=== PATIENT | female | born 1960 | race Caucasian/White ===

== ENCOUNTER 2019-12-10 | Outpatient (REF) | payer OTHER, SELFPAY ==
[2019-12-10 15:40] LABS: MANUAL DIFF FLAG NO
[2019-12-10 15:49] LABS: Basophils Percent Auto 0.4 % (0-2); Eosinophils Absolute Auto 0.2 X10*3/uL (0.0-0.4); Eosinophils Percent Auto 2.5 % (0-4); Hematocrit 33.6 % (37-47); Hemoglobin 10.3 g/dl (12.0-16.0); Imm Gran Abs Auto 0.03 X10*3/uL (0.00-0.03); Imm Gran Pct Auto 0.3 % (0.0-0.4); Lymphocytes Absolute Auto 3.3 X10*3/uL (1.2-4.9); Lymphocytes Percent Auto 35.8 % (20-40); Mean Corpuscular HGB Conc 30.7 g/dl (31.0-35.0); Mean Corpuscular Volume 71.8 fL (80-98); Mean Platelet Volume 10.8 fL (9.4-12.3); Monocytes Absolute Auto 0.6 X10*3/uL (0.1-1.2); Neutrophils Absolute Auto 5.1 X10*3/uL (2.0-8.3); Platelet Count 262 X10*3/uL (160-400); Red Blood Count 4.68 X10*6/uL (4.20-5.50); Red Cell Distribution Width 16.9 % (11.0-16.0); White Blood Count 9.3 X10*3/uL (4.8-10.8)
[2019-12-10 17:38] LABS: Ferritin 1652 ng/mL (10-250)
== END 2019-12-10 00:01 | disposition home or self-care (01) ==
LOC: HO.MDS
PROVIDERS: PCP Internal Medicine; Visit Provider Internal Medicine Medical Oncology
DX: D50.9 Iron deficiency anemia, unspecified (principal)
CPT/HCPCS: 36415; 82728; 85025; J2916

== ENCOUNTER 2019-12-18 13:58 | Outpatient (REF) | payer OTHER, SELFPAY | END 2019-12-18 13:59 | disposition home or self-care (01) | LOC: HO.MDS 13:58 | PROVIDERS: PCP Internal Medicine; Visit Provider Internal Medicine Medical Oncology | DX: D64.9 Anemia, unspecified (principal) ==

== ENCOUNTER 2019-12-24 | Outpatient (REF) | payer OTHER, SELFPAY | END 2019-12-24 00:01 | disposition home or self-care (01) | LOC: HO.MDS | PROVIDERS: PCP Internal Medicine; Visit Provider Internal Medicine Medical Oncology | DX: D50.9 Iron deficiency anemia, unspecified (principal) | CPT/HCPCS: 99213 ==

== ENCOUNTER 2020-01-28 15:44 | Emergency (ER) | payer OTHER, SELFPAY ==
[2020-01-28 16:15] VITALS: BP 151/81; PULSE 83; RESP 18; TEMP 36.4; O2SAT 99; BMI 36907.5
--- NOTE | 2020-01-28 17:04 | PC.NURSE ---
ORTHO BOOT APPLIED TO L FOOT.
--- NOTE | 2020-01-28 17:06 | ED_ITS ---
HPI - Extremity Injury (Lower) General Chief Complaint: Extremity Injury, Lower Stated Complaint: Leg injury Time Seen by Provider: 01/28/20 17:05 Source: patient Mode of arrival: ambulatory Limitations: no limitations History of Present Illness HPI Narrative: Presenting ambulatory with complaint of posterior foot pain after going upstairs and felt like playing sensation in her posterior foot/calf area. Denies fall or any other injury. Place: home Severity: mild Other symptoms: none Treatments prior to arrival: cold therapy Related Data Home Medications Medication Instructions Recorded Confirmed atorvastatin 80 mg tablet 80 mg PO DAILY 12/24/19 12/31/19 blood sugar diagnostic #10 ea 12/24/19 cyclobenzaprine 10 mg tablet 10 mg PO BEDTIME 12/24/19 12/31/19 diclofenac sodium 75 mg 75 mg PO BID 12/24/19 12/31/19 tablet,delayed release empagliflozin 25 mg tablet 25 mg PO DAILY 12/24/19 12/31/19 glimepiride 4 mg tablet 4 mg PO DAILY 12/24/19 12/31/19 insulin glargine 100 unit/mL (3 20 unit SUBCUT BEDTIME 12/24/19 12/31/19 mL) subcutaneous pen levalbuterol HCl 0.63 mg/3 mL 0.63 mg INHALATION Q OTHER DAY 12/24/19 12/31/19 solution for nebulization levalbuterol tartrate 45 45 mcg INHALATION Q4-6H PRN 12/24/19 12/31/19 mcg/actuation aerosol inhaler lisinopril 20 1 tab PO DAILY 12/24/19 12/31/19 mg-hydrochlorothiazide 12.5 mg tablet exenatide microspheres [Bydureon] 2 mg SUBCUT QWEEK 12/31/19 12/31/19 Previous Rx's Medication Instructions Recorded sodium,potassium,mag sulfates 17.5 See Rx Instructions PO .COMPLEX 12/24/19 gram-3.13 gram-1.6 gram oral soln #354 ml naproxen 500 mg PO BID PRN #14 tab 01/28/20 Allergies Allergy/AdvReac Type Severity Reaction Status Date / Time iodine [IODINE] Allergy Severe ANAPHYLAXIS Verified 01/28/20 16:15 Penicillins [PENICILLINS] Allergy Severe BREATHING Verified 01/28/20 16:15 PROBLEM shellfish derived Allergy Severe ANAPHYLAXIS Verified 01/28/20 16:15 clindamycin [CLINDAMYCIN] Allergy Intermediate HIVES Verified 01/28/20 16:15 milnacipran [From SAVELLA] Allergy Intermediate BRUISE Verified 01/28/20 16:15 vancomycin [VANCOMYCIN] Allergy Intermediate HIVES; Verified 01/28/20 16:15 ITCHING metformin Allergy Unknown diarrhea Verified 01/28/20 16:15 albuterol [ALBUTEROL] AdvReac Intermediate HEART RACES Verified 01/28/20 16:15 metformin AdvReac Stomach Uncoded 01/28/20 16:15 Upset Review of Systems Review of Systems: Constitutional: No Weight loss, No Fever, No Chills, No Night Sweats, No Fatigue, No Malaise ENT/Mouth: No Hearing loss, No Ear Pain, No Nasal Congestion, No Sinus Pain, No Hoarseness, No sore throat, No Rhinorrhea, No Swallowing Difficulty Eyes: No Eye Pain, No Swelling, No Redness, No Foreign Body, No Discharge, No Vision Changes Cardiovascular: No Chest Pain, No SOB, No Dyspnea on Exertion, No Orthopnea, No Edema, No Palpitations Respiratory: No Cough, No Sputum, No Wheezing, No Smoke Exposure, No Dyspnea Musculoskeletal: No joint pain, No Myalgias, No Joint Swelling Skin: No Skin Lesions, No rash Neuro: No Weakness, No Numbness, No Paresthesias, No Loss of Consciousness Psych: No Anxiety/Panic, No Depression Heme/Lymph: No Bruising, No Bleeding,No Lymphadenopathy Endocrine: No Polyuria, No Polydipsia, No Temperature Intolerance Yes all other systems are reviewed and are negative [facility] Past Medical History Medical History (Updated 01/28/20 @ 17:16 by Simon Vasques NP) Anemia Asthma Beta thalassemia trait Chronic fatigue syndrome Diabetes Diabetes mellitus Diverticular disease Fibromyalgia H/O deep vein thrombosis during 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 Hx of ectopic Iron deficiency Lipoma Microadenoma Mild hypercholesterolemia Obesity Sleep apnea Thalassemia Surgical History H/O sinus surgery H/O: hysterectomy Hx of laparoscopic gastric banding Family History Family History (Updated 12/31/19 @ 08:17 by Massiel Wang) Mother Thalassemia trait Maternal Aunt Thalassemia trait Maternal Uncle Thalassemia trait Social History Social History Smoking Status: Never smoker Use of substances other than those prescribed or required for medical reasons: No Advance Directives: No Advance Directives Information Provided: No Physical Exam Vital Signs: Vital Signs: Last Vital Signs Temp 97.6 F 01/28/20 16:15 Pulse 83 01/28/20 16:15 Resp 18 01/28/20 16:15 BP 151/81 H 01/28/20 16:15 Pulse Ox 99 01/28/20 16:15 Body Mass Index 69994.5 Reviewed Const: General: cooperative and healthy appearing; No acute distress or intoxicated appearing Nutritional Appearance: average body habitus Orientation/consciousness: patient oriented x3 HENMT: Head: Yes normal to inspection Ears: hearing grossly normal bilaterally Chest: Chest palpation & inspection: normal inspection of the chest Resp: Effort & Inspection: normal respiratory effort Cardio: Jugular venous distension: no JVD Neuro: General: patient oriented x3 Extrem: General: Yes normal to inspection Ankle/foot/toe images: 1. Squeeze test within normal limits Negative Homans No tender palpation over the ankle or bony landmarks. Course Course Course Narrative: AP consistent with strain type injury to the left lower calf though she does have history of partial Achilles tear I do not suspect this to be the case at this time consistent with more of a strain. Overall exam unremarkable. Placed in ortho boot will follow-up with orthopedics here at [facility]. Discharge Plan Discharge Clinical Impression: Strain of left calf muscle Patient Disposition: Home, Self-Care Instructions: Muscle Strain (ED) Additional Instructions: Ice, elevate Wear your orthopedic boot for comfort No strenuous activity Naproxen as needed for pain discomfort Prescription sent over to her pharmacy Follow-up with Orthopedics as discussed Return if any concerns or worsening symptoms Thank you Prescriptions: New naproxen 500 mg tablet 500 mg PO BID PRN (Reason: pain) Qty: 14 RF: 0 No Action Bydureon 2 mg/0.65 mL Pen Injector 2 mg SUBCUT QWEEK RF: 0 diclofenac sodium 75 mg tablet,delayed release (DR/EC) 75 mg PO BID RF: 0 cyclobenzaprine 10 mg tablet 10 mg PO BEDTIME RF: 0 Lantus Solostar U-100 Insulin 100 unit/mL (3 mL) insulin pen 20 unit subcut BEDTIME RF: 0 Jardiance 25 mg tablet 25 mg PO DAILY RF: 0 (DME) FreeStyle Lite Strips Strip See Rx Instructions strip .ROUTE .MEDSUPPLY Qty: 10 RF: 0 glimepiride 4 mg tablet 4 mg PO DAILY RF: 0 lisinopril-hydrochlorothiazide 20-12.5 mg tablet 1 tab PO DAILY RF: 0 atorvastatin 80 mg tablet 80 mg PO DAILY RF: 0 levalbuterol tartrate 45 mcg/actuation HFA aerosol inhaler 45 mcg inhalation Q4-6H PRN (Reason: Wheezing) RF: 0 levalbuterol HCl 0.63 mg/3 mL solution for nebulization 0.63 mg inhalation Q OTHER DAY RF: 0 Suprep Bowel Prep Kit 17.5-3.13-1.6 gram recon soln See Rx Instructions PO .COMPLEX Qty: 354 RF: 0 Referrals: Ana Whaley MD [Physician] - 1 week
== END 2020-01-28 17:22 | disposition home or self-care (01) ==
PROVIDERS: Emergency Provider Internal Medicine; PCP Internal Medicine
DX: M79.606 Pain in leg, unspecified (principal)
CPT/HCPCS: 99283

== ENCOUNTER 2020-10-20 16:12 | Outpatient (REF) | payer MEDICARE, SELFPAY ==
--- NOTE | ~2020-10-20 | MM_ITS ---
EXAMINATION: MM SCREENING DIGITAL BREAST TOMOSYNTHESIS, BILATERAL CLINICAL INFORMATION: Screening. Asymptomatic. The lifetime risk of breast cancer based on the Tyrer-Cuzick Model is 10%. COMPARISON: Mammography: 04/14/2018, 01/24/2016 TECHNIQUE: Digital breast tomosynthesis is performed in both the craniocaudal and mediolateral oblique views along with computer-aided detection (CAD). Synthesized 2D images are generated from the tomosynthesis. Additional right MLO and exaggerated right CC views are provided. FINDINGS: There are scattered areas of fibroglandular density (ACR BI-RADS breast composition Category b). There are no significant masses, abnormal calcifications, or other abnormalities. The axilla and skin contours are unremarkable. No significant changes. MM/MM tomosynthesis screening BI IMPRESSION: No mammographic evidence of malignancy. ASSESSMENT: BI-RADS 1: Negative RECOMMENDATION: Routine annual mammography screening. This patient's information was entered into a reminder system with a target due date for their next mammogram.
== END 2020-10-20 16:13 | disposition home or self-care (01) ==
LOC: HO.MAMMO 16:12
PROVIDERS: Visit Provider Internal Medicine
DX: Z12.31 Encounter for screening mammogram for malignant neoplasm of breast (principal)
CPT/HCPCS: 77063; 77067

== ENCOUNTER 2020-11-11 07:11 | Emergency (ER) | payer MEDICARE, OTHER, SELFPAY ==
--- NOTE | ~2020-11-11 | XR_ITS ---
EXAMINATION: XR KNEE, LEFT CLINICAL INFORMATION: Fell onto the knee. Pain. COMPARISON: None TECHNIQUE: Two views of the left knee. FINDINGS: There is mild loss of medial and patellofemoral compartment joint space with periarticular spurring. The large superior and inferior antecubital enthesophytes. Minimal free fluid is noted in the suprapatellar bursa. No visible acute fracture, dislocation or lytic process seen. XR/XR knee LT 2V IMPRESSION: Mild degenerative changes left knee joint with periarticular spurring. There are large enthesophytes along the anterior-inferior and superior patella. No acute fracture or dislocation seen.
[2020-11-11 07:30] VITALS: BP 135/77; PULSE 78; RESP 17; TEMP 37; O2SAT 99; BMI 37.5
--- NOTE | 2020-11-11 08:56 | ED_ITS ---
HPI - Extremity Injury (Lower) General Chief Complaint: Extremity Injury, Lower Stated Complaint: lt knee pain Time Seen by Provider: 11/11/20 08:28 Source: patient Mode of arrival: ambulatory Limitations: no limitations History of Present Illness HPI Narrative: Patient presents to ED for left knee pain. Patient states yesterday while cleaning the dog litter she slipped on some poop and fell onto her left knee. Patient denies body/head falling to the ground. Patient states only her knee hit the floor. Patient denies any dizziness before falling, loss of consciousness, chest pain, shortness of breath, or abdominal pain. Patient denies any history of any knee fracture or knee surgery. patient Did not hear any popping sound in knee. Related Data Home Medications Medication Instructions Recorded Confirmed atorvastatin 80 mg tablet 80 mg PO DAILY 12/24/19 12/31/19 blood sugar diagnostic #10 ea 12/24/19 cyclobenzaprine 10 mg tablet 10 mg PO BEDTIME 12/24/19 12/31/19 diclofenac sodium 75 mg 75 mg PO BID 12/24/19 12/31/19 tablet,delayed release empagliflozin 25 mg tablet 25 mg PO DAILY 12/24/19 12/31/19 glimepiride 4 mg tablet 4 mg PO DAILY 12/24/19 12/31/19 insulin glargine 100 unit/mL (3 20 unit SUBCUT BEDTIME 12/24/19 12/31/19 mL) subcutaneous pen levalbuterol HCl 0.63 mg/3 mL 0.63 mg INHALATION Q OTHER DAY 12/24/19 12/31/19 solution for nebulization levalbuterol tartrate 45 45 mcg INHALATION Q4-6H PRN 12/24/19 12/31/19 mcg/actuation aerosol inhaler lisinopril 20 1 tab PO DAILY 12/24/19 12/31/19 mg-hydrochlorothiazide 12.5 mg tablet exenatide microspheres 2 mg/0.65 2 mg SUBCUT QWEEK 12/31/19 12/31/19 mL subcutaneous pen injector ([employer]) Previous Rx's Medication Instructions Recorded sodium,potassium,mag sulfates 17.5 See Rx Instructions PO .COMPLEX 12/24/19 gram-3.13 gram-1.6 gram oral soln #354 ml (Suprep Bowel Prep Kit) naproxen 500 mg tablet 500 mg PO BID PRN #14 tab 01/28/20 cyclobenzaprine 10 mg tablet 10 mg PO TID PRN #15 tab 11/11/20 naproxen 500 mg tablet 500 mg PO BID PRN #20 tab 11/11/20 Allergies Allergy/AdvReac Type Severity Reaction Status Date / Time iodine [IODINE] Allergy Severe ANAPHYLAXIS Verified 01/28/20 16:15 Penicillins [PENICILLINS] Allergy Severe BREATHING Verified 01/28/20 16:15 PROBLEM shellfish derived Allergy Severe ANAPHYLAXIS Verified 01/28/20 16:15 clindamycin [CLINDAMYCIN] Allergy Intermediate HIVES Verified 01/28/20 16:15 milnacipran [From SAVELLA] Allergy Intermediate BRUISE Verified 01/28/20 16:15 vancomycin [VANCOMYCIN] Allergy Intermediate HIVES; Verified 01/28/20 16:15 ITCHING metformin Allergy Unknown diarrhea Verified 01/28/20 16:15 albuterol [ALBUTEROL] AdvReac Intermediate HEART RACES Verified 01/28/20 16:15 metformin AdvReac Stomach Uncoded 01/28/20 16:15 Upset Review of Systems Review of Systems: Yes all other systems are reviewed and are negative Constitutional: Constitutional: Reports as per HPI and Reports no additional constitutional complaints Eyes: Eyes: Reports as per HPI and Reports no additional eye complaints ENT: Reports system reviewed and no additional complaints, except as documented and Reports as per HPI Cardiovascular: Cardiovascular: Reports as per HPI and Reports no additional cardiovascular complaints Respiratory: Respiratory: Reports as per HPI and Reports no additional respiratory complaints Gastrointestinal: Gastrointestinal: Reports as per HPI and Reports no additional gastrointestinal complaints Genitourinary: Genitourinary: Reports no additional female genitourinary complaints and Reports as per HPI Musculoskeletal: Musculoskeletal: Reports no additional musculoskeletal complaints, Reports as per HPI and Reports arthralgias (left knee) Neurologic: Reports system reviewed and no additional complaints, except as documented and Reports as per HPI Psychiatric: Psychiatric: Reports no additional psychiatric complaints and Reports as per HPI [facility] Past Medical History Medical History (Updated 11/11/20 @ 09:09 by KYUNG Cary) Anemia Asthma Beta thalassemia trait Chronic fatigue syndrome Diabetes Diabetes mellitus Diverticular disease Fibromyalgia H/O deep vein thrombosis during 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 Hx of ectopic Iron deficiency Lipoma Microadenoma Mild hypercholesterolemia Obesity Sleep apnea Thalassemia Surgical History H/O sinus surgery H/O: hysterectomy Hx of laparoscopic gastric banding Family History Family History (Updated 12/31/19 @ 08:17 by Massiel Wang) Mother Thalassemia trait Maternal Aunt Thalassemia trait Maternal Uncle Thalassemia trait Social History Social History Advance Directives: No Advance Directives Information Provided: No Physical Exam Vital Signs: Vital Signs: Last Vital Signs Temp 98.6 F 11/11/20 07:30 Pulse 78 11/11/20 07:30 Resp 17 11/11/20 07:30 BP 135/77 11/11/20 07:30 Pulse Ox 99 11/11/20 07:30 Body Mass Index 37.5 Const: General: cooperative, healthy appearing, comfortable, no acute distress, well developed, alert, awake and Physically active Orientation/consciousness: patient oriented x3 HENMT: Head: Yes normal to inspection, Yes No palpable skull fracture present, Yes normocephalic, Yes atraumatic, No abrasion, No Acrocyanosis present, No Hurt's sign, No contusion, No cranial bruits, No hematoma, No laceration, No occipital foramen tenderness, No palpable skull fracture, No raccoon eyes, No scalp lesion, No scalp tenderness, No Temporal artery tenderness present and No periorbital ecchymosis Eyes: General: appearance normal, both eyes and all related structures Neck: Neck: Yes normal visual inspection, Yes full ROM, Yes no lymphadenopathy, Yes no meningeal signs, Yes trachea midline, Yes supple and No tender Chest: Chest palpation & inspection: normal inspection of the chest and normal palpation of entire chest wall Resp: Effort & Inspection: normal respiratory effort and able to speak in complete sentences Auscultation: clear to auscultation bilaterally Cardio: Jugular venous distension: no JVD Heart sounds: S1 normal heart sound present and S2 normal heart sound present GI: Inspection: Yes normal to inspection and No abdominal wall ecchymosis Palpation (GI): Soft to palpation, not firm, nontender, no guarding and not rigid : General: No CVA tenderness and Yes no CVA tenderness Back/Spine/Pelvis: Back: no CVA tenderness, No CVA tenderness and No back tenderness Skin: General skin exam: no rashes or lesions noted and elasticity normal Neuro: General: patient oriented x3, gait normal, no meningeal signs and CN's II-XI intact bilaterally Cranial nerves: Yes CN's II-XII intact bilaterally Extrem: General: Yes normal to inspection and Yes full ROM Knee images: 1. Tenderness on palpation. Negative for any erythema, ecchymosis, deformity, or elasticity. Lower extremity pulses intact. Vascular/motor/neuro exam intact 2. Tenderness on palpation. Negative for any erythema, ecchymosis, deformity, or elasticity. Lower extremity pulses intact. Vascular/motor/neuro exam intact Course Course Course Narrative: Patient sent for imaging of nv. Reevaluation(s) Reevaluation #1: Patient given Toradol knee x-ray negative for any fracture. Patient placed in knee Clint wrap. Patient will be discharged with naproxen and cyclobenzaprine. Patient discharged with muscle relaxer. Patient states she no longer take diclofenac.. MDM - Extremity Injury (Lower) MDM Narrative Medical decision making narrative: left knee sprain. contusino Discharge Plan Discharge Clinical Impression: Knee sprain, Contusion Patient Disposition: Home, Self-Care Instructions: Knee Sprain (ED), Contusion in Adults (ED) Additional Instructions: Your x-rays came back negative for any fracture injure shows arthritis. His pain is due to a possible strain in knee versus contusion. If pain continued to worsen recommend MRI by PCP to make sure there is no tear or meninscus/ ligament injury. Return to the ED immediately for any chest pain, shortness of breath, headache, dizziness, abdominal pain, nausea, vomiting, rectal bleeding, vomiting blood, neck pain, swelling of lower extremity, redness, calf pain, black bluish discoloration of stools, or any other concerning symptoms Prescriptions: New naproxen 500 mg tablet 500 mg PO BID PRN (Reason: pain) Qty: 20 RF: 0 cyclobenzaprine 10 mg tablet 10 mg PO TID PRN (Reason: pain) Qty: 15 RF: 0 No Action naproxen 500 mg tablet 500 mg PO BID PRN (Reason: pain) Qty: 14 RF: 0 Bydureon 2 mg/0.65 mL Pen Injector 2 mg SUBCUT QWEEK RF: 0 diclofenac sodium 75 mg tablet,delayed release (DR/EC) 75 mg PO BID RF: 0 cyclobenzaprine 10 mg tablet 10 mg PO BEDTIME RF: 0 Lantus Solostar U-100 Insulin 100 unit/mL (3 mL) insulin pen 20 unit subcut BEDTIME RF: 0 Jardiance 25 mg tablet 25 mg PO DAILY RF: 0 (DME) FreeStyle Lite Strips Strip See Rx Instructions strip .ROUTE .MEDSUPPLY Qty: 10 RF: 0 glimepiride 4 mg tablet 4 mg PO DAILY RF: 0 lisinopril-hydrochlorothiazide 20-12.5 mg tablet 1 tab PO DAILY RF: 0 atorvastatin 80 mg tablet 80 mg PO DAILY RF: 0 levalbuterol tartrate 45 mcg/actuation HFA aerosol inhaler 45 mcg inhalation Q4-6H PRN (Reason: Wheezing) RF: 0 levalbuterol HCl 0.63 mg/3 mL solution for nebulization 0.63 mg inhalation Q OTHER DAY RF: 0 Suprep Bowel Prep Kit 17.5-3.13-1.6 gram recon soln See Rx Instructions PO .COMPLEX Qty: 354 RF: 0 Referrals: Frances Cutler MD [Primary Care Provider] - 2 days (Left knee sprain/contusion. Recommend MRI if pain worsens. ) Stand Alone Forms: Work/School Release Interventions: ED Discharge Assessment Last Done: 11/11/20 09:30 Discharge Date/Time: 11/11/20 09:31 Print Language: Frisian
[2020-11-11] MEDS: Ketorolac Tromethamine 15 MG/ML VIAL 30 MG IM (09:01)
== END 2020-11-11 09:31 | disposition home or self-care (01) ==
PROVIDERS: Emergency Provider Emergency Medicine; PCP Internal Medicine
DX: S83.92XA Sprain of unspecified site of left knee, initial encounter (principal); S80.02XA Contusion of left knee, initial encounter; W01.0XXA Fall on same level from slipping, tripping and stumbling without subsequent striking against object, initial encounter; Y93.89 Activity, other specified; Y92.017 Garden or yard in single-family (private) house as the place of occurrence of the external cause; Y99.9 Unspecified external cause status
CPT/HCPCS: 73560; 96372; 99283; 99284; J1885

== ENCOUNTER 2020-12-26 07:27 | Outpatient (REF) | payer MEDICARE, OTHER, SELFPAY ==
[2020-12-26 07:50] LABS: MANUAL DIFF FLAG NO
[2020-12-26 08:06] LABS: Basophils Percent Auto 0.5 % (0-2); Eosinophils Absolute Auto 0.3 X10*3/uL (0.0-0.4); Hematocrit 37.4 % (37-47); Hemoglobin 11.6 g/dl (12.0-16.0); Imm Gran Abs Auto 0.03 X10*3/uL (0.00-0.03); Imm Gran Pct Auto 0.3 % (0.0-0.4); Lymphocytes Absolute Auto 3.4 X10*3/uL (1.2-4.9); Mean Corpuscular Hemoglobin 21.6 pg (27.0-33.0); Mean Corpuscular Volume 69.8 fL (80-98); Mean Platelet Volume 11.4 fL (9.4-12.3); Monocytes Absolute Auto 0.5 X10*3/uL (0.1-1.2); Monocytes Percent Auto 5.9 % (2-11); Neutrophils Absolute Auto 4.3 X10*3/uL (2.0-8.3); Neutrophils Percent Auto 50.3 % (45-73); Platelet Count 235 X10*3/uL (160-400); Red Blood Count 5.36 X10*6/uL (4.20-5.50); Red Cell Distribution Width 14.6 % (11.0-16.0); White Blood Count 8.6 X10*3/uL (4.8-10.8)
[2020-12-26 08:34] LABS: Alanine Aminotransferase 41 U/L (0-31); Anion Gap 12 (12-20); Aspartate Amino Transferase 31 U/L (5-31); Bilirubin Total 0.5 mg/dL (0.0-1.0); Blood Urea Nitrogen 11 mg/dL (9-16); Calcium 8.9 mg/dL (8.4-10.2); Carbon Dioxide 26 mmol/L (22-29); Chloride 104 mmol/L (96-108); Estimated Glomerular Filt Rate > 60; Glucose Random 331 mg/dL (60-115); Sodium 138 mmol/L (135-145); Total Protein 6.7 g/dL (6.5-8.0)
[2020-12-26 08:35] LABS: Alkaline Phosphatase 92 U/L (39-117); Cholesterol 233 mg/dL; HDL Cholesterol 38 mg/dL; LDL Cholesterol Calculated 139 mg/dl; Triglycerides 284 mg/dL
[2020-12-26 08:43] LABS: Creatinine Urine 219.76 mg/dL; Microalbum/Creatinine Ratio Ur 6.8 ug/mg cr
[2020-12-26 09:03] LABS: Hemoglobin A1c % > 14.0 %
== END 2020-12-26 07:28 | disposition home or self-care (01) ==
LOC: HO.LAB 07:27
PROVIDERS: PCP Internal Medicine; Visit Provider Internal Medicine
DX: E11.65 Type 2 diabetes mellitus with hyperglycemia (principal); E78.00 Pure hypercholesterolemia, unspecified; I10 Essential (primary) hypertension; L82.0 Inflamed seborrheic keratosis
CPT/HCPCS: 36415; 80053; 80061; 82043; 83036; 85025

== ENCOUNTER 2021-01-03 13:10 | Emergency (ER) | payer MEDICARE, OTHER, SELFPAY ==
[2021-01-03 13:18] VITALS: BP 115/76; PULSE 101; RESP 18; TEMP 37.1; O2SAT 96; BMI 36.6
[2021-01-03] MEDS: Lidocaine HCl 2 % MPF 5 ML VIAL SUBCUT (15:55)
--- NOTE | 2021-01-03 16:22 | ED_ITS ---
HPI - Skin/Abscess/Foreign Bdy General Chief complaint: Skin/Abscess/Foreign Body Stated complaint: Cysts Time Seen by Provider: 01/03/21 15:33 Source: patient Mode of arrival: ambulatory Limitations: no limitations History of Present Illness HPI narrative: 60-year-old female here with complaints of abscess to the left axilla, right buttocks and right vulva for several days. No fevers or chills. Started doxycycline on but having continued pain. Related Data Home Medications Medication Instructions Recorded Confirmed atorvastatin 80 mg tablet 80 mg PO DAILY 12/24/19 12/31/19 blood sugar diagnostic #10 ea 12/24/19 cyclobenzaprine 10 mg tablet 10 mg PO BEDTIME 12/24/19 12/31/19 diclofenac sodium 75 mg 75 mg PO BID 12/24/19 12/31/19 tablet,delayed release empagliflozin 25 mg tablet 25 mg PO DAILY 12/24/19 12/31/19 glimepiride 4 mg tablet 4 mg PO DAILY 12/24/19 12/31/19 insulin glargine 100 unit/mL (3 20 unit SUBCUT BEDTIME 12/24/19 12/31/19 mL) subcutaneous pen levalbuterol HCl 0.63 mg/3 mL 0.63 mg INHALATION Q OTHER DAY 12/24/19 12/31/19 solution for nebulization levalbuterol tartrate 45 45 mcg INHALATION Q4-6H PRN 12/24/19 12/31/19 mcg/actuation aerosol inhaler lisinopril 20 1 tab PO DAILY 12/24/19 12/31/19 mg-hydrochlorothiazide 12.5 mg tablet exenatide microspheres 2 mg/0.65 2 mg SUBCUT QWEEK 12/31/19 12/31/19 mL subcutaneous pen injector ([employer]) Previous Rx's Medication Instructions Recorded sodium,potassium,mag sulfates 17.5 See Rx Instructions PO .COMPLEX 12/24/19 gram-3.13 gram-1.6 gram oral soln #354 ml (Suprep Bowel Prep Kit) naproxen 500 mg tablet 500 mg PO BID PRN #14 tab 01/28/20 cyclobenzaprine 10 mg tablet 10 mg PO TID PRN #15 tab 11/11/20 naproxen 500 mg tablet 500 mg PO BID PRN #20 tab 11/11/20 hydrocodone 5 mg-acetaminophen 300 1 tab PO Q6H PRN #8 tab 01/03/21 mg tablet Allergies Allergy/AdvReac Type Severity Reaction Status Date / Time iodine [IODINE] Allergy Severe ANAPHYLAXIS Verified 01/28/20 16:15 Penicillins [PENICILLINS] Allergy Severe BREATHING Verified 01/28/20 16:15 PROBLEM shellfish derived Allergy Severe ANAPHYLAXIS Verified 01/28/20 16:15 clindamycin [CLINDAMYCIN] Allergy Intermediate HIVES Verified 01/28/20 16:15 milnacipran [From SAVELLA] Allergy Intermediate BRUISE Verified 01/28/20 16:15 vancomycin [VANCOMYCIN] Allergy Intermediate HIVES; Verified 01/28/20 16:15 ITCHING metformin Allergy Unknown diarrhea Verified 01/28/20 16:15 albuterol [ALBUTEROL] AdvReac Intermediate HEART RACES Verified 01/28/20 16:15 metformin AdvReac Stomach Uncoded 01/28/20 16:15 Upset Review of Systems Review of Systems: Yes all other systems are reviewed and are negative Constitutional: Constitutional: Reports no additional constitutional complaints, Denies body ache(s), Denies chills, Denies fever(s), Denies headache(s) and Denies weakness Eyes: Eyes: Reports no additional eye complaints and Denies change in vision ENT: Reports system reviewed and no additional complaints, except as docum ented, Denies dizziness, Denies headache(s), Denies nasal congestion, Denies nasal discharge and Denies neck pain Cardiovascular: Cardiovascular: Reports no additional cardiovascular complaints, Denies chest pain, Denies leg edema and Denies dyspnea Respiratory: Respiratory: Reports no additional respiratory complaints, Denies cough and Denies dyspnea Gastrointestinal: Gastrointestinal: Reports no additional gastrointestinal complaints, Denies abdominal pain, Denies diarrhea, Denies nausea and Denies vomiting Genitourinary: Genitourinary: Reports no additional female genitourinary complaints and Denies urinary incontinence Musculoskeletal: Musculoskeletal: Reports no additional musculoskeletal complaints, Denies back pain, Denies arthralgias, Denies joint swelling, Denies neck pain, Denies numbness and Denies tingling Integumentary/Breasts: Skin/Breast: Reports system reviewed and no additional complaints, except as docu, Reports furuncle, Reports swelling, Reports erythema and Denies rash Neurologic: Reports system reviewed and no additional complaints, except as documented, Denies Abnormal speech present, Denies dizziness, Denies headache(s), Denies numbness, Denies tingling and Denies weakness PMFSH Past Medical History Attestation statement: The following information was validated with the patient. 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 Hx of ectopic Iron deficiency Lipoma Microadenoma Mild hypercholesterolemia Obesity Sleep apnea Thalassemia Surgical History H/O sinus surgery H/O: hysterectomy Hx of laparoscopic gastric banding Family History Family History Mother Thalassemia trait Maternal Aunt Thalassemia trait Maternal Uncle Thalassemia trait Social History Social History Advance Directives: No Advance Directives Information Provided: No Patient : No Physical Exam Vital Signs: Vital Signs: Last Vital Signs Temp 98.8 F 01/03/21 13:18 Pulse 101 H 01/03/21 13:18 Resp 18 01/03/21 13:18 BP 115/76 01/03/21 13:18 Pulse Ox 96 01/03/21 13:18 Body Mass Index 36.6 Const: General: cooperative, healthy appearing, comfortable and no acute distress Orientation/consciousness: patient oriented x3 Limitations: no limitations HENMT: Head: Yes normal to inspection Ears: hearing grossly normal bilaterally General nose exam: Normal external nose present Face and sinus: Yes normal facial exam Mouth: Normal oral and palatal mucosa present Throat: Yes posterior oropharynx normal Eyes: General: appearance normal, both eyes and all related structures Pupils: Equal, round and reactive pupils present Neck: Neck: Yes normal visual inspection Chest: Chest palpation & inspection: normal inspection of the chest Chest/axillae images: 1. medium size abscess with firmness. No fluctuance or pointing. There is tenderness. No lymphadenopathy Resp: Effort & Inspection: normal respiratory effort Auscultation: clear to auscultation bilaterally Cardio: Rate: regular rate Rhythm: regular rhythm Peripheral pulses: Peripheral pulses 2+ throughout GI: Inspection: Yes normal to inspection Palpation (GI): Soft to palpation and nontender Auscultation: normal bowel sounds : Female genitals images: 1. Medium abscess with fluctuance, tenderness and swelling Back/Spine/Pelvis: Other: To the right buttocks there is a medium-sized abscess with induration. No fluctuance or pointing. There is tenderness Thoracic/Lumbar Spine: thoracic and lumbar spine normal to inspection Skin: General skin exam: no rashes or lesions noted Neuro: General: patient oriented x3, no focal motor deficits and normal sensation to monofilament Cranial nerves: Yes Equal, round and reactive pupils present Cognition (Neuro): normal cognition Speech: No Abnormal speech present Gait exam (Neuro): Normal gait present Motor exam (neuro): 5/5 motor strength present throughout Extrem: General: Yes normal to inspection Course Course Course Narrative: 60-year-old female here with 3 abscesses 1 that needs incision and drainage. She is on doxycycline already no fevers or chills well appearing.. See procedure note for right vulvar abscess I and D. Patient to return in 48 hours for wound check and packing removal. Recommend she continue doxycycline. Will prescribe analgesia for home. Reviewed worrisome signs and symptoms return to the emergency department. Comfortable discharge home. MDM - Skin/Abscess/Foreign Bdy Medical Records Attestation: I reviewed the patient's medical records. Lab Data Attestation: I reviewed the patient's lab results. Procedures Abscess I/D Site: other (Right vulva) Side (if applicable): right Local Anesthetic: lidocaine 2% Technique: incised with blade Amount of fluid expressed (mL): 8 Sent for culture/gram staining?: No Irrigation: No Packing used?: iodoform Discharge Plan Discharge Clinical Impression: Abscess of skin or subcutaneous tissue Patient Disposition: Home, Self-Care Instructions: Abscess (ED), Abscess Incision and Drainage (DC) Additional Instructions: Packing removal in 48 hrs Seek care for increasing redness, swelling, fevers Continue antibiotics Prescriptions: New hydrocodone-acetaminophen 5-300 mg tablet 1 tab PO Q6H PRN (Reason: pain) Qty: 8 RF: 0 No Action naproxen 500 mg tablet 500 mg PO BID PRN (Reason: pain) Qty: 14 RF: 0 naproxen 500 mg tablet 500 mg PO BID PRN (Reason: pain) Qty: 20 RF: 0 cyclobenzaprine 10 mg tablet 10 mg PO TID PRN (Reason: pain) Qty: 15 RF: 0 Bydureon 2 mg/0.65 mL Pen Injector 2 mg SUBCUT QWEEK RF: 0 diclofenac sodium 75 mg tablet,delayed release (DR/EC) 75 mg PO BID RF: 0 cyclobenzaprine 10 mg tablet 10 mg PO BEDTIME RF: 0 Lantus Solostar U-100 Insulin 100 unit/mL (3 mL) insulin pen 20 unit subcut BEDTIME RF: 0 Jardiance 25 mg tablet 25 mg PO DAILY RF: 0 (DME) FreeStyle Lite Strips Strip See Rx Instructions strip .ROUTE .MEDSUPPLY Qty: 10 RF: 0 glimepiride 4 mg tablet 4 mg PO DAILY RF: 0 lisinopril-hydrochlorothiazide 20-12.5 mg tablet 1 tab PO DAILY RF: 0 atorvastatin 80 mg tablet 80 mg PO DAILY RF: 0 levalbuterol tartrate 45 mcg/actuation HFA aerosol inhaler 45 mcg inhalation Q4-6H PRN (Reason: Wheezing) RF: 0 levalbuterol HCl 0.63 mg/3 mL solution for nebulization 0.63 mg inhalation Q OTHER DAY RF: 0 Suprep Bowel Prep Kit 17.5-3.13-1.6 gram recon soln See Rx Instructions PO .COMPLEX Qty: 354 RF: 0 Referrals: Frances Cutler MD [Primary Care Provider] - 2 days
[2021-01-03] MEDS: oxyCODONE HCl Immed Release 5 MG TABLET PO (17:20)
== END 2021-01-03 17:23 | disposition home or self-care (01) ==
PROVIDERS: Emergency Provider Emergency Medicine; PCP Internal Medicine
DX: N76.4 Abscess of vulva (principal); Z79.899 Other long term (current) drug therapy
CPT/HCPCS: 56405; 99284

== ENCOUNTER 2021-01-10 09:32 | Emergency (ER) | payer MEDICARE, OTHER, SELFPAY ==
--- NOTE | ~2021-01-10 | US_ITS ---
EXAMINATION: TARGETED ULTRASOUND EXAMINATION RIGHT BUTTOCK REGION CLINICAL INFORMATION: Question abscess COMPARISON: None TECHNIQUE: Targeted ultrasound evaluation of the right buttocks FINDINGS: In the region that the patient indicates about the right buttocks there is a hypoechoic region which is irregularly shaped measuring approximately 6 mm in size. This lies approximately 7 mm from the skin surface. There is noted to be large amount of adjacent edema within the subcutaneous tissues. No internal vascularity is appreciated. There is some peripheral vascularity. US/US extremity nonvascular IMPRESSION: Subcutaneous edema with small 6 mm hypoechoic region about the right buttocks which could be related to small abscess or fluid collection.
[2021-01-10 09:34] VITALS: BP 136/83; PULSE 86; RESP 18; TEMP 35.9; O2SAT 99; BMI 35.8
--- NOTE | 2021-01-10 10:09 | ED_ITS ---
HPI - Recheck/Abnormal Lab/Rx General Chief Complaint: Wound/Laceration Stated Complaint: cyst Time Seen by Provider: 01/10/21 09:47 Source: patient Mode of arrival: ambulatory Limitations: no limitations History of Present Illness HPI narrative: 60-year-old female presenting to the ED with request for recheck of her cellulitis/abscesses that were I&D on 01/03/2021. She reports that she was seen at a different location and was placed on doxycycline/Bactrim the before she was seen here along with pain meds and she is taking the doxycycline and Bactrim as prescribed and she believes that the left axillary and the right labia abscess is better and completely here old although she is concerned about the right buttocks abscess that it is now more red than it was before. She denies a history of MRSA. She denies any fevers, chills, streaking, body aches come recent travel or sick contacts or any other symptoms complaints or concerns at this time. MD complaint: wound re-check Initial visit (ago): week(s) (One week ago on 01/03/2021) Initial visit for: cellulitis and abscess Returns today for: wound recheck and cellulitis follow-up Symptoms since prior visit: worsening redness (To the right buttocks) Associated symptoms: none Treatments prior to arrival: other (She was prescribed doxycycline and Bactrim and pain meds on at a different location and is taking as prescribed as not had to take the pain meds) Related Data Home Medications Medication Instructions Recorded Confirmed atorvastatin 80 mg tablet 80 mg PO DAILY 12/24/19 12/31/19 blood sugar diagnostic #10 ea 12/24/19 cyclobenzaprine 10 mg tablet 10 mg PO BEDTIME 12/24/19 12/31/19 diclofenac sodium 75 mg 75 mg PO BID 12/24/19 12/31/19 tablet,delayed release empagliflozin 25 mg tablet 25 mg PO DAILY 12/24/19 12/31/19 glimepiride 4 mg tablet 4 mg PO DAILY 12/24/19 12/31/19 insulin glargine 100 unit/mL (3 20 unit SUBCUT BEDTIME 12/24/19 12/31/19 mL) subcutaneous pen levalbuterol HCl 0.63 mg/3 mL 0.63 mg INHALATION Q OTHER DAY 12/24/19 12/31/19 solution for nebulization levalbuterol tartrate 45 45 mcg INHALATION Q4-6H PRN 12/24/19 12/31/19 mcg/actuation aerosol inhaler lisinopril 20 1 tab PO DAILY 12/24/19 12/31/19 mg-hydrochlorothiazide 12.5 mg tablet exenatide microspheres 2 mg/0.65 2 mg SUBCUT QWEEK 12/31/19 12/31/19 mL subcutaneous pen injector (Wipster) Previous Rx's Medication Instructions Recorded sodium,potassium,mag sulfates 17.5 See Rx Instructions PO .COMPLEX 12/24/19 gram-3.13 gram-1.6 gram oral soln #354 ml (Suprep Bowel Prep Kit) naproxen 500 mg tablet 500 mg PO BID PRN #14 tab 01/28/20 cyclobenzaprine 10 mg tablet 10 mg PO TID PRN #15 tab 11/11/20 naproxen 500 mg tablet 500 mg PO BID PRN #20 tab 11/11/20 hydrocodone 5 mg-acetaminophen 300 1 tab PO Q6H PRN #8 tab 01/03/21 mg tablet Allergies Allergy/AdvReac Type Severity Reaction Status Date / Time iodine [IODINE] Allergy Severe ANAPHYLAXIS Verified 01/28/20 16:15 Penicillins [PENICILLINS] Allergy Severe BREATHING Verified 01/28/20 16:15 PROBLEM shellfish derived Allergy Severe ANAPHYLAXIS Verified 01/28/20 16:15 clindamycin [CLINDAMYCIN] Allergy Intermediate HIVES Verified 01/28/20 16:15 milnacipran [From SAVELLA] Allergy Intermediate BRUISE Verified 01/28/20 16:15 vancomycin [VANCOMYCIN] Allergy Intermediate HIVES; Verified 01/28/20 16:15 ITCHING metformin Allergy Unknown diarrhea Verified 01/28/20 16:15 albuterol [ALBUTEROL] AdvReac Intermediate HEART RACES Verified 01/28/20 16:15 metformin AdvReac Stomach Uncoded 01/28/20 16:15 Upset Review of Systems Review of Systems: Constitutional : No Fever, No Chills, Cardiovascular : No Chest Pain, No SOB Respiratory : No Dyspnea Gastrointestinal : No abdominal pain Musculoskeletal : No Joint Swelling Skin : positive skin erythema, no skin laceration, No Foreign bodies, No rash Neuro : No Weakness, No Numbness/tingling Psych : No SI/HI/thoughts of self injury Yes all other systems are reviewed and are negative [facility] Past Medical History Attestation statement: The following information was validated with the patient. 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 Hx of ectopic Iron deficiency Lipoma Microadenoma Mild hypercholesterolemia Obesity Sleep apnea Thalassemia Surgical History H/O sinus surgery H/O: hysterectomy Hx of laparoscopic gastric banding Family History Family History Mother Thalassemia trait Maternal Aunt Thalassemia trait Maternal Uncle Thalassemia trait Social History Social History Advance Directives: No Patient : No Physical Exam Vital Signs: Vital Signs: Last Vital Signs Temp 96.6 F L 01/10/21 09:34 Pulse 86 01/10/21 09:34 Resp 18 01/10/21 09:34 BP 136/83 01/10/21 09:34 Pulse Ox 99 01/10/21 09:34 Body Mass Index 35.8 vital signs have been reviewed as normal and appeared to be correct. Blood pressure normal Heart rate normal. Respiration rate normal. Temperature normal. Oxygen saturation normal. Appearance: Alert. Oriented X3. No acute distress. Head: Normal external exam. Normocephalic. Atraumatic. Eyes: PERRLA. EOMI. Conjunctiva and sclera normal. Eyelids normal. ENT: Pharynx normal. Uvula midline. Moist mucous membranes. Neck: Normal inspection. Neck supple. FROM. CVS: Normal heart rate and rhythm. Respiratory: No respiratory distress. Painless inspiration. Skin: Skin warm and dry. Normal skin color. Normal skin turgor. No rashes/lesions/lacerations noted. /Buttocks area: To the right labia patient has a well-healing wound no surrounding erythema tenderness to palpation or drainage noted. To the right buttocks patient has mild induration with tenderness palpation and erythema no streaking/fluctuance or purulent drainage noted. Extremities: No lower extremity edema. Extremities exhibit normal range of motion. Extremities nontender. Neuro: Oriented X 3. No motor deficit. No sensory deficit. Reflexes normal. Normal steady gait. No focal neuro deficits noted. Course Course Course Narrative: 9:55am - 60-year-old female presenting to the ED with request for recheck of her cellulitis/abscesses that were I&D on 01/03/2021. She reports that she was seen at a different location and was placed on doxycycline/Bactrim the before she was seen here along with pain meds and she is taking the doxycycline and Bactrim as prescribed and she believes that the left axillary and the right labia abscess is better and completely here old although she is concerned about the right buttocks abscess that it is now more red than it was before. She denies a history of MRSA. She denies any fevers, chills, streaking, body aches come recent travel or sick contacts or any other symptoms complaints or concerns at this time. Will obtain a soft tissue ultrasound of right buttocks if negative will instruct to continue taking her previously prescribed antibiotics as previously prescribed and to return if any new or worsening symptoms. Patient understands agrees with this plan. Reevaluation(s) Reevaluation #1: - ultrasound obtained reveals subcutaneous edema with a small 6 mm hypoechoic region about the right buttocks which could be related to small abscess or fluid collection.? - therefore I explained this to the patient and recommended an I and D for a pos sible abscess although patient is declining she does not really want to have a repeat I&D and she wants to continue taking her antibiotics reports she has approximately 1 week left and she has an appointment with her PCP on Tuesday and she would rather just do warm compresses and follow up with her PCP to see if he gets better at that time. Therefore I explained to her if it gets worse she needs to return although to follow-up with her PCP on Tuesday and to keep taking her antibiotics as previously prescribed. Patient understands agrees with this plan. Time: 11:24 [facility] - Recheck/Abnormal Lab/Rx Medical Records Attestation: I reviewed the patient's medical records. Imaging Data Soft tissue ultrasound of right buttock: Attestation: I personally reviewed and interpreted this imaging study as follows: Radiologist's impression: FINDINGS: In the region that the patient indicates about the right buttocks there is a hypoechoic region which is irregularly shaped measuring approximately 6 mm in size. This lies approximately 7 mm from the skin surface. There is noted to be large amount of adjacent edema within the subcutaneous tissues. No internal vascularity is appreciated. There is some peripheral vascularity.? US/US extremity nonvascular IMPRESSION: Subcutaneous edema with small 6 mm hypoechoic region about the right buttocks which could be related to small abscess or fluid collection.? Discharge Plan Discharge Clinical Impression: Abscess, Cellulitis Patient Disposition: Home, Self-Care Instructions: Cellulitis (ED), Warm Compress or Soak (ED) Additional Instructions: Continue taking your previously prescribed antibiotics as previously prescribed. Please follow-up with her primary care provider on Tuesday as scheduled. Return if any new or worsening symptoms. Prescriptions: No Action naproxen 500 mg tablet 500 mg PO BID PRN (Reason: pain) Qty: 14 RF: 0 naproxen 500 mg tablet 500 mg PO BID PRN (Reason: pain) Qty: 20 RF: 0 cyclobenzaprine 10 mg tablet 10 mg PO TID PRN (Reason: pain) Qty: 15 RF: 0 Bydureon 2 mg/0.65 mL Pen Injector 2 mg SUBCUT QWEEK RF: 0 hydrocodone-acetaminophen 5-300 mg tablet 1 tab PO Q6H PRN (Reason: pain) Qty: 8 RF: 0 diclofenac sodium 75 mg tablet,delayed release (DR/EC) 75 mg PO BID RF: 0 cyclobenzaprine 10 mg tablet 10 mg PO BEDTIME RF: 0 Lantus Solostar U-100 Insulin 100 unit/mL (3 mL) insulin pen 20 unit subcut BEDTIME RF: 0 Jardiance 25 mg tablet 25 mg PO DAILY RF: 0 (DME) FreeStyle Lite Strips Strip See Rx Instructions strip .ROUTE .MEDSUPPLY Qty: 10 RF: 0 glimepiride 4 mg tablet 4 mg PO DAILY RF: 0 lisinopril-hydrochlorothiazide 20-12.5 mg tablet 1 tab PO DAILY RF: 0 atorvastatin 80 mg tablet 80 mg PO DAILY RF: 0 levalbuterol tartrate 45 mcg/actuation HFA aerosol inhaler 45 mcg inhalation Q4-6H PRN (Reason: Wheezing) RF: 0 levalbuterol HCl 0.63 mg/3 mL solution for nebulization 0.63 mg inhalation Q OTHER DAY RF: 0 Suprep Bowel Prep Kit 17.5-3.13-1.6 gram recon soln See Rx Instructions PO .COMPLEX Qty: 354 RF: 0 Referrals: Frances Cutler MD [Primary Care Provider] - 2 days Print Language: Belizean
== END 2021-01-10 11:40 | disposition home or self-care (01) ==
PROVIDERS: Emergency Provider Emergency Medicine Emergency Medical Services; PCP Internal Medicine
DX: L03.317 Cellulitis of buttock (principal); Z79.899 Other long term (current) drug therapy
CPT/HCPCS: 76882; 99283; 99284

== ENCOUNTER 2021-02-12 09:33 | Emergency (ER) | payer MEDICARE, OTHER, SELFPAY ==
--- NOTE | ~2021-02-12 | CT_ITS ---
EXAMINATION: CT ABDOMEN AND PELVIS WITHOUT CONTRAST CLINICAL INFORMATION: Tenderness to palpation of the abdomen. Black stool. Abdominal pain. COMPARISON: 03/29/2019 TECHNIQUE: Multidetector volumetric imaging was performed from the superior aspect of the liver through the pubic symphysis. Sagittal and coronal reformatted images were obtained on the technologist's workstation. This CT examination was performed using dose optimization techniques as appropriate, variously including the following: *Automated exposure control *Adjustment of mA and/or kV according to patient size (this includes techniques or standardized protocols for targeted exams where dose is matched to indication/reason for exam; i.e. extremities or head) *Use of iterative reconstruction technique DLP: 646 mGy-cm FINDINGS: LUNG BASES: The visualized lung bases are unremarkable. LIVER, GALLBLADDER, AND BILIARY TREE: The liver is normal in size, shape, and attenuation. No focal hepatic lesion or biliary ductal dilatation is present. The gallbladder is unremarkable with no evidence of radiopaque gallstones, gallbladder wall thickening, or obvious pericholecystic inflammatory changes. PANCREAS: Unremarkable. SPLEEN: Unremarkable. ADRENAL GLANDS: Unremarkable. KIDNEYS AND URETERS: The kidneys are normal in size, shape, and attenuation. No hydronephrosis, hydroureter, or calculi seen. No perinephric stranding. BLADDER: Unremarkable. GASTROINTESTINAL TRACT: The stomach is unremarkable. Normal caliber small bowel. No obstruction. Normal appendix. No colonic wall thickening or acute inflammatory change. There is prominent diverticulosis at the sigmoid colon. No evidence of diverticulitis. No free air or free fluid. ABDOMINAL WALL: Small fat-containing ventral abdominal wall hernias noted. LYMPH NODES: Normal. VASCULAR: Unremarkable. PELVIC VISCERA: Uterus is not seen. No adnexal mass. OSSEOUS STRUCTURES: No acute or suspicious osseous abnormality. Mild degenerative changes of the spine and hips. CT/CT abdomen pelvis wo con IMPRESSION: No acute findings of the abdomen or pelvis. Colonic diverticulosis without diverticulitis. No inflammatory changes. Fleischner guidelines were followed.
[2021-02-12 09:55] VITALS: BP 139/82; PULSE 88; RESP 18; TEMP 36.6; O2SAT 99; BMI 37.1
[2021-02-12] MEDS: 0.9 % Sodium Chloride 1,000 ML 999 ML IVCONT (10:23)
[2021-02-12 10:28] LABS: MANUAL DIFF FLAG NO
[2021-02-12 10:29] LABS: Basophils Percent Auto 0.3 % (0-2); Eosinophils Absolute Auto 0.2 X10*3/uL (0.0-0.4); Eosinophils Percent Auto 2.7 % (0-4); Hematocrit 34.1 % (37.0-47.0); Hemoglobin 10.6 g/dl (12.0-16.0); Imm Gran Abs Auto 0.03 X10*3/uL (0.00-0.03); Imm Gran Pct Auto 0.3 % (0.0-0.4); Lymphocytes Absolute Auto 2.5 X10*3/uL (1.2-4.9); Lymphocytes Percent Auto 28.7 % (20-40); Mean Corpuscular HGB Conc 31.1 g/dl (31.0-35.0); Mean Corpuscular Volume 70.7 fL (80.0-98.0); Mean Platelet Volume 11.1 fL (9.4-12.3); Monocytes Absolute Auto 0.5 X10*3/uL (0.1-1.2); Monocytes Percent Auto 5.4 % (2-11); Neutrophils Absolute Auto 5.4 x10*3/uL (2.0-8.3); Neutrophils Percent Auto 62.6 % (45-73); Platelet Count 267 X10*3/uL (160-400); Red Blood Count 4.82 X10*6/uL (4.20-5.50); Red Cell Distribution Width 15.8 % (11.0-16.0); White Blood Count 8.7 X10*3/uL (4.8-10.8)
[2021-02-12 10:33] LABS: OBS Int Ctl Valid YES; OBS1 NEGATIVE (NEGATIVE)
--- NOTE | 2021-02-12 10:33 | ED_ITS ---
HPI - Abdominal Pain General Chief Complaint: Abdominal Pain Stated Complaint: abd pain Time Seen by Provider: 02/12/21 10:04 Source: patient Mode of arrival: ambulatory History of Present Illness HPI narrative: 60-year-old female with a past medical history of anemia, asthma, diabetes, fibromyalgia, HSV, hyperlipidemia, sleep apnea, thalassemia, diverticulitis, presenting to the emergency department complaining of left lower quadrant abdominal pain, nausea, diarrhea, and black stools since yesterday. Admits symptoms were on and off x1 week however worsening. Admits to taking Pepto-Bismol for diarrhea. Reports symptoms feel similar to prior diverticulitis. Denies fever, chills, vomiting, constipation, dysuria/hematuria, flank pain MD elicited complaint: abdominal pain Onset (ago): day(s) Related Data Home Medications Medication Instructions Recorded Confirmed atorvastatin 80 mg tablet 80 mg PO DAILY 12/24/19 12/31/19 blood sugar diagnostic #10 ea 12/24/19 cyclobenzaprine 10 mg tablet 10 mg PO BEDTIME 12/24/19 12/31/19 diclofenac sodium 75 mg 75 mg PO BID 12/24/19 12/31/19 tablet,delayed release empagliflozin 25 mg tablet 25 mg PO DAILY 12/24/19 12/31/19 glimepiride 4 mg tablet 4 mg PO DAILY 12/24/19 12/31/19 insulin glargine 100 unit/mL (3 20 unit SUBCUT BEDTIME 12/24/19 12/31/19 mL) subcutaneous pen levalbuterol HCl 0.63 mg/3 mL 0.63 mg INHALATION Q OTHER DAY 12/24/19 12/31/19 solution for nebulization levalbuterol tartrate 45 45 mcg INHALATION Q4-6H PRN 12/24/19 12/31/19 mcg/actuation aerosol inhaler lisinopril 20 1 tab PO DAILY 12/24/19 12/31/19 mg-hydrochlorothiazide 12.5 mg tablet exenatide microspheres 2 mg/0.65 2 mg SUBCUT QWEEK 12/31/19 12/31/19 mL subcutaneous pen injector (Bydureon) Previous Rx's Medication Instructions Recorded sodium,potassium,mag sulfates 17.5 See Rx Instructions PO .COMPLEX 12/24/19 gram-3.13 gram-1.6 gram oral soln #354 ml (Suprep Bowel Prep Kit) naproxen 500 mg tablet 500 mg PO BID PRN #14 tab 01/28/20 cyclobenzaprine 10 mg tablet 10 mg PO TID PRN #15 tab 11/11/20 naproxen 500 mg tablet 500 mg PO BID PRN #20 tab 11/11/20 hydrocodone 5 mg-acetaminophen 300 1 tab PO Q6H PRN #8 tab 01/03/21 mg tablet Allergies Allergy/AdvReac Type Severity Reaction Status Date / Time iodine [IODINE] Allergy Severe ANAPHYLAXIS Verified 01/28/20 16:15 Penicillins [PENICILLINS] Allergy Severe BREATHING Verified 01/28/20 16:15 PROBLEM shellfish derived Allergy Severe ANAPHYLAXIS Verified 01/28/20 16:15 clindamycin [CLINDAMYCIN] Allergy Intermediate HIVES Verified 01/28/20 16:15 milnacipran [From SAVELLA] Allergy Intermediate BRUISE Verified 01/28/20 16:15 vancomycin [VANCOMYCIN] Allergy Intermediate HIVES; Verified 01/28/20 16:15 ITCHING metformin Allergy Unknown diarrhea Verified 01/28/20 16:15 albuterol [ALBUTEROL] AdvReac Intermediate HEART RACES Verified 01/28/20 16:15 metformin AdvReac Stomach Uncoded 01/28/20 16:15 Upset Review of Systems Review of Systems Constitutional: No Fever, No Chills, No Fatigue, No Malaise ENT/Mouth:No Ear Pain, No Nasal Congestion, No sore throat, No Rhinorrhea Eyes: No Eye Pain, No Swelling, No Redness, No Discharge, No Vision Changes Cardiovascular: No Chest Pain, No SOB, No Dyspnea on Exertion, No Orthopnea, No Edema, No Palpitations Respiratory: No Cough, No Dyspnea Gastrointestinal: + Nausea, No Vomiting, + Diarrhea, No Constipation, + Abdominal pain, +black stool Genitourinary: No Dysuria, No Urinary Frequency, No Hematuria, No Flank Pain, No Urinary Flow Changes Musculoskeletal: No joint pain, No Myalgias, No Joint Swelling Skin: No Skin Lesions, No rash Neuro: No Weakness, No Dizziness, No Headache Yes all other systems are reviewed and are negative Physical Exam Vital Signs: Vital Signs: Last Vital Signs Temp 97.8 F 02/12/21 09:55 Pulse 88 02/12/21 09:55 Resp 18 02/12/21 09:55 BP 139/82 12/09/21 09:55 Pulse Ox 99 02/12/21 09:55 BMI result Body Mass Index 37.1 Const: General: cooperative, healthy appearing and no acute distress Orientation/consciousness: patient oriented x3 Limitations: no limitations HENMT: Head: Yes normal to inspection Ears: hearing grossly normal bilaterally General nose exam: Normal external nose present Face and sinus: Yes normal facial exam Eyes: General: appearance normal, both eyes and all related structures EOM: EOMs intact bilaterally Neck: Neck: Yes normal visual inspection Resp: Effort & Inspection: normal respiratory effort and no respiratory distress Auscultation: clear to auscultation bilaterally Cardio: Rate: regular rate Heart sounds: S1 normal heart sound present and S2 normal heart sound present GI: Inspection: Yes normal to inspection Palpation (GI): Soft to palpation, Tenderness to palpation present (GI) (diffuse), no guarding and not rigid : Other: + black stool noted on rectal General: Yes no CVA tenderness Back/Spine/Pelvis: Back: no CVA tenderness Skin: Rashes: no rashes Wounds: no wounds Neuro: General: patient oriented x3 Gait exam (Neuro): Normal gait present Extrem: General: Yes normal to inspection Course Course Course Narrative: -1143--no leukocytosis. H&H at patient's baseline. Labs otherwise unremarkable. Occult stool negative CT abdomen pelvis wo con IMPRESSION: No acute findings of the abdomen or pelvis. Colonic diverticulosis without diverticulitis. No inflammatory changes.? ? Fleischner guidelines were followed. >> results discussed with patient including recent signs and symptoms and strict return precautions. Patient reports she has follow-up with Dr. Regan [facility] - Abdominal Pain [facility] Narrative Medical decision making narrative: 60-year-old female with a past medical history of anemia, asthma, diabetes, fibromyalgia, HSV, hyperlipidemia, sleep apnea, thalassemia, diverticulitis, presenting to the emergency department complaining of left lower quadrant abdominal pain, nausea, diarrhea, and black stools since yesterday. On exam vitals signs stable, NAD/nontoxic, abdomen soft diffusely tender to palpation, no rebound or guarding. Black stool noted on rectal. Concern for diverticulitis vs appendicitis vs occult GI bleed vs Pepto- Bismol black stools. Lower concern for cholecystitis/cholelithiasis, pancreatitis, pyelo or UTI Plan: Labs, UA, CT abdomen/pelvis, IVF, occult stool, re-evaluate Differential Diagnosis Differential diagnosis: Likely abdominal pain, acute appendicitis, constipation, diverticulitis, gastroenteritis, pancreatitis and small bowel obstruction Medical Records Attestation: I reviewed the patient's medical records. Lab Data Attestation: I reviewed the patient's lab results. Result diagrams: 02/12/21 10:21 02/12/21 10:21 Labs: Lab Results 02/12/21 02/12/21 02/12/21 Range/Units 10:21 10:21 10:21 WBC 8.7 (4.8-10.8) X10*3/uL RBC 4.82 (4.20-5.50) X10*6/uL Hgb 10.6 L (12.0-16.0) g/dl Hct 34.1 L (37.0-47.0) % MCV 70.7 L (80.0-98.0) fL MCH 22.0 L (27.0-33.0) pg MCHC 31.1 (31.0-35.0) g/dl RDW 15.8 (11.0-16.0) % Plt Count 267 (160-400) X10*3/uL MPV 11.1 (9.4-12.3) fL Immature Gran % (Auto) 0.3 (0.0-0.4) % Neut % (Auto) 62.6 (45-73) % Lymph % (Auto) 28.7 (20-40) % Throckmorton % (Auto) 5.4 (2-11) % Eos % (Auto) 2.7 (0-4) % Baso % (Auto) 0.3 (0-2) % Lymph # (Auto) 2.5 (1.2-4.9) X10*3/uL Throckmorton # (Auto) 0.5 (0.1-1.2) X10*3/uL Eos # (Auto) 0.2 (0.0-0.4) X10*3/uL Baso # (Auto) 0.0 (0.0-0.2) X10*3/uL Abs Immat Gran (auto) 0.03 (0.00-0.03) X10*3/uL Absolute Neuts (auto) 5.4 (2.0-8.3) x10*3/uL Absolute Nucleated RBC 0.000 (0.0-0.012) X10*3/uL Nucleated RBC % (auto) 0.0 (0.0-0.2) /100WBC Sodium 140 (135-145) mmol/L Potassium 4.1 (3.3-5.1) mmol/L Chloride 107 (96-108) mmol/L Carbon Dioxide 27 (22-29) mmol/L Anion Gap 10 L (12-20) BUN 17 H (9-16) mg/dL Creatinine 0.82 (0.5-1.4) mg/dL Estim Creat Clear Calc 79.0 Estimated GFR > 60 Random Glucose 137 H (60-115) mg/dL Calcium 9.0 (8.4-10.2) mg/dL Magnesium 2.0 (1.6-2.6) mg/dL Total Bilirubin 0.4 (0.0-1.0) mg/dL Direct Bilirubin 0.2 (0.0-0.5) mg/dL AST 16 D (5-31) U/L ALT 21 (0-31) U/L Alkaline Phosphatase 70 D (39-117) U/L Total Protein 6.7 (6.5-8.0) g/dL Albumin 4.0 (3.5-5.0) g/dL Lipase 16 (8-78) U/L Stool Occult Blood NEGATIVE (NEGATIVE) Discharge Plan Discharge Clinical Impression: Abdominal pain Qualifiers: Abdominal location: generalized Qualified Code(s): R10.84 - Generalized abdominal pain Patient Disposition: Home, Self-Care Instructions: Abdominal Pain (ED) Additional Instructions: Your blood work was reassuring today in the emergency department Your CT scan was unremarkable If her symptoms persist or worsen, pain becomes unbearable, you are unable to eat or drink or developed fever please return to the emergency department Please follow-up with your doctor as scheduled Prescriptions: No Action naproxen 500 mg tablet 500 mg PO BID PRN (Reason: pain) Qty: 14 RF: 0 naproxen 500 mg tablet 500 mg PO BID PRN (Reason: pain) Qty: 20 RF: 0 cyclobenzaprine 10 mg tablet 10 mg PO TID PRN (Reason: pain) Qty: 15 RF: 0 Bydureon 2 mg/0.65 mL Pen Injector 2 mg SUBCUT QWEEK RF: 0 hydrocodone-acetaminophen 5-300 mg tablet 1 tab PO Q6H PRN (Reason: pain) Qty: 8 RF: 0 diclofenac sodium 75 mg tablet,delayed release (DR/EC) 75 mg PO BID RF: 0 cyclobenzaprine 10 mg tablet 10 mg PO BEDTIME RF: 0 Lantus Solostar U-100 Insulin 100 unit/mL (3 mL) insulin pen 20 unit subcut BEDTIME RF: 0 Jardiance 25 mg tablet 25 mg PO DAILY RF: 0 (DME) FreeStyle Lite Strips Strip See Rx Instructions strip .ROUTE .MEDSUPPLY Qty: 10 RF: 0 glimepiride 4 mg tablet 4 mg PO DAILY RF: 0 lisinopril-hydrochlorothiazide 20-12.5 mg tablet 1 tab PO DAILY RF: 0 atorvastatin 80 mg tablet 80 mg PO DAILY RF: 0 levalbuterol tartrate 45 mcg/actuation HFA aerosol inhaler 45 mcg inhalation Q4-6H PRN (Reason: Wheezing) RF: 0 levalbuterol HCl 0.63 mg/3 mL solution for nebulization 0.63 mg inhalation Q OTHER DAY RF: 0 Suprep Bowel Prep Kit 17.5-3.13-1.6 gram recon soln See Rx Instructions PO .COMPLEX Qty: 354 RF: 0 Referrals: Jonathan Regan MD [Physician] - 3 days PMF Past Medical History Attestation statement: The following information was validated with the patient. 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
[2021-02-12 10:52] LABS: Alanine Aminotransferase 21 U/L (0-31); Alkaline Phosphatase 70 U/L (39-117); Anion Gap 10 (12-20); Aspartate Amino Transferase 16 U/L (5-31); Bilirubin Direct 0.2 mg/dL (0.0-0.5); Bilirubin Total 0.4 mg/dL (0.0-1.0); Blood Urea Nitrogen 17 mg/dL (9-16); Carbon Dioxide 27 mmol/L (22-29); Chloride 107 mmol/L (96-108); Estimated Glomerular Filt Rate > 60; Glucose Random 137 mg/dL (60-115); Lipase 16 U/L (8-78); Potassium 4.1 mmol/L (3.3-5.1); Sodium 140 mmol/L (135-145); Total Protein 6.7 g/dL (6.5-8.0)
== END 2021-02-12 12:06 | disposition home or self-care (01) ==
PROVIDERS: Physician Assistant; Emergency Provider Emergency Medicine; PCP Internal Medicine
DX: R10.84 Generalized abdominal pain (principal); R11.0 Nausea; E11.9 Type 2 diabetes mellitus without complications; E78.5 Hyperlipidemia, unspecified; Z79.02 Long term (current) use of antithrombotics/antiplatelets; Z79.4 Long term (current) use of insulin
CPT/HCPCS: 36415; 74176; 80048; 80076; 82272; 83690; 83735; 85025; 96360; 99283; 99284

== ENCOUNTER → 2021-02-23 14:25 | Outpatient (BNVA) | payer MEDICARE, OTHER, SELFPAY | PROVIDERS: PCP Internal Medicine; Visit Provider Surgery | DX: K57.90 Diverticulosis of intestine, part unspecified, without perforation or abscess without bleeding (principal) | CPT/HCPCS: 99212 ==

== ENCOUNTER 2021-04-07 07:47 | Outpatient (REF) | payer MEDICARE, OTHER, SELFPAY ==
[2021-04-07 09:14] LABS: Estimated Average Glucose 174 mg/dL; Hemoglobin A1c % 7.7 %
[2021-04-07 09:23] LABS: Alanine Aminotransferase 13 U/L (0-31); Albumin Level 4.2 g/dL (3.5-5.0); Alkaline Phosphatase 73 U/L (39-117); Anion Gap 12 (12-20); Aspartate Amino Transferase 12 U/L (5-31); Bilirubin Total 0.6 mg/dL (0.0-1.0); Blood Urea Nitrogen 10 mg/dL (9-16); Calcium 9.4 mg/dL (8.4-10.2); Carbon Dioxide 29 mmol/L (22-29); Chloride 104 mmol/L (96-108); Cholesterol 134 mg/dL; Estimated Glomerular Filt Rate > 60; Glucose Random 148 mg/dL (60-115); HDL Cholesterol 40 mg/dL; LDL Cholesterol Calculated 67 mg/dl; Potassium 4.1 mmol/L (3.3-5.1); Sodium 141 mmol/L (135-145); Total Protein 7.1 g/dL (6.5-8.0); Triglycerides 136 mg/dL
== END 2021-04-07 07:48 | disposition home or self-care (01) ==
LOC: HO.LAB 07:47
PROVIDERS: PCP Internal Medicine; Visit Provider Internal Medicine
DX: E11.9 Type 2 diabetes mellitus without complications (principal); E78.00 Pure hypercholesterolemia, unspecified; L02.33 Carbuncle of buttock
CPT/HCPCS: 36415; 80053; 80061; 83036

== ENCOUNTER 2021-05-08 13:33 | Outpatient (REF) | payer MEDICARE, OTHER, SELFPAY ==
--- NOTE | ~2021-05-08 | XR_ITS ---
EXAMINATION: XR SHOULDER, LEFT CLINICAL INFORMATION: Pain COMPARISON: Previous right shoulder x-ray November 2019 TECHNIQUE: AP external rotation, Grashey, scapular Y, and axillary views of the left shoulder. FINDINGS: The bones and soft tissues are normal. No fracture. Glenohumeral and acromioclavicular alignment is anatomic with normal joint space. There is inferior extension of the acromion similar to the right shoulder. No abnormal soft tissue calcifications. XR/XR shoulder LT min 2V IMPRESSION: No fracture or dislocation. Inferior extension of the left acromion which may put the shoulder at risk for rotator cuff degeneration similar to the right.
== END 2021-05-08 13:34 | disposition home or self-care (01) ==
LOC: HO.HOSX 13:33
PROVIDERS: Visit Provider Physician Assistant
DX: M25.512 Pain in left shoulder (principal); M75.42 Impingement syndrome of left shoulder; Z98.84 Bariatric surgery status; Z88.8 Allergy status to other drugs, medicaments and biological substances; Z88.9 Allergy status to unspecified drugs, medicaments and biological substances; Z88.0 Allergy status to penicillin; Z91.013 Allergy to seafood
CPT/HCPCS: 73030; 99212

== ENCOUNTER → 2021-05-13 16:11 | Outpatient (BNVA) | payer MEDICARE, OTHER, SELFPAY | PROVIDERS: PCP Internal Medicine; Referring Provider Internal Medicine; Visit Provider Surgery | DX: K57.90 Diverticulosis of intestine, part unspecified, without perforation or abscess without bleeding (principal) | CPT/HCPCS: 99212 ==

== ENCOUNTER → 2021-05-29 13:48 | Outpatient (BNVA) | payer MEDICARE, OTHER, SELFPAY | PROVIDERS: PCP Internal Medicine; Referring Provider Internal Medicine; Visit Provider Physician Assistant Surgical | DX: E66.9 Obesity, unspecified (principal); Z68.37 Body mass index [BMI] 37.0-37.9, adult | CPT/HCPCS: 99202 ==

== ENCOUNTER → 2021-06-19 08:23 | Outpatient (BNVA) | payer MEDICARE, OTHER, SELFPAY | PROVIDERS: PCP Internal Medicine; Referring Provider Physician Assistant Surgical; Visit Provider Dietitian, Registered | DX: Z13.89 Encounter for screening for other disorder (principal) ==

== ENCOUNTER → 2021-06-25 08:41 | Outpatient (BNVA) | payer MEDICARE, OTHER, SELFPAY | PROVIDERS: PCP Internal Medicine; Referring Provider Physician Assistant Surgical; Visit Provider Counselor Mental Health | DX: Z13.89 Encounter for screening for other disorder (principal) ==

== ENCOUNTER → 2021-07-07 08:15 | Outpatient (BNVA) | payer MEDICARE, OTHER, SELFPAY | PROVIDERS: PCP Internal Medicine; Referring Provider Physician Assistant Surgical; Visit Provider Dietitian, Registered | DX: Z13.89 Encounter for screening for other disorder (principal) ==

== ENCOUNTER → 2021-07-28 08:14 | Outpatient (BNVA) | payer MEDICARE, OTHER, SELFPAY | PROVIDERS: PCP Internal Medicine; Visit Provider Physician Assistant Surgical | DX: Z13.89 Encounter for screening for other disorder (principal) ==

== ENCOUNTER 2021-08-19 10:58 | Outpatient (REF) | payer MEDICARE, OTHER, SELFPAY ==
--- NOTE | ~2021-08-19 | US_ITS ---
EXAMINATION: US COMPLETE ABDOMEN WITH LIVER ELASTOGRAPHY CLINICAL INFORMATION: Obesity. COMPARISON: None. TECHNIQUE: Real-time imaging of the abdominal viscera. Noninvasive ultrasound liver fibrosis assessment is performed using Errol ElastPQ point quantification shear wave elastography (2D-SWE) with a C5-2 MHz transducer. Multiple elastography samples are obtained. FINDINGS: PANCREAS: The visualized pancreatic head and body are normal in appearance. The tail of the pancreas is obscured from visualization by the overlying bowel gas. ABDOMINAL AORTA: The proximal, middle, and distal aortic segments are normal in caliber. INFERIOR VENA CAVA: Visualized portions are normal. LIVER: The liver demonstrates normal size, contour and increased echogenicity. No focal lesion or intrahepatic biliary duct dilatation. The right lobe measures 14.9 cm in length. The left lobe measures 11.5 cm in length. Portal flow is hepatopedal Shear wave liver elastography median stiffness is 1.48 m/s (reference: normal median stiffness is 1.3 m/s or less). IQR/median stiffness to assess sampling precision is 0.06 (reference: good quality data set is IQR/median stiffness of 0.15 or less). GALLBLADDER: Normal. The gallbladder is physiologically distended without evidence of stones, sludge, polyps, wall thickening or pericholecystic fluid. COMMON BILE DUCT: Normal in caliber measuring 0.4 cm in diameter. RIGHT KIDNEY: Normal. No hydronephrosis. No renal calculi or focal parenchymal lesions. The kidney measures 10.8 cm in maximum dimension. LEFT KIDNEY: Normal. No hydronephrosis. No renal calculi or focal parenchymal lesions. The kidney measures 10.9 cm in maximum dimension. SPLEEN: Normal. The spleen measures 10.4 cm in maximum dimension. FREE FLUID: None. US/US abdomen comp w elastography IMPRESSION: 1. Hepatic steatosis without focal lesion. The rest of the abdominal ultrasound is unremarkable. 2. Liver elastography: Median liver stiffness 1.48 m/s corresponds to cACLD (ruled out). REFERENCE: Society of Radiologists in Ultrasound Liver Stiffness Thresholds (2019): LIVER STIFFNESS THRESHOLDS: *Liver Stiffness equal or less than 1.3 m/s: High probability of being normal. *Liver Stiffness less than 1.7 m/s: In the absence of other known clinical signs, rules out compensated advanced chronic liver disease. *Liver Stiffness 1.7-2.1 m/s: Suggestive of compensated advanced chronic liver disease but need further test for confirmation. *Liver Stiffness over 2.1 m/s: Rules in compensated advanced chronic liver disease. *Liver Stiffness over 2.4 m/s: Suggestive of clinically significant portal hypertension. QUALITY OF DATA SET: *IQR/Median value equal or less than 0.15 implies a quality data set. *IQR/Median value over 0.15 implies a poor quality data set. SIGNIFICANT CHANGE FROM PRIOR EXAM: Significant change if liver stiffness measurement is 10% or greater from prior exam. OTHER CONSIDERATIONS: The stage of liver fibrosis may be overestimated in the setting of acute hepatitis, liver inflammation, elevated liver function tests, hepatic vascular congestion, obstructive cholestasis, non-fasting state, and infiltrative diseases such as amyloidosis and lymphoma. In some patients with NAFLD, the liver stiffness thresholds for compensated advanced chronic liver disease may be lower. In causes other than viral hepatitis and NAFLD, liver stiffness thresholds are not well established.
== END 2021-08-19 10:59 | disposition home or self-care (01) ==
LOC: HO.US 10:58
PROVIDERS: Visit Provider Physician Assistant
DX: E66.9 Obesity, unspecified (principal)
CPT/HCPCS: 76705; 76981

== ENCOUNTER 2021-08-25 10:21 | Outpatient (REF) | payer MEDICARE, OTHER, SELFPAY ==
--- NOTE | ~2021-08-25 | FL_ITS ---
EXAMINATION: XR FLUOROSCOPY UPPER GI WITH AIR CLINICAL INFORMATION: Obesity COMPARISON: None TECHNIQUE: Routine upper GI air-contrast study was performed in upright and lying position. FINDINGS: Following oral administration of thick barium and effervescent granules in upright standing view there is normal propagation bolus from the oral cavity through the pharynx, esophagus into stomach without any evidence of obstruction, narrowing or stricture. The course, caliber and peristalsis of the stomach is normal. On placing patient supine lying there is mild gastroesophageal reflux with a small sliding hiatal hernia. The mucosal pattern of the stomach, duodenal bulb and the sweep is normal. No gastric erosions or ulcerations seen. The duodenal bulb and the sweep is widely patent. FLUOROSCOPY TIME: 1.8 minutes Dose area product:: 26.578 uGy-m2 (microgray-meter squared) FL/FL upper GI w air IMPRESSION: Small sliding hiatal hernia with mild gastroesophageal reflux..
--- NOTE | ~2021-08-25 | XR_ITS ---
EXAMINATION: XR CHEST CLINICAL INFORMATION: Bariatric service evaluation. E66.9. COMPARISON: Chest radiographs 03/09/2018, 08/22/2015 TECHNIQUE: 2 views of the chest were obtained. FINDINGS: Lungs clear. No infiltrate or effusion. The heart is normal in size. The vascularity is normal. The hilar and mediastinal contours are similar to prior studies. There are degenerative changes again seen thoracic spine. No significant changes. XR/XR chest 2V IMPRESSION: Unremarkable examination.
== END 2021-08-25 10:22 | disposition home or self-care (01) ==
LOC: HO.XRAY 10:21
PROVIDERS: Visit Provider Physician Assistant
DX: Z01.818 Encounter for other preprocedural examination (principal); E66.9 Obesity, unspecified; K44.9 Diaphragmatic hernia without obstruction or gangrene; K21.9 Gastro-esophageal reflux disease without esophagitis
CPT/HCPCS: 71046; 74246

== ENCOUNTER 2021-09-23 20:02 | Emergency (ER) | payer MEDICARE, OTHER, SELFPAY ==
--- NOTE | ~2021-09-23 | XR_ITS ---
EXAMINATION: XR KNEE, LEFT CLINICAL INFORMATION: Knee pain COMPARISON: Left knee 11/11/2020 TECHNIQUE: Four views of the left knee. FINDINGS: Again seen are degenerative changes in the left knee, slightly progressed when compared to the prior exam with some mild increase in joint space narrowing. There is narrowing of the medial and lateral compartment with associated marginal osteophytes. Posterior patellar osteophytes are seen as well with a tiny knee joint effusion. At the head of the proximal fibula there is a small bone fragment seen with sclerotic edges on each side, unchanged from prior, not indicative of an acute injury. XR/XR knee LT 4V IMPRESSION: Redemonstration of tricompartmental degenerative changes in the knee without evidence of an acute injury
[2021-09-23 20:49] VITALS: BP 147/83; PULSE 94; RESP 18; TEMP 37.2; O2SAT 97; BMI 36.2
--- NOTE | 2021-09-24 00:30 | ED_ITS ---
HPI - Extremity Injury (Lower) General Chief Complaint: Extremity Injury, Lower Stated Complaint: knee pain Time Seen by Provider: 09/24/21 00:30 Source: patient Mode of arrival: ambulatory Limitations: no limitations History of Present Illness HPI Narrative: Patient has chronic arthritis of the knee today while going upstairs notice increased pain and swelling of the left knee as in the past no direct trauma pat ient ambulatory assist Related Data Home Medications Medication Instructions Recorded Confirmed atorvastatin 80 mg tablet 80 mg PO DAILY 12/24/19 05/14/21 blood sugar diagnostic #10 ea 12/24/19 05/14/21 empagliflozin 25 mg tablet 25 mg PO DAILY 12/24/19 05/14/21 glimepiride 4 mg tablet 4 mg PO DAILY 12/24/19 05/14/21 levalbuterol HCl 0.63 mg/3 mL 0.63 mg inhalation Q OTHER DAY 12/24/19 05/14/21 solution for nebulization wheezing levalbuterol tartrate 45 45 mcg inhalation Q4-6H PRN 12/24/19 05/14/21 mcg/actuation aerosol inhaler Wheezing exenatide microspheres 2 mg/0.65 2 mg subcut QWEEK 12/31/19 05/14/21 mL subcutaneous pen injector ([employer]) empagliflozin 10 mg tablet 10 mg PO DAILY 05/29/21 (Jardiance) loratadine 10 mg tablet 10 mg PO DAILY 05/29/21 montelukast 10 mg tablet 10 mg PO DAILY 05/29/21 pen needle, diabetic 32 gauge x #50 ea 05/29/21 (BD Ana 2nd Gen Pen Needle) prednisone 20 mg tablet 0 mg PO 05/29/21 Previous Rx's Medication Instructions Recorded naproxen 500 mg tablet 500 mg PO BID PRN pain #20 tabs 11/11/20 diclofenac sodium 50 mg 50 mg PO BID PRN pain #40 tabs 09/24/21 tablet,delayed release tramadol 50 mg tablet 50 mg PO Q8H PRN pain #20 tabs 09/24/21 Allergies Allergy/AdvReac Type Severity Reaction Status Date / Time iodine [IODINE] Allergy Severe ANAPHYLAXIS Verified 05/29/21 13:54 Penicillins [PENICILLINS] Allergy Severe BREATHING Verified 05/29/21 13:54 PROBLEM shellfish derived Allergy Severe ANAPHYLAXIS Verified 05/29/21 13:54 clindamycin [CLINDAMYCIN] Allergy Intermediate HIVES Verified 05/29/21 13:54 milnacipran [From SAVELLA] Allergy Intermediate BRUISE Verified 05/29/21 13:54 vancomycin [VANCOMYCIN] Allergy Intermediate HIVES; Verified 05/29/21 13:54 ITCHING metformin Allergy Unknown diarrhea Verified 05/29/21 13:54 albuterol [ALBUTEROL] AdvReac Intermediate HEART RACES Verified 05/29/21 13:54 metformin AdvReac Stomach Uncoded 05/08/21 14:32 Upset Review of Systems Review of Systems: Yes all other systems are reviewed and are negative [facility] Past Medical History Medical History Anemia Asthma Beta thalassemia trait Chronic fatigue syndrome Diabetes Diabetes mellitus Diverticular disease Diverticular disease Fibromyalgia H/O deep vein thrombosis during 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 Brother Heart problem Brother No problems noted. Brother No problems noted. 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 Diffuse tenderness with effusion good range of movement anterior drawer sign negative Elvin sign negative MDM - Extremity Injury (Lower) MDM Narrative Medical decision making narrative: Patient was chronic arthritis of the knee came with flare-up of the arthritis already seen orthopedics in the past will apply Clint wrap advised to follow with Orthopedics give pain medicine Discharge Plan Discharge Clinical Impression: Knee derangement syndrome Patient Disposition: Home, Self-Care Instructions: Knee Sprain (ED) Additional Instructions: Rest your left knee Wear Clint wrap/knee brace for support Pain medicine as prescribed Follow with Orthopedics Prescriptions: New diclofenac sodium 50 mg tablet,delayed release (DR/EC) 50 mg PO BID PRN (Reason: pain) Qty: 40 0RF tramadol 50 mg tablet 50 mg PO Q8H PRN (Reason: pain) Qty: 20 0RF No Action naproxen 500 mg tablet 500 mg PO BID PRN (Reason: pain) Qty: 20 0RF Bydureon 2 mg/0.65 mL Pen Injector 2 mg SUBCUT QWEEK Jardiance 25 mg tablet 25 mg PO DAILY (DME) FreeStyle Lite Strips Strip See Rx Instructions .ROUTE .MEDSUPPLY Qty: 10 Rx Instructions: As directed glimepiride 4 mg tablet 4 mg PO DAILY atorvastatin 80 mg tablet 80 mg PO DAILY levalbuterol tartrate 45 mcg/actuation HFA aerosol inhaler 45 mcg inhalation Q4-6H PRN (Reason: Wheezing) levalbuterol HCl 0.63 mg/3 mL solution for nebulization 0.63 mg inhalation Q OTHER DAY prednisone 20 mg tablet 0 mg PO montelukast 10 mg tablet 10 mg PO DAILY loratadine 10 mg tablet 10 mg PO DAILY (DME) pen needle, diabetic [BD Ana 2nd Gen Pen Needle] 32 gauge x 5/32 needle See Rx Instructions .ROUTE .MEDSUPPLY Qty: 50 Rx Instructions: As directed Jardiance 10 mg tablet 10 mg PO DAILY Interventions: ED Discharge Assessment Last Done: 09/24/21 00:58 Discharge Date/Time: 09/24/21 00:59
[2021-09-24] MEDS: traMADoL HCL 50 MG TABLET PO (00:53)
[2021-09-24] MEDS: Ibuprofen 600 MG TABLET PO (00:54)
--- NOTE | 2021-09-24 00:57 | PC.NURSE ---
pt transferred self to [facility] via W/c, no c/o dizziness. c/o moderate pain, medicated with ibuprofen and tramadol. dc per wc to [facility]
== END 2021-09-24 00:59 | disposition home or self-care (01) ==
PROVIDERS: Emergency Provider Internal Medicine
DX: M23.8X2 Other internal derangements of left knee (principal); M25.562 Pain in left knee; E11.9 Type 2 diabetes mellitus without complications; I10 Essential (primary) hypertension; E66.9 Obesity, unspecified; Z68.36 Body mass index [BMI] 36.0-36.9, adult; Z79.02 Long term (current) use of antithrombotics/antiplatelets; Z79.899 Other long term (current) drug therapy
CPT/HCPCS: 73564; 99283

== ENCOUNTER 2021-12-05 07:48 | Outpatient (REF) | payer MEDICARE, OTHER, SELFPAY ==
--- NOTE | ~2021-12-05 | MM_ITS ---
EXAMINATION: MM SCREENING DIGITAL BREAST TOMOSYNTHESIS, BILATERAL CLINICAL INFORMATION: Screening. Asymptomatic. The lifetime risk of breast cancer based on the Tyrer-Cuzick Model is 12%. COMPARISON: Mammography: 10/20/2020, 04/14/2018, 01/24/2016 TECHNIQUE: Digital breast tomosynthesis is performed in both the craniocaudal and mediolateral oblique views along with computer-aided detection (CAD). Synthesized 2D images are generated from the tomosynthesis. FINDINGS: There are scattered areas of fibroglandular density (ACR BI-RADS breast composition Category b). Parenchymal pattern is similar to prior studies. There is small intramammary node central lower right breast similar to prior exams. Low right axillary tail nodes are stable. There is no significant mass or architectural abnormality or abnormal calcifications. No significant changes. MM/MM tomosynthesis screening BI IMPRESSION: No mammographic evidence of malignancy. ASSESSMENT: BI-RADS 1: Negative RECOMMENDATION: Routine annual mammography screening. This patient's information was entered into a reminder system with a target due date for their next mammogram.
== END 2021-12-05 07:49 | disposition home or self-care (01) ==
LOC: HO.MAMMO 07:48
PROVIDERS: PCP Internal Medicine; Visit Provider Internal Medicine
DX: Z12.31 Encounter for screening mammogram for malignant neoplasm of breast (principal)
CPT/HCPCS: 77063; 77067

== ENCOUNTER 2021-12-31 08:07 | Outpatient (REF) | payer MEDICARE, OTHER, SELFPAY ==
[2021-12-31 09:28] LABS: Estimated Average Glucose 292 mg/dL; Hemoglobin A1c % 11.8 %
[2021-12-31 09:56] LABS: Alanine Aminotransferase 26 U/L (0-31); Alkaline Phosphatase 69 U/L (39-117); Anion Gap 14 (12-20); Aspartate Amino Transferase 19 U/L (5-31); Bilirubin Total 0.5 mg/dL (0.0-1.0); Blood Urea Nitrogen 16 mg/dL (9-16); Carbon Dioxide 25 mmol/L (22-29); Chloride 104 mmol/L (96-108); Cholesterol 164 mg/dL; Estimated Glomerular Filt Rate > 60; Glucose Random 238 mg/dL (60-115); HDL Cholesterol 49 mg/dL; LDL Cholesterol Calculated 86 mg/dl; Potassium 4.2 mmol/L (3.3-5.1); Sodium 139 mmol/L (135-145); Total Protein 6.5 g/dL (6.5-8.0); Triglycerides 145 mg/dL
[2021-12-31 10:06] LABS: Thyroid Stimulating Hormone 1.36 uIU/mL (0.32-4.0)
[2021-12-31 10:16] LABS: Vitamin B12 291 pg/mL (200-900)
[2021-12-31 10:38] LABS: Creatinine Urine 232.57 mg/dL; Microalbum/Creatinine Ratio Ur 3.8 ug/mg cr
== END 2021-12-31 08:08 | disposition home or self-care (01) ==
LOC: HO.LAB 08:07
PROVIDERS: PCP Internal Medicine; Visit Provider Internal Medicine
DX: G47.33 Obstructive sleep apnea (adult) (pediatric) (principal); E11.65 Type 2 diabetes mellitus with hyperglycemia; E78.00 Pure hypercholesterolemia, unspecified; I10 Essential (primary) hypertension
CPT/HCPCS: 36415; 80053; 80061; 82043; 82607; 83036; 84443

== ENCOUNTER 2022-01-17 14:30 | Emergency (ER) | payer MEDICARE, OTHER, SELFPAY ==
--- NOTE | ~2022-01-17 | XR_ITS ---
EXAMINATION: XR CHEST CLINICAL INFORMATION: Dyspnea COMPARISON: August 25, 2021 TECHNIQUE: PA view of the chest was obtained. FINDINGS: No significant abnormality is noted involving the heart, lungs, mediastinum, bony thorax or soft tissues. XR/XR chest 1V IMPRESSION: No acute disease.
[2022-01-17 14:51] VITALS: BP 145/71; PULSE 80; RESP 20; TEMP 36.7; O2SAT 98; BMI 36.2
--- NOTE | 2022-01-17 14:53 | ECG_ITS ---
Test Reason : Dyspnea Blood Pressure : / mmHG Vent. Rate : 072 BPM Atrial Rate : 072 BPM P-R Int : 192 ms QRS Dur : 086 ms QT Int : 386 ms P-R-T Axes : 036 046 047 degrees QTc Int : 422 ms Normal sinus rhythm Normal ECG When compared with ECG of 07-JUL-2016 14:59, No significant change was found Referred By: Generic ED Physician Electronically Signed By:JOSE HENLEY MD
[2022-01-17 15:10] LABS: Hematocrit 34.3 % (37.0-47.0); Hemoglobin 10.5 g/dl (12.0-16.0); Mean Corpuscular HGB Conc 30.6 g/dl (31.0-35.0); Mean Corpuscular Hemoglobin 21.4 pg (27.0-33.0); Mean Corpuscular Volume 69.9 fL (80.0-98.0); Mean Platelet Volume 10.6 fL (9.4-12.3); Platelet Count 239 X10*3/uL (160-400); Red Blood Count 4.91 X10*6/uL (4.20-5.50); Red Cell Distribution Width 15.9 % (11.0-16.0); White Blood Count 8.4 X10*3/uL (4.8-10.8)
[2022-01-17 15:33] LABS: Anion Gap 15 (12-20); Blood Urea Nitrogen 13 mg/dL (9-16); Calcium 8.9 mg/dL (8.4-10.2); Carbon Dioxide 25 mmol/L (22-29); Chloride 104 mmol/L (96-108); Creatinine Clr Calc Pharmacy 85.3; Estimated Glomerular Filt Rate > 60; Glucose Random 139 mg/dL (60-115); Potassium 3.9 mmol/L (3.3-5.1); Sodium 140 mmol/L (135-145)
[2022-01-17 15:41] LABS: Troponin-I High Sensitivity < 3.5 ng/L (<3.5-17.0)
[2022-01-17 18:38] LABS: Influenza A PCR NEGATIVE (Negative); Influenza B PCR NEGATIVE (Negative); Resp Syncy Virus RNA Qual PCR NEGATIVE (Negative); SARS COV2 PCR INHOUSE NEGATIVE (Negative)
[2022-01-17 19:26] VITALS: BP 134/70; PULSE 75; RESP 18; TEMP 36.2; O2SAT 99
[2022-01-17 20:00] VITALS: BP 114/72; PULSE 71; RESP 14; TEMP 36.8; O2SAT 99
--- NOTE | 2022-01-17 21:32 | ED.SOB ---
HPI - SOB/Dyspnea General Chief Complaint: Dyspnea Stated Complaint: possible pneumonia or bronchitis Time Seen by Provider: 01/17/22 19:59 Source: patient Mode of arrival: ambulatory History of Present Illness HPI Narrative: 61-year-old female with past medical history of diabetes and asthma presents to emergency department today with a cough. Patient states that she has been sick for approximately 2-3 weeks and is not improving. She has been on prednisone taper in the past, without improvement. Had not had a chest x-ray until coming to the emergency department today. Denies any fevers, chills. Recent COVID test negative. MD elicited complaint: cough Pertinent past history: asthma Timing: constant and progressively worsening Severity: moderate Exacerbating factors: nothing Associated symptoms: denies other symptoms Related Data Home oxygen amount: none Home Medications Medication Instructions Recorded Confirmed atorvastatin 80 mg tablet 80 mg PO DAILY 12/24/19 05/14/21 blood sugar diagnostic #10 ea 12/24/19 05/14/21 empagliflozin 25 mg tablet 25 mg PO DAILY 12/24/19 05/14/21 glimepiride 4 mg tablet 4 mg PO DAILY 12/24/19 05/14/21 levalbuterol HCl 0.63 mg/3 mL 0.63 mg inhalation Q OTHER DAY 12/24/19 05/14/21 solution for nebulization wheezing levalbuterol tartrate 45 45 mcg inhalation Q4-6H PRN 12/24/19 05/14/21 mcg/actuation aerosol inhaler Wheezing exenatide microspheres 2 mg/0.65 2 mg subcut QWEEK 12/31/19 05/14/21 mL subcutaneous pen injector (Bynava) empagliflozin 10 mg tablet 10 mg PO DAILY 05/29/21 (Jardiance) loratadine 10 mg tablet 10 mg PO DAILY 05/29/21 montelukast 10 mg tablet 10 mg PO DAILY 05/29/21 pen needle, diabetic 32 gauge x #50 ea 05/29/21 (BD Ana 2nd Gen Pen Needle) prednisone 20 mg tablet 0 mg PO 05/29/21 Previous Rx's Medication Instructions Recorded naproxen 500 mg tablet 500 mg PO BID PRN pain #20 tabs 11/11/20 diclofenac sodium 50 mg 50 mg PO BID PRN pain #40 tabs 09/24/21 tablet,delayed release tramadol 50 mg tablet 50 mg PO Q8H PRN pain #20 tabs 09/24/21 inhalational spacing device #1 ea 01/17/22 (Aerochamber Plus Z Stat spacer) prednisone 20 mg tablet 40 mg PO DAILY #10 tabs 01/17/22 Allergies Allergy/AdvReac Type Severity Reaction Status Date / Time iodine [IODINE] Allergy Severe ANAPHYLAXIS Verified 05/29/21 13:54 Penicillins [PENICILLINS] Allergy Severe BREATHING Verified 05/29/21 13:54 PROBLEM shellfish derived Allergy Severe ANAPHYLAXIS Verified 05/29/21 13:54 clindamycin [CLINDAMYCIN] Allergy Intermediate HIVES Verified 05/29/21 13:54 milnacipran [From SAVELLA] Allergy Intermediate BRUISE Verified 05/29/21 13:54 vancomycin [VANCOMYCIN] Allergy Intermediate HIVES; Verified 05/29/21 13:54 ITCHING metformin Allergy Unknown diarrhea Verified 05/29/21 13:54 albuterol [ALBUTEROL] AdvReac Intermediate HEART RACES Verified 05/29/21 13:54 metformin AdvReac Stomach Uncoded 05/08/21 14:32 Upset Review of Systems Review of Systems: Yes all other systems are reviewed and are negative Constitutional: Constitutional: Denies chills, Denies fever(s) and Denies weakness Eyes: Eyes: Denies blurry vision, Denies change in vision and Denies eye pain ENT: Reports system reviewed and no additional complaints, except as documented Cardiovascular: Cardiovascular: Denies chest pain, Denies lightheadedness and Denies Loss of Consciousness Respiratory: Respiratory: Denies chest congestion, Reports cough and Reports wheezing Gastrointestinal: Gastrointestinal: Denies diarrhea, Denies nausea and Denies vomiting Musculoskeletal: Musculoskeletal: Reports no additional musculoskeletal complaints and Denies numbness Neurologic: Denies Abnormal speech present, Denies numbness, Denies paresthesias and Denies weakness Allergic/Immunologic: Allergic/Immunologic: Reports wheezing [facility] Past Medical History Attestation statement: The following information was validated with the patient. 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 Brother Heart problem Brother No problems noted. Brother No problems noted. 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 Exam Vital Signs: Vital Signs: Last Vital Signs Temp 98.3 F 01/17/22 20:00 Pulse 80 01/17/22 22:01 Resp 18 01/17/22 22:01 BP 114/72 01/17/22 20:00 Pulse Ox 99 01/17/22 20:00 O2 Del Method 01/17/22 20:00 BMI result Body Mass Index 36.2 Vital signs normal Const: General: cooperative, healthy appearing and comfortable Orientation/consciousness: patient oriented x3 HEENT: Head: Yes normal to inspection, Yes normocephalic and Yes atraumatic General nose exam: Normal external nose present Face and sinus: Yes normal facial exam Mouth: Normal oral and palatal mucosa present Eyes: Conjunctivae: conjunctivae normal Sclerae: sclerae normal Neck: Neck: Yes normal visual inspection and Yes full ROM Resp: Effort & Inspection: able to speak in complete sentences, audible wheezes and Actively coughing Cardio: Rate: regular rate Rhythm: regular rhythm GI: Inspection: Yes normal to inspection Palpation (GI): nontender Skin: General skin exam: no rashes or lesions noted, no ecchymosis and no pallor Neuro: General: patient oriented x3 Cranial nerves: Yes CN's II-XII intact bilaterally Cognition (Neuro): normal cognition Speech: No Abnormal speech present Medications Administered Discontinued Medications Generic Name Dose Route Start Last Admin Trade Name Freq PRN Reason Stop Dose Admin Levalbuterol HCl 1.25 mg 01/17/22 21:21 01/17/22 21:58 Levalbuterol Hcl 1.25 Mg/0.5 Ml Vial.Neb INHALE 01/17/22 21:22 1.25 mg ONCE ONE Administration Prednisone 40 mg 01/17/22 21:21 01/17/22 21:48 Prednisone 20 Mg Tablet PO 01/17/22 21:22 40 mg ONCE ONE Administration MDM - SOB/Dyspnea MDM Narrative Medical decision making narrative: 61-year-old female with past medical history of asthma who presents to the emergency department tonight with increased wheezing and slight difficulty breathing. The patient received a Xopenex treatment, and prednisone. After several hours of observation, the patient was noted to be much more comfortable and breathing is easily. The patient requested to be discharged, and at this point I think that is totally safe. The patient will be discharged home with a prescription for prednisone and a spacer which she is instructed to use with her inhaler at home. She will call her primary care doctor tomorrow for follow-up. Differential Diagnosis Differential diagnosis: Likely asthma with exacerbation Medical Records Attestation: I reviewed the patient's medical records. Lab Data Attestation: I reviewed the patient's lab results. Result diagrams: 01/17/22 15:04 01/17/22 15:04 Labs: Lab Results 01/17/22 01/17/22 01/17/22 Range/Units 15:03 15:04 15:04 WBC 8.4 (4.8-10.8) X10*3/uL RBC 4.91 (4.20-5.50) X10*6/uL Hgb 10.5 L (12.0-16.0) g/dl Hct 34.3 L (37.0-47.0) % MCV 69.9 L (80.0-98.0) fL MCH 21.4 L (27.0-33.0) pg MCHC 30.6 L (31.0-35.0) g/dl RDW 15.9 (11.0-16.0) % Plt Count 239 (160-400) X10*3/uL MPV 10.6 (9.4-12.3) fL Absolute Nucleated RBC 0.000 (0.0-0.012) X10*3/uL Nucleated RBC % (auto) 0.0 (0.0-0.2) /100WBC Sodium 140 (135-145) mmol/L Potassium 3.9 (3.3-5.1) mmol/L Chloride 104 (96-108) mmol/L Carbon Dioxide 25 (22-29) mmol/L Anion Gap 15 (12-20) BUN 13 (9-16) mg/dL Creatinine 0.74 (0.5-1.4) mg/dL Estim Creat Clear Calc 85.3 Estimated GFR > 60 Random Glucose 139 H (60-115) mg/dL Calcium 8.9 (8.4-10.2) mg/dL Troponin I High Sens (<3.5-17.0) ng/L Influenza Type A (PCR) NEGATIVE (Negative) Influenza Type B (PCR) NEGATIVE (Negative) RSV RNA Qual (PCR) NEGATIVE (Negative) SARS-CoV-2 RNA (RT-PCR) NEGATIVE (Negative) 01/17/22 Range/Units 15:04 WBC (4.8-10.8) X10*3/uL RBC (4.20-5.50) X10*6/uL Hgb (12.0-16.0) g/dl Hct (37.0-47.0) % MCV (80.0-98.0) fL MCH (27.0-33.0) pg MCHC (31.0-35.0) g/dl RDW (11.0-16.0) % Plt Count (160-400) X10*3/uL MPV (9.4-12.3) fL Absolute Nucleated RBC (0.0-0.012) X10*3/uL Nucleated RBC % (auto) (0.0-0.2) /100WBC Sodium (135-145) mmol/L Potassium (3.3-5.1) mmol/L Chloride (96-108) mmol/L Carbon Dioxide (22-29) mmol/L Anion Gap (12-20) BUN (9-16) mg/dL Creatinine (0.5-1.4) mg/dL Estim Creat Clear Calc Estimated GFR Random Glucose (60-115) mg/dL Calcium (8.4-10.2) mg/dL Troponin I High Sens < 3.5 (<3.5-17.0) ng/L Influenza Type A (PCR) (Negative) Influenza Type B (PCR) (Negative) RSV RNA Qual (PCR) (Negative) SARS-CoV-2 RNA (RT-PCR) (Negative) Imaging Data Chest x-ray: Attestation: I personally reviewed and interpreted this imaging study as follows: My impression: No acute pulmonary disease Radiologist's impression: Same Discharge Plan Discharge Clinical Impression: Asthma with exacerbation Patient Disposition: Home, Self-Care Instructions: Asthma (ED), How to Use a Metered-Dose Inhaler and a Spacer (ED) Prescriptions: New (DME) Aerochamber Plus Z Stat Spacer See Rx Instructions .Route Qty: 1 0RF Rx Instructions: As directed prednisone 20 mg tablet 40 mg PO DAILY Qty: 10 0RF No Action naproxen 500 mg tablet 500 mg PO BID PRN (Reason: pain) Qty: 20 0RF Bydureon 2 mg/0.65 mL Pen Injector 2 mg SUBCUT QWEEK diclofenac sodium 50 mg tablet,delayed release (DR/EC) 50 mg PO BID PRN (Reason: pain) Qty: 40 0RF tramadol 50 mg tablet 50 mg PO Q8H PRN (Reason: pain) Qty: 20 0RF Jardiance 25 mg tablet 25 mg PO DAILY (DME) FreeStyle Lite Strips Strip See Rx Instructions .ROUTE .MEDSUPPLY Qty: 10 Rx Instructions: As directed glimepiride 4 mg tablet 4 mg PO DAILY atorvastatin 80 mg tablet 80 mg PO DAILY levalbuterol tartrate 45 mcg/actuation HFA aerosol inhaler 45 mcg inhalation Q4-6H PRN (Reason: Wheezing) levalbuterol HCl 0.63 mg/3 mL solution for nebulization 0.63 mg inhalation Q OTHER DAY prednisone 20 mg tablet 0 mg PO montelukast 10 mg tablet 10 mg PO DAILY loratadine 10 mg tablet 10 mg PO DAILY (DME) pen needle, diabetic [BD Ana 2nd Gen Pen Needle] 32 gauge x 5/32 needle See Rx Instructions .ROUTE .MEDSUPPLY Qty: 50 Rx Instructions: As directed Jardiance 10 mg tablet 10 mg PO DAILY Referrals: Frances Cutler MD [Primary Care Provider] - 01/18/22 Interventions: ED Discharge Assessment Last Done: 01/17/22 23:41 Discharge Date/Time: 01/17/22 23:41
[2022-01-17] MEDS: predniSONE 20 MG TABLET 40 MG PO (21:48)
[2022-01-17 22:01] VITALS: PULSE 80; RESP 18; O2SAT 98
== END 2022-01-17 23:41 | disposition home or self-care (01) ==
PROVIDERS: Emergency Provider Emergency Medicine; PCP Internal Medicine
DX: J45.901 Unspecified asthma with (acute) exacerbation (principal); R06.02 Shortness of breath; Z20.822 Contact with and (suspected) exposure to COVID-19; Z79.899 Other long term (current) drug therapy
CPT/HCPCS: 0241U; 71045; 80048; 84484; 85027; 93005; 94640; 99284

== ENCOUNTER → 2022-01-25 15:58 | Outpatient (BNVA) | payer MEDICARE, OTHER, SELFPAY | PROVIDERS: PCP Internal Medicine; Visit Provider Surgery | DX: Z12.11 Encounter for screening for malignant neoplasm of colon (principal); E66.9 Obesity, unspecified; Z80.41 Family history of malignant neoplasm of ovary; Z68.37 Body mass index [BMI] 37.0-37.9, adult | CPT/HCPCS: 99212 ==

== ENCOUNTER 2022-02-21 09:45 | Emergency (ER) | payer MEDICARE, OTHER, SELFPAY ==
[2022-02-21 09:56] VITALS: BP 111/81; PULSE 88; RESP 20; TEMP 37.2; O2SAT 99; BMI 36.6
--- NOTE | 2022-02-21 10:30 | PC.NURSE ---
pt. complains of body ache, headache and cough since yesterday.
[2022-02-21 10:47] LABS: Influenza A PCR NEGATIVE (Negative); Influenza B PCR NEGATIVE (Negative); Resp Syncy Virus RNA Qual PCR NEGATIVE (Negative); SARS COV2 PCR INHOUSE NEGATIVE (Negative)
--- NOTE | 2022-02-21 11:17 | ED.GENADULT ---
HPI - General Adult General Chief complaint: Upper Respiratory Symptoms Stated complaint: Flu symptoms Time Seen by Provider: 02/21/22 10:41 History of Present Illness HPI narrative: patient complains of 1 day of fever, body aches, mild cough mild runny nose mild sore throat, she is able to the eat and drink easily Related Data Home Medications Medication Instructions Recorded Confirmed atorvastatin 80 mg tablet 80 mg PO DAILY 12/24/19 01/25/22 blood sugar diagnostic #10 ea 12/24/19 01/25/22 empagliflozin 25 mg tablet 25 mg PO DAILY 12/24/19 01/25/22 glimepiride 4 mg tablet 4 mg PO DAILY 12/24/19 01/25/22 levalbuterol HCl 0.63 mg/3 mL 0.63 mg inhalation Q OTHER DAY 12/24/19 01/25/22 solution for nebulization wheezing levalbuterol tartrate 45 45 mcg inhalation Q4-6H PRN 12/24/19 01/25/22 mcg/actuation aerosol inhaler Wheezing exenatide microspheres 2 mg/0.65 2 mg subcut QWEEK 12/31/19 01/25/22 mL subcutaneous pen injector ([employer]) montelukast 10 mg tablet 10 mg PO DAILY 05/29/21 01/25/22 pen needle, diabetic 32 gauge x #50 ea 05/29/21 01/25/22 (BD Ana 2nd Gen Pen Needle) prednisone 20 mg tablet 0 mg PO 05/29/21 01/25/22 Previous Rx's Medication Instructions Recorded naproxen 500 mg tablet 500 mg PO BID PRN pain #20 tabs 11/11/20 diclofenac sodium 50 mg 50 mg PO BID PRN pain #40 tabs 09/24/21 tablet,delayed release tramadol 50 mg tablet 50 mg PO Q8H PRN pain #20 tabs 09/24/21 inhalational spacing device #1 ea 01/17/22 (Aerochamber Plus Z Stat spacer) prednisone 20 mg tablet 40 mg PO DAILY #10 tabs 01/17/22 Allergies Allergy/AdvReac Type Severity Reaction Status Date / Time iodine [IODINE] Allergy Severe ANAPHYLAXIS Verified 01/25/22 16:05 Penicillins [PENICILLINS] Allergy Severe BREATHING Verified 01/25/22 16:05 PROBLEM shellfish derived Allergy Severe ANAPHYLAXIS Verified 01/25/22 16:05 clindamycin [CLINDAMYCIN] Allergy Intermediate HIVES Verified 01/25/22 16:05 milnacipran [From SAVELLA] Allergy Intermediate BRUISE Verified 01/25/22 16:05 vancomycin [VANCOMYCIN] Allergy Intermediate HIVES; Verified 01/25/22 16:05 ITCHING metformin Allergy Unknown diarrhea Verified 01/25/22 16:05 albuterol [ALBUTEROL] AdvReac Intermediate HEART RACES Verified 01/25/22 16:05 metformin AdvReac Stomach Uncoded 01/25/22 16:05 Upset Review of Systems Review of Systems: positive for fever cough body aches and sore throat Negatives are no chills no dizziness no weakness no headache no confusion no stiff neck no difficulty breathing or swallowing no chest pain no shortness of breath no sputum no abdominal pain no nausea vomiting or diarrhea no joint swelling no skin rash Yes all other systems are reviewed and are negative PMFSH Past Medical History Source: nursing notes reviewed Medical History (Updated 02/21/22 @ 11:18 by KYUNG Cardenas) Anemia Asthma Beta thalassemia trait Chronic fatigue syndrome Colon cancer screening Diabetes Diabetes mellitus Diverticular disease Diverticular disease Family history of ovarian cancer Fibromyalgia H/O deep vein thrombosis during 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 Brother Heart problem Brother No problems noted. Brother No problems noted. 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 ED Vital Signs: Vital Signs - 24 hr 02/21/22 09:56 Temperature 99 F Pulse Rate 88 Respiratory Rate 20 Blood Pressure 111/81 Pulse Oximetry 99 Oxygen Delivery Method Room Air BMI result Body Mass Index 36.6 general appearance no distress comfortable relax cooperative The eyes no redness or discharge The pharynx is clear no redness swelling or exudate, membranes are moist The nose no sinus tenderness Chest clear to auscultation bilateral Heart no murmur Extremities full range of motion x4 Skin no rash Course Course Course Narrative: well-appearing comfortable patient was negative for flu COVID and RSV, exam was normal, tolerating p.o. and patient was discharged Medical Decision Making Lab Data [facility] Lab Attestation statement: I reviewed the patient's lab results. Labs: Lab Results 02/21/22 Range/Units 10:01 Influenza Type A (PCR) NEGATIVE (Negative) Influenza Type B (PCR) NEGATIVE (Negative) RSV RNA Qual (PCR) NEGATIVE (Negative) SARS-CoV-2 RNA (RT-PCR) NEGATIVE (Negative) Discharge Plan Discharge Clinical Impression: Acute viral syndrome Patient Disposition: Home, Self-Care Additional Instructions: testing for COVID flu and RSV were negative There are many viruses usually self-limited Today your very well-appearing, drink plenty of fluids, Tylenol or Motrin if needed Okay to return to work 1 day after fever is gone Prescriptions: No Action naproxen 500 mg tablet 500 mg PO BID PRN (Reason: pain) Qty: 20 0RF Bydureon 2 mg/0.65 mL Pen Injector 2 mg SUBCUT QWEEK diclofenac sodium 50 mg tablet,delayed release (DR/EC) 50 mg PO BID PRN (Reason: pain) Qty: 40 0RF tramadol 50 mg tablet 50 mg PO Q8H PRN (Reason: pain) Qty: 20 0RF (DME) Aerochamber Plus Z Stat Spacer See Rx Instructions .Route Qty: 1 0RF Rx Instructions: As directed prednisone 20 mg tablet 40 mg PO DAILY Qty: 10 0RF Jardiance 25 mg tablet 25 mg PO DAILY (DME) FreeStyle Lite Strips Strip See Rx Instructions .ROUTE .MEDSUPPLY Qty: 10 Rx Instructions: As directed glimepiride 4 mg tablet 4 mg PO DAILY atorvastatin 80 mg tablet 80 mg PO DAILY levalbuterol tartrate 45 mcg/actuation HFA aerosol inhaler 45 mcg inhalation Q4-6H PRN (Reason: Wheezing) levalbuterol HCl 0.63 mg/3 mL solution for nebulization 0.63 mg inhalation Q OTHER DAY prednisone 20 mg tablet 0 mg PO montelukast 10 mg tablet 10 mg PO DAILY (DME) pen needle, diabetic [BD Ana 2nd Gen Pen Needle] 32 gauge x 5/32 needle See Rx Instructions .ROUTE .MEDSUPPLY Qty: 50 Rx Instructions: As directed Stand Alone Forms: Work/School Release Interventions: ED Discharge Assessment Last Done: 02/21/22 11:30
== END 2022-02-21 11:31 | disposition home or self-care (01) ==
PROVIDERS: Emergency Provider Emergency Medicine; PCP Internal Medicine
DX: B34.9 Viral infection, unspecified (principal); R05.9 Cough, unspecified; M79.10 Myalgia, unspecified site; R50.9 Fever, unspecified; Z20.822 Contact with and (suspected) exposure to COVID-19; Z79.899 Other long term (current) drug therapy
CPT/HCPCS: 0241U; 99282; 99283

== ENCOUNTER 2022-03-12 08:23 | Outpatient (REF) | payer MEDICARE, OTHER, SELFPAY ==
[2022-03-12 09:49] LABS: Estimated Average Glucose 177 mg/dL; Hemoglobin A1c % 7.8 %
[2022-03-12 10:01] LABS: Alanine Aminotransferase 16 U/L (0-31); Albumin Level 4.3 g/dL (3.5-5.0); Alkaline Phosphatase 63 U/L (39-117); Anion Gap 14 (12-20); Aspartate Amino Transferase 15 U/L (5-31); Bilirubin Total 0.6 mg/dL (0.0-1.0); Blood Urea Nitrogen 11 mg/dL (9-16); Calcium 9.2 mg/dL (8.4-10.2); Carbon Dioxide 23 mmol/L (22-29); Chloride 108 mmol/L (96-108); Estimated Glomerular Filt Rate > 60; Glucose Random 159 mg/dL (60-115); Potassium 4.1 mmol/L (3.3-5.1); Sodium 141 mmol/L (135-145); Total Protein 7.1 g/dL (6.5-8.0)
[2022-03-12 10:09] LABS: Erythrocyte Sedimentation Rate 20 MM/HR (0-20)
[2022-03-12 10:11] LABS: Thyroid Stimulating Hormone 2.16 uIU/mL (0.32-4.0)
== END 2022-03-12 08:24 | disposition home or self-care (01) ==
LOC: HO.LAB 08:23
PROVIDERS: PCP Internal Medicine; Visit Provider Internal Medicine
DX: E11.65 Type 2 diabetes mellitus with hyperglycemia (principal); E78.00 Pure hypercholesterolemia, unspecified; I10 Essential (primary) hypertension
CPT/HCPCS: 36415; 80053; 83036; 84146; 84443; 85652

== ENCOUNTER → 2022-04-29 12:28 | Outpatient (BNVA) | payer MEDICARE, OTHER, SELFPAY | PROVIDERS: PCP Internal Medicine; Visit Provider Internal Medicine Endocrinology, Diabetes & Metabolism | DX: E11.9 Type 2 diabetes mellitus without complications (principal); E78.5 Hyperlipidemia, unspecified; Z98.84 Bariatric surgery status; Z79.4 Long term (current) use of insulin; Z79.84 Long term (current) use of oral hypoglycemic drugs; Z79.52 Long term (current) use of systemic steroids; Z79.899 Other long term (current) drug therapy | CPT/HCPCS: 82947; 99202 ==

== ENCOUNTER → 2022-06-02 10:57 | Outpatient (BNVA) | payer MEDICARE, OTHER, SELFPAY | PROVIDERS: PCP Internal Medicine; Visit Provider Dietitian, Registered | DX: E11.9 Type 2 diabetes mellitus without complications (principal) | CPT/HCPCS: 97802 ==

== ENCOUNTER → 2022-06-30 09:34 | Outpatient (BNVA) | payer MEDICARE, OTHER, SELFPAY | PROVIDERS: PCP Internal Medicine; Visit Provider Dietitian, Registered | DX: E11.9 Type 2 diabetes mellitus without complications (principal) | CPT/HCPCS: 97803 ==

== ENCOUNTER → 2022-07-20 10:57 | Outpatient (BNVA) | payer MEDICARE, OTHER, SELFPAY | PROVIDERS: PCP Internal Medicine; Visit Provider Registered Nurse Diabetes Educator | DX: E11.9 Type 2 diabetes mellitus without complications (principal) | CPT/HCPCS: 99211 ==

== ENCOUNTER 2022-07-21 08:35 | Outpatient (REF) | payer MEDICARE, OTHER, SELFPAY ==
[2022-07-21 09:30] LABS: Estimated Average Glucose 148 mg/dL; Hemoglobin A1c % 6.8 %
[2022-07-21 10:05] LABS: Erythrocyte Sedimentation Rate 23 MM/HR (0-20)
[2022-07-21 10:09] LABS: Alanine Aminotransferase 13 U/L (0-31); Albumin Level 4.1 g/dL (3.5-5.0); Alkaline Phosphatase 79 U/L (39-117); Anion Gap 11 (12-20); Aspartate Amino Transferase 12 U/L (5-31); Bilirubin Total 0.6 mg/dL (0.0-1.0); Blood Urea Nitrogen 14 mg/dL (9-16); Calcium 9.2 mg/dL (8.4-10.2); Carbon Dioxide 28 mmol/L (22-29); Chloride 107 mmol/L (96-108); Estimated Glomerular Filt Rate > 60; Glucose Random 154 mg/dL (60-115); Potassium 3.9 mmol/L (3.3-5.1); Sodium 142 mmol/L (135-145); Total Protein 6.7 g/dL (6.5-8.0)
== END 2022-07-21 08:36 | disposition home or self-care (01) ==
LOC: HO.LAB 08:35
PROVIDERS: PCP Internal Medicine; Visit Provider Internal Medicine
DX: E11.65 Type 2 diabetes mellitus with hyperglycemia (principal); E78.00 Pure hypercholesterolemia, unspecified; I10 Essential (primary) hypertension
CPT/HCPCS: 36415; 80053; 83036; 85652

== ENCOUNTER → 2022-08-26 08:30 | Outpatient (BNVA) | payer MEDICARE, OTHER, SELFPAY | PROVIDERS: PCP Internal Medicine; Visit Provider Dietitian, Registered | DX: E11.9 Type 2 diabetes mellitus without complications (principal); G93.32 Myalgic encephalomyelitis/chronic fatigue syndrome; M79.7 Fibromyalgia; D56.3 Thalassemia minor; Z98.84 Bariatric surgery status; Z71.3 Dietary counseling and surveillance | CPT/HCPCS: 97803 ==

== ENCOUNTER → 2022-08-31 15:05 | Outpatient (BNVA) | payer MEDICARE, OTHER, SELFPAY | PROVIDERS: PCP Internal Medicine; Visit Provider Internal Medicine Endocrinology, Diabetes & Metabolism | DX: E11.9 Type 2 diabetes mellitus without complications (principal) | CPT/HCPCS: 82947; 99212 ==

== ENCOUNTER 2022-09-13 08:27 | Emergency (ER) | payer MEDICARE, OTHER, SELFPAY ==
--- NOTE | 2022-09-13 08:31 | ED_ITS ---
HPI - General Adult General Chief complaint: Abdominal Pain Stated complaint: Diarrhea/Abd pain Time Seen by Provider: 09/13/22 08:30 Source: patient and RN notes reviewed Mode of arrival: ambulatory Limitations: no limitations History of Present Illness HPI narrative: This is a 61-year-old female, with a past medical history diabetes, diverticulosis, and asthma, presenting to the emergency department with compla ints of abdominal pain, diarrhea, and nausea x3 days. Patient states that 4 days ago she had a burger Jason burger, and states several hours later she developed abdominal pain, diarrhea, and nausea. She states that over the last 2 days she has been only eating white rice as that she has had a decreased appetite and nausea. She states that she has had many episodes of green color diarrhea, denies any bloody or black stool. She states that her sugars have been mildly elevated states that ranging in the 170s. Patient denies any fevers, endorsing chills, no nasal congestion, sore throat, ear pain, chest pain, shortness of breath. Patient has tried taking Imodium for her symptoms which has provided her without any relief. No other complaints or concerns at this time. MD complaint: Abdominal pain, diarrhea Radiation: non-radiation Severity: moderate Quality: aching Pain Consistency: intermittent Relieving factors: none Exacerbating factors: none Associated symptoms: nausea/vomiting Treatments prior to arrival: none Related Data Home Medications Medication Instructions Recorded Confirmed blood sugar diagnostic #10 ea 12/24/19 08/31/22 levalbuterol HCl 0.63 mg/3 mL 0.63 mg inhalation Q OTHER DAY 12/24/19 08/31/22 solution for nebulization wheezing levalbuterol tartrate 45 45 mcg inhalation Q4-6H PRN 12/24/19 08/31/22 mcg/actuation aerosol inhaler Wheezing blood-glucose sensor (FreeStyle #1 ea 04/29/22 08/31/22 Horacio 3 Sensor device) insulin glargine 100 unit/mL (3 See Rx Instructions subcut .COMPLEX 04/29/22 08/31/22 mL) subcutaneous pen (Lantus Solostar U-100 Insulin) insulin lispro 100 unit/mL 15 unit subcut TID 04/29/22 08/31/22 subcutaneous pen (Humalog KwikPen (U-100) Insulin) pen needle, diabetic 32 gauge x #50 ea 04/29/22 08/31/22 5/32 (BD Ana 2nd Gen Pen Needle) Previous Rx's Medication Instructions Recorded diclofenac sodium 50 mg 50 mg PO BID PRN pain #40 tabs 09/24/21 tablet,delayed release inhalational spacing device #1 ea 01/17/22 (Aerochamber Plus Z Stat spacer) blood-glucose sensor (FreeStyle #2 ea 05/19/22 Horacio 3 Sensor device) tirzepatide 7.5 mg/0.5 mL 7.5 mg (0.5 mL) subcut QWEEK #2 mL 07/20/22 subcutaneous pen injector (Michaelunjaro) ondansetron 4 mg disintegrating 4 mg PO Q8H PRN nausea and 09/13/22 tablet vomiting #15 tabs Allergies Allergy/AdvReac Type Severity Reaction Status Date / Time iodine [IODINE] Allergy Severe ANAPHYLAXIS Verified 08/31/22 15:14 Penicillins [PENICILLINS] Allergy Severe BREATHING Verified 08/31/22 15:14 PROBLEM shellfish derived Allergy Severe ANAPHYLAXIS Verified 08/31/22 15:14 clindamycin [CLINDAMYCIN] Allergy Intermediate HIVES Verified 08/31/22 15:14 milnacipran [From SAVELLA] Allergy Intermediate BRUISE Verified 08/31/22 15:14 vancomycin [VANCOMYCIN] Allergy Intermediate HIVES; Verified 08/31/22 15:14 ITCHING metformin Allergy Unknown diarrhea Verified 08/31/22 15:14 albuterol [ALBUTEROL] AdvReac Intermediate HEART RACES Verified 08/31/22 15:14 metformin AdvReac Stomach Uncoded 08/31/22 15:14 Upset Review of Systems Review of Systems: Yes all other systems are reviewed and are negative Constitutional: Constitutional: Reports as per [facility] Past Medical History Medical History (Updated 09/13/22 @ 15:04 by KYUNG Christine) Anemia Asthma Beta thalassemia trait Chronic fatigue syndrome Colon cancer screening Diabetes Diabetes mellitus Diverticular disease Diverticular disease Family history of ovarian cancer Fibromyalgia H/O deep vein thrombosis during 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 Brother Heart problem Brother No problems noted. Brother No problems noted. 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 Physical Exam ED Vital Signs: Vital Signs - 24 hr 09/13/22 08:40 09/13/22 08:49 09/13/22 12:31 Temperature 98.7 F 98.1 F Pulse Rate 90 70 Respiratory Rate 18 18 14 Blood Pressure 118/70 118/70 105/57 L Pulse Oximetry 97 98 98 Oxygen Delivery Method Room Air Room Air Room Air 09/13/22 14:55 Temperature Pulse Rate 76 Respiratory Rate 18 Blood Pressure 111/68 Pulse Oximetry Oxygen Delivery Method BMI result Body Mass Index 36.9 Const General: cooperative, comfortable and no acute distress Orientation/consciousness: patient oriented x3 Limitations: no limitations HENMT Head: Yes normal to inspection, Yes normocephalic and Yes atraumatic Ears: hearing grossly normal bilaterally General nose exam: Normal external nose present Face and sinus: Yes normal facial exam Mouth: Normal oral and palatal mucosa present, oropharynx normal and moist mucous membranes Throat: Yes posterior oropharynx normal Eyes General: appearance normal, both eyes and all related structures Eyelids: Yes eyelids normal Conjunctivae: conjunctivae normal Sclerae: sclerae normal Pupils: Equal, round and reactive pupils present EOM: EOMs intact bilaterally Neck Neck: Yes normal visual inspection, Yes full ROM and Yes no lymphadenopathy Lymphatic: no lymphadenopathy noted Chest Chest palpation & inspection: normal inspection of the chest Resp Effort & Inspection: normal respiratory effort and able to speak in complete sentences Auscultation: clear to auscultation bilaterally, no crackles, no rales, no rhonchi and no wheezes Cardio Rate: regular rate Rhythm: regular rhythm Heart sounds: S1 normal heart sound present and S2 normal heart sound present GI Other: Abdomen is soft, with tenderness to palpation in the epigastrium, right upper quadrant and periumbilical, no rebound, positive guarding. Hyperactive bowel sounds present in all 4 quadrants. Inspection: Yes normal to inspection Skin General skin exam: no rashes or lesions noted Trauma: no lacerations or abrasions Wounds: no wounds Neuro General: patient oriented x3 and moves all extremities Cranial nerves: Yes Equal, round and reactive pupils present Extrem General: Yes normal to inspection Right upper extremity: normal to inspection Left upper extremity: normal to inspection Right lower extremity: normal to inspection Left lower extremity: normal to inspection Course Reevaluation(s) Reevaluation #1: CT abdomen and pelvis reviewed as diverticulosis without any new evidence of diverticulitis. Patient still having significant pain, patient medicated with Reglan and Toradol. Will re-evaluate Time: 13:03 Reevaluation #2: Patient re-evaluated, pain has improved now to a 4/10. 1 L of IV fluids added, patient without leukocytosis, H&H stable, normal liver enzymes, urine is not infected. Time: 13:48 Reevaluation #3: Patient's vital signs remained stable, p.o. trial and patient is feeling well, patient stable for discharge. Will discharge with antiemetics, advised follow- up with GI specialist if symptoms persist. Given return precautions if any new or worsening symptoms occur. Patient understands and agrees plan. Patient stable for discharge. Time: 15:02 Medications Administered Discontinued Medications Generic Name Dose Route Start Last Admin Trade Name Freq PRN Reason Stop Dose Admin Sodium Chloride 1,000 mls @ 999 mls/hr 09/13/22 08:58 09/13/22 10:56 Ns IV 09/13/22 09:58 Infused .Q1H1M ONE Infusion Sodium Chloride 1,000 mls @ 999 mls/hr 09/13/22 13:46 09/13/22 14:03 Ns IV 09/13/22 14:46 999 mls/hr .Q1H1M ONE Administration Ketorolac Tromethamine 30 mg 09/13/22 13:03 09/13/22 13:15 Ketorolac Tromethamine 30 Mg/Ml Vial IM 09/13/22 13:04 30 mg ONCE ONE Administration Metoclopramide HCl 10 mg 09/13/22 13:03 09/13/22 13:17 Metoclopramide Hcl 10 Mg/2 Ml Vial IVPUSH 09/13/22 13:04 10 mg ONCE ONE Administration Morphine Sulfate 4 mg 09/13/22 08:58 09/13/22 09:00 Morphine Sulfate 4 Mg/Ml Cartridge IVPUSH 09/13/22 08:59 4 mg ONCE ONE Administration Protocol Ondansetron HCl 4 mg 09/13/22 08:58 09/13/22 09:00 Ondansetron Hcl 4 Mg/2 Ml Vial IV 09/13/22 08:59 4 mg ONCE ONE Administration Medical Decision Making Medical Decision Making [facility] Narrative: 61-year-old female presenting to the emergency department for evaluation of abdominal pain, diarrhea, and nausea x3 days. Patient ate a burger Jason burger and states several hours later she developed nausea, diarrhea, abdominal pain. She has been taking Imodium for her symptoms without and with the. On arrival, patient nontoxic appearing, vital signs within normal limits, patient is afebrile. Abdomen is soft, with tenderness, concerning for diverticulitis verses gastritis. Plan: Labs, UA, CT scan. Would prefer to have CT scan with IV contrast, however given patient's anaphylaxis reaction, will obtain CT scan without contrast Differential Diagnosis Differential Diagnoses: The differential diagnosis associated with the presentation includes Diverticulitis, toxic megacolon, diverticulosis, gastritis, gastroenteritis, C diff-unlikely Admission/Observation Consideration of admission/observation: Escalation of care including admission/observation considered Patient would have been admitted to the hospital had her work up had any findings where hospital admission was appropriate and her clinical presentation warranted hospital admission. 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 Castillo. Lab Data [facility] Lab Attestation statement: I reviewed the patient's lab results. Normal leukocytosis, stable H&H, electrolytes within normal limits, UA does not appear to be infected 09/13/22 09:14 09/13/22 09:14 Labs: Lab Results 09/13/22 09/13/22 09/13/22 Range/Units 09:14 09:14 13:24 WBC 9.7 (4.8-10.8) X10*3/uL RBC 5.77 H (4.20-5.50) X10*6/uL Hgb 12.4 (12.0-16.0) g/dl Hct 40.9 (37.0-47.0) % MCV 70.9 L (80.0-98.0) fL MCH 21.5 L (27.0-33.0) pg MCHC 30.3 L (31.0-35.0) g/dl RDW 15.1 (11.0-16.0) % Plt Count 279 (160-400) X10*3/uL MPV 10.5 (9.4-12.3) fL Immature Gran % (Auto) 0.2 (0.0-0.4) % Neut % (Auto) 78.1 H (45-73) % Lymph % (Auto) 14.4 L (20-40) % Ness % (Auto) 5.2 (2-11) % Eos % (Auto) 1.9 (0-4) % Baso % (Auto) 0.2 (0-2) % Lymph # (Auto) 1.4 (1.2-4.9) X10*3/uL Ness # (Auto) 0.5 (0.1-1.2) X10*3/uL Eos # (Auto) 0.2 (0.0-0.4) X10*3/uL Baso # (Auto) 0.0 (0.0-0.2) X10*3/uL Abs Immat Gran (auto) 0.02 (0.00-0.03) X10*3/uL Absolute Neuts (auto) 7.5 (2.0-8.3) x10*3/uL Absolute Nucleated RBC 0.000 (0.0-0.012) X10*3/uL Nucleated RBC % (auto) 0.0 (0.0-0.2) /100WBC Sodium 140 (135-145) mmol/L Potassium 3.7 (3.3-5.1) mmol/L Chloride 107 (96-108) mmol/L Carbon Dioxide 23 (22-29) mmol/L Anion Gap 14 (12-20) BUN 16 (9-16) mg/dL Creatinine 1.15 (0.5-1.4) mg/dL Estim Creat Clear Calc 55.4 Estimated GFR 48 Random Glucose 200 H (60-115) mg/dL Calcium 9.6 (8.4-10.2) mg/dL Magnesium 1.7 (1.6-2.6) mg/dL Total Bilirubin 1.0 (0.0-1.0) mg/dL Direct Bilirubin 0.2 (0.0-0.5) mg/dL AST 12 (5-31) U/L ALT 14 (0-31) U/L Alkaline Phosphatase 76 (39-117) U/L Total Protein 7.5 (6.5-8.0) g/dL Albumin 4.1 (3.5-5.0) g/dL Lipase 8 (8-78) U/L Urine Color Yellow Urine Appearance Clear Urine pH 5.0 (5.0-9.0) Ur Specific [place] 1.025 (1.005-1.025) Urine Protein Negative (Neg-Trace) mg/dL Urine Glucose (UA) Negative (Negative) mg/dL Urine Ketones Trace (Negative) mg/dL Urine Blood Negative (Negative) Urine Nitrite Negative (Negative) Ur Leukocyte Esterase Negative (Negative) Independent Interpretation I performed an independent interpretation of an: CT Scan Interpretation: EXAMINATION: CT ABDOMEN AND PELVIS WITHOUT CONTRAST? CLINICAL INFORMATION: Abdominal pain? COMPARISON: CT abdomen pelvis 02/12/2021 TECHNIQUE: Multidetector volumetric imaging was performed from the superior aspect of the liver through the pubic symphysis. Sagittal and coronal reformatted images were obtained on the technologist's workstation.? This CT examination was performed using dose optimization techniques as appropriate, variously including the following: *Automated exposure control *Adjustment of mA and/or kV according to patient size (this includes techniques or standardized protocols for targeted exams where dose is matched to indication/reason for exam; i.e. extremities or head) *Use of iterative reconstruction technique DLP: 632 mGy-cm FINDINGS: LUNG BASES: The visualized lung bases are unremarkable.? LIVER, GALLBLADDER, AND BILIARY TREE: The liver is normal in size, shape, and attenuation. No focal hepatic lesion or biliary ductal dilatation is present. The gallbladder is unremarkable with no evidence of radiopaque gallstones, gallbladder wall thickening, or obvious pericholecystic inflammatory changes.? PANCREAS: Unremarkable.? SPLEEN: Unremarkable.? ADRENAL GLANDS: Adrenal glands are mildly thickened and unchanged from prior. No significant abnormality.? KIDNEYS AND URETERS: The kidneys are normal in size, shape, and attenuation. No hydronephrosis, hydroureter, or calculi seen. No perinephric stranding. ? BLADDER: Unremarkable.? GASTROINTESTINAL TRACT: Colonic diverticular change is present most prominent in the sigmoid. There is a small area of perisigmoid inflammatory change seen which can also be seen at the time of the 02/12/2021 CT scan which is probably of no significance. No convincing evidence of diverticulitis is seen. The small and large bowel are otherwise unremarkable. The appendix is unremarkable.? ABDOMINAL WALL: There is mild diastases of the rectus muscles above the umbilicus. No significant hernia is seen.? LYMPH NODES: No mediastinal or hilar lymphadenopathy present. VASCULAR: Unremarkable. PELVIC VISCERA: The uterus is not seen. What appears to be the left ovary appears unremarkable (3:65). No free intraperitoneal fluid is seen? OSSEOUS STRUCTURES: Degenerative changes are present in the lower thoracic spine. No bony destructive lesions. CT/CT abdomen pelvis wo IV con IMPRESSION: 1.? A definitive etiology for the patient's abdominal pain has not been found. 2.? Incidental note made of mild stable adrenal thickening, colonic diverticulosis without any new convincing evidence of diverticulitis and degenerative changes in the spine. ? Fleischner guidelines were followed. Dictated By: Adriano Armstrong MD Signed By: <Electronically signed by Adriano Armstrong MD in OV> 09/13/22 1212 DD/ 1000 Radiology Impression Discussion of test interpretation with radiology: I have reviewed the radiologist's reading. External Record Review External record reviewed: Inpatient record, Office record, Outpatient record, Prior outpatient labs, Prior outpatient radiology, Primary care record and Outside ED record Critical Care Time Critical Care Time Critical Care Time: Yes Total Critical Care Time: 35 Attestation: I have personally provided critical care time exclusive of time spent on separately billable procedures. Time includes review of lab data, radiology results, discussion with consultants, and monitoring for potential decompensation. Intervention performed as documented. Discharge Plan Discharge Clinical Impression: Abdominal pain, Diarrhea, Diverticulosis Patient Disposition: Home, Self-Care Instructions: Acute Diarrhea (ED), Abdominal Pain (ED) Additional Instructions: Your workup today was reassuring, your abdominal CT scan revealed diverticulosis without any evidence of diverticulitis. Please drink plenty of fluids and get plenty of rest. Stick to a bland diet. Avoid spicy or acidic foods. If your symptoms persist, please follow-up with your pipe stem aligner. Take prescribed medication as directed. If any new or worsening symptoms occur including but not limited to fevers, vomiting, unable to eat or drink, bloody or black stool, chest pain or shortness for breath, or worsening symptoms, please return evaluation. Prescriptions: New ondansetron 4 mg tablet,disintegrating 4 mg PO Q8H PRN (Reason: nausea and vomiting) Qty: 15 0RF No Action (DME) FreeStyle Horacio 3 Sensor Device See Rx Instructions .Route Qty: 2 4RF Rx Instructions: As directed Mounjaro 7.5 mg/0.5 mL pen injector 7.5 mg subcut QWEEK Qty: 2 5RF diclofenac sodium 50 mg tablet,delayed release (DR/EC) 50 mg PO BID PRN (Reason: pain) Qty: 40 0RF (DME) Aerochamber Plus Z Stat Spacer See Rx Instructions .Route Qty: 1 0RF Rx Instructions: As directed (DME) FreeStyle Lite Strips Strip See Rx Instructions .ROUTE .MEDSUPPLY Qty: 10 Rx Instructions: As directed levalbuterol tartrate 45 mcg/actuation HFA aerosol inhaler 45 mcg inhalation Q4-6H PRN (Reason: Wheezing) levalbuterol HCl 0.63 mg/3 mL solution for nebulization 0.63 mg inhalation Q OTHER DAY insulin glargine [Lantus Solostar U-100 Insulin] 100 unit/mL (3 mL) insulin pen See Rx Instructions subcut .COMPLEX Rx Instructions: 25-28 units subcutaneously; insulin lispro [Humalog KwikPen Insulin] 100 unit/mL insulin pen 15 unit subcut TID (DME) FreeStyle Horacio 3 Sensor Device See Rx Instructions .ROUTE QID Qty: 1 Rx Instructions: As directed every 14 days (DME) pen needle, diabetic [BD Ana 2nd Gen Pen Needle] 32 gauge x 5/32 needle See Rx Instructions .ROUTE .MEDSUPPLY Qty: 50 Rx Instructions: As directed 4 times a day
[2022-09-13 08:40] VITALS: BP 118/70; RESP 18; TEMP 37.1; O2SAT 97; BMI 36.9
--- NOTE | 2022-09-13 08:45 | PC.NURSE ---
Alert and oriented. Arrived from home reporting x 3 days diarrhea and abdominal pain. rates the pain at 8/10 and states it comes and goes. Patient reports feeling tired and weak and has not been able to eat much for the last few days. Dnies sob or chest pain.BS at the time 196.
[2022-09-13 08:49] VITALS: BP 118/70; PULSE 90; RESP 18; TEMP 36.7; O2SAT 98
[2022-09-13] MEDS: Morphine Sulfate 4 MG/ML CARTRIDGE IVPUSH (09:00)
[2022-09-13] MEDS: ondansetron HCL 4 MG/2 ML VIAL IV (09:00)
[2022-09-13] MEDS: 0.9 % Sodium Chloride 1,000 ML 999 ML IV (09:17)
[2022-09-13 09:39] LABS: Alanine Aminotransferase 14 U/L (0-31); Albumin Level 4.1 g/dL (3.5-5.0); Alkaline Phosphatase 76 U/L (39-117); Anion Gap 14 (12-20); Aspartate Amino Transferase 12 U/L (5-31); Bilirubin Direct 0.2 mg/dL (0.0-0.5); Blood Urea Nitrogen 16 mg/dL (9-16); Calcium 9.6 mg/dL (8.4-10.2); Carbon Dioxide 23 mmol/L (22-29); Chloride 107 mmol/L (96-108); Creatinine Clr Calc Pharmacy 55.4; Estimated Glomerular Filt Rate 48; Glucose Random 200 mg/dL (60-115); Lipase 8 U/L (8-78); Magnesium 1.7 mg/dL (1.6-2.6); Potassium 3.7 mmol/L (3.3-5.1); Sodium 140 mmol/L (135-145); Total Protein 7.5 g/dL (6.5-8.0)
--- NOTE | 2022-09-13 10:39 | PC.NURSE ---
Patient reports feeling better after iv fluids, pain meds, and zofran. Resting comfortably in bed at this time.
[2022-09-13 12:31] VITALS: BP 105/57; PULSE 70; RESP 14; O2SAT 98
[2022-09-13 14:55] VITALS: BP 111/68; PULSE 76; RESP 18
--- NOTE | 2022-09-13 14:55 | PC.NURSE ---
Reports pain is much improved after IM pain medication. IV fluids running as ordered.
== END 2022-09-13 15:51 | disposition home or self-care (01) ==
PROVIDERS: Physician Assistant Medical; Emergency Provider Emergency Medicine; PCP Internal Medicine
DX: K57.30 Diverticulosis of large intestine without perforation or abscess without bleeding (principal); R19.7 Diarrhea, unspecified; Z79.899 Other long term (current) drug therapy
CPT/HCPCS: 36415; 74176; 80048; 80076; 81003; 83690; 83735; 85025; 96361; 96372; 96374; 96375; 99284; J1885; J2270; J2405; J2765

== ENCOUNTER 2022-09-15 08:04 | Emergency (ER) | payer MEDICARE, OTHER, SELFPAY ==
[2022-09-15 08:17] VITALS: BP 130/69; PULSE 89; RESP 14; TEMP 36.8; O2SAT 98; BMI 35.5
[2022-09-15 09:58] VITALS: BP 139/80; PULSE 79; TEMP 36.8; O2SAT 98
[2022-09-15 10:00] VITALS: BP 150/78; PULSE 81; RESP 18; TEMP 36.6; O2SAT 98
--- NOTE | 2022-09-15 10:08 | PC.NURSE ---
a&ox3, vss aside from hypertension (150/78), pt comes in because states that she thinks that the jaspreet whopper that she consumed on tuesday is what triggered the pain in her stomach. the pt came in on tuesday to be seen and has been eating all of the recommended foods d/t her diagnosis of diverticulitis but feels that her pain is getting worse rating the pain an 8/10, pt verbalizing nausea, headache and diarrhea over the past few days, hyperactive bs noted upon auscultation, pain verbalized upon palpation, call jones placed within reach.
--- NOTE | 2022-09-15 10:09 | ED_ITS ---
HPI - Abdominal Pain General Chief Complaint: Abdominal Pain Stated Complaint: abd pain/ was just here Time Seen by Provider: 09/15/22 10:08 Source: patient Mode of arrival: ambulatory Limitations: no limitations History of Present Illness HPI narrative: 61-year-old female with history of diverticulosis, diabetes, hypertension, obesity status post lap band procedure, asthma, thalassemia who presents to the ER for evaluation of upper abdominal pain for the last 5 days. She states she was seen here 2 days ago, had a CT scan done showing diverticulosis. She states the pain started 5 days ago after eating a wall per from [employer]. It has been a smoker he has been burning and squeezing sensation that comes and goes. She has intermittent diarrhea, it was present Jayme and over the weekend, went away yesterday and came back today. She denies any bloody stools, urinary symptoms, fever or chills. MD elicited complaint: abdominal pain Pertinent past history: other (diverticulosis) Onset (ago): day(s) Pain Consistency: intermittent Location: epigastric and periumbilical Severity: moderate Quality: stabbing and aching Radiation: none Migration to: no migration Exacerbating factors: nothing Relieving factors: nothing Context: history of similar episodes Associated symptoms: nausea and diarrhea Related Data Home Medications Medication Instructions Recorded Confirmed blood sugar diagnostic #10 ea 12/24/19 08/31/22 levalbuterol HCl 0.63 mg/3 mL 0.63 mg inhalation Q OTHER DAY 12/24/19 08/31/22 solution for nebulization wheezing levalbuterol tartrate 45 45 mcg inhalation Q4-6H PRN 12/24/19 08/31/22 mcg/actuation aerosol inhaler Wheezing blood-glucose sensor (FreeStyle #1 ea 04/29/22 08/31/22 Horacio 3 Sensor device) insulin glargine 100 unit/mL (3 See Rx Instructions subcut .COMPLEX 04/29/22 mL) subcutaneous pen (Lantus Solostar U-100 Insulin) insulin lispro 100 unit/mL 15 unit subcut TID 04/29/22 08/31/22 subcutaneous pen (Humalog KwikPen (U-100) Insulin) pen needle, diabetic 32 gauge x #50 ea 04/29/22 08/31/22 (BD Ana 2nd Gen Pen Needle) Previous Rx's Medication Instructions Recorded diclofenac sodium 50 mg 50 mg PO BID PRN pain #40 tabs 09/24/21 tablet,delayed release inhalational spacing device #1 ea 01/17/22 (Aerochamber Plus Z Stat spacer) blood-glucose sensor (FreeStyle #2 ea 05/19/22 Horacio 3 Sensor device) tirzepatide 7.5 mg/0.5 mL 7.5 mg (0.5 mL) subcut QWEEK #2 mL 07/20/22 subcutaneous pen injector (Baltazar) ondansetron 4 mg disintegrating 4 mg PO Q8H PRN nausea and 09/13/22 tablet vomiting #15 tabs dicyclomine 10 mg capsule 10 mg PO TID PRN abdominal pain 09/15/22 #30 caps pantoprazole 40 mg tablet,delayed 40 mg PO DAILY #30 tabs 09/15/22 release (Protonix) Allergies Allergy/AdvReac Type Severity Reaction Status Date / Time iodine [IODINE] Allergy Severe ANAPHYLAXIS Verified 08/31/22 15:14 Penicillins [PENICILLINS] Allergy Severe BREATHING Verified 08/31/22 15:14 PROBLEM shellfish derived Allergy Severe ANAPHYLAXIS Verified 08/31/22 15:14 clindamycin [CLINDAMYCIN] Allergy Intermediate HIVES Verified 08/31/22 15:14 milnacipran [From SAVELLA] Allergy Intermediate BRUISE Verified 08/31/22 15:14 vancomycin [VANCOMYCIN] Allergy Intermediate HIVES; Verified 08/31/22 15:14 ITCHING metformin Allergy Unknown diarrhea Verified 08/31/22 15:14 albuterol [ALBUTEROL] AdvReac Intermediate HEART RACES Verified 08/31/22 15:14 metformin AdvReac Stomach Uncoded 08/31/22 15:14 Upset Review of Systems Review of Systems Yes all other systems are reviewed and are negative [facility] Past Medical History Medical History (Updated 09/15/22 @ 13:41 by KYUNG Gold) Anemia Asthma Beta thalassemia trait Chronic fatigue syndrome Colon cancer screening Diabetes Diabetes mellitus Diverticular disease Diverticular disease Family history of ovarian cancer Fibromyalgia H/O deep vein thrombosis during 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 Brother Heart problem Brother No problems noted. Brother No problems noted. 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 Oriented X3. No acute distress. Head: normocephalic, atraumatic. Eyes: Pupils equal, round and reactive to light. ENT: Pharynx normal. No tonsillar swelling or exudate. Neck: Normal inspection. Neck supple. CVS: Normal heart rate and rhythm. Pulses normal. Respiratory: No respiratory distress. Breath sounds normal. Abdomen: Well healed surgical scars c/w prior lab band. obese, Soft with epigastric tenderness, no rebounr or guarding. +BS x4 Skin: Skin warm and dry. Normal skin color. Normal skin turgor. No rashes. Extremities: No lower extremity edema. No joint swelling. Neuro/psych: Oriented X 3. No motor deficit. No sensory deficit. CN II-XII intact. Normal speech and cognition. Medical Decision Making Medical Decision Making MDM Narrative: 61-year-old female with history of diabetes, obesity, anemia, diverticulosis who presents to the ER for evaluation of ongoing abdominal pain. Pain is mostly in the epigastric area and periumbilical area. She is having diarrhea on and off. Stool studies were sent. She is hemodynamically stable and afebrile. Her lab work is unremarkable. She had a CT scan 2 days ago which showed diverticulosis without any evidence of diverticulitis. Her abdomen is soft with mild epigastric tenderness. She has no rebound or guarding. She was given a GI cocktail. She reports improvement in her epigastric pain. She is tolerating PO. She states she recently went up on her DM medication Mounjaro of which the adverse effect profile includes, nausea, diarrhea and abdominal pain. She will f/u with her PCP. Return precautions discussed. Differential Diagnosis Differential Diagnoses: The differential diagnosis associated with the presentation includes gastritis, GERD, gastroenteritis, Cdiff colitis, pancreatitis, dehydration, metabolic derangement from GI losses, adverse side effects of Mounjaro Admission/Observation Consideration of admission/observation: Escalation of care including admission/observation considered 2nd visit for abdominal pain, considered admission/obs Lab Data [facility] Lab Attestation statement: I reviewed the patient's lab results. No leukocytosis, stable anemia, no significant metabolic derangement 09/15/22 10:47 09/15/22 10:47 Labs: Lab Results 09/15/22 09/15/22 09/15/22 Range/Units 10:39 10:47 10:47 WBC 5.7 (4.8-10.8) X10*3/uL RBC 5.09 (4.20-5.50) X10*6/uL Hgb 10.9 L (12.0-16.0) g/dl Hct 35.5 L (37.0-47.0) % MCV 69.7 L (80.0-98.0) fL MCH 21.4 L (27.0-33.0) pg MCHC 30.7 L (31.0-35.0) g/dl RDW 14.8 (11.0-16.0) % Plt Count 243 (160-400) X10*3/uL MPV 10.6 (9.4-12.3) fL Immature Gran % (Auto) 0.3 (0.0-0.4) % Neut % (Auto) 53.6 (45-73) % Lymph % (Auto) 32.9 (20-40) % Cascade % (Auto) 9.8 (2-11) % Eos % (Auto) 3.1 (0-4) % Baso % (Auto) 0.3 (0-2) % Lymph # (Auto) 1.9 (1.2-4.9) X10*3/uL Cascade # (Auto) 0.6 (0.1-1.2) X10*3/uL Eos # (Auto) 0.2 (0.0-0.4) X10*3/uL Baso # (Auto) 0.0 (0.0-0.2) X10*3/uL Abs Immat Gran (auto) 0.02 (0.00-0.03) X10*3/uL Absolute Neuts (auto) 3.1 (2.0-8.3) x10*3/uL Absolute Nucleated RBC 0.000 (0.0-0.012) X10*3/uL Nucleated RBC % (auto) 0.0 (0.0-0.2) /100WBC Sodium 141 (135-145) mmol/L Potassium 3.8 (3.3-5.1) mmol/L Chloride 109 H (96-108) mmol/L Carbon Dioxide 22 (22-29) mmol/L Anion Gap 14 (12-20) BUN 11 (9-16) mg/dL Creatinine 0.93 (0.5-1.4) mg/dL Estim Creat Clear Calc 67.1 Estimated GFR > 60 Random Glucose 119 H (60-115) mg/dL Calcium 9.7 (8.4-10.2) mg/dL Magnesium 1.6 (1.6-2.6) mg/dL Total Bilirubin 0.9 (0.0-1.0) mg/dL Direct Bilirubin 0.2 (0.0-0.5) mg/dL AST 11 (5-31) U/L ALT 11 (0-31) U/L Alkaline Phosphatase 67 (39-117) U/L Total Protein 7.0 (6.5-8.0) g/dL Albumin 4.0 (3.5-5.0) g/dL Urine Color Yellow Urine Appearance Clear Urine pH 5.5 (5.0-9.0) Ur Specific [place] 1.015 (1.005-1.025) Urine Protein Negative (Neg-Trace) mg/dL Urine Glucose (UA) Negative (Negative) mg/dL Urine Ketones Negative (Negative) mg/dL Urine Blood Negative (Negative) Urine Nitrite Negative (Negative) Ur Leukocyte Esterase Negative (Negative) Radiology Impression Discussion of test interpretation with radiology: I have reviewed the rad iologist's reading. Radiologist Impression: 09/13/22 CT/CT abdomen pelvis wo IV con IMPRESSION: 1.? A definitive etiology for the patient's abdominal pain has not been found. 2.? Incidental note made of mild stable adrenal thickening, colonic diverticulosis without any new convincing evidence of diverticulitis and degenerative changes in the spine. External Record Review External record reviewed: Office record, Outpatient record, Prior outpatient labs and Prior outpatient radiology Prescription Management I considered prescription management with: Pain Medication and Antibiotic Chronic Conditions Patient?s care impacted by: Diabetes Medications Administered Discontinued Medications Generic Name Dose Route Start Last Admin Trade Name Freq PRN Reason Stop Dose Admin Al Hydroxide/Mg Hydroxide 30 ml 09/15/22 10:23 09/15/22 10:43 Magnesium Hydrox/Alum Hydrox 30 Ml Oral.Susp PO 09/15/22 10:24 30 ml ONCE ONE Administration Belladonna Alkaloids/Phenobarbital 10 ml 09/15/22 10:23 09/15/22 10:43 Phenobarb/Hyoscy/Atropine/Scop 10 Ml Elixir PO 09/15/22 10:24 10 ml ONCE ONE Administration Lidocaine HCl 15 ml 09/15/22 10:09/15/22 10:44 Lidocaine Hcl Viscous 2 % 15 Ml Solution MUCOUS MEM 09/15/22 10:24 Not Given ONCE ONE Ondansetron HCl 4 mg 09/15/22 10:23 09/15/22 10:44 Ondansetron Odt 4 Mg Tab.Rapdis TRANSLINGU 09/15/22 10:24 4 mg ONCE ONE Administration Critical Care Time Critical Care Time Critical Care Time: No Discharge Plan Discharge Clinical Impression: Gastroenteritis Patient Disposition: Home, Self-Care Instructions: Gastroenteritis (DC) Additional Instructions: You lab workup today was unremarkable. Your symptoms may be due to a side effect of your diabetes medication. Stool studies were sent to the lab, we will call you if they are positive. Recommend rest and plenty of oral hydration. Stick to a bland diet like soup and toast while you are not feeling well. Take the prescribed medications as directed Recommend over the counter Pepto Bismol or Imodium for upset stomach and diarrhea. Follow up with your doctor If you develop new or worsening symptoms call 911 or come back to the ER for further evaluation. Prescriptions: New dicyclomine 10 mg capsule 10 mg PO TID PRN (Reason: abdominal pain) Qty: 30 0RF pantoprazole [Protonix] 40 mg tablet,delayed release (DR/EC) 40 mg PO DAILY Qty: 30 0RF No Action (DME) FreeStyle Horacio 3 Sensor Device See Rx Instructions .Route Qty: 2 4RF Rx Instructions: As directed Mounjaro 7.5 mg/0.5 mL pen injector 7.5 mg subcut QWEEK Qty: 2 5RF diclofenac sodium 50 mg tablet,delayed release (DR/EC) 50 mg PO BID PRN (Reason: pain) Qty: 40 0RF (DME) Aerochamber Plus Z Stat Spacer See Rx Instructions .Route Qty: 1 0RF Rx Instructions: As directed ondansetron 4 mg tablet,disintegrating 4 mg PO Q8H PRN (Reason: nausea and vomiting) Qty: 15 0RF (DME) FreeStyle Lite Strips Strip See Rx Instructions .ROUTE .MEDSUPPLY Qty: 10 Rx Instructions: As directed levalbuterol tartrate 45 mcg/actuation HFA aerosol inhaler 45 mcg inhalation Q4-6H PRN (Reason: Wheezing) levalbuterol HCl 0.63 mg/3 mL solution for nebulization 0.63 mg inhalation Q OTHER DAY insulin glargine [Lantus Solostar U-100 Insulin] 100 unit/mL (3 mL) insulin pen See Rx Instructions subcut .COMPLEX Rx Instructions: 25-28 units subcutaneously; insulin lispro [Humalog KwikPen Insulin] 100 unit/mL insulin pen 15 unit subcut TID (DME) FreeStyle Horacio 3 Sensor Device See Rx Instructions .ROUTE QID Qty: 1 Rx Instructions: As directed every 14 days (DME) pen needle, diabetic [BD Ana 2nd Gen Pen Needle] 32 gauge x 5/32 needle See Rx Instructions .ROUTE .MEDSUPPLY Qty: 50 Rx Instructions: As directed 4 times a day Referrals: Frances Cutler MD [Primary Care Provider] -
--- NOTE | 2022-09-15 10:15 | PC.NURSE ---
pt complaining of diarrhea, currently in bathroom trying to get urine and stool sample.
--- NOTE | 2022-09-15 10:39 | PC.NURSE ---
urine and stool sample sent.
[2022-09-15] MEDS: Magnesium Hydrox/Alum Hydrox 30 ML ORAL.SUSP PO (10:43)
[2022-09-15] MEDS: PHENobarb/Hyoscy/Atropine/Scop 10 ML ELIXIR PO (10:43)
[2022-09-15] MEDS: Ondansetron ODT 4 MG TAB.RAPDIS TRANSLINGU (10:44)
--- NOTE | 2022-09-15 10:48 | PC.NURSE ---
medication administered per provider order, tech bedside drawing labs and being sent.
[2022-09-15 10:51] LABS: MANUAL DIFF FLAG NO
[2022-09-15 10:53] LABS: Appearance Urine Clear; Color Urine Yellow; Glucose Urine UA Negative (Negative); Leukocyte Esterase Urine Negative (Negative); Nitrite Urine Negative (Negative); PH 5.5 (5.0-9.0); Specific Gravity - Urine 1.015 (1.005-1.025); Urine Blood Negative (Negative); Urine Ketones Negative (Negative); Urine Protein Negative (Neg-Trace)
[2022-09-15 10:54] LABS: Basophils Percent Auto 0.3 % (0-2); Eosinophils Absolute Auto 0.2 X10*3/uL (0.0-0.4); Eosinophils Percent Auto 3.1 % (0-4); Hematocrit 35.5 % (37.0-47.0); Hemoglobin 10.9 g/dl (12.0-16.0); Imm Gran Abs Auto 0.02 X10*3/uL (0.00-0.03); Imm Gran Pct Auto 0.3 % (0.0-0.4); Lymphocytes Absolute Auto 1.9 X10*3/uL (1.2-4.9); Lymphocytes Percent Auto 32.9 % (20-40); Mean Corpuscular HGB Conc 30.7 g/dl (31.0-35.0); Mean Corpuscular Hemoglobin 21.4 pg (27.0-33.0); Mean Corpuscular Volume 69.7 fL (80.0-98.0); Mean Platelet Volume 10.6 fL (9.4-12.3); Monocytes Absolute Auto 0.6 X10*3/uL (0.1-1.2); Monocytes Percent Auto 9.8 % (2-11); Neutrophils Absolute Auto 3.1 x10*3/uL (2.0-8.3); Neutrophils Percent Auto 53.6 % (45-73); Platelet Count 243 X10*3/uL (160-400); Red Blood Count 5.09 X10*6/uL (4.20-5.50); Red Cell Distribution Width 14.8 % (11.0-16.0); White Blood Count 5.7 X10*3/uL (4.8-10.8)
[2022-09-15 11:08] LABS: Alanine Aminotransferase 11 U/L (0-31); Alkaline Phosphatase 67 U/L (39-117); Anion Gap 14 (12-20); Aspartate Amino Transferase 11 U/L (5-31); Bilirubin Direct 0.2 mg/dL (0.0-0.5); Bilirubin Total 0.9 mg/dL (0.0-1.0); Blood Urea Nitrogen 11 mg/dL (9-16); Calcium 9.7 mg/dL (8.4-10.2); Carbon Dioxide 22 mmol/L (22-29); Chloride 109 mmol/L (96-108); Creatinine Clr Calc Pharmacy 67.1; Estimated Glomerular Filt Rate > 60; Glucose Random 119 mg/dL (60-115); Magnesium 1.6 mg/dL (1.6-2.6); Potassium 3.8 mmol/L (3.3-5.1); Sodium 141 mmol/L (135-145)
[2022-09-15 12:37] VITALS: BP 136/79; PULSE 81; RESP 18; TEMP 36.7; O2SAT 98
[2022-09-15 15:29] LABS: CDiff Gene PCR INVALID (Negative)
[2022-09-15 16:04] LABS: Campylobacter Not Detected (Not Detect.); E. coli EAEC Not Detected (Not Detect.); Plesiomonas shigelloides Not Detected (Not Detect.); Salmonella Not Detected (Not Detect.); Vibrio Not Detected (Not Detect.); Vibrio Cholerae Not Detected (Not Detect.); Yersinia enterocolitica Not Detected (Not Detect.)
[2022-09-15 16:07] LABS: Adenovirus F 40/41 Not Detected (Not Detect.); Astrovirus Not Detected (Not Detect.); Cryptosporidium Not Detected (Not Detect.); Cyclospora cayetanensis Not Detected (Not Detect.); E. coli EPEC Detected (Not Detect.); E. coli ETEC Not Detected (Not Detect.); E. coli STEC Not Detected (Not Detect.); Entamoeba histolytica Not Detected (Not Detect.); Giardia lamblia Not Detected (Not Detect.); Norovirus GI/GII Not Detected (Not Detect.); Rotavirus A Not Detected (Not Detect.); Sapovirus Not Detected (Not Detect.); Shigella sp./EIEC Not Detected (Not Detect.)
== END 2022-09-15 13:56 | disposition home or self-care (01) ==
PROVIDERS: Physician Assistant; Emergency Provider Emergency Medicine; PCP Internal Medicine
DX: K52.9 Noninfective gastroenteritis and colitis, unspecified (principal); R10.13 Epigastric pain; K57.30 Diverticulosis of large intestine without perforation or abscess without bleeding; E11.9 Type 2 diabetes mellitus without complications; I10 Essential (primary) hypertension; E78.00 Pure hypercholesterolemia, unspecified; D50.9 Iron deficiency anemia, unspecified; E66.9 Obesity, unspecified; Z68.35 Body mass index [BMI] 35.0-35.9, adult; Z79.4 Long term (current) use of insulin; Z79.899 Other long term (current) drug therapy; Z98.84 Bariatric surgery status
CPT/HCPCS: 36415; 80048; 80076; 81003; 83735; 85025; 87493; 87507; 99283; 99284

== ENCOUNTER 2022-10-27 07:58 | Outpatient (AMB) | payer MEDICARE, OTHER, SELFPAY ==
[2022-10-27 08:03] VITALS: BP 108/76; PULSE 92; O2SAT 97; BMI 35.9
--- NOTE | 2022-10-27 08:03 | MHC.OFFVIS ---
Intake Vital Signs 10/27/22 08:03 Height 5 ft 2 in Weight 196 lb 6.91 oz BMI 35.9 BP 108/76 Blood Pressure Location Rt brachial Position Sitting Pulse 92 Pulse Source Pulse Oximeter Pulse Oximetry (%) 97 Intake Visit Reasons: Joint Pain Intake Note: New pt presents today for joint pain consult. Stream Control Officer Required: No Accompanied by: Self / Same As Patient Allergies iodine [IODINE] Allergy (Severe, Verified 10/27/22 08:05) ANAPHYLAXIS Penicillins [PENICILLINS] Allergy (Severe, Verified 10/27/22 08:05) BREATHING PROBLEM shellfish derived Allergy (Severe, Verified 10/27/22 08:05) ANAPHYLAXIS clindamycin [CLINDAMYCIN] Allergy (Intermediate, Verified 10/27/22 08:05) HIVES milnacipran [From SAVELLA] Allergy (Intermediate, Verified 10/27/22 08:05) BRUISE vancomycin [VANCOMYCIN] Allergy (Intermediate, Verified 10/27/22 08:05) HIVES; ITCHING metformin Allergy (Unknown, Verified 10/27/22 08:05) diarrhea albuterol [ALBUTEROL] Adverse Reaction (Intermediate, Verified 10/27/22 08:05) HEART RACES metformin Adverse Reaction (Uncoded 10/27/22 08:05) Stomach Upset Medication List - Last Reconciled 10/27/22 by Lolly Martini MD blood sugar diagnostic As directed blood-glucose sensor (FreeStyle Horacio 3 Sensor device) As directed every 14 days blood-glucose sensor (FreeStyle Horacio 3 Sensor device) As directed inhalational spacing device (Aerochamber Plus Z Stat spacer) As directed levalbuterol HCl 0.63 mg inhalation Q OTHER DAY levalbuterol tartrate 45 mcg/actuation 45 mcg inhalation Q4-6H PRN pantoprazole (Protonix) 40 mg PO DAILY tirzepatide (Mounjaro) 7.5 mg (0.5 mL) subcut QWEEK HPI HPI Comments History of Present Illness Details This is a 61-year-old female who presents for evaluation of diffuse pain. The condition started about 10 years ago. Patient stated that she was evaluated in in [place] by population geneticist (Dr. 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 Stated that she was on colchicine for some time and it was not helpful. She states that she gets episodes of diffuse pain, numbness, fevers up to 102, abdominal pain, chest pain, rashes. Most recently she was in the emergency room at [facility] with abdominal pain. No cause of her abdominal pain was found. She stated that she had a DVT in her 1st and required Lovenox in her subsequent pregnancies. She never required blood thinners otherwise. 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 Reproductive History Menstrual Total pregnancies: 8 Number of Living Children: 4 Ab spontaneous: 3 Ectopics: 1 Review of Systems Const Reports fatigue, Reports headache(s) and Reports weakness ENT Reports headache(s) and Reports sore throat Card Reports dyspnea Resp Reports dyspnea and Reports wheezing GI Reports nausea Musc Reports arthralgias, Reports joint swelling and Reports stiffness Neuro Reports headache(s) and Reports weakness Endo Reports fatigue Aller/Immun Reports wheezing Physical Exam Vital Signs: Last Vital Signs Pulse 92 10/27/22 08:03 BP 108/76 10/27/22 08:03 Pulse Ox 97 10/27/22 08:03 BMI result Body Mass Index 35.9 Const General: cooperative, healthy appearing and comfortable Nutritional Appearance: obese Orientation/consciousness: patient oriented x3 Limitations: no limitations HEENT Head: Yes normocephalic and Yes atraumatic Mouth: moist mucous membranes Resp Effort & Inspection: normal respiratory effort and able to speak in complete sentences Auscultation: clear to auscultation bilaterally GI Inspection: No distended Palpation (GI): Soft to palpation and nontender Skin General skin exam: no rashes or lesions noted Neuro General: patient oriented x3 Extrem Other: No active synovitis Numerous fibromyalgia tender points Results Reviewed Results Reviewed: Labs 2019 SPEP normal RF/DIAMOND/dsDNA/SSA/SSB/Montanez//MPO/PR3/cardiolipin/beta 2 glycoprotein IgG, IgA, IgM/LA all negative/normal? CPK/CRP/ESR all normal Assessment & Plan Assessment & Plan (1) Polyarthralgia: Code(s): M25.50 - Pain in unspecified joint Plan: This is a 61-year-old female who presents for evaluation of diffuse pain.? The condition started about 10 years ago.? Patient stated that she was evaluated in in [place] by population geneticist (Dr. 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 Stated that she was on colchicine for some time and it was not helpful.? She states that she gets episodes of diffuse pain, numbness, fevers up to 102, abdominal pain, chest pain, rashes. Will request records from patient's evaluation in [place] including genetic test, patient mentions that she has an appointment soon with her PCP and she will ask them to send all records. check her inflammatory markers. Previously comprehensive screening serology was negative. Advised patient to keep a log of her fevers, take any pictures of rashes or swollen joints. Follow-up in 1 month Plan I spent 62 minutes reviewing patient's chart, evaluating patient, ordering diagnostic workup, counseling patient and documenting in the chart Orders: Orders Comprehensive Met. 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
== END 2022-10-27 08:40 | disposition home or self-care (01) ==
PROVIDERS: PCP Internal Medicine; Visit Provider Student in an Organized Health Care Education/Training Program
DX: M25.50 Pain in unspecified joint (principal)
CPT/HCPCS: 99204

== ENCOUNTER 2022-10-27 07:58 | Outpatient (REF) | payer MEDICARE, OTHER, SELFPAY ==
[2022-10-27 09:26] LABS: MANUAL DIFF FLAG NO
[2022-10-27 10:00] LABS: Basophils Absolute Auto 0.1 X10*3/uL (0.0-0.2); Basophils Percent Auto 0.7 % (0-2); Eosinophils Absolute Auto 0.3 X10*3/uL (0.0-0.4); Hematocrit 38.6 % (37.0-47.0); Hemoglobin 11.7 g/dl (12.0-16.0); Imm Gran Abs Auto 0.03 X10*3/uL (0.00-0.03); Imm Gran Pct Auto 0.3 % (0.0-0.4); Lymphocytes Absolute Auto 2.4 X10*3/uL (1.2-4.9); Mean Corpuscular HGB Conc 30.3 g/dl (31.0-35.0); Mean Corpuscular Hemoglobin 21.4 pg (27.0-33.0); Mean Corpuscular Volume 70.4 fL (80.0-98.0); Mean Platelet Volume 11.2 fL (9.4-12.3); Monocytes Absolute Auto 0.5 X10*3/uL (0.1-1.2); Monocytes Percent Auto 5.6 % (2-11); Neutrophils Absolute Auto 6.3 x10*3/uL (2.0-8.3); Neutrophils Percent Auto 65.4 % (45-73); Platelet Count 274 X10*3/uL (160-400); Red Blood Count 5.48 X10*6/uL (4.20-5.50); Red Cell Distribution Width 15.2 % (11.0-16.0); White Blood Count 9.7 X10*3/uL (4.8-10.8)
[2022-10-27 10:23] LABS: Estimated Average Glucose 137 mg/dL; Hemoglobin A1c % 6.4 % (<6.0)
[2022-10-27 10:27] LABS: Alanine Aminotransferase 16 U/L (0-31); Albumin Level 4.3 g/dL (3.5-5.0); Alkaline Phosphatase 80 U/L (39-117); Anion Gap 12 (12-20); Aspartate Amino Transferase 15 U/L (5-31); Bilirubin Total 0.6 mg/dL (0.0-1.0); Blood Urea Nitrogen 13 mg/dL (9-16); Calcium 9.9 mg/dL (8.4-10.2); Carbon Dioxide 27 mmol/L (22-29); Chloride 106 mmol/L (96-108); Estimated Glomerular Filt Rate > 60; Glucose Random 130 mg/dL (60-115); Potassium 3.8 mmol/L (3.3-5.1); Sodium 141 mmol/L (135-145); Total Protein 7.7 g/dL (6.5-8.0)
[2022-10-27 10:38] LABS: Alanine Aminotransferase 18 U/L (0-31); Albumin Level 4.3 g/dL (3.5-5.0); Alkaline Phosphatase 80 U/L (39-117); Anion Gap 12 (12-20); Aspartate Amino Transferase 15 U/L (5-31); Bilirubin Total 0.6 mg/dL (0.0-1.0); Blood Urea Nitrogen 13 mg/dL (9-16); C Reactive Protein 0.84 mg/dL (< or = 0.50); Calcium 9.8 mg/dL (8.4-10.2); Carbon Dioxide 27 mmol/L (22-29); Chloride 105 mmol/L (96-108); Cholesterol 227 mg/dL (<200); Estimated Glomerular Filt Rate > 60; Glucose Random 131 mg/dL (60-115); HDL Cholesterol 44 mg/dL (>40); LDL Cholesterol Calculated 142 mg/dL (<100); Potassium 3.8 mmol/L (3.3-5.1); Sodium 140 mmol/L (135-145); Total Protein 7.7 g/dL (6.5-8.0); Triglycerides 207 mg/dL (<150)
[2022-10-27 10:48] LABS: HBS Num1 2.84 mIU/mL (0-7.99); HBc Num1 0.09 S/CO (0.00-0.79); HBsAGNum1 0.37 S/CO (0.00-0.99); Hepatitis B Core Antibody Nonreactive (Nonreactive); Hepatitis B Surface Antigen Negative (Negative); ~HepC Num1 0.07 S/CO (0.00-0.79); ~Hepatitis A Antibody IgM Nonreactive (Nonreactive); ~Hepatitis B Surface Antibody NONREACTIVE (Nonreactive); ~Hepatitis C Antibody Nonreactive (Nonreactive)
[2022-10-27 10:58] LABS: Erythrocyte Sedimentation Rate 21 MM/HR (0-20)
[2022-10-29 13:47] LABS: Cyclic Citrullinated Peptide <16 UNITS
[2022-10-29 14:33] LABS: IgA 241 mg/dL (47-310); IgG 1239 mg/dL (600-1640); IgM 82 mg/dL (50-300)
[2022-10-30 00:13] LABS: TS Negative Control Passed; TS Panel A 0; TS Panel B 0; TS Positive Control Passed; TSpotTB Negative (Negative)
[2022-11-02 09:09] LABS: Prot Elec - Albumin 4.2 g/dL (3.8-4.8); Prot Elec - Alpha1 0.3 g/dL (0.2-0.3); Prot Elec - Beta 1 0.5 g/dL (0.4-0.6); Prot Elec - Beta 2 0.4 g/dL (0.2-0.5); Prot Elec - Total Protein 7.4 g/dL (6.1-8.1)
== END 2022-10-27 07:59 | disposition home or self-care (01) ==
LOC: HO.LAB 07:58
PROVIDERS: Absent Provider Internal Medicine; PCP Internal Medicine; Visit Provider Student in an Organized Health Care Education/Training Program
DX: M04.1 Periodic fever syndromes (principal); M25.50 Pain in unspecified joint; E11.9 Type 2 diabetes mellitus without complications; M13.0 Polyarthritis, unspecified; M79.7 Fibromyalgia; Z11.7 Encounter for testing for latent tuberculosis infection; Z11.59 Encounter for screening for other viral diseases; Z79.899 Other long term (current) drug therapy; Z72.89 Other problems related to lifestyle
CPT/HCPCS: 36415; 80053; 80061; 82784; 83036; 84165; 85025; 85652; 86140; 86200; 86334; 86481; 86704; 86706; 86709; 86803; 87340; 99202

== ENCOUNTER 2022-12-08 07:46 | Outpatient (AMB) | payer MEDICARE, OTHER, SELFPAY ==
--- NOTE | 2022-12-08 07:47 | MHC.OFFVIS ---
Intake Vital Signs 12/08/22 07:49 Height 5 ft 2 in Weight 197 lb 12.074 oz BMI 36.2 BP 118/76 Blood Pressure Location Rt brachial Position Sitting Pulse 85 Pulse Source Pulse Oximeter Temp 97.7 F Temp Source Skin Pulse Oximetry (%) 98 Oxygen Delivery Method Room Air Intake Visit Reasons: FMF Intake Note: Pt seen today for FM follow up and test results. 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 Required: No Accompanied by: Self / Same As Patient Allergies iodine [IODINE] Allergy (Severe, Verified 12/08/22 07:48) ANAPHYLAXIS Penicillins [PENICILLINS] Allergy (Severe, Verified 12/08/22 07:48) BREATHING PROBLEM shellfish derived Allergy (Severe, Verified 12/08/22 07:48) ANAPHYLAXIS clindamycin [CLINDAMYCIN] Allergy (Intermediate, Verified 12/08/22 07:48) HIVES milnacipran [From SAVELLA] Allergy (Intermediate, Verified 12/08/22 07:48) BRUISE vancomycin [VANCOMYCIN] Allergy (Intermediate, Verified 12/08/22 07:48) HIVES; ITCHING metformin Allergy (Unknown, Verified 12/08/22 07:48) diarrhea albuterol [ALBUTEROL] Adverse Reaction (Intermediate, Verified 12/08/22 07:48) HEART RACES metformin Adverse Reaction (Uncoded 12/08/22 07:48) Stomach Upset Medication List - Last Reconciled 12/08/22 by Lolly Martini MD blood sugar diagnostic As directed blood-glucose sensor (FreeStyle Horacio 3 Sensor device) As directed every 14 days blood-glucose sensor (FreeStyle Horacio 3 Sensor device) As directed inhalational spacing device (Aerochamber Plus Z Stat spacer) As directed levalbuterol HCl 0.63 mg inhalation Q OTHER DAY levalbuterol tartrate 45 mcg/actuation 45 mcg inhalation Q4-6H PRN pantoprazole (Protonix) 40 mg PO DAILY tirzepatide (Mounjaro) 7.5 mg (0.5 mL) subcut QWEEK HPI HPI Comments History of Present Illness Details Patient presents for follow-up after completion of her diagnostic workup. Continues to have diffuse pain everywhere. Initial history: This is a 61-year-old female who presents for evaluation of diffuse pain. The condition started about 10 years ago. Patient stated that she was evaluated in in [place] by rolling down machine operator (Dr. 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 Stated that she was on colchicine for some time and it was not helpful. She states that she gets episodes of diffuse pain, numbness, fevers up to 102, abdominal pain, chest pain, rashes. Most recently she was in the emergency room at [place] with abdominal pain. No cause of her abdominal pain was found. She stated that she had a DVT in her 1st and required Lovenox in her subsequent pregnancies. She never required blood thinners otherwise. [facility] Medical History Family history of ovarian cancer Colon cancer screening Diverticular disease Diabetes Lipoma Sleep apnea Herpes simplex virus (HSV) infection of vagina Chronic fatigue syndrome History of Vivek-Arellano virus infection Hx of ectopic Obesity Fibromyalgia Beta thalassemia trait H/O deep vein thrombosis during Mild hypercholesterolemia Microadenoma Iron deficiency Diverticular disease Asthma Diabetes mellitus Thalassemia Anemia Surgical History H/O sinus surgery Hx of laparoscopic gastric banding H/O: hysterectomy Family History Mother Thalassemia trait Stroke Maternal Aunt Thalassemia trait Maternal Uncle Thalassemia trait Father Heart problem Brother Heart problem Brother No problems noted. 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 Review of Systems Musc Reports arthralgias, Reports joint swelling and Reports stiffness Physical Exam Vital Signs: Last Vital Signs Temp 97.7 F 12/08/22 07:49 Pulse 85 12/08/22 07:49 BP 118/76 12/08/22 07:49 Pulse Ox 98 12/08/22 07:49 Oxygen Delivery Method Room Air 12/08/22 07:49 BMI result Body Mass Index 36.2 Const General: cooperative, healthy appearing and comfortable Nutritional Appearance: obese Orientation/consciousness: patient oriented x3 Limitations: no limitations HEENT Head: Yes normocephalic and Yes atraumatic Mouth: moist mucous membranes Resp Effort & Inspection: normal respiratory effort and able to speak in complete sentences Skin General skin exam: no rashes or lesions noted Neuro General: patient oriented x3 Extrem Other: Numerous tender joints without swelling Numerous fibromyalgia tender points Results Reviewed Results Reviewed: Labs 2019 SPEP normal RF/DIAMOND/dsDNA/SSA/SSB/Montanez//MPO/PR3/cardiolipin/beta 2 glycoprotein IgG, IgA, IgM/LA all negative/normal? CPK/CRP/ESR all normal Assessment & Plan Assessment & Plan (1) Polyarthralgia: Code(s): M25.50 - Pain in unspecified joint Plan: This is a 62-year-old female who presents for evaluation of diffuse pain.? The condition started about 10 years ago.? Patient stated that she was evaluated in in [place] by rolling down machine operator (Dr. Gino Horton), she had genetic testing for FMF, per notes she was heterozygous for a gene causing FMF (records not available for me)? Stated that she was on colchicine for some time and it was not helpful.? She was also labeled as seronegative RA and was briefly on methotrexate and it was not helpful. Therapy was discontinued by Dr. Horton as he could not find evidence of an autoimmune rheumatic disease. Upon evaluation today I do not see any evidence of an autoimmune rheumatic disease. Comprehensive serology is unremarkable. She has mildly elevated inflammatory markers which are nonspecific. In addition patient has numerous fibromyalgia tender points consistent with fibromyalgia I discussed fibromyalgia with patient and suggested evaluation by a psychiatric colleges/psychiatrist, consider using different CPAP mask. Incorporate light exercises Follow-up as needed. Plan I spent 26 minutes reviewing patient's chart, evaluating patient counseling patient and documenting in the chart Coding Level of Care Code Est Pt Level 4 (82506) Diagnoses Polyarthralgia M25.50
[2022-12-08 07:49] VITALS: BP 118/76; PULSE 85; TEMP 36.5; O2SAT 98; BMI 36.2
== END 2022-12-08 08:07 | disposition home or self-care (01) ==
PROVIDERS: PCP Internal Medicine; Visit Provider Student in an Organized Health Care Education/Training Program
DX: M25.50 Pain in unspecified joint (principal)
CPT/HCPCS: 99214

== ENCOUNTER → 2022-12-08 07:46 | Outpatient (BNVA) | payer MEDICARE, OTHER, SELFPAY | PROVIDERS: PCP Internal Medicine; Visit Provider Student in an Organized Health Care Education/Training Program | DX: M79.7 Fibromyalgia (principal); M25.50 Pain in unspecified joint; E66.9 Obesity, unspecified; Z68.36 Body mass index [BMI] 36.0-36.9, adult | CPT/HCPCS: 99212 ==

== ENCOUNTER 2023-01-01 07:45 | Outpatient (REF) | payer MEDICARE, OTHER, SELFPAY ==
--- NOTE | ~2023-01-01 | MM_ITS ---
EXAMINATION: MM SCREENING DIGITAL BREAST TOMOSYNTHESIS, BILATERAL CLINICAL INFORMATION: Screening. Asymptomatic. COMPARISON: Mammography: This study is compared with multiple prior exams dating back to 2008. TECHNIQUE: Digital breast tomosynthesis is performed in both the craniocaudal and mediolateral oblique views along with computer-aided detection (CAD). Synthesized 2D images are generated from the tomosynthesis. FINDINGS: There are scattered areas of fibroglandular density (ACR BI-RADS breast composition Category b). In the posterior nipple line of the right breast, at its middle to deep third, there is a lobulated, well-circumscribed focal asymmetry for which additional mammographic and targeted sonographic imaging is advised. An incidental, unchanged, benign, single coarse calcification is present at the anterior aspect of this finding. In the left breast, there no are no significant masses, abnormal calcifications, or other abnormalities. MM/MM tomosynthesis screening BI IMPRESSION: Focal asymmetry of the right breast warrants additional mammographic and targeted sonographic evaluation. No mammographic signs of malignancy left breast. ASSESSMENT: BI-RADS BI-RADS 0 - Incomplete: Needs additional Imaging. RECOMMENDATION: 1. Additional views of the right breast 2. Targeted ultrasound if warranted after review of the additional views. 3. Radiology department staff will contact the patient for additional imaging. Additional Imaging required This examination should not preclude the clinical evaluation of a suspicious palpable abnormality. This patient's information was entered into a reminder system with a target due date for their next mammogram.
== END 2023-01-01 07:46 | disposition home or self-care (01) ==
LOC: HO.MAMMO 07:45
PROVIDERS: PCP Internal Medicine; Visit Provider Internal Medicine
DX: Z12.31 Encounter for screening mammogram for malignant neoplasm of breast (principal)
CPT/HCPCS: 77063; 77067

== ENCOUNTER → 2023-01-01 08:00 | Outpatient (BNV) | payer MEDICARE, OTHER, SELFPAY | PROVIDERS: PCP Internal Medicine; Visit Provider Radiology Diagnostic Radiology | DX: Z12.31 Encounter for screening mammogram for malignant neoplasm of breast (principal) | CPT/HCPCS: 77063; 77067 ==

== ENCOUNTER 2023-01-20 09:53 | Outpatient (REF) | payer MEDICARE, OTHER, SELFPAY ==
--- NOTE | ~2023-01-20 | MM_ITS ---
EXAMINATION: MM DIAGNOSTIC DIGITAL BREAST TOMOSYNTHESIS, RIGHT US BREAST LIMITED, RIGHT MAMMOGRAPHY: CLINICAL INFORMATION: Evaluate focal asymmetry posterior one third right breast, just lateral to the nipple line at the approximate 6:30 to 7:00 o'clock axis. COMPARISON: Mammography: 01/01/2023, CT abdomen and pelvis 09/13/2022, mammography 10/20/2020, mammography TECHNIQUE: Digital breast tomosynthesis is performed in both the craniocaudal and mediolateral oblique views along with computer-aided detection (CAD). Synthesized 2D images are generated from the tomosynthesis. FINDINGS: There are scattered areas of fibroglandular density (ACR BI-RADS breast composition Category b). In the 6-6:30 location of the right breast, mid to posterior one third, there is an oval slightly lobulated mass with a punctate calcification anteriorly. This lies essentially directly along the nipple line, and has 2 punctate calcifications anteriorly. No additional masses, suspicious calcifications, or developing regions of architectural distortion within the right breast. This mass will be evaluated by ultrasound. ULTRASOUND: CLINICAL INFORMATION: As above. COMPARISON: None TECHNIQUE: Targeted sonographic evaluation was performed using a high frequency linear transducer. Attention was paid to the slightly lobular mass in the posterior 7:00 Selected archived documentation. FINDINGS: RIGHT BREAST: There is a mixture of fatty and fibroglandular tissue. There is no pathologic acoustic shadowing. There is either a complicated cyst or solid mass in the right breast at the 7:00 axis, 2 cm from the nipple, with internal color Doppler signal, good through transmission, well-circumscribed, and overall grossly benign. There is a second oval mildly hypoechoic mass at the 8:00 axis, 8 cm from the nipple, which could also represent the abnormality seen on mammography, demonstrates posterior acoustic shadowing with no internal color Doppler flow. This is also a probably benign abnormality. MM/MM tomosynthesis added views R IMPRESSION: There is a mass or complicated cyst at the 7:00 axis of the right breast 2 cm from the nipple, in the 8:00 axis, 8 cm from the right nipple is also present, and may correspond with the abnormality seen on mammography. This has overall benign appearing features are felt to represent benign abnormalities. Six-month interval follow-up recommended to ensure stability. Discussion was held with the patient, who prefers a six-month follow-up over biopsy. I felt this was a reasonable request. OVERALL ASSESSMENT: Mammography: BI-RADS 3 - Probably benign finding(s) - 6 month follow-up suggested Ultrasound: BI-RADS 3 - Probably benign finding(s) - 6 month follow-up suggested RECOMMENDATION: 6 Month F/U Results were discussed with the patient at time of visit by myself. This patient's information was entered into a reminder system with a target due date for their next mammogram.
== END 2023-01-20 09:54 | disposition home or self-care (01) ==
LOC: HO.MAMMO 09:53
PROVIDERS: PCP Internal Medicine; Visit Provider Internal Medicine
DX: N64.89 Other specified disorders of breast (principal)
CPT/HCPCS: 76642; 77061; 77065

== ENCOUNTER 2023-03-23 09:35 | Outpatient (REF) | payer MEDICARE, OTHER, SELFPAY ==
[2023-03-23 10:15] LABS: MANUAL DIFF FLAG NO
[2023-03-23 10:51] LABS: Basophils Absolute Auto 0.1 X10*3/uL (0.0-0.2); Basophils Percent Auto 0.5 % (0-2); Eosinophils Absolute Auto 0.3 X10*3/uL (0.0-0.4); Eosinophils Percent Auto 3.7 % (0-4); Hematocrit 37.8 % (37.0-47.0); Hemoglobin 11.7 g/dl (12.0-16.0); Imm Gran Abs Auto 0.04 X10*3/uL (0.00-0.03); Imm Gran Pct Auto 0.4 % (0.0-0.4); Lymphocytes Absolute Auto 2.8 X10*3/uL (1.2-4.9); Lymphocytes Percent Auto 31.1 % (20-40); Mean Corpuscular Hemoglobin 21.5 pg (27.0-33.0); Mean Corpuscular Volume 69.6 fL (80.0-98.0); Mean Platelet Volume 10.7 fL (9.4-12.3); Monocytes Absolute Auto 0.5 X10*3/uL (0.1-1.2); Monocytes Percent Auto 4.9 % (2-11); Neutrophils Absolute Auto 5.4 x10*3/uL (2.0-8.3); Neutrophils Percent Auto 59.4 % (45-73); Platelet Count 266 X10*3/uL (160-400); Red Blood Count 5.43 X10*6/uL (4.20-5.50); Red Cell Distribution Width 15.8 % (11.0-16.0); White Blood Count 9.1 X10*3/uL (4.8-10.8)
[2023-03-23 11:02] LABS: Estimated Average Glucose 146 mg/dL; Hemoglobin A1C 150.0364 umol/L; Hemoglobin A1c % 6.7 % (<6.0)
[2023-03-23 11:16] LABS: Creatinine Urine 276.12 mg/dL; Microalbum/Creatinine Ratio Ur 4.3 ug/mg cr (<30)
[2023-03-23 11:25] LABS: Alanine Aminotransferase 20 U/L (0-31); Albumin Level 4.4 g/dL (3.5-5.0); Alkaline Phosphatase 75 U/L (39-117); Anion Gap 11 (12-20); Aspartate Amino Transferase 15 U/L (5-31); Bilirubin Total 0.5 mg/dL (0.0-1.0); Blood Urea Nitrogen 14 mg/dL (9-16); Calcium 9.7 mg/dL (8.4-10.2); Carbon Dioxide 26 mmol/L (22-29); Chloride 105 mmol/L (96-108); Cholesterol 253 mg/dL (<200); Estimated Glomerular Filt Rate > 60; Glucose Random 213 mg/dL (60-115); HDL Cholesterol 49 mg/dL (>40); LDL Cholesterol Calculated 169 mg/dL (<100); Potassium 3.9 mmol/L (3.3-5.1); Sodium 138 mmol/L (135-145); Total Protein 7.8 g/dL (6.5-8.0); Triglycerides 177 mg/dL (<150)
[2023-03-24 06:54] LABS: Prolactin 8.2 ng/mL
== END 2023-03-23 09:36 | disposition home or self-care (01) ==
LOC: HO.LAB 09:35
PROVIDERS: PCP Internal Medicine; Visit Provider Internal Medicine
DX: E11.9 Type 2 diabetes mellitus without complications (principal); E78.00 Pure hypercholesterolemia, unspecified; I10 Essential (primary) hypertension; Z68.36 Body mass index [BMI] 36.0-36.9, adult
CPT/HCPCS: 36415; 80053; 80061; 82043; 82570; 83036; 84146; 85025

== ENCOUNTER 2023-04-07 14:27 | Outpatient (AMB) | payer MEDICARE, OTHER, SELFPAY ==
--- NOTE | 2023-04-07 14:32 | MHC.OFFVIS ---
Intake Vital Signs 04/07/23 14:40 Height 5 ft 2 in Weight 199 lb BMI 36.4 BP 140/61 H Blood Pressure Location Rt brachial Position Sitting Pulse 81 Intake Visit Reasons: ? diverticulitis flare-up Intake Note: This patient presents for an assessment for diverticulitis flare-up. Patient c/o; reports left lower back pain with bowel movements, reports abdominal pain. 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: No Accompanied by: Self / Same As Patient Allergies iodine [IODINE] Allergy (Severe, Verified 04/07/23 14:42) ANAPHYLAXIS Penicillins [PENICILLINS] Allergy (Severe, Verified 04/07/23 14:42) BREATHING PROBLEM shellfish derived Allergy (Severe, Verified 04/07/23 14:42) ANAPHYLAXIS clindamycin [CLINDAMYCIN] Allergy (Intermediate, Verified 04/07/23 14:42) HIVES milnacipran [From SAVELLA] Allergy (Intermediate, Verified 04/07/23 14:42) BRUISE vancomycin [VANCOMYCIN] Allergy (Intermediate, Verified 04/07/23 14:42) HIVES; ITCHING metformin Allergy (Unknown, Verified 04/07/23 14:42) diarrhea albuterol [ALBUTEROL] Adverse Reaction (Intermediate, Verified 04/07/23 14:42) HEART RACES metformin Adverse Reaction (Uncoded 04/07/23 14:42) Stomach Upset Medication List - Last Reconciled 04/07/23 by Jonathan Regan MD blood sugar diagnostic As directed blood-glucose sensor (FreeStyle Horacio 3 Sensor device) As directed every 14 days blood-glucose sensor (FreeStyle Horacio 3 Sensor device) As directed dicyclomine 10 mg PO TID duloxetine 30 mg PO DAILY inhalational spacing device (Aerochamber Plus Z Stat spacer) As directed levalbuterol HCl 0.63 mg inhalation Q OTHER DAY levalbuterol tartrate 45 mcg/actuation 45 mcg inhalation Q4-6H PRN lisinopril-hydrochlorothiazide 20-25 mg 1 tab PO DAILY pantoprazole (Protonix) 40 mg PO DAILY rosuvastatin 20 mg PO BEDTIME tirzepatide (Mounjaro) 7.5 mg (0.5 mL) subcut QWEEK HPI ? diverticulitis flare-up HPI Details She is well known to me for history of diverticulitis. She was referred to me by her primary care physician as she had mentioned she was having occasional back pain which she described as happening whenever she is in the toilet for a bowel movement She denies any abdominal pain. She actually says that she does not feel that she has any episode of her diverticulitis flare up. She says she has been steadily losing some weight. She has good oral intake. [facility] Medical History (Updated 04/07/23 @ 14:49 by Jonathan Regan MD) History of diverticulitis Family history of ovarian cancer Colon cancer screening Diverticular disease Diabetes Lipoma Sleep apnea Herpes simplex virus (HSV) infection of vagina Chronic fatigue syndrome History of Vivek-Arellano virus infection Hx of ectopic Obesity Fibromyalgia Beta thalassemia trait H/O deep vein thrombosis during Mild hypercholesterolemia Microadenoma Iron deficiency Diverticular disease Asthma Diabetes mellitus Thalassemia Anemia Surgical History H/O sinus surgery Hx of laparoscopic gastric banding H/O: hysterectomy Family History Mother Thalassemia trait Stroke Maternal Aunt Thalassemia trait Maternal Uncle Thalassemia trait Father Heart problem Brother Heart problem Brother No problems noted. 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 Review of Systems Const Denies chills and Denies fever(s) Card Denies chest pain, Denies dyspnea and Denies dyspnea on exertion Resp Denies cough, Denies dyspnea and Denies dyspnea on exertion GI Denies hematochezia, Denies change in bowel habits, Reports constipation and Reports diarrhea Denies hematuria Musc Denies back pain and Denies limited range of motion Neuro Denies focal weakness and Denies convulsions Psych Denies depression and Denies mood swings Physical Exam Vital Signs: Last Vital Signs Pulse 81 04/07/23 14:40 BP 140/61 H 04/07/23 14:40 BMI result Body Mass Index 36.4 Const General: comfortable and no acute distress Orientation/consciousness: patient oriented x3 Neck Neck: Yes no lymphadenopathy Resp Auscultation: clear to auscultation bilaterally Cardio Rhythm: regular rhythm GI Palpation (GI): Soft to palpation, nontender and no guarding Neuro General: patient oriented x3 Assessment & Plan Assessment & Plan (1) History of diverticulitis: Code(s): Z87.19 - Personal history of other diseases of the digestive system Plan: She describes having occasional back pain but denies abdominal pain. Her abdominal exam is very benign. She does have a long history of muscle aches, joint pains and back pain as well. I do not feel that this complaint of back pain is related to her diverticular disease . She mentions having alternating diarrhea and constipation that is suggestive of IBS. I have advised her on trying Metamucil supplementation for regularity her bowel movements She can follow up with me on a p.r.n. basis. Coding Level of Care Code Est Pt Level 3 (18099) Diagnoses History of diverticulitis Z87.19
[2023-04-07 14:40] VITALS: BP 140/61; PULSE 81; BMI 36.4
== END 2023-04-07 14:51 | disposition home or self-care (01) ==
PROVIDERS: PCP Internal Medicine; Visit Provider Surgery
DX: Z87.19 Personal history of other diseases of the digestive system (principal)
CPT/HCPCS: 99213

== ENCOUNTER → 2023-04-07 14:27 | Outpatient (BNVA) | payer MEDICARE, OTHER, SELFPAY | PROVIDERS: PCP Internal Medicine; Visit Provider Surgery | DX: Z87.19 Personal history of other diseases of the digestive system (principal) | CPT/HCPCS: 99212 ==

== ENCOUNTER 2023-05-12 09:37 | Outpatient (REF) | payer MEDICARE, OTHER, SELFPAY ==
--- NOTE | ~2023-05-12 | XR_ITS ---
EXAMINATION: XR CHEST CLINICAL INFORMATION: Cough COMPARISON: Chest 01/17/2022 TECHNIQUE: 2 views of the chest were obtained. FINDINGS: No significant abnormality is noted involving the heart, lungs, mediastinum, bony thorax or soft tissues. XR/XR chest 2V IMPRESSION: No acute cardiopulmonary disease.
== END 2023-05-12 09:38 | disposition home or self-care (01) ==
LOC: HO.XRAY 09:37
PROVIDERS: PCP Internal Medicine; Visit Provider Internal Medicine
DX: R05.9 Cough, unspecified (principal)
CPT/HCPCS: 71046

== ENCOUNTER 2023-05-30 18:29 | Emergency (ER) | payer MEDICARE, OTHER, SELFPAY ==
--- NOTE | ~2023-05-30 | XR_ITS ---
EXAMINATION: XR KNEE, LEFT CLINICAL INFORMATION: Left knee pain and injury. COMPARISON: None available. TECHNIQUE: Four views of the left knee. FINDINGS: There is mild reduction the tricompartment joint space with periarticular spurring in the medial and patellofemoral compartments. No loose bodies, joint effusion seen. There is no visible acute fracture or dislocation. The soft tissues are normal. XR/XR knee LT 4V IMPRESSION: Mild degenerative changes left knee. No visible acute fracture or dislocation seen.
[2023-05-30 19:18] VITALS: BP 138/78; PULSE 77; RESP 16; TEMP 36.6; O2SAT 99; BMI 37.1
--- NOTE | 2023-05-30 19:19 | ED.GENADULT ---
HPI - General Adult General Chief complaint: Extremity Injury, Lower Stated complaint: left knee pain Time Seen by Provider: 05/30/23 19:48 Source: patient Mode of arrival: ambulatory Limitations: no limitations History of Present Illness HPI narrative: Patient is a 62-year-old female who presents emergency department for evaluation of left knee pain. She has trialed icy hot patches and Tylenol without much improvement. Reports a history of partial meniscus tear a few years ago. Over the past 4 days has been experiencing increasing pain to the left medial knee/infrapatellar region of her knee. She states that a few days ago she had a constitution party at her home and she was doing ?a lot of running around?. She does not recall any obvious precipitating injury but thinks that she may have tweaked it in some way during this time. When walking she feels as though her knee is unstable like it is going to give out. Denies any numbness, tingling, redness, swelling, warmth, calf pain, cold sensation to the foot. Related Data Home Medications Medication Instructions Recorded Confirmed blood sugar diagnostic #10 ea 12/24/19 12/08/22 levalbuterol HCl 0.63 mg/3 mL 0.63 mg inhalation Q OTHER DAY 12/24/19 04/07/23 solution for nebulization wheezing levalbuterol tartrate 45 45 mcg inhalation Q4-6H PRN 12/24/19 04/07/23 mcg/actuation aerosol inhaler Wheezing blood-glucose sensor (FreeStyle #1 ea 04/29/22 12/08/22 Horacio 3 Sensor device) dicyclomine 10 mg capsule 10 mg PO TID 04/07/23 04/07/23 duloxetine 30 mg capsule,delayed 30 mg PO DAILY 04/07/23 04/07/23 release lisinopril 20 1 tab PO DAILY 04/07/23 04/07/23 mg-hydrochlorothiazide 25 mg tablet rosuvastatin 20 mg tablet 20 mg PO BEDTIME 04/07/23 04/07/23 Previous Rx's Medication Instructions Recorded inhalational spacing device #1 ea 01/17/22 (Aerochamber Plus Z Stat spacer) blood-glucose sensor (FreeStyle #2 ea 05/19/22 Horacio 3 Sensor device) tirzepatide 7.5 mg/0.5 mL 7.5 mg (0.5 mL) subcut QWEEK #2 mL 07/20/22 subcutaneous pen injector (Baltazar) pantoprazole 40 mg tablet,delayed 40 mg PO DAILY #30 tabs 09/15/22 release (Protonix) Allergies Allergy/AdvReac Type Severity Reaction Status Date / Time iodine [IODINE] Allergy Severe ANAPHYLAXIS Verified 05/30/23 19:18 Penicillins [PENICILLINS] Allergy Severe BREATHING Verified 05/30/23 19:18 PROBLEM shellfish derived Allergy Severe ANAPHYLAXIS Verified 05/30/23 19:18 clindamycin [CLINDAMYCIN] Allergy Intermediate HIVES Verified 05/30/23 19:18 milnacipran [From SAVELLA] Allergy Intermediate BRUISE Verified 05/30/23 19:18 vancomycin [VANCOMYCIN] Allergy Intermediate HIVES; Verified 05/30/23 19:18 ITCHING metformin Allergy Unknown diarrhea Verified 05/30/23 19:18 albuterol [ALBUTEROL] AdvReac Intermediate HEART RACES Verified 05/30/23 19:18 metformin AdvReac Stomach Uncoded 05/30/23 19:18 Upset Review of Systems Review of Systems: Yes all other systems are reviewed and are negative [facility] Past Medical History Attestation statement: The following information was validated with the patient. Source: old records reviewed Medical History History of diverticulitis Family history of ovarian cancer Colon cancer screening Diverticular disease Diabetes Lipoma Sleep apnea Herpes simplex virus (HSV) infection of vagina Chronic fatigue syndrome History of Vivek-Arellano virus infection Hx of ectopic Obesity Fibromyalgia Beta thalassemia trait H/O deep vein thrombosis during Mild hypercholesterolemia Microadenoma Iron deficiency Diverticular disease Asthma Diabetes mellitus Thalassemia Anemia Surgical History H/O sinus surgery Hx of laparoscopic gastric banding H/O: hysterectomy Family History Family History Mother Thalassemia trait Stroke Maternal Aunt Thalassemia trait Maternal Uncle Thalassemia trait Father Heart problem Brother Heart problem Brother No problems noted. 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 No acute distress.?Normal affect. Neck: Normal inspection.? Neck supple.?? CVS: Heart sounds normal. Normal heart rate and rhythm.? Pulses normal.?? Respiratory: No respiratory distress.? Lung sounds clear to auscultation bilaterally?? Abdomen: Soft and non-tender. Normoactive bowel sounds. Skin: Skin warm and dry.? Normal skin color.? ?? Extremities: No lower extremity edema.? No calf ttp?.anterior and posterior drawer test negative. Valgus stress test positive. Varus stress test negative. Elvin test positive. 2+ DP/PT pulse bilaterally Neuro: Moves all extremities spontaneously. Sensation intact bilaterally. Ambulates with antalgic unsteady gait, minimally weight-bearing on the left Course Course Course Narrative: RME performed by Vianca Roca PA-C. Patient is a 62 year old assigned female at presenting to the emergency department with left knee pain. Patient has a history of partial meniscus tear and believes it is completely torn now. Patient is an established patient at [facility]. Detailed physical exam and review of systems are deferred to the orthotic/prosthetic clinician. Imaging ordered. Patient placed back in the waiting room pending room availability and results. Medical Decision Making Medical Decision Making MDM Narrative: Patient is a 62-year-old female who presents emergency department for evaluation of left knee pain as per HPI. Overall is well-appearing, nontoxic, afebrile without tachycardia. No erythema warmth rashes or lesions to the joint. Not consistent with septic arthritis. No laxity upon examination, valgus stress testing Elvin test are positive concerning for possible meniscus injury. XR was obtained which reveals no acute fracture/dislocation, degenerative changes present. Given instability when walking, was placed in a knee immobilizer provided with crutches and recommended outpatient follow-up with primary care provider. Pain management with acetaminophen/ibuprofen. Discussed worrisome signs and symptoms that would warrant re-evaluation in the emergency department. No indication for emergent MRI. No risk factors for DVT, Wells negative. All questions answered. Differential Diagnosis Differential Diagnoses: The differential diagnosis associated with the presentation includes (See narrative above) Independent Interpretation I performed an independent interpretation of an: Plain X-Ray (No fracture dislocation) Radiology Impression Discussion of test interpretation with radiology: I have reviewed the radiologist's reading. Radiologist Impression: XR/XR knee LT 4V IMPRESSION: Mild degenerative changes left knee. No visible acute fracture or dislocation seen. External Record Review External record reviewed: Outpatient record Tests considered The following testing was considered but not selected: See narrative above Prescription Management I considered prescription management with: Pain Medication (Acetaminophen/ibuprofen) Discharge Plan Discharge Clinical Impression: Acute knee pain Patient Disposition: Home, Self-Care Instructions: Crutch Instructions (ED), Knee Pain (ED) Additional Instructions: Leave immobilizer in place until follow-up with orthopedics. Use the crutches as instructed. You can take ibuprofen 200 mg, 3 tablets (600mg) every 6-8 hours as needed for pain, in addition to Tylenol 500 mg, 2 tablets (1,000mg) every 4-6 hours as needed for pain, but not to exceed 3 doses daily (3,000mg).? Return back to emergency department any new or worsening symptoms or concerns. Prescriptions: No Action (DME) FreeStyle Horacio 3 Sensor Device See Rx Instructions .Route Qty: 2 4RF Rx Instructions: As directed Mounjaro 7.5 mg/0.5 mL pen injector 7.5 mg subcut QWEEK Qty: 2 5RF (DME) Aerochamber Plus Z Stat Spacer See Rx Instructions .Route Qty: 1 0RF Rx Instructions: As directed pantoprazole [Protonix] 40 mg tablet,delayed release (DR/EC) 40 mg PO DAILY Qty: 30 0RF (DME) FreeStyle Lite Strips Strip See Rx Instructions .ROUTE .MEDSUPPLY Qty: 10 Rx Instructions: As directed levalbuterol tartrate 45 mcg/actuation HFA aerosol inhaler 45 mcg inhalation Q4-6H PRN (Reason: Wheezing) levalbuterol HCl 0.63 mg/3 mL solution for nebulization 0.63 mg inhalation Q OTHER DAY (DME) FreeStLexplique Horacio 3 Sensor Device See Rx Instructions .ROUTE QID Qty: 1 Rx Instructions: As directed every 14 days rosuvastatin 20 mg tablet 20 mg PO BEDTIME dicyclomine 10 mg capsule 10 mg PO TID duloxetine 30 mg capsule,delayed release(DR/EC) 30 mg PO DAILY lisinopril-hydrochlorothiazide 20-25 mg tablet 1 tab PO DAILY Referrals: Oskar Feliz PA-C [Physician Supervisor [employer]] -
[2023-05-30 22:05] VITALS: BP 165/89; PULSE 72; RESP 16; TEMP 36.3; O2SAT 100
== END 2023-05-30 22:06 | disposition home or self-care (01) ==
PROVIDERS: Emergency Provider Emergency Medicine Emergency Medical Services; PCP Internal Medicine
DX: M25.562 Pain in left knee (principal); E11.9 Type 2 diabetes mellitus without complications
CPT/HCPCS: 73564; 99282; 99283

== ENCOUNTER 2023-06-10 08:39 | Outpatient (REF) | payer MEDICARE, OTHER, SELFPAY ==
--- NOTE | ~2023-06-10 | XR_ITS ---
EXAMINATION: XR KNEE, RIGHT XR KNEE, LEFT CLINICAL INFORMATION: Bilateral knee pain. COMPARISON: Left knee 05/30/2023. TECHNIQUE: AP standing view of both knees. Polo view of the left knee. FINDINGS: Medial compartment narrowing of both knees with marginal osteophytes. No obvious fracture. Mild osteoarthritis is noted of the left patellofemoral compartment. Prominent patellar enthesopathy. XR/XR knee RT 2V IMPRESSION: Moderate medial compartment osteoarthritis of both knees. Mild left knee patellofemoral compartment osteoarthritis. Enthesopathy.
--- NOTE | ~2023-06-10 | XR_ITS ---
EXAMINATION: XR KNEE, RIGHT XR KNEE, LEFT CLINICAL INFORMATION: Bilateral knee pain. COMPARISON: Left knee 05/30/2023. TECHNIQUE: AP standing view of both knees. [place] view of the left knee. FINDINGS: Medial compartment narrowing of both knees with marginal osteophytes. No obvious fracture. Mild osteoarthritis is noted of the left patellofemoral compartment. Prominent patellar enthesopathy. XR/XR knee LT 1V IMPRESSION: Moderate medial compartment osteoarthritis of both knees. Mild left knee patellofemoral compartment osteoarthritis. Enthesopathy.
== END 2023-06-10 08:40 | disposition home or self-care (01) ==
LOC: HO.HOSX 08:39
PROVIDERS: Visit Provider Physician Assistant
DX: M17.12 Unilateral primary osteoarthritis, left knee (principal); M25.561 Pain in right knee
CPT/HCPCS: 73560; 99212

== ENCOUNTER 2023-06-10 08:45 | Outpatient (AMB) | payer MEDICARE, OTHER, SELFPAY ==
[2023-06-10 09:03] VITALS: BMI 37.1
--- NOTE | 2023-06-10 09:03 | A.OFFVIS_ITS ---
Intake Vital Signs 06/10/23 09:03 Height 5 ft 2 in Weight 203 lb BMI 37.1 Intake Visit Reasons: Newprob-Left knee pain-ER follow up Intake Note: Maryjo a 62 year old female presents today for an ER follow up of left knee, DOI --. Patient reports that she was hosting a alliance party doing a lot of running around. She does not recall any injury however she does have a history of partial meniscus tear a few years ago. She presented to [facility] ED a few days later where xrays were taken and referred to orthopedics. Finds no relief with Tylenol or icy hot, Maryjo states is swollen and stiff and painful. Campaign Consultant Required: No Information Interpreted: non-clinical & clinical Accompanied by: Self / Same As Patient Allergies iodine [IODINE] Allergy (Severe, Verified 06/10/23 09:08) ANAPHYLAXIS Penicillins [PENICILLINS] Allergy (Severe, Verified 06/10/23 09:08) BREATHING PROBLEM shellfish derived Allergy (Severe, Verified 06/10/23 09:08) ANAPHYLAXIS clindamycin [CLINDAMYCIN] Allergy (Intermediate, Verified 06/10/23 09:08) HIVES milnacipran [From SAVELLA] Allergy (Intermediate, Verified 06/10/23 09:08) BRUISE vancomycin [VANCOMYCIN] Allergy (Intermediate, Verified 06/10/23 09:08) HIVES; ITCHING metformin Allergy (Unknown, Verified 06/10/23 09:08) diarrhea albuterol [ALBUTEROL] Adverse Reaction (Intermediate, Verified 06/10/23 09:08) HEART RACES metformin Adverse Reaction (Uncoded 06/10/23 09:08) Stomach Upset HPI Newprob-Left knee pain-ER follow up HPI Details 62-year-old female who presents to the [facility] today for an ER follow-up of left knee pain after hosting a alliance party where she was doing a lot of running around. She was seen at ED a few days later where x-rays were performed and she was referred to our office. She currently states she has dull pain, swelling and stiffness in her knee. She finds no relief with Tylenol or icy hot. She does not recall any injury on her knee. She has a history of partial meniscus tear a few years ago. [facility] Medical History History of diverticulitis Family history of ovarian cancer Colon cancer screening Diverticular disease Diabetes Lipoma Sleep apnea Herpes simplex virus (HSV) infection of vagina Chronic fatigue syndrome History of Vivek-Arellano virus infection Hx of ectopic Obesity Fibromyalgia Beta thalassemia trait H/O deep vein thrombosis during Mild hypercholesterolemia Microadenoma Iron deficiency Diverticular disease Asthma Diabetes mellitus Thalassemia Anemia Surgical History H/O sinus surgery Hx of laparoscopic gastric banding H/O: hysterectomy Family History Mother Thalassemia trait Stroke Maternal Aunt Thalassemia trait Maternal Uncle Thalassemia trait Father Heart problem Brother Heart problem Brother No problems noted. 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 Tenderness along the medial joint line. Full ROM with crepitus. Negative Wilman?s. No ligamentous laxity. NVI. Results Reviewed Results Reviewed: Xrays were obtained in the office today and personally reviewed by me of the left knee show medial and PF compartment oa Assessment & Plan Assessment & Plan (1) Osteoarthritis of left knee: Code(s): M17.12 - Unilateral primary osteoarthritis, left knee Qualifiers: Osteoarthritis type: primary Qualified Code(s): M17.12 - Unilateral primary osteoarthritis, left knee Plan We discussed options which include PT, NSAIDs and injections. The patient will defer on the injection today and proceed with PT and NSAIDs. I did give her a prescription of Celebrex in the office today. If symptoms persist, the patient will contact me for an injection, otherwise, PRN. Orders: Orders PT Evaluation and Treatment Today M17.12 - Unilateral primary osteoarthritis, left knee XR knee RT 2V Today M25.569 - Pain in unspecified knee XR knee LT 1V Today M25.562 - Pain in left knee Medications: New celecoxib (Celebrex) 200 mg PO BID 60 caps 3RF 30 days Patient Instructions: Scribed for Oskar Feliz PA-C, by Tomas Jurado medical associate, on 06/10/2023 at 8:45 AM EST. IOskar PA-C, have personally reviewed and agree with the information entered by the scribe. Coding Level of Care Code Est Pt Level 3 (39931) Diagnoses Primary osteoarthritis of left knee M17.12 Osteoarthritis type: primary
== END 2023-06-10 09:23 | disposition home or self-care (01) ==
LOC: HO.HOS 08:45
PROVIDERS: PCP Internal Medicine; Visit Provider Physician Assistant
DX: M17.12 Unilateral primary osteoarthritis, left knee (principal)
CPT/HCPCS: 99214

== ENCOUNTER 2023-07-22 15:22 | Outpatient (REF) | payer MEDICARE, OTHER, SELFPAY ==
[2023-07-22 17:23] LABS: Alanine Aminotransferase 34 U/L (0-31); Albumin Level 4.2 g/dL (3.5-5.0); Alkaline Phosphatase 92 U/L (39-117); Anion Gap 17 (12-20); Aspartate Amino Transferase 28 U/L (5-31); Bilirubin Total 0.5 mg/dL (0.0-1.0); Blood Urea Nitrogen 14 mg/dL (9-16); Carbon Dioxide 24 mmol/L (22-29); Chloride 103 mmol/L (96-108); Estimated Glomerular Filt Rate > 60; Glucose Random 190 mg/dL (60-115); Potassium 3.8 mmol/L (3.3-5.1); Sodium 140 mmol/L (135-145); Total Protein 7.4 g/dL (6.5-8.0)
[2023-07-23 07:07] LABS: Estimated Average Glucose 278 mg/dL; Hemoglobin A1c % 11.3 % (<6.0)
== END 2023-07-22 15:23 | disposition home or self-care (01) ==
LOC: HO.LAB 15:22
PROVIDERS: PCP Internal Medicine; Visit Provider Internal Medicine
DX: E11.9 Type 2 diabetes mellitus without complications (principal); M79.7 Fibromyalgia; E78.00 Pure hypercholesterolemia, unspecified; I10 Essential (primary) hypertension
CPT/HCPCS: 36415; 80053; 83036

== ENCOUNTER 2023-07-26 14:48 | Outpatient (REF) | payer MEDICARE, OTHER, SELFPAY ==
--- NOTE | ~2023-07-26 | MM_ITS ---
EXAMINATION: MM DIAGNOSTIC DIGITAL BREAST TOMOSYNTHESIS, RIGHT US BREAST LIMITED, RIGHT MAMMOGRAPHY: CLINICAL INFORMATION: Right breast 6 month follow-up for complex cyst at 7:00 axis, and slightly lobulated mass probably benign likely fibroadenoma, at the 8:00 axis. COMPARISON: Mammography: 01/20/2023 mammography and ultrasound right breast, 01/01/2023 mammography, CT abdomen and pelvis 09/13/2022, mammography 10/20/2020, mammography TECHNIQUE: Digital right breast tomosynthesis is performed in the following views: Full-field right 3-D cc, MLO, and mediolateral views. Computer-aided diagnosis was used for this study. This was followed by targeted right breast ultrasound. FINDINGS: There are scattered areas of fibroglandular density (ACR BI-RADS breast composition Category b). In the 6:00 (8:00 on sonography when the patient lies flat) location of the right breast, mid to posterior one third, there is an oval slightly lobulated mass with a punctate calcification anteriorly. This lies essentially directly along the nipple line, and has 2 punctate calcifications anteriorly. It currently measures 10 x 6 x 6 mm, previously measuring 8 x 5 x 6 mm, and is slightly larger on today's examination. The previously mentioned abnormality at 7:00, which had the appearance of a bilobed complicated cyst on ultrasound is not definitively seen on mammography with certainty. No additional masses, suspicious calcifications, or developing regions of architectural distortion within the right breast on today's exam. Both abnormalities will again be evaluated by ultrasound. ULTRASOUND: CLINICAL INFORMATION: Evaluate 7:00 and 8:00 complicated cyst and mass. COMPARISON: Mammography and targeted right ultrasound 01/20/2023 TECHNIQUE: Targeted sonographic evaluation was performed using a high frequency linear transducer. Attention was again paid to the slightly lobular mass in the posterior 8:00 region, as well as the bilobed complex cyst at the 7:00 axis. Selected archived documentation. FINDINGS: Both myself and the technologist scanned. RIGHT BREAST: There is a mixture of fatty and fibroglandular tissue. There is no pathologic acoustic shadowing. There is redemonstration of a complex cyst, appearing bilobed with a solitary thin septation, in the right breast at the 7:00 axis, 2 cm from the nipple, with good through transmission. Today, no definite color flow could be identified within the septation. It is unchanged in size measuring 4 x 2 x 5 mm. It remains probably benign. The second oval slightly lobulated mass at the 8:00 axis, 8 cm from the nipple from the nipple, has slightly enlarged as detailed by approximately 2 mm in length and 1 mm in width (currently measuring 10 x 6 x 6 mm), but demonstrates good posterior acoustic through transmission and no internal color Doppler flow. This is most likely a benign fibroadenoma. Should this continue to enlarge, we will pursue ultrasound-guided biopsy. MM/MM tomosynthesis diagnostic RT IMPRESSION: -Slight increase in the size of the oval mass at 8:00 as detailed, currently measuring 10 x 6 x 6 mm, previously 8 x 6 x 5 mm. This remains most likely a fibroadenoma, and remains probably benign, suitable for six-month follow-up targeted right ultrasound when the patient is due for bilateral screening. -No significant change in the bilobed complex cyst at 7:00, 2 cm from the nipple, also probably benign and suitable for six-month follow-up. -No definite suspicious findings in the right breast. OVERALL ASSESSMENT: Mammography: BI-RADS 3 - Probably benign finding(s) - 6 month follow-up suggested Ultrasound: BI-RADS 3 - Probably benign finding(s) - 6 month follow-up suggested RECOMMENDATION: 6 Month F/U Results were discussed with the patient at time of visit by myself. This patient's information was entered into a reminder system with a target due date for their next mammogram. .
== END 2023-07-26 14:49 | disposition home or self-care (01) ==
LOC: HO.MAMMO 14:48
PROVIDERS: PCP Internal Medicine; Visit Provider Internal Medicine
DX: R92.2 Inconclusive mammogram (principal)
CPT/HCPCS: 76642; 77061; 77065

== ENCOUNTER → 2023-07-26 15:00 | Outpatient (BNV) | payer MEDICARE, OTHER, SELFPAY | PROVIDERS: PCP Internal Medicine; Visit Provider Radiology Diagnostic Radiology | DX: N63.13 Unspecified lump in the right breast, lower outer quadrant (principal) | CPT/HCPCS: 76642; 77065; G0279 ==

== ENCOUNTER 2023-08-16 07:00 | Outpatient (RCR) | payer MEDICARE, OTHER, SELFPAY ==
--- NOTE | 2023-07-27 07:55 | MHC.PT.EP ---
[facility] [place] Office [place] Office [place] Office [address] Cheryl Gross [address] [phone] F: [phone] F: [phone] F: [phone] F: [phone] Physical Therapy Plan of Care Date of Evaluation: 07/27/23 Date of Surgery: Diagnosis: OA of L knee. Assessment: Patient is a 62 year old R handed female who presents with s/s consistent with L knee pain, L knee OA. 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 Patient past medical history includes R knee surgery, DM, and fibromyalgia. Current impairments include pain, balance, ROM, strength, activity tolerance and functional mobility. Functional limitations include decreased ability to walk, stand, transfer, sleep, negotiate stairs, kneel, squat and be on feet during the day. Patient is motivated with good rehab potential. Skilled PT will address impairments and functional limitations in order to achieve goals. Frequency and Duration: The patient will be seen 2x/week for 5 weeks Short Term Goals: I with HEP -2 weeks AROM 0-110 - 3 weeks Able to negotiate stairs step through with 1 HH assist - 3 weeks Care Home Goals: LEFS 52/80 - 5 weeks Strength 4/5 grossly - 5 weeks AROM 0-120 - 5 weeks Max pain with ADLs - 5 weeks trace swelling at end of day - 5 weeks Treatment Plan: Modalities to reduce pain, spasms and effusion. Manual therapy to restore motion and function. Therapeutic exercise to improve strength and flexibility. Neuromuscular re-education for posture and balance. Therapeutic activities to return to functional activities of daily living. Electronically signed by: Bharath Schaeffer, PT Please sign and return to therapist. Thank you for your referral.
--- NOTE | 2023-11-10 14:51 | MHC.PT.DC ---
[facility] [place] Office [place] Office [place] Office [address] Cheryl Gross [address] [phone] F: [phone] F: [phone] F: [phone] F: [phone] Physical Therapy Discharge Report Diagnosis: OA of L knee. Date of Surgery: Date of Evaluation: 07/27/23 Date of Discharge: 08/22/23 Treatments to Date: 4 Cancellations to Date: No Shows to Date: Discharge Status: Recommend MD Follow-up Discharge Summary: 08/16/23: pt not responding well to gentle/intro ex to manage OA and degen changes. We will refer back to MD at this time for further discernment of optimal next steps. 08/11/23: pt progressing slowly. still limited by pain but we were able to add shuttle today without adverse reactions. progress as tolerated. 08/09/23: pt very limited by shapr pain with full ext. we discussed at length possible avenues if she does not improve tolerance in PT. Patient is a 62 year old R handed female who presents with s/s consistent with L knee pain, L knee OA. 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 Patient past medical history includes R knee surgery, DM, and fibromyalgia. Current impairments include pain, balance, ROM, strength, activity tolerance and functional mobility. Functional limitations include decreased ability to walk, stand, transfer, sleep, negotiate stairs, kneel, squat and be on feet during the day. Patient is motivated with good rehab potential. Skilled PT will address impairments and functional limitations in order to achieve goals. Electronically signed by: Bharath Schaeffer, PT Please sign and return to therapist. Thank you for your referral.
== END 2023-11-10 14:51 | disposition home or self-care (01) ==
LOC: HO.PTCHIC 07:00
PROVIDERS: PCP Internal Medicine; Visit Provider Physician Assistant
DX: M17.12 Unilateral primary osteoarthritis, left knee (principal)
CPT/HCPCS: 97110; 97162

== ENCOUNTER 2023-08-18 09:42 | Outpatient (AMB) | payer MEDICARE, OTHER, SELFPAY ==
--- NOTE | 2023-08-18 09:46 | MHC.OFFVIS ---
Vital Signs 08/18/23 09:47 Height 5 ft 2 in Weight 203 lb BMI 37.1 Intake Visit Reasons: OV left knee pain, discuss sx Intake Note: Maryjo is a 62 year old female who presents today for a follow up of her left knee to discuss surgery. Patient reports that she is having continued worsening pain of the left knee, she has tried and failed PT and has not found any relief. Allergies iodine [IODINE] Allergy (Severe, Verified 06/10/23 09:08) ANAPHYLAXIS Penicillins [PENICILLINS] Allergy (Severe, Verified 06/10/23 09:08) BREATHING PROBLEM shellfish derived Allergy (Severe, Verified 06/10/23 09:08) ANAPHYLAXIS clindamycin [CLINDAMYCIN] Allergy (Intermediate, Verified 06/10/23 09:08) HIVES milnacipran [From SAVELLA] Allergy (Intermediate, Verified 06/10/23 09:08) BRUISE vancomycin [VANCOMYCIN] Allergy (Intermediate, Verified 06/10/23 09:08) HIVES; ITCHING metformin Allergy (Unknown, Verified 06/10/23 09:08) diarrhea albuterol [ALBUTEROL] Adverse Reaction (Intermediate, Verified 06/10/23 09:08) HEART RACES metformin Adverse Reaction (Uncoded 06/10/23 09:08) Stomach Upset HPI HPI OV left knee pain, discuss sx: Details: Maryjo is a 62 year old female who presents today for a follow up of her left knee to discuss surgery. Patient reports that she is having continued worsening pain of the left knee, she has tried and failed PT and has not found any relief. She has pain in the medial aspect of bilateral knees but the left is worse than the right. She has pain with going up and down stairs with extended ambulation. She is tried physical therapy and injections but feels the quality of her life is diminished. She takes NSAIDs without significant benefit. [facility] Medical History History of diverticulitis Family history of ovarian cancer Colon cancer screening Diverticular disease Diabetes Lipoma Sleep apnea Herpes simplex virus (HSV) infection of vagina Chronic fatigue syndrome History of Vivek-Arellano virus infection Hx of ectopic Obesity Fibromyalgia Beta thalassemia trait H/O deep vein thrombosis during Mild hypercholesterolemia Microadenoma Iron deficiency Diverticular disease Asthma Diabetes mellitus Thalassemia Anemia Surgical History H/O sinus surgery Hx of laparoscopic gastric banding H/O: hysterectomy Family History Mother Thalassemia trait Stroke Maternal Aunt Thalassemia trait Maternal Uncle Thalassemia trait Father Heart problem Brother Heart problem Brother No problems noted. 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 5-130deg motion with crepitus. Results Reviewed Results Reviewed: I personally reviewed relevant radiographs. Moderate to severe medial compartment osteoarthritis bilateral knees Assessment & Plan Assessment & Plan (1) Osteoarthritis of left knee: Code(s): M17.12 - Unilateral primary osteoarthritis, left knee Category: Medical Qualifiers: Osteoarthritis type: primary Qualified Code(s): M17.12 - Unilateral primary osteoarthritis, left knee Plan: This is a 62-year-old woman with severe osteoarthritis medial compartment bilateral knees. Her left knee is more painful than her right and has not improved with physical therapy, injections and activity modification. She feels unable to be active and that quality of her life is diminished and I recommend left knee replacement. I discussed the risks benefits and alternatives including but not limited to the risk of pain, infection, stiffness, need for further surgery as well as potential medical complications such as blood clots, pulmonary embolism and cardiac complications. The patient had a normal hemoglobin A1c 6 months ago and essentially doubled over the past 6 months and so I suspect that this is related to either steroid injections or medication change. We will need to resolve this prior to surgery but I think it should come down quickly given that it was under 7 in March. Coding Level of Care Code Est Pt Level 4 (14472) Diagnoses Primary osteoarthritis of left knee M17.12 Osteoarthritis type: primary
[2023-08-18 09:47] VITALS: BMI 37.1
== END 2023-08-18 10:24 | disposition home or self-care (01) ==
PROVIDERS: PCP Internal Medicine; Visit Provider Orthopaedic Surgery
DX: M17.12 Unilateral primary osteoarthritis, left knee (principal)
CPT/HCPCS: 99214

== ENCOUNTER → 2023-08-18 09:42 | Outpatient (BNVA) | payer MEDICARE, OTHER, SELFPAY | PROVIDERS: PCP Internal Medicine; Visit Provider Orthopaedic Surgery | DX: M17.12 Unilateral primary osteoarthritis, left knee (principal) | CPT/HCPCS: 99212 ==

== ENCOUNTER 2023-10-03 14:33 | Outpatient (AMB) | payer MEDICARE, OTHER, SELFPAY ==
--- NOTE | 2023-10-03 14:35 | MHC.OFFVIS ---
Intake Visit Reasons: ov- LT knee Durolane injection Intake Note: Maryjo is a 62 year old female who presents today for her left knee Durolane injection Allergies iodine [IODINE] Allergy (Severe, Verified 10/03/23 14:36) ANAPHYLAXIS Penicillins [PENICILLINS] Allergy (Severe, Verified 10/03/23 14:36) BREATHING PROBLEM shellfish derived Allergy (Severe, Verified 10/03/23 14:36) ANAPHYLAXIS clindamycin [CLINDAMYCIN] Allergy (Intermediate, Verified 10/03/23 14:36) HIVES milnacipran [From SAVELLA] Allergy (Intermediate, Verified 10/03/23 14:36) BRUISE vancomycin [VANCOMYCIN] Allergy (Intermediate, Verified 10/03/23 14:36) HIVES; ITCHING metformin Allergy (Unknown, Verified 10/03/23 14:36) diarrhea albuterol [ALBUTEROL] Adverse Reaction (Intermediate, Verified 10/03/23 14:36) HEART RACES metformin Adverse Reaction (Uncoded 10/03/23 14:36) Stomach Upset HPI HPI ov- LT knee Durolane injection: Details: Maryjo is a 62 year old female who presents today for her left knee Durolane injection PFSH Medical History History of diverticulitis Family history of ovarian cancer Colon cancer screening Diverticular disease Diabetes Lipoma Sleep apnea Herpes simplex virus (HSV) infection of vagina Chronic fatigue syndrome History of Vivek-Arellano virus infection Hx of ectopic Obesity Fibromyalgia Beta thalassemia trait H/O deep vein thrombosis during Mild hypercholesterolemia Microadenoma Iron deficiency Diverticular disease Asthma Diabetes mellitus Thalassemia Anemia Surgical History H/O sinus surgery Hx of laparoscopic gastric banding H/O: hysterectomy Family History Mother Thalassemia trait Stroke Maternal Aunt Thalassemia trait Maternal Uncle Thalassemia trait Father Heart problem Brother Heart problem Brother No problems noted. 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 Site was prepped using aseptic technique. Patient tolerated the procedure well. Primary Site: left knee Approach Used: anterolateral Coding - Large joint Procedure code (CPT) selection complete Assessment & Plan Assessment & Plan (1) Osteoarthritis of left knee: Code(s): M17.12 - Unilateral primary osteoarthritis, left knee Category: Medical Qualifiers: Osteoarthritis type: primary Qualified Code(s): M17.12 - Unilateral primary osteoarthritis, left knee Plan: Injected Durolane left knee. No complications Coding Level of Care Code Est Pt Level 2 (77429) Diagnoses Primary osteoarthritis of left knee M17.12 Osteoarthritis type: primary CPT Codes Coding - Large joint: 28777 - Large joint ([id number])
== END 2023-10-03 15:02 | disposition home or self-care (01) ==
PROVIDERS: PCP Internal Medicine; Visit Provider Orthopaedic Surgery
DX: M17.12 Unilateral primary osteoarthritis, left knee (principal)
CPT/HCPCS: 20610

== ENCOUNTER → 2023-10-03 14:33 | Outpatient (BNVA) | payer MEDICARE, OTHER, SELFPAY | PROVIDERS: PCP Internal Medicine; Visit Provider Orthopaedic Surgery | DX: M17.12 Unilateral primary osteoarthritis, left knee (principal) | CPT/HCPCS: 20610; J7318 ==

== ENCOUNTER 2023-10-12 07:23 | Outpatient (REF) | payer MEDICARE, OTHER, SELFPAY ==
[2023-10-12 08:05] LABS: Estimated Average Glucose 200 mg/dL; Hemoglobin A1c % 8.6 % (<6.0)
[2023-10-12 08:17] LABS: Alanine Aminotransferase 20 U/L (0-31); Albumin Level 4.1 g/dL (3.5-5.0); Alkaline Phosphatase 71 U/L (39-117); Anion Gap 11 (12-20); Aspartate Amino Transferase 17 U/L (5-31); Bilirubin Total 0.5 mg/dL (0.0-1.0); Blood Urea Nitrogen 12 mg/dL (9-16); Calcium 9.7 mg/dL (8.4-10.2); Carbon Dioxide 27 mmol/L (22-29); Chloride 105 mmol/L (96-108); Estimated Glomerular Filt Rate > 60; Glucose Random 171 mg/dL (60-115); Magnesium 1.9 mg/dL (1.6-2.6); Sodium 139 mmol/L (135-145); Total Protein 7.2 g/dL (6.5-8.0)
== END 2023-10-12 07:24 | disposition home or self-care (01) ==
LOC: HO.LAB 07:23
PROVIDERS: PCP Internal Medicine; Visit Provider Internal Medicine
DX: E11.65 Type 2 diabetes mellitus with hyperglycemia (principal); I10 Essential (primary) hypertension
CPT/HCPCS: 36415; 80053; 83036; 83735

== ENCOUNTER → 2023-11-01 14:06 | Outpatient (RCR) | payer OTHER, SELFPAY ==
--- NOTE | 2019-12-21 11:13 | MHC.HEMONC ---
RN spoke with patient today. Pt stated she has appt with Dr. Regan this Saturday 12/23 and requested RN to cancel 02/12/[address] Romeo' office. RN did cancel the appt for patient and patient has follow up with Dr. Bernard 12/30.
[2019-12-31 09:06] VITALS: BP 138/73; PULSE 90; RESP 18; TEMP 36.3; O2SAT 98
[2019-12-31 09:07] VITALS: BMI 39.1
--- NOTE | 2019-12-31 09:34 | PM.HEMONCPN ---
Medical Summary - Medical Summary Chief complaint: F/U for Anemia. Iron deficiency. Thalasemia. Medical Summary: DIAGNOSIS: History of Anemia. CURRENT THERAPY: Ferrlecit IV, 05/17 till 06/09/17, received 8 doses. Interval History Interval history: 59 year-old lady, she is here for a followup visit. She has not been feeling too well, lately. She tells me that she has felt rather fatigued. she gets really tired. She feels weak and dizzy. She has body aches. Sometimes she gets headaches. She gets palpitations. Sometimes she has chest pain. She has diabetes. She has been getting insulin coverage. Her blood sugars have been running well. So for the past couple days she has not taken her medications, thinking that they may be dropping. No abdominal pain nausea vomiting heartburn indigestion. Her bowels are moving without any gross blood in it. Enjoys a good appetite. She was in the process of losing weight. She is in the weight loss program and had actually lost 20+ pounds. She had reached her target of 10% weight loss. She has now gained weight. She is in good spirits. Rest of the review of systems is unremarkable. She does have a history of fibromyalgia. She has history of sleep apnea syndrome and asthma. For a couple of years, she used to have to wear oxygen at night. She is no longer doing that. Review of Systems - Constitutional Reports body ache(s), Reports fatigue, Reports lack of energy, Reports malaise, Reports weakness, Denies fever(s), Denies weight loss - Eyes Denies bulging eyes - ENT Reports system reviewed and no additional complaints, except as documented - Cardiovascular Reports chest pain - Respiratory Denies cough, Denies hemoptysis - Gastrointestinal Reports nausea, Denies abdominal pain - Genitourinary Denies abnormal periods - Musculoskeletal Reports joint pain - Integumentary/Breasts Skin/Breast: Denies bleeding lesions - Neurologic Reports system reviewed and no additional complaints, except as documented - Psychiatric Reports anxiety - Endocrine Denies cold intolerance - Hematologic/Lymphatic Denies easy bleeding - Allergic/Immunologic Denies GI upset with certain foods PMFSH Medical History: Medical History (Last Updated 12/31/19 @ 08:15 by Massiel Wang) Anemia Asthma Beta thalassemia trait Chronic fatigue syndrome Diabetes mellitus Diverticular disease Fibromyalgia H/O deep vein thrombosis during 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 Hx of ectopic Iron deficiency Lipoma Microadenoma Mild hypercholesterolemia Obesity Sleep apnea Thalassemia Family History: Family History (Last Updated 12/31/19 @ 08:17 by Massiel Wang) Mother Thalassemia trait Maternal Aunt Thalassemia trait Maternal Uncle Thalassemia trait Surgical History: Surgical History (Last Updated 12/31/19 @ 08:15 by Massiel Wang) H/O sinus surgery H/O: hysterectomy Hx of laparoscopic gastric banding Home Medications and Allergies Home Medications Medication Instructions Recorded Confirmed Type atorvastatin 80 mg tablet 80 mg PO DAILY 12/24/19 12/31/19 History blood sugar diagnostic #10 ea 12/24/19 History cyclobenzaprine 10 mg tablet 10 mg PO BEDTIME 12/24/19 12/31/19 History diclofenac sodium 75 mg 75 mg PO BID 12/24/19 12/31/19 History tablet,delayed release empagliflozin 25 mg tablet 25 mg PO DAILY 12/24/19 12/31/19 History glimepiride 4 mg tablet 4 mg PO DAILY 12/24/19 12/31/19 History insulin glargine 100 unit/mL (3 20 unit SUBCUT BEDTIME 12/24/19 12/31/19 History mL) subcutaneous pen levalbuterol HCl 0.63 mg/3 mL 0.63 mg INHALATION Q OTHER DAY 12/24/19 12/31/19 History solution for nebulization levalbuterol tartrate 45 45 mcg INHALATION Q4-6H PRN 12/24/19 12/31/19 History mcg/actuation aerosol inhaler lisinopril 20 1 tab PO DAILY 12/24/19 12/31/19 History mg-hydrochlorothiazide 12.5 mg tablet exenatide microspheres [Bydureon] 2 mg SUBCUT QWEEK 12/31/19 12/31/19 History Allergies Allergy/AdvReac Type Severity Reaction Status Date / Time iodine [IODINE] Allergy Severe ANAPHYLAXIS Verified 12/31/19 09:18 Penicillins [PENICILLINS] Allergy Severe BREATHING Verified 12/31/19 09:18 PROBLEM shellfish derived Allergy Severe ANAPHYLAXIS Verified 12/31/19 09:18 clindamycin [CLINDAMYCIN] Allergy Intermediate HIVES Verified 12/31/19 09:18 milnacipran [From SAVELLA] Allergy Intermediate BRUISE Verified 12/31/19 09:18 vancomycin [VANCOMYCIN] Allergy Intermediate HIVES; Verified 12/31/19 09:18 ITCHING metformin Allergy Unknown diarrhea Verified 11/05/19 00:00 albuterol [ALBUTEROL] AdvReac Intermediate HEART RACES Verified 12/31/19 09:18 Exam Vital signs: Vital Signs Temp 97.3 F 12/31/19 09:06 Pulse 90 12/31/19 09:06 Resp 18 12/31/19 09:06 BP 138/73 12/31/19 09:06 Pulse Ox 98 12/31/19 09:06 Intake & Output 12/30/19 12/31/19 12/31/19 18:59 06:59 18:59 Other: Weight 97.1 kg Weight 97.1 kg Body Mass Index 39.1 - Constitutional Present: no acute distress, mild distress - Routine HEENT Exam Head: Present: normal inspection ENT: Present: mucous membranes moist - Routine Neck Exam Present: full ROM - Routine Respiratory Exam Present: CTAB - Routine Cardiovascular Exam Cardiovascular: Present: RRR, S1, S2 - Routine Abdominal Exam Present: soft, nontender - Routine Rectal Exam Patient deferred: digital exam - Routine Extremities Exam Present: nontender - Routine Back/Spine/Pelvis Exam Back/Spine: Absent: CVA tenderness - Routine Skin Exam Present: intact - Routine Neurological Exam Present: alert, oriented X3 - Routine Psychiatric Exam Present: normal affect Data - Labs CBC & Chem 7: 12/31/19 09:30 12/31/19 09:30 Progress Note: A/P (1) Anemia Status: Acute Assessment and plan: This is a pleasant 59 year-old lady with a history of Chronic Anemia. Most likely has a combination of Thalassemia trait, with iron deficiency anemia related to intermittent G.I. Bleeding. Her hemoglobin had gone down to 11.2. In the past she has received IV iron and that has helped. She tried it again, back in May. She completed 8 doses of Ferrlecit, on June 09. Her hemoglobin improved. It is stable at around 11.4 g. Ferritin went up. She is not feeling much better. She is currently in the Bariatric program, she has lost significant amount of weight. Bariatric surgery is being contemplated. However she is reluctant to go through with it. If she just had thalassemia minor, that in of itself, I would not consider a contraindication However, she has several comorbidities. These include: Sleep apnea syndrome, bronchial asthma & reactive airway disease, borderline diabetes, hypertension, Previous history of DVT. EBV infection, Mediterranean fever, history of rheumatoid arthritis and raynaud's syndrome. As such she would be high risk for surgery. She is quite motivated to continue losing weight with the diet and supplements. She completed forms for genetic risk assessment. She had a maternal aunt with breast cancer less than the age of 50 and a paternal aunt with ovarian cancer. Uncle with pancreatic cancer. She was offered genetic counseling. She was given an appointment to return for counseling and testing. Her hemoglobin had dropped. She was given IV Ferrlecit X 4. However her energy level or hemoglobin has not come up significantly. Hemoglobin level off at 10.8. She likely has baseline anemia related to her thalassemia. PLAN: I referred her for a colonoscopy in view of her low hemoglobin and strong family history of malignancy. She will followup with her primary, regarding her recent symptoms. She will return in 3 months for a followup visit. She is under the care of a program manager transportation, Dr. Diaz. Thank you, CC: Dr. Regan. Dr. Frances Cutler. Dr. Amada Woods. - Time Spent With Patient Total time spent is greater than 50% in coordination of care (as documented) at patient's floor/unit and/or counseling patient: 25 - 35 minutes
[2019-12-31 09:44] LABS: MANUAL DIFF FLAG NO
[2019-12-31 10:01] LABS: Basophils Percent Auto 0.4 % (0-2); Eosinophils Absolute Auto 0.3 X10*3/uL (0.0-0.4); Eosinophils Percent Auto 3.2 % (0-4); Hematocrit 34.8 % (37-47); Hemoglobin 10.8 g/dl (12.0-16.0); Imm Gran Abs Auto 0.04 X10*3/uL (0.00-0.03); Imm Gran Pct Auto 0.4 % (0.0-0.4); Lymphocytes Absolute Auto 3.1 X10*3/uL (1.2-4.9); Lymphocytes Percent Auto 33.9 % (20-40); Mean Corpuscular Hemoglobin 22.7 pg (27.0-33.0); Mean Corpuscular Volume 73.1 fL (80-98); Mean Platelet Volume 10.8 fL (9.4-12.3); Monocytes Absolute Auto 0.5 X10*3/uL (0.1-1.2); Monocytes Percent Auto 5.7 % (2-11); Neutrophils Absolute Auto 5.1 X10*3/uL (2.0-8.3); Neutrophils Percent Auto 56.4 % (45-73); Platelet Count 293 X10*3/uL (160-400); Red Blood Count 4.76 X10*6/uL (4.20-5.50); Red Cell Distribution Width 16.9 % (11.0-16.0); White Blood Count 9.1 X10*3/uL (4.8-10.8)
[2019-12-31 10:43] LABS: Alanine Aminotransferase 27 U/L (0-31); Albumin Level 4.3 g/dL (3.5-5.0); Alkaline Phosphatase 66 U/L (39-117); Anion Gap 13 (12-20); Aspartate Amino Transferase 16 U/L (5-31); Bilirubin Total 0.5 mg/dL (0.0-1.0); Blood Urea Nitrogen 11 mg/dL (9-16); Calcium 8.8 mg/dL (8.4-10.2); Carbon Dioxide 25 mmol/L (22-29); Chloride 105 mmol/L (96-108); Creatinine Clr Calc Pharmacy 91.2; Estimated Glomerular Filt Rate > 60; Glucose Random 171 mg/dL (60-115); Iron 75 mcg/dL (30-160); Percent Iron Saturation 23 % (15-50); Sodium 139 mmol/L (135-145); Total Iron Binding Capacity 325 mcg/dL (228-428); Total Protein 7.2 g/dL (6.5-8.0); Unsaturated Iron Binding 250 ug/dL
[2019-12-31 10:51] LABS: Ferritin 1168 ng/mL (10-250)
--- NOTE | 2019-12-31 15:47 | PC.NURSE ---
Printed labs for Dr Bernard to review, she states that they are stable and for patient to go ahead and have colonoscopy. Called and spoke with patient and advised her of what Dr Bernard stated and that she wants her to have colonoscopy- I also let her know of her next appt for 3 months.
== END | disposition home or self-care (01) ==
LOC: HO.ONC 12-18 16:28
PROVIDERS: Visit Provider Internal Medicine Medical Oncology
DX: D64.9 Anemia, unspecified (principal); Z80.3 Family history of malignant neoplasm of breast; Z80.41 Family history of malignant neoplasm of ovary; Z80.0 Family history of malignant neoplasm of digestive organs
CPT/HCPCS: 36415; 80053; 82728; 83540; 85025

== ENCOUNTER 2023-11-14 14:57 | Outpatient (AMB) | payer MEDICARE, OTHER, SELFPAY ==
--- NOTE | 2023-11-14 14:58 | A.OFFVIS_ITS ---
Intake Visit Reasons: OV- Left Knee, discuss surgery Intake Note: Maryjo is a 62 year old female who presents today for a follow up appointment of her Left Knee OA. At her last visit on 10/03/23 she received a Durolane injection which was not helpful. Today she would like to discuss surgical interventions. Allergies iodine [IODINE] Allergy (Severe, Verified 10/03/23 14:36) ANAPHYLAXIS Penicillins [PENICILLINS] Allergy (Severe, Verified 10/03/23 14:36) BREATHING PROBLEM shellfish derived Allergy (Severe, Verified 10/03/23 14:36) ANAPHYLAXIS clindamycin [CLINDAMYCIN] Allergy (Intermediate, Verified 10/03/23 14:36) HIVES milnacipran [From SAVELLA] Allergy (Intermediate, Verified 10/03/23 14:36) BRUISE vancomycin [VANCOMYCIN] Allergy (Intermediate, Verified 10/03/23 14:36) HIVES; ITCHING metformin Allergy (Unknown, Verified 10/03/23 14:36) diarrhea albuterol [ALBUTEROL] Adverse Reaction (Intermediate, Verified 10/03/23 14:36) HEART RACES metformin Adverse Reaction (Uncoded 10/03/23 14:36) Stomach Upset HPI HPI OV- Left Knee, discuss surgery: Details: Analilia Bass is a very pleasant 63-year-old woman that I have been seeing for years with an approximately 1 year history of left knee pain. She describes difficulty ambulating. She can walk for 5-10 minutes without having to stop and rest. She would like to be more active. She feels that her knee is preventing her from engaging in recreational activities as well as activities of daily living. She feels that injections have been unhelpful and she does not want more of them given her diabetes. She has tried physical therapy and he is at her wits end. She last tried Durolane which was also unhelpful. Over the past several months her hemoglobin A1c became very elevated and she is working hard to get it back down. It is coming back down and is currently 8.7. She has restarted Januvia and this is helping. [facility] Medical History History of diverticulitis Family history of ovarian cancer Colon cancer screening Diverticular disease Diabetes Lipoma Sleep apnea Herpes simplex virus (HSV) infection of vagina Chronic fatigue syndrome History of Vivek-Arellano virus infection Hx of ectopic Obesity Fibromyalgia Beta thalassemia trait H/O deep vein thrombosis during Mild hypercholesterolemia Microadenoma Iron deficiency Diverticular disease Asthma Diabetes mellitus Thalassemia Anemia Surgical History (Reviewed 11/14/23 @ 15:04 by Jade Gregory [facility]) H/O sinus surgery Hx of laparoscopic gastric banding H/O: hysterectomy Family History (Reviewed 11/14/23 @ 15:04 by Jade Gregory [facility]) Mother Thalassemia trait Stroke Maternal Aunt Thalassemia trait Maternal Uncle Thalassemia trait Father Heart problem Brother Heart problem Brother No problems noted. 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 5-130deg motion with crepitus. Results Reviewed Results Reviewed: Tricompartmental osteoarthritis moderate to severe left knee Assessment & Plan Assessment & Plan (1) Osteoarthritis of left knee: Code(s): M17.12 - Unilateral primary osteoarthritis, left knee Category: Medical Qualifiers: Osteoarthritis type: primary Qualified Code(s): M17.12 - Unilateral primary osteoarthritis, left knee Plan: This is a 63-year-old woman with severe osteoarthritis of the left knee. She has failed conservative management and I recommend left knee arthroplasty. We have discussed this in the past and her diabetes is under control and she is compliant with her medication. We reviewed the risks, benefits and alternatives including, but not limited to the risk of infection, stiffness, need for further surgery as well as medical complications such as blood clots and pneumonia. She expressed understanding and we will proceed forward accordingly. Coding Level of Care Code Est Pt Level 4 (49824) Diagnoses Primary osteoarthritis of left knee M17.12 Osteoarthritis type: primary
== END 2023-11-14 16:01 | disposition home or self-care (01) ==
PROVIDERS: PCP Internal Medicine; Visit Provider Orthopaedic Surgery
DX: M17.12 Unilateral primary osteoarthritis, left knee (principal)
CPT/HCPCS: 99214

== ENCOUNTER → 2023-11-14 14:57 | Outpatient (BNVA) | payer MEDICARE, OTHER, SELFPAY | PROVIDERS: PCP Internal Medicine; Visit Provider Orthopaedic Surgery | DX: M17.12 Unilateral primary osteoarthritis, left knee (principal) | CPT/HCPCS: 99212 ==

== ENCOUNTER 2024-01-02 07:52 | Outpatient (REF) | payer MEDICARE, OTHER, SELFPAY ==
[2024-01-02 08:32] LABS: Estimated Average Glucose 174 mg/dL; Hemoglobin A1C 178.8809 umol/L; Hemoglobin A1c % 7.7 % (<6.0); Total Hemoglobin (HGBA1C) 2925.6997 umol/L
[2024-01-02 08:39] LABS: Alanine Aminotransferase 24 U/L (0-31); Alkaline Phosphatase 66 U/L (39-117); Anion Gap 9 (12-20); Aspartate Amino Transferase 16 U/L (5-31); Bilirubin Total 0.4 mg/dL (0.0-1.0); Blood Urea Nitrogen 11 mg/dL (9-16); Calcium 8.7 mg/dL (8.4-10.2); Carbon Dioxide 28 mmol/L (22-29); Chloride 107 mmol/L (96-108); Estimated Glomerular Filt Rate > 60; Glucose Random 183 mg/dL (60-115); Sodium 140 mmol/L (135-145); Total Protein 6.8 g/dL (6.5-8.0)
== END 2024-01-02 07:53 | disposition home or self-care (01) ==
LOC: HO.LAB 07:52
PROVIDERS: PCP Internal Medicine; Visit Provider Internal Medicine
DX: E11.65 Type 2 diabetes mellitus with hyperglycemia (principal); I10 Essential (primary) hypertension; J45.998 Other asthma; M79.7 Fibromyalgia
CPT/HCPCS: 36415; 80053; 83036

== ENCOUNTER 2024-01-06 16:46 | Emergency (ER) | payer MEDICARE, OTHER, SELFPAY ==
--- NOTE | ~2024-01-06 | US_ITS ---
EXAMINATION: US TRIPLEX UPPER EXTREMITY, LEFT CLINICAL INFORMATION: Upper extremity swelling COMPARISON: None available. TECHNIQUE: Color-flow triplex imaging with spectral analysis and compression Doppler was performed on the left upper extremity. FINDINGS: The left internal jugular, subclavian, and axillary veins are patent and free of thrombus. The imaged segment of the left brachiocephalic vein is patent. Spectral doppler waveforms are normal. The brachial, basilic, cephalic, radial, and ulnar veins are patent and compressible. US/US venous duplex UE LT IMPRESSION: No evidence of deep venous thrombosis involving the left upper extremity. Electronically signed by: Kisha Guallpa MD 01/06/2024 06:45 PM EDT
[2024-01-06 17:08] VITALS: BP 141/74; PULSE 85; RESP 16; TEMP 37; O2SAT 98; BMI 36.3
--- NOTE | 2024-01-06 17:12 | ED.UPPEXIN ---
HPI - Extremity Injury (Upper) General Chief Complaint: Extremity Injury, Upper Stated Complaint: left arm pain and swelling Time Seen by Provider: 01/06/24 20:36 Source: patient Mode of arrival: ambulatory Limitations: no limitations History of Present Illness ED Provider: ANAHI CHUA narrative: 63 yo female with PMH of DM, HTN, asthma, anemia, remote DVT related to surgery > 10 years ago not on thinners anymore here with 1 day of L hand/arm swelling without rash, fevers, no known trauma. She denies hx of gout. No recent procedure or intervention on that arm. Worried about DVT MD complaint: injury to: left and arm Onset (ago): day(s) (1) Other Extremity Injury: left: hand and arm Other injuries: none Handedness: right Place: home Severity: moderate Relieving factors: rest Exacerbating factors: movement of extremity Context: other Associated symptoms: denies other symptoms Related Data Home Medications ?Medication ?Instructions ?Recorded ?Confirmed blood sugar diagnostic #10 ea 12/24/19 12/08/22 levalbuterol HCl 0.63 mg/3 mL 0.63 mg inhalation Q OTHER DAY 12/24/19 04/07/23 solution for nebulization wheezing levalbuterol tartrate 45 45 mcg inhalation Q4-6H PRN 12/24/19 04/07/23 mcg/actuation aerosol inhaler Wheezing blood-glucose sensor (FreeStyle #1 ea 04/29/22 12/08/22 Horacio 3 Sensor device) lisinopril 20 1 tab PO DAILY 04/07/23 04/07/23 mg-hydrochlorothiazide 25 mg tablet rosuvastatin 20 mg tablet 20 mg PO BEDTIME 04/07/23 04/07/23 insulin glargine 100 unit/mL 10 unit subcut QPM 11/14/23 subcutaneous solution (Lantus U-100 Insulin) insulin lispro 100 unit/mL 1 sliding scale dose subcut 11/14/23 subcutaneous pen (Humalog KwikPen USEASDIRECTD (U-100) Insulin) sitagliptin phosphate 100 mg 100 mg PO DAILY 11/14/23 tablet (Januvia) Previous Rx's ?Medication ?Instructions ?Recorded inhalational spacing device #1 ea 01/17/22 (Aerochamber Plus Z Stat spacer) blood-glucose sensor (FreeStyle #2 ea 05/19/22 Horacio 3 Sensor device) hydrocodone 5 mg-acetaminophen 325 1 tab PO Q6H PRN pain #10 tabs 01/06/24 mg tablet prednisone 10 mg tablet 20 mg (2 x 10 mg) PO DAILY 3 days 01/06/24 #6 tabs Allergies Allergy/AdvReac Type Severity Reaction Status Date / Time iodine [IODINE] Allergy Severe ANAPHYLAXIS Verified 01/06/24 17:11 Penicillins [PENICILLINS] Allergy Severe BREATHING Verified 01/06/24 17:11 PROBLEM shellfish derived Allergy Severe ANAPHYLAXIS Verified 01/06/24 17:11 clindamycin [CLINDAMYCIN] Allergy Intermediate HIVES Verified 01/06/24 17:11 milnacipran [From SAVELLA] Allergy Intermediate BRUISE Verified 01/06/24 17:11 vancomycin [VANCOMYCIN] Allergy Intermediate HIVES; Verified 01/06/24 17:11 ITCHING metformin Allergy Unknown diarrhea Verified 01/06/24 17:11 albuterol [ALBUTEROL] AdvReac Intermediate HEART RACES Verified 01/06/24 17:11 metformin AdvReac Stomach Uncoded 01/06/24 17:11 Upset Review of Systems Review of Systems: Constitutional : No Fever, No Chills ENT/Mouth : No Ear Pain, No Hoarseness, No sore throat Eyes: No Eye Pain, No Swelling, No Redness, No Foreign Body Cardiovascular : No Chest Pain, No SOB Respiratory : No Cough, No Dyspnea Gastrointestinal : No Nausea, No Vomiting, No Diarrhea, No abdominal Pain Genitourinary : No Dysuria, No Hematuria Musculoskeletal : positive joint pain, No Myalgias, pos Joint Swelling Skin : No Skin lacerations, No rash Neuro : No Weakness, No Numbness, No Loss of Consciousness, No Dizziness, No Headache All other systems reviewed and are negative [facility] Past Medical History Attestation statement: The following information was validated with the patient. Source: old records reviewed Medical History History of diverticulitis Family history of ovarian cancer Colon cancer screening Diverticular disease Diabetes Lipoma Sleep apnea Herpes simplex virus (HSV) infection of vagina Chronic fatigue syndrome History of Vivek-Arellano virus infection Hx of ectopic Obesity Fibromyalgia Beta thalassemia trait H/O deep vein thrombosis during Mild hypercholesterolemia Microadenoma Iron deficiency Diverticular disease Asthma Diabetes mellitus Thalassemia Anemia Surgical History H/O sinus surgery Hx of laparoscopic gastric banding H/O: hysterectomy Family History Family History Mother Thalassemia trait Stroke Maternal Aunt Thalassemia trait Maternal Uncle Thalassemia trait Father Heart problem Brother Heart problem Brother No problems noted. 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 Oriented X3. No acute distress. Eyes: Pupils equal, round and reactive to light. ENT: Pharynx normal. Neck: Normal inspection. Neck supple. CVS: Normal heart rate and rhythm. Pulses normal. Respiratory: No respiratory distress. Breath sounds normal. Abdomen: Soft and non-tender. Skin: Skin warm and dry. Normal skin color. Normal skin turgor. Extremities: No lower extremity edema. L arm swelling from dorsum of hand into forearm 2+ radial pulse SILT intact can make fist but notes it hurts no rash warmth erythema Neuro: Oriented X 3. No motor deficit. No sensory deficit. Course Course Course Narrative: This is a Rapid Medical Examination (RME) performed by Carolina Herrera PA-C in triage. Full HPI, ROS, assessment and treatment plan per primary provider in the Main ED. 63 yo female hx of DVT to LLE (no longer on thinners) here for eval of LUE swelling/ pain from shoulder to fingers. no injury/ trauma/ fall. denies recent travel/ long car rides. denies sob, cp. Plan: labs, venous duplex Medications Administered Discontinued Medications Generic Name Dose Route Start Last Admin Trade Name Mahad PRN Reason Stop Dose Admin Hydrocodone Bitart/Acetaminophen 1 tab 01/06/24 21:11 01/06/24 21:29 Hydrocodone Bit/Acetam 5/325 Tablet PO 01/06/24 21:12 1 tab ONCE ONE Administration Prednisone 20 mg 01/06/24 21:11 01/06/24 21:29 Prednisone 20 Mg Tablet PO 01/06/24 21:12 20 mg ONCE ONE Administration Medical Decision Making Medical Decision Making [facility] Narrative: 63 yo female with PMH of DM, HTN, asthma, anemia, remote DVT here with c/o L arm swelling and pain without trauma or recent procedure at this time will obtain DVT study and labs. She is NV intact We did discuss that the patient should get CT scan of the chest to rule out obstruction/lesion but she declines due to the wait and will follow up with her PCP will start on low dose steroids and sling her Differential Diagnosis Differential Diagnoses: The differential diagnosis associated with the presentation includes strain, swelling, DVT, obstruction, gout Admission/Observation Consideration of admission/observation: Escalation of care including admission/observation considered declines further work up including CT scan of chest for other obstructive pathology Lab Data [facility] Lab Attestation statement: I reviewed the patient's lab results. 01/06/24 17:55 01/06/24 17:55 Labs: Lab Results 01/06/24 Range/Units 17:55 WBC 9.9 (4.8-10.8) X10*3/uL RBC 5.01 (4.20-5.50) X10*6/uL Hgb 11.0 L (12.0-16.0) g/dl Hct 35.1 L (37.0-47.0) % MCV 70.1 L (80.0-98.0) fL MCH 22.0 L (27.0-33.0) pg MCHC 31.3 (31.0-35.0) g/dl RDW 15.4 (11.0-16.0) % Plt Count 221 (160-400) X10*3/uL MPV 10.6 (9.4-12.3) fL Immature Gran % (Auto) 0.3 (0.0-0.4) % Neut % (Auto) 54.6 (45-73) % Lymph % (Auto) 34.3 (20-40) % [place] % (Auto) 6.7 (2-11) % Eos % (Auto) 3.4 (0-4) % Baso % (Auto) 0.7 (0-2) % Lymph # (Auto) 3.4 (1.2-4.9) X10*3/uL [place] # (Auto) 0.7 (0.1-1.2) X10*3/uL Eos # (Auto) 0.3 (0.0-0.4) X10*3/uL Baso # (Auto) 0.1 (0.0-0.2) X10*3/uL Abs Immat Gran (auto) 0.03 (0.00-0.03) X10*3/uL Absolute Neuts (auto) 5.4 (2.0-8.3) x10*3/uL Absolute Nucleated RBC 0.000 (0.0-0.012) X10*3/uL Nucleated RBC % (auto) 0.0 (0.0-0.2) /100WBC Sodium 142 (135-145) mmol/L Potassium 4.1 (3.3-5.1) mmol/L Chloride 106 (96-108) mmol/L Carbon Dioxide 24 (22-29) mmol/L Anion Gap 16 (12-20) BUN 16 (9-16) mg/dL Creatinine 0.88 (0.5-1.4) mg/dL Estim Creat Clear Calc 80.9 Estimated GFR > 60 Random Glucose 124 H (60-115) mg/dL Calcium 9.2 (8.4-10.2) mg/dL Total Bilirubin 0.5 (0.0-1.0) mg/dL AST 27 (5-31) U/L ALT 35 H (0-31) U/L Alkaline Phosphatase 72 (39-117) U/L Total Protein 7.5 (6.5-8.0) g/dL Albumin 4.2 (3.5-5.0) g/dL Independent Interpretation I performed an independent interpretation of an: Ultrasound (no DVT) Radiology Impression Discussion of test interpretation with radiology: I have reviewed the radiologist's reading. External Record Review External record reviewed: Office record Prescription Management I considered prescription management with: Pain Medication and Other Procedures Orthopedic Splinting/Casting Injury #1: Side: left Upper Extremity Injury Location: upper arm, forearm, wrist and hand Upper Extremity Immobilizer: sling/shoulder immobilizer Discharge Plan Discharge Clinical Impression: Arm swelling Patient Disposition: Home, Self-Care Instructions: Arthralgia (ED) Additional Instructions: at this time no acute DVT on US labs reassuring you were offered CT scan of chest but declined as discussed follow up with your doctor - repeat ultrasound or get CT scan of chest do not wear sling more than 3 days Prescriptions: New hydrocodone-acetaminophen 5-325 mg tablet 1 tab PO Q6H PRN (Reason: pain) Qty: 10 0RF Rx Instructions: partial fill okay; Partial Fill upon patient request. prednisone 10 mg tablet 20 mg PO DAILY 3 Days Qty: 6 0RF No Action (DME) FreeStyle Horacio 3 Sensor Device See Rx Instructions .Route Qty: 2 4RF Rx Instructions: As directed (DME) Aerochamber Plus Z Stat Spacer See Rx Instructions .Route Qty: 1 0RF Rx Instructions: As directed (DME) FreeStyle Lite Strips Strip See Rx Instructions .ROUTE .MEDSUPPLY Qty: 10 Rx Instructions: As directed levalbuterol tartrate 45 mcg/actuation HFA aerosol inhaler 45 mcg inhalation Q4-6H PRN (Reason: Wheezing) levalbuterol HCl 0.63 mg/3 mL solution for nebulization 0.63 mg inhalation Q OTHER DAY (DME) FreeStyle Horacio 3 Sensor Device See Rx Instructions .ROUTE QID Qty: 1 Rx Instructions: As directed every 14 days rosuvastatin 20 mg tablet 20 mg PO BEDTIME lisinopril-hydrochlorothiazide 20-25 mg tablet 1 tab PO DAILY insulin lispro [Humalog KwikPen Insulin] 100 unit/mL insulin pen 1 sliding scale dose subcut USEASDIRECTD insulin glargine [Lantus U-100 Insulin] 100 unit/mL solution 10 unit subcut QPM Januvia 100 mg tablet 100 mg PO DAILY Print Language: Chinese
[2024-01-06 17:58] LABS: MANUAL DIFF FLAG NO
[2024-01-06 18:01] LABS: Basophils Absolute Auto 0.1 X10*3/uL (0.0-0.2); Basophils Percent Auto 0.7 % (0-2); Eosinophils Absolute Auto 0.3 X10*3/uL (0.0-0.4); Eosinophils Percent Auto 3.4 % (0-4); Hematocrit 35.1 % (37.0-47.0); Imm Gran Abs Auto 0.03 X10*3/uL (0.00-0.03); Imm Gran Pct Auto 0.3 % (0.0-0.4); Lymphocytes Absolute Auto 3.4 X10*3/uL (1.2-4.9); Lymphocytes Percent Auto 34.3 % (20-40); Mean Corpuscular HGB Conc 31.3 g/dl (31.0-35.0); Mean Corpuscular Volume 70.1 fL (80.0-98.0); Mean Platelet Volume 10.6 fL (9.4-12.3); Monocytes Absolute Auto 0.7 X10*3/uL (0.1-1.2); Monocytes Percent Auto 6.7 % (2-11); Neutrophils Absolute Auto 5.4 x10*3/uL (2.0-8.3); Neutrophils Percent Auto 54.6 % (45-73); Platelet Count 221 X10*3/uL (160-400); Red Blood Count 5.01 X10*6/uL (4.20-5.50); Red Cell Distribution Width 15.4 % (11.0-16.0); White Blood Count 9.9 X10*3/uL (4.8-10.8)
[2024-01-06 18:19] LABS: Alanine Aminotransferase 35 U/L (0-31); Albumin Level 4.2 g/dL (3.5-5.0); Alkaline Phosphatase 72 U/L (39-117); Anion Gap 16 (12-20); Aspartate Amino Transferase 27 U/L (5-31); Bilirubin Total 0.5 mg/dL (0.0-1.0); Blood Urea Nitrogen 16 mg/dL (9-16); Calcium 9.2 mg/dL (8.4-10.2); Carbon Dioxide 24 mmol/L (22-29); Chloride 106 mmol/L (96-108); Creatinine Clr Calc Pharmacy 80.9; Estimated Glomerular Filt Rate > 60; Glucose Random 124 mg/dL (60-115); Potassium 4.1 mmol/L (3.3-5.1); Sodium 142 mmol/L (135-145); Total Protein 7.5 g/dL (6.5-8.0)
[2024-01-06 21:18] VITALS: BP 169/88; PULSE 75; RESP 20; TEMP 36.8; O2SAT 99
[2024-01-06] MEDS: HYDROcodone Bit/Acetam 5/325 TABLET 1 TAB PO (21:29)
[2024-01-06] MEDS: predniSONE 20 MG TABLET PO (21:29)
[2024-01-06 21:55] VITALS: BP 169/88; PULSE 75; RESP 20; TEMP 36.8; O2SAT 99
== END 2024-01-06 21:55 | disposition home or self-care (01) ==
PROVIDERS: Physician Assistant Medical; Emergency Provider Emergency Medicine; PCP Internal Medicine
DX: M79.602 Pain in left arm (principal); R60.0 Localized edema; I10 Essential (primary) hypertension; E11.9 Type 2 diabetes mellitus without complications; Z79.899 Other long term (current) drug therapy; Z79.4 Long term (current) use of insulin
CPT/HCPCS: 29105; 36415; 80053; 85025; 93971; 99283; 99284

== ENCOUNTER 2024-01-12 11:25 | Outpatient (REF) | payer MEDICARE, OTHER, SELFPAY ==
--- NOTE | ~2024-01-12 | US_ITS ---
EXAMINATION: MM DIAGNOSTIC DIGITAL BREAST TOMOSYNTHESIS, BILATERAL CLINICAL INFORMATION: 1 year follow-up for focal asymmetry in the lower central right breast posterior depth and solid masses versus complicated cyst on ultrasound. COMPARISON: Mammography: Comparison is made with relevant prior exams. TECHNIQUE: Digital breast mammography with tomosynthesis is performed in both the craniocaudal and mediolateral oblique views along with computer-aided detection (CAD). Limited right breast ultrasound FINDINGS: There are scattered areas of fibroglandular density (ACR BI-RADS breast composition Category b). Left: There are no significant masses, abnormal calcifications, or other abnormalities. Right: Focal asymmetry lower central breast posterior depth has increased in size from priors. No suspicious calcifications or other abnormal findings. Targeted right breast ultrasound from 4-8 o'clock demonstrates normal fibronodular breast tissue. The previously seen areas at 7 and 8:00 are no longer seen, only normal fibroglandular breast tissue is demonstrated. Results are discussed with the patient at time of visit. US/US breast RT limited mamm only IMPRESSION: Right 1. Focal asymmetry lower central breast posterior depth route sonographic correlate which is increased in size from prior mammograms. Recommend stereotactic core needle biopsy at this time for confirmation. The findings and recommendations were discussed with the patient the procedure will be scheduled. ASSESSMENT: BI-RADS BI-RADS 4 - Suspicious finding RECOMMENDATION: 1 year F/U (accession [id number]), Biopsy recommended (accession [id number]) This patient's information was entered into a reminder system with a target due date for their next mammogram. Electronically signed by: Sushma Murillo DO 01/12/2024 01:06 PM [facility]
--- NOTE | ~2024-01-12 | MM_ITS ---
EXAMINATION: MM DIAGNOSTIC DIGITAL BREAST TOMOSYNTHESIS, BILATERAL CLINICAL INFORMATION: 1 year follow-up for focal asymmetry in the lower central right breast posterior depth and solid masses versus complicated cyst on ultrasound. COMPARISON: Mammography: Comparison is made with relevant prior exams. TECHNIQUE: Digital breast mammography with tomosynthesis is performed in both the craniocaudal and mediolateral oblique views along with computer-aided detection (CAD). Limited right breast ultrasound FINDINGS: There are scattered areas of fibroglandular density (ACR BI-RADS breast composition Category b). Left: There are no significant masses, abnormal calcifications, or other abnormalities. Right: Focal asymmetry lower central breast posterior depth has increased in size from priors. No suspicious calcifications or other abnormal findings. Targeted right breast ultrasound from 4-8 o'clock demonstrates normal fibronodular breast tissue. The previously seen areas at 7 and 8:00 are no longer seen, only normal fibroglandular breast tissue is demonstrated. Results are discussed with the patient at time of visit. MM/MM tomosynthesis diagnostic BI IMPRESSION: Right 1. Focal asymmetry lower central breast posterior depth route sonographic correlate which is increased in size from prior mammograms. Recommend stereotactic core needle biopsy at this time for confirmation. The findings and recommendations were discussed with the patient the procedure will be scheduled. ASSESSMENT: BI-RADS BI-RADS 4 - Suspicious finding RECOMMENDATION: 1 year F/U (accession [id number]), Biopsy recommended (accession [id number]) This patient's information was entered into a reminder system with a target due date for their next mammogram. Electronically signed by: Sushma Murillo DO 01/12/2024 01:06 PM [facility]
== END 2024-01-12 11:26 | disposition home or self-care (01) ==
LOC: HO.MAMMO 11:25
PROVIDERS: PCP Internal Medicine; Visit Provider Internal Medicine
DX: R92.2 Inconclusive mammogram (principal)
CPT/HCPCS: 76642; 77062; 77066

== ENCOUNTER → 2024-01-12 11:30 | Outpatient (BNV) | payer MEDICARE, OTHER, SELFPAY | PROVIDERS: PCP Internal Medicine; Visit Provider Internal Medicine | DX: R92.8 Other abnormal and inconclusive findings on diagnostic imaging of breast (principal) | CPT/HCPCS: 76642; 77066; G0279 ==

== ENCOUNTER 2024-01-25 08:27 | Outpatient (AMB) | payer MEDICARE, OTHER, SELFPAY ==
--- NOTE | 2024-01-25 08:31 | MHC.OFFVIS ---
Vital Signs 01/25/24 08:40 Height 5 ft 2 in Weight 211 lb BMI 38.6 BP 148/78 H Blood Pressure Location Rt brachial Position Sitting Pulse 79 Intake Visit Reasons: Rt breast stereotactic biopsy, density Intake Note: This patient presents for stereotactic biopsy consult for density of the right breast. Pt c/o; reports no breast complaints. 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 Accompanied by: Self / Same As Patient Allergies iodine [IODINE] Allergy (Severe, Verified 01/25/24 08:41) ANAPHYLAXIS Penicillins [PENICILLINS] Allergy (Severe, Verified 01/25/24 08:41) BREATHING PROBLEM shellfish derived Allergy (Severe, Verified 01/25/24 08:41) ANAPHYLAXIS clindamycin [CLINDAMYCIN] Allergy (Intermediate, Verified 01/25/24 08:41) HIVES milnacipran [From SAVELLA] Allergy (Intermediate, Verified 01/25/24 08:41) BRUISE vancomycin [VANCOMYCIN] Allergy (Intermediate, Verified 01/25/24 08:41) HIVES; ITCHING metformin Allergy (Unknown, Verified 01/25/24 08:41) diarrhea albuterol [ALBUTEROL] Adverse Reaction (Intermediate, Verified 01/25/24 08:41) HEART RACES metformin Adverse Reaction (Uncoded 01/25/24 08:41) Stomach Upset Medication List - Last Reconciled 01/25/24 by Jonathan Regan MD blood sugar diagnostic As directed blood-glucose sensor (FreeStyle Horacio 3 Sensor device) As directed every 14 days blood-glucose sensor (FreeStyle Horacio 3 Sensor device) As directed hydrocodone-acetaminophen 5-325 mg 1 tab PO Q6H PRN inhalational spacing device (Aerochamber Plus Z Stat spacer) As directed insulin glargine (Lantus U-100 Insulin) 10 units subcut QPM insulin lispro (Humalog KwikPen (U-100) Insulin) 1 sliding scale dose subcut USEASDIRECTD levalbuterol HCl 0.63 mg inhalation Q OTHER DAY levalbuterol tartrate 45 mcg/actuation 45 mcg inhalation Q4-6H PRN lisinopril-hydrochlorothiazide 20-25 mg 1 tab PO DAILY prednisone 20 mg (2 x 10 mg) PO DAILY 3 days rosuvastatin 20 mg PO BEDTIME sitagliptin phosphate (Januvia) 100 mg PO DAILY walker Folding Front wheeled walker HPI HPI Rt breast stereotactic biopsy, density: Details: [age] year female referred for an abnormal mammogram. She has had mammograms. Her last mammogram done 2 weeks ago shows focal asymmetry which has increased in size compared to previous mammograms. This is on the lower central right breast. She was therefore recommended to undergo stereotactic biopsy Her menarche was at age of 13. Her 1st was the age of 20 but this was an ectopic . Her 1st that went to full term was age of 24. . She had 8 pregnancies but only 5 of these went to live . She denies any palpable breast mass or any nipple or skin changes. She denies any family history of breast cancer. [facility] Medical History (Updated 01/25/24 @ 08:38 by Jonathan Regan MD) Abnormal mammogram of right breast Breast mass, right History of diverticulitis Family history of ovarian cancer Colon cancer screening Diverticular disease Diabetes Lipoma Sleep apnea Herpes simplex virus (HSV) infection of vagina Chronic fatigue syndrome History of Vivek-Arellano virus infection Hx of ectopic Obesity Fibromyalgia Beta thalassemia trait H/O deep vein thrombosis during Mild hypercholesterolemia Microadenoma Iron deficiency Diverticular disease Asthma Diabetes mellitus Thalassemia Anemia Surgical History H/O sinus surgery Hx of laparoscopic gastric banding H/O: hysterectomy Family History (Updated 01/25/24 @ 08:43 by Mimi Larose Cherelle) Mother Thalassemia trait Stroke Breast cancer Maternal Aunt Thalassemia trait Maternal Uncle Thalassemia trait Father Heart problem Brother Heart problem Brother No problems noted. 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 Reproductive History Menstrual Age of Menarche: 12 Total pregnancies: 4 Full term: 4 Review of Systems Const Denies chills and Denies fever(s) Card Denies chest pain, Denies dyspnea and Denies dyspnea on exertion Resp Denies cough, Denies dyspnea and Denies dyspnea on exertion GI Denies hematochezia and Denies change in bowel habits Denies hematuria Musc Denies back pain and Denies limited range of motion Neuro Denies focal weakness and Denies convulsions Psych Denies depression and Denies mood swings Physical Exam Const General: comfortable and no acute distress Orientation/consciousness: patient oriented x3 Neck Neck: Yes no lymphadenopathy Chest Other: No palpable breast masses, no axillary Resp Auscultation: clear to auscultation bilaterally Cardio Rhythm: regular rhythm GI Palpation (GI): Soft to palpation, nontender and no guarding Neuro General: patient oriented x3 Assessment & Plan Assessment & Plan (1) Abnormal mammogram of right breast: Code(s): R92.8 - Other abnormal and inconclusive findings on diagnostic imaging of breast Category: Medical Plan: She has increasing focal asymmetry on the right breast as described above. A stereotactic biopsy has been recommended by the radiologist I explained to her the technique of this procedure. I will see her again in the office next week to discuss the path report. Orders: Orders MM stereotactic biopsy RT 01/24/24 N63.10 - Unspecified lump in the right breast, unspecified quadrant, R92.8 - Other abnormal and inconclusive findings on diagnostic imaging of breast Coding Level of Care Code Est Pt Level 3 (74513) Diagnoses Abnormal mammogram of right breast R92.8
[2024-01-25 08:40] VITALS: BP 148/78; PULSE 79; BMI 38.6
== END 2024-01-25 08:51 | disposition home or self-care (01) ==
PROVIDERS: PCP Internal Medicine; Visit Provider Surgery
DX: R92.8 Other abnormal and inconclusive findings on diagnostic imaging of breast (principal)
CPT/HCPCS: 99213

== ENCOUNTER 2024-01-25 09:04 | Outpatient (REF) | payer MEDICARE, OTHER, SELFPAY ==
--- NOTE | ~2024-01-25 | MM_ITS ---
EXAMINATION: STEREOTACTIC TOMOSYNTHESIS-GUIDED VACUUM-ASSISTED BREAST BIOPSY, RIGHT SPECIMEN RADIOGRAPH, RIGHT POST PROCEDURE DIGITAL MAMMOGRAM, RIGHT CLINICAL INFORMATION: Oval mass lower central breast posterior depth, no ultrasound correlate on prior exam, increasing in size. For stereotactic guided biopsy. COMPARISON: 01/12/2024, 07/26/2023, and priors dating back to 2020. TECHNIQUE/PROCEDURE: Informed consent was obtained from the patient after discussion of the benefits, risks, and alternatives to biopsy today. Patient appeared to understand. Gave opportunity for questions. Patient signed consent form. BIOPSY TABLE: [employer] Prone Biopsy System. LESION: Lobular mass right breast 7:00 axis, posterior depth LOCAL ANESTHESIA: 1 mL 1% lidocaine; 7 mL 1% lidocaine with epinephrine. DERMATOTOMY: Single skin cristine dermatotomy performed. NEEDLE: RedVision System Eviva 9-gauge vacuum assisted core biopsy device. APPROACH: caudal cranial. TARGETING: Combination of digital breast tomosynthesis and stereotactic digital mammography used for targeting. CORES: 6. CLIP: Top hat shaped. SPECIMEN RADIOGRAPH: Specimen radiograph is taken in separate room using digital mammography. Several of the index calcifications are in the excised cores. POST PROCEDURE UNILATERAL DIGITAL MAMMOGRAM: The post biopsy mammogram is performed in separate room using separate digital mammography equipment from the biopsy procedure. Right CC, ML, and MLO views are obtained. There are scattered areas of fibroglandular density (breast composition category: b). The clip marker is in position. The calcifications are markedly decreased at the biopsy site. No gross hematoma. The patient tolerated the procedure well. No immediate complications. Home instructions reviewed with the patient. Final pathology results are pending. MM/MM stereotactic biopsy RT IMPRESSION: 1. Digital tomosynthesis-guided core biopsy right breast with clip placement. 2. Specimen radiograph taken and post procedure mammogram. There is satisfactory and accurate positioning of the biopsy clip. 3. Final pathology results pending. An addendum report will be issued. Electronically signed by: Alex Will MD 01/25/2024 12:52 PM [facility]
[2024-01-25] MEDS: Lidocaine HCl 1 % 20 ML VIAL SUBCUT (11:57)
[2024-01-25] MEDS: Lidocaine HCl 1%/Epi 1:100,000 10 ML VIAL 17 ML SUBCUT (11:59)
[2024-01-25] MEDS: Sodium Bicarbonate 8.4% 50 MEQ/50 ML VIAL SUBCUT (12:00)
== END 2024-01-25 09:05 | disposition home or self-care (01) ==
LOC: HO.MAMMO 09:04
PROVIDERS: Pathology Cytopathology; PCP Internal Medicine; Visit Provider Surgery
DX: C50.511 Malignant neoplasm of lower-outer quadrant of right female breast (principal); Z17.0 Estrogen receptor positive status [ER+]; Z17.21 Progesterone receptor positive status; N63.10 Unspecified lump in the right breast, unspecified quadrant; R92.8 Other abnormal and inconclusive findings on diagnostic imaging of breast
CPT/HCPCS: 19081; 36415; 88305; 88360; 88374; 99212; A4648; J2003; J2004

== ENCOUNTER → 2024-01-25 10:00 | Outpatient (BNV) | payer MEDICARE, OTHER, SELFPAY | PROVIDERS: PCP Internal Medicine; Visit Provider Radiology Diagnostic Radiology | DX: C50.911 Malignant neoplasm of unspecified site of right female breast (principal) | CPT/HCPCS: 19081 ==

== ENCOUNTER 2024-01-31 09:44 | Outpatient (AMB) | payer MEDICARE, OTHER, SELFPAY ==
--- NOTE | 2024-01-31 09:45 | A.OFFVIS_ITS ---
Vital Signs 01/31/24 09:49 Height 5 ft 2 in Weight 211 lb BMI 38.6 Intake Visit Reasons: s/p Rt breast stereotactic biopsy, density Intake Note: This patient presents for breast biopsy results. Pt c/o; reports no complaints. 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 Accompanied by: Self / Same As Patient Allergies iodine [IODINE] Allergy (Severe, Verified 01/31/24 09:50) ANAPHYLAXIS Penicillins [PENICILLINS] Allergy (Severe, Verified 01/31/24 09:50) BREATHING PROBLEM shellfish derived Allergy (Severe, Verified 01/31/24 09:50) ANAPHYLAXIS clindamycin [CLINDAMYCIN] Allergy (Intermediate, Verified 01/31/24 09:50) HIVES milnacipran [From SAVELLA] Allergy (Intermediate, Verified 01/31/24 09:50) BRUISE vancomycin [VANCOMYCIN] Allergy (Intermediate, Verified 01/31/24 09:50) HIVES; ITCHING metformin Allergy (Unknown, Verified 01/31/24 09:50) diarrhea albuterol [ALBUTEROL] Adverse Reaction (Intermediate, Verified 01/31/24 09:50) HEART RACES metformin Adverse Reaction (Uncoded 01/31/24 09:50) Stomach Upset HPI HPI s/p Rt breast stereotactic biopsy, density: Details: [age] year female here for a follow-up for an abnormal mammogram. She has had mammograms regularly for many years.. Her last mammogram done 3 weeks ago showed focal asymmetry in the central right breast. She therefore underwent stereotactic biopsy for this area and she is here to discuss the findings. Her menarche was at age of 13. Her 1st was the age of 20 but this was an ectopic . Her 1st that went to full term was age of 24. . She had 8 pregnancies but only 5 of these went to live . She denies any palpable breast mass or any nipple or skin changes. She denies any family history of breast cancer. She had a history of hysterectomy for uterine bleeding at the age of 50. [facility] Medical History Breast cancer, right Abnormal mammogram of right breast Breast mass, right History of diverticulitis Family history of ovarian cancer Colon cancer screening Diverticular disease Diabetes Lipoma Sleep apnea Herpes simplex virus (HSV) infection of vagina Chronic fatigue syndrome History of Vivek-Arellano virus infection Hx of ectopic Obesity Fibromyalgia Beta thalassemia trait H/O deep vein thrombosis during Mild hypercholesterolemia Microadenoma Iron deficiency Diverticular disease Asthma Diabetes mellitus Thalassemia Anemia Surgical History H/O sinus surgery Hx of laparoscopic gastric banding H/O: hysterectomy Family History Mother Thalassemia trait Stroke Breast cancer Maternal Aunt Thalassemia trait Maternal Uncle Thalassemia trait Father Heart problem Brother Heart problem Brother No problems noted. 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 Reproductive History Menstrual Age of Menarche: 12 Review of Systems Const Denies chills and Denies fever(s) Card Denies chest pain, Denies dyspnea and Denies dyspnea on exertion Resp Denies cough, Denies dyspnea and Denies dyspnea on exertion GI Denies hematochezia and Denies change in bowel habits Denies hematuria Musc Denies back pain and Denies limited range of motion Neuro Denies focal weakness and Denies convulsions Psych Denies depression and Denies mood swings Physical Exam Vital Signs: BMI result Body Mass Index 38.6 Const General: comfortable and no acute distress Orientation/consciousness: patient oriented x3 Neck Neck: Yes no lymphadenopathy Chest Other: Small ecchymosis on the biopsy site, no palpable breast mass, no axillary lymphadenopathy Resp Auscultation: clear to auscultation bilaterally Cardio Rhythm: regular rhythm GI Palpation (GI): Soft to palpation, nontender and no guarding Neuro General: patient oriented x3 Assessment & Plan Assessment & Plan (1) Breast cancer, right: Code(s): C50.911 - Malignant neoplasm of unspecified site of right female breast Category: Medical Plan: Unfortunately, 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 The largest linear diameter is 7 mm. I had a long discussion with her about her options. I explained the option of proceeding with mastectomy with sentinel biopsy. I also explained the option of proceeding with lumpectomy with Hologic localizer and sentinel biopsy. She understands that if she chooses this option, she will need to have radiation to the breast to complete treatment. I explained the risks of bleeding, infections, hematoma, nerve injury, the need for additional surgeries if margins are positive for lumpectomy. I explained to her what to expect postoperatively She says that she has decided already that she wants to proceed with lumpectomy with Hologic localizer, and sentinel biopsy. I will also arrange for her to be seen by Dr. Bernard of Oncology he is following her for her thalassemia. Orders: Referrals Hematology & Oncology Referral C50.911 - Malignant neoplasm of unspecified site of right female breast Coding Level of Care Code Est Pt Level 3 (50785) Diagnoses Breast cancer, right C50.911
[2024-01-31 09:49] VITALS: BMI 38.6
== END 2024-01-31 10:18 | disposition home or self-care (01) ==
PROVIDERS: PCP Internal Medicine; Visit Provider Surgery
DX: C50.911 Malignant neoplasm of unspecified site of right female breast (principal)
CPT/HCPCS: 99213

== ENCOUNTER → 2024-01-31 09:44 | Outpatient (BNVA) | payer MEDICARE, OTHER, SELFPAY | PROVIDERS: PCP Internal Medicine; Visit Provider Surgery | DX: C50.911 Malignant neoplasm of unspecified site of right female breast (principal); Z71.2 Person consulting for explanation of examination or test findings | CPT/HCPCS: 99212 ==

== ENCOUNTER 2024-02-07 07:46 | Outpatient (REF) | payer MEDICARE, OTHER, SELFPAY ==
[2024-02-07 08:00] LABS: MANUAL DIFF FLAG NO
[2024-02-07 08:08] LABS: Basophils Percent Auto 0.5 % (0-2); Eosinophils Absolute Auto 0.4 X10*3/uL (0.0-0.4); Eosinophils Percent Auto 4.2 % (0-4); Hematocrit 36.1 % (37.0-47.0); Hemoglobin 11.2 g/dl (12.0-16.0); Imm Gran Abs Auto 0.03 X10*3/uL (0.00-0.03); Imm Gran Pct Auto 0.4 % (0.0-0.4); Lymphocytes Absolute Auto 2.6 X10*3/uL (1.2-4.9); Lymphocytes Percent Auto 31.4 % (20-40); Mean Corpuscular Hemoglobin 21.7 pg (27.0-33.0); Mean Corpuscular Volume 70.1 fL (80.0-98.0); Mean Platelet Volume 11.2 fL (9.4-12.3); Monocytes Absolute Auto 0.5 X10*3/uL (0.1-1.2); Monocytes Percent Auto 6.4 % (2-11); Neutrophils Absolute Auto 4.7 x10*3/uL (2.0-8.3); Neutrophils Percent Auto 57.1 % (45-73); Platelet Count 235 X10*3/uL (160-400); Red Blood Count 5.15 X10*6/uL (4.20-5.50); White Blood Count 8.3 X10*3/uL (4.8-10.8)
[2024-02-07 08:19] LABS: Estimated Average Glucose 186 mg/dL; Hemoglobin A1c % 8.1 % (<6.0); Total Hemoglobin (HGBA1C) 2911.5205 umol/L
[2024-02-07 08:23] LABS: Alanine Aminotransferase 20 U/L (0-31); Albumin Level 4.1 g/dL (3.5-5.0); Alkaline Phosphatase 67 U/L (39-117); Anion Gap 11 (12-20); Aspartate Amino Transferase 16 U/L (5-31); Bilirubin Total 0.5 mg/dL (0.0-1.0); Blood Urea Nitrogen 14 mg/dL (9-16); Calcium 8.9 mg/dL (8.4-10.2); Carbon Dioxide 27 mmol/L (22-29); Chloride 107 mmol/L (96-108); Estimated Glomerular Filt Rate > 60; Glucose Random 204 mg/dL (60-115); Potassium 3.8 mmol/L (3.3-5.1); Sodium 141 mmol/L (135-145)
== END 2024-02-07 07:47 | disposition home or self-care (01) ==
LOC: HO.LAB 07:46
PROVIDERS: PCP Internal Medicine; Visit Provider Internal Medicine
DX: D56.8 Other thalassemias (principal); E11.65 Type 2 diabetes mellitus with hyperglycemia; I10 Essential (primary) hypertension
CPT/HCPCS: 36415; 80053; 83036; 85025

== ENCOUNTER → 2024-02-07 14:25 | Outpatient (BNV) | payer MEDICARE, OTHER, SELFPAY | PROVIDERS: PCP Internal Medicine; Referring Provider Surgery; Visit Provider Internal Medicine Medical Oncology | DX: C50.911 Malignant neoplasm of unspecified site of right female breast (principal) | CPT/HCPCS: 99204 ==

== ENCOUNTER 2024-02-16 08:51 | Outpatient (REF) | payer MEDICARE, OTHER, SELFPAY ==
--- NOTE | ~2024-02-16 | MM_ITS ---
EXAMINATION: MM MAMMOGRAM GUIDED RFID LOCALIZATION BREAST, RIGHT CLINICAL INFORMATION: Right breast carcinoma status post are detected core needle biopsy. COMPARISON: Made with available prior examinations. TECHNIQUE NEEDLE LOC: Proper informed consent is obtained from the patient after discussion of the procedure, potential risks and complications, and alternatives including declining the procedure today. Patient was given an opportunity for questions. The patient appeared to understand. The patient consented to the procedure and signed the consent form. GUIDANCE: Digital mammography. APPROACH: Lateral. TARGET: Top hat clip. ANESTHESIA: carbonated lidocaine 1%: 6 mL. LOCALIZATION SYSTEM: [place] SPARK LOCallizer Wire-Free Guidance System with 12g needle applicator. RADIOFREQUENCY TAG: ID # [id number] RF Tag ID confirmed with LOCalizer Guidance System prior to placement. The skin is prepped and local anesthesia administered. The needle is positioned and RFID tag deployed. Final images demonstrate the LOCalizer RF tag to reside adjacent to the clip within the mass The patient tolerated the procedure well and had no immediate complications. Dressing placed and home instructions reviewed. MM/MM RF Tag device RT IMPRESSION: -Status post right breast RFID localization. Electronically signed by: Sushma Mruillo DO 02/16/2024 11:24 AM GWEN
[2024-02-16] MEDS: Lidocaine HCl 1 % 20 ML VIAL 6 ML SUBCUT (10:19)
[2024-02-16] MEDS: Sodium Bicarbonate 8.4% 50 MEQ/50 ML VIAL SUBCUT (10:20)
== END 2024-02-16 08:52 | disposition home or self-care (01) ==
LOC: HO.MAMMO 08:51
PROVIDERS: PCP Internal Medicine; Visit Provider Surgery
DX: C50.911 Malignant neoplasm of unspecified site of right female breast (principal)
CPT/HCPCS: 19281; C1819; J2003

== ENCOUNTER → 2024-02-16 09:00 | Outpatient (BNV) | payer MEDICARE, OTHER, SELFPAY | PROVIDERS: PCP Internal Medicine; Visit Provider Internal Medicine | DX: D05.91 Unspecified type of carcinoma in situ of right breast (principal) | CPT/HCPCS: 19281 ==

== ENCOUNTER 2024-02-20 06:28 | Day surgery (SDC) | payer MEDICARE, OTHER, SELFPAY ==
--- OUTSIDE RECORDS SUMMARY | 2024-02-15 20:32 | XMS_ITS | Data Portability ---
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 Plan of Treatment Reminders Order Date Submit Date Provider Last Modified By Organization Details Last Modified Time Details Appointments None recorded. Lab None recorded. Referral None recorded. Procedures None recorded. Surgeries None recorded. Imaging None recorded. Medication Orders pred[facility]one 10 mg tablet 2022 023 [id number], [address], [place], [phone], 10:47:16 loratadine 10 mg tablet 2022 023 [facility] [employer] [facility] #[id number], [address], [place], [phone], 10:47:12 Patient TargetsNo targets recorded. Patient Instructions Encounter Date Encounter Id Patient Instructions Last Modified By Organization Details Last Modified Time 05/28/2022 [id number] eustachian tube problems: care instructions [email or web address] Not available 05/28/2022 10:47:01 Based on your physical exam and presentation, you are being diagnosed with Eustachian Tube Dysfunction. This occurs when fluid/mucous or swelling closes off the tubes that help the ears equalize the pressure. The following are my recommendations to help with these symptoms and get this condition to resolve: 1. Saline Nasal [place] 2. Antihistamines like Claritin, Zyrtec, Hillary, or benadryl 3. Tylenol for discomfort and help with the inflammation. 4. Heating pad or warm rice back to help with the discomfort 5. You can try sudafed, but I would not take this more than 5 days. This may overly dry out your throat and chest and cause symptoms. Unfortunately this condition may last 1-2 months, but usually resolve on its own. I am going to prescribe some medications to help resolve this faster. You were prescribed Prednisone - Here is some general Information regarding this medication. 1. Make sure you take with Food 2. Do not take right before bedtime -this should be taken during the day because it may make you a little more wired. May keep you from sleeping. 3. Prednisone will increase glucose -so if you are a diabetic then you will need to monitor your glucose closely. Please d/c if glucose goes above 300. 4. Do not take this medication with Ibuprofen If this does not improve in 2-3 months - an ENT would be the appropriate next step. Sometimes people will require Tubes to be placed temporarily. Thank you for using [facility], if you have any questions or concerns please do not hesitate to call or reach out to us. [email or web address] Not available 05/28/2022 10:46:50 Reason for Referral None Reported. 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 Procedures Surgical History Date Name Laterality Status Provider Name and Address Organization Details Recorded Time accessory sinus excision completed KIM DEPINTO PA - [facility] 05/28/2022 10:10:24 removal of ectopic fetus completed KIM DEPINTO PA - [facility] 05/28/2022 10:10:30 repair of stomach completed KIM DEPINTO PA - [facility] 05/28/2022 10:10:46 total hysterectomy with removal of both tubes and ovaries completed KIM DEPINTO PA - [facility] 05/28/2022 10:11:19 Imaging Results None recorded. Procedure Notes None recorded. Medical Equipment None Reported. Allergies Allergen ID Allergen Name Allergen Category Reaction Reaction Severity Criticality Documentation Date Start Date Code Code System Note Provider Name and Address Organization Details Recorded Time 761226 Medicinal product containin g penicilli n and acting as antibacte rial agent (product) medicatio n anaphylax is Not available Not available 05/28/2022 61304 05 SNOMED KIM DEPINTO null, PA - [facility] 3 10:05:09 567383 iodine medicatio n hives Not available Not available 05/28/2022 5933 RxNorm KIM DEPINTO null, PA - [facility] 3 10:05:44 [id number] albuterol medicatio n palpitati ons Not available Not available 05/28/2022 435 RxNorm KIM DEPINTO null, PA - [facility] 3 10:06:01 [id number] clindamyc in Not available hives Not available Not available 05/28/2022 2582 RxNorm KIM DEPINTO null, PA - [facility] 3 10:06:15 [id number] Savella medicatio n hives Not available Not available 05/28/2022 78991 6 RxNorm KIM DEPINTO null, PA - [facility] 3 10:06:47 [id number] shellfish derived food,medi cation anaphylax is Not available Not available 05/28/2022 KIM DEPINTO null, PA - [facility] 3 10:06:57 Medications Name Sig Start Date Stop Date Status Note LastModified by Organization Details LastModified Time atorvastatin 80 mg tablet TAKE 1 TABLET BY MOUTH AT BEDTIME active Not Available Not Available No t Available prednisone 10 mg tablet 4 pills po qd x 3 days, 3 pills po qd x 3 days, 2 pills po qd x 2 days, 1 pills po qd x 2 days active Not Available Not Available No t Available azithromycin 250 mg tablet TAKE 2 TABLETS BY MOUTH FOR 1 DAY THEN TAKE 1 TABLET BY MOUTH DAILY DIRECTED active Not Available Not Available Not Available levalbuterol 0.63 mg/3 mL solution for nebulization INHALE 1 VIAL VIA NEBULIZER TWICE DAILY NEEDED FOR SHORTNESS OF BREATH active Not Available Not Available No t Available benzonatate 200 mg capsule TAKE 1 CAPSULE BY MOUTH THREE TIMES DAILY FOR 7 DAYS NEEDED FOR COUGH active Not Available Not Available No t Available ketotifen 0.025 % (0.035 %) eye drops active Not Available Not Available No t Available valacyclovir 1 gram tablet TAKE 1 TABLET BY MOUTH THREE TIMES DAILY active Not Available Not Available Not Available prednisone 20 mg tablet TAKE 2 TABLETS BY MOUTH DAILY active Not Available Not Available Not Available tramadol 50 mg tablet TAKE 1 TABLET BY MOUTH EVERY 8 HOURS NEEDED FOR PAIN active Not Available Not Available No t Available glimepiride 4 mg tablet active Not Available Not Available Not Available lisinopril 20 mg-hydrochlo rothiazide 25 mg tablet TAKE 1 TABLET BY MOUTH EVERY DAY active Not Available Not Available No t Available diclofenac sodium 50 mg tablet,delay ed release TAKE 1 TABLET BY MOUTH TWICE DAILY NEEDED FOR PAIN active Not Available Not Available No t Available methylpredni solone 4 mg tablets in a dose pack FOLLOW PACKAGE DIRECTIONS active Not Available Not Available N ot Available fluticasone propionate 50 mcg/actuatio n nasal spray,suspen baldemar SHAKE LIQUID AND USE 1 SPRAY IN EACH NOSTRIL TWICE DAILY FOR ALLERGY SYMPTOMS active Not Available Not Available No t Available loratadine 10 mg tablet TAKE 1 TABLET BY MOUTH EVERY DAY active Not Available Not Available No t Available Afrin (oxymetazoli ne) 0.05 % nasal spray USE ONE SPRAY IN EACH NOSTRIL DAILY active Not Available Not Available No t Available acyclovir 5 % topical cream APPLY 1 APPLICATION TOPICALLY TWICE DAILY TO AFFECTED AREA FOR 30 DAYS active Not Available Not Available No t Available ciprofloxaci n 0.3 %-dexamethas one 0.1 % ear drops,suspen baldemar INSTILL 4 DROPS IN EACH EAR TWICE DAILY active Not Available Not Available Not Available Wal-itin D 10 mg-240 mg tablet,exten ded release TAKE 1 TABLET BY MOUTH ONCE DAILY active Not Available Not Available No t Available levalbuterol HFA 45 mcg/actuatio n aerosol inhaler INHALE 2 PUFFS BY MOUTH FOUR TIMES DAILY NEEDED active Not Available Not Available No t Available atorvastatin active Not Available Not Available Not Available lisinopril active Not Available Not Av ailable Not Available Xopenex active Not Available Not Avail able Not Available Advair HFA 115 mcg-21 mcg/actuatio n aerosol inhaler INHALE 2 PUFFS BY MOUTH INTO THE LUNGS TWICE DAILY active Not Available Not Available Not Available Lantus Solostar U-100 Insulin 100 unit/mL (3 mL) subcutaneous pen INJECT 55 UNITS SUBCUTANEOU S AT BEDTIME active Not Available Not Available No t Available Lantus Solostar U-100 Insulin active Not Available Not Available Not Available Humalog KwikPen (U-100) Insulin 100 unit/mL subcutaneous INJECT 15 UNITS SUBCUTANEOU S THREE TIMES DAILY BEFORE A MEAL active Not Available Not Available No t Available Humalog KwikPen Insulin active Not Available Not Available Not Available ProChamber USE DIRECTED active Not Available Not Available No t Available Jardiance 25 mg tablet TAKE 1 TABLET BY MOUTH EVERY MORNING active Not Available Not Available No t Available Trulicity 1.5 mg/0.5 mL subcutaneous pen injector active Not Available Not Available Not Available Trulicity 0.75 mg/0.5 mL subcutaneous pen injector INJECT ONE PEN SUBCUTANEOU SLY ONCE A WEEK active Not Available Not Available No t Available BD Ana 2nd Gen Pen Needle 32 gauge x /32 USE TO INJECT INSULIN AT BEDTIME WITH LANTUS INSULIN active Not Available Not Available No t Available Mounjaro 5 mg/0.5 mL subcutaneous pen injector active Not Available Not Available Not Available Mounjaro active Not Available Not Avai lable Not Available FreeStyle Horacio 3 Sensor device USE DIRECTED TO CHECK BLOOD GLUCOSE FOUR TIMES DAILY active Not Available Not Available No t Available Vitals Date Recorded Body weight Body mass index (BMI) Body height Respiratory rate Body temperature Oxygen saturation Oxygen saturation in Arterial blood by Pulse oximetry Heart rate Systolic blood pressure Diastolic blood pressure Provider Name and Address Organization Details Last Updated DateTime 3 13564.4 7 g 36.6 kg/m2 157.48 cm 18 /min 97.5 [degF] 97 % 97 % 85 /min 117 mm[Hg] 82 mm[Hg] KIM KAPLANPROSPER PA - [facility] 10:12:58 Social History Question Answer Notes LastModified by Organizat ion Details LastModified Time Tobacco Smoking Status Never Smoker KIM diaz PA - [facility] 05/28/2022 10:10:10 What Is Your Level Of Alcohol Consumption? None Information not available 05/28/2022 Do You Use Any Illicit Or Recreational Drugs? No Information not available 05/28/2022 Have You Recently Traveled Abroad? No Information not available 05/28/2022 Do You Or Have You Ever Used Any Other Forms Of Tobacco Or Nicotine? No Information not available 05/28/2022 Sex: Unknown Functional Status None recorded. Mental Status None recorded. Family History Relationship Description Onset Age of this Age Resolved Age Notes LastModified by Organization Details LastModified Time Father Diabetes mellitus Not available 2022 10:09:34 Father Congestive heart failure Not available 2022 10:09:47 Mother Diabetes mellitus Not available 2022 10:09:37 Mother Aneurysm Not availabl e 05/28/2022 10:09:53 Medical History No medical history recorded. Gynecological HistoryNo gynecological history recorded. Obstetrics History GPAL:G 0 P 0 0 0 0 Immunizations Vaccine Type Date Status Note Provider Nam e and Address Organization Details Recorded Time Influenza, MDCK, quadrivalent, PF 02/06/2021 completed KIM DEPINTO joe PA - [facility] 05/28/2022 10:04:47 COVID-19, mRNA, LNP-S, PF, 30 mcg/0.3 mL dose 01/31/2021 completed KIMCherelle KAPLANINTO joe PA - [facility] 05/28/2022 10:04:47 COVID-19, mRNA, LNP-S, PF, 30 mcg/0.3 mL dose 02/21/2021 completed KIM DEPINTO null, PA - [facility] 05/28/2022 10:04:47 Tdap 11/03/2017 completed KIM DEPINTO null, PA - [facility] 05/28/2022 10:04:47 Influenza, split virus, quadrivalent, PF 12/15/2018 completed KIM DEPINTO null, PA - [facility] 05/28/2022 10:04:47 Past Encounters Encounter ID Performer Location Encounter Start Date Encounter Closed Date Diagnosis/Indication Diagnosis SNOMED-CT Code Diagnosis ICD10 Code [id number] [address] [facility] [place] [address] 08/24/2021 10:52:46 08/24/2021 14:14:12 [id number] [address] [place] [address] 10/07/2019 12:59:32 10/07/2019 13:36:45 [id number] [address] [facility] [place] [address] 10/04/2020 08:12:05 10/04/2020 08:37:59 [id number] [address] [facility] [place] [address] 07/04/2021 18:40:37 07/04/2021 20:20:24 [id number] [address] [facility] [place] [address] 06/13/2020 15:34:37 06/13/2020 16:55:09 [id number] [address] [facility] [place] [address] 12/27/2020 08:24:44 12/27/2020 10:17:27 [id number] [address] [facility] [place] [address] 09/03/2018 13:00:08 09/03/2018 14:35:12 [id number] [address] [place] [address] 05/20/2021 08:29:49 05/20/2021 09:29:51 [id number] [address] [facility] [place] [address] 09/28/2020 08:30:23 09/28/2020 09:37:27 [id number] [facility]ES [address] [place] [address] 05/28/2022 08:25:13 05/28/2022 10:47:43 Dysfunction of left eustachian tube 4342903640 915658 H69.92 Health Concerns Section Related Observation LastModified by Organization Detai ls LastModified Time None Recorded Concern Status LastModified by Organization Details LastModified Time None Recorded Advance Directives Directive None Recorded Payers Encounter Date Sequence Insurance Name Policy Number Policy Mei Covered Member ID Mei Member ID Guarantor Name 12/27/2020 1 MEDICARE B-PA: [employer] Maryjo Jefferson [id number] Maryjo Jefferson 12/27/2020 2 WPS - FOR LIFE (MEDICARE SUPPLEMENT) Tim Jefferson [id number] Maryjo Jefferson 05/20/2021 1 MEDICARE B-PA: [employer] Maryjo Jefferson [id number] Maryjo Jefferson 05/20/2021 2 WPS - FOR LIFE (MEDICARE SUPPLEMENT) Tim Jefferson [id number] Maryjo Jefferson 07/04/2021 1 MEDICARE B-PA: [employer] Maryjo Jefferson [id number] Maryjo Jefferson 07/04/2021 2 WPS - FOR LIFE (MEDICARE SUPPLEMENT) Tim Jefferson [id number] Maryjo Jefferson 08/24/2021 1 MEDICARE B-PA: [employer] Maryjo Jefferson [id number] Maryjo Jefferson 08/24/2021 2 WPS - FOR LIFE (MEDICARE SUPPLEMENT) Tim Jefferson [id number] Maryjo Jefferson 05/28/2022 1 MEDICARE B-PA: [employer] Maryjo Jefferson [id number] Maryjo Jefferson Notes Date Note Type Note Provider Name and Address Organization Details Recorded Time 05/28/2022 text/html Ear Pain Brief HPIReported bypatient.Location :left Onset/Timing:start ed 3weeks ago Quality:no discharge from the ears;sharp pain Severity:no fever; able to perform daily activities; no interference with sleep Context:recent airplane travel Alleviating factors:oral antibiotics (No relief); ototopical antibiotics: (No relief); Afrin - No relief. Associated Symptoms:no cough; no jaw popping or clicking;hearing loss;sense of fullness/pressure; muffled hearingNotes:The patient states that her symptoms started after flying. The patient reports that she saw her PCP who prescribed oral antibiotics, ear drops, and Afrin. She states her PCP said it was angry and infected. She completed that course and is not getting any relief. She states ears are driving her crazy. KYUNG FLORES [address] [place], [address], [place] - [facility] 05/28/2022 10:50:17 OBGyn Episode No OBEpisode recorded.
[2024-02-16 09:17] VITALS: BMI 38.6
--- NOTE | 2024-02-16 13:56 | P.CONAN_ITS ---
HPI - Anesthesia Eval Consult details Narrative: 63yo F for Right Breast Lumpectomy w/LOCalizer, [place] Node Biopsy Anesthesia Pre-Procedure Meds Is the patient on any of the following meds?: GLP1/DPP4 PMFSH Active Problems Active Problems: All Active Problems Microcytic anemia (Acute) Osteoarthritis of left knee (Acute) Polyarthralgia (Acute) HTN (hypertension) (Acute) Impingement syndrome of left shoulder (Acute) Anemia (Acute) Breast cancer, right (Acute) Abnormal mammogram of right breast (Acute) Breast mass, right (Acute) History of diverticulitis (Acute) Family history of ovarian cancer (Acute) Colon cancer screening (Acute) Asthma (Acute) Obesity (Acute) Diabetes mellitus (Acute) Diverticular disease (Acute) Thalassemia (Acute) Anemia (Acute) Past Medical History Medical History Fatty liver Breast cancer, right Abnormal mammogram of right breast Breast mass, right History of diverticulitis Family history of ovarian cancer Colon cancer screening Diabetes Lipoma Sleep apnea Herpes simplex virus (HSV) infection of vagina Chronic fatigue syndrome History of Vivek-Arellano virus infection Hx of ectopic Obesity Fibromyalgia Beta thalassemia trait H/O deep vein thrombosis during Mild hypercholesterolemia Microadenoma Iron deficiency Diverticular disease Asthma Diabetes mellitus Thalassemia Anemia Family History Family History Mother Thalassemia trait Stroke Maternal Aunt Thalassemia trait Maternal Uncle Thalassemia trait Father Heart problem Brother Heart problem Brother No problems noted. Brother Multiple sclerosis Asthma Son Multiple sclerosis Asthma Son Asthma Daughter Asthma Daughter Allergies Asthma Paternal Aunt Breast cancer Other Bladder cancer Lung cancer Surgical History Surgical History History of right knee surgery History of hand surgery History of surgery H/O sinus surgery Hx of laparoscopic gastric banding H/O: hysterectomy Social History Social History Household Members: Spouse, Children and Foster Family Alcohol intake: current Alcohol intake frequency: holidays/special occasions only Patient Tobacco Use Status: Never used Tobacco service: Yes Current occupational status: employed and disabled 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 Allergies Allergy/AdvReac Type Severity Reaction Status Date / Time iodine [IODINE] Allergy Severe ANAPHYLAXIS Verified 02/07/24 14:33 Penicillins [PENICILLINS] Allergy Severe BREATHING Verified 02/07/24 14:33 PROBLEM shellfish derived Allergy Severe ANAPHYLAXIS Verified 02/07/24 14:33 clindamycin [CLINDAMYCIN] Allergy Intermediate HIVES Verified 02/07/24 14:33 milnacipran [From SAVELLA] Allergy Intermediate BRUISE Verified 02/07/24 14:33 vancomycin [VANCOMYCIN] Allergy Intermediate HIVES; Verified 02/07/24 14:33 ITCHING metformin Allergy Unknown diarrhea Verified 02/07/24 14:33 albuterol [ALBUTEROL] AdvReac Intermediate HEART RACES Verified 02/07/24 14:33 metformin AdvReac Stomach Uncoded 02/07/24 14:33 Upset Home Medications ?Medication ?Instructions ?Recorded ?Confirmed ?Last Taken ?Type blood sugar diagnostic #10 ea 12/24/19 02/07/24 Unknown History levalbuterol HCl 0.63 mg/3 mL 0.63 mg inhalation Q OTHER DAY 12/24/19 02/07/24 Unknown History solution for nebulization wheezing levalbuterol tartrate 45 45 mcg inhalation Q4-6H PRN 12/24/19 02/07/24 Unknown History mcg/actuation aerosol inhaler Wheezing blood-glucose sensor (FreeStyle #1 ea 04/29/22 02/07/24 Unknown History Horacio 3 Sensor device) lisinopril 20 1 tab PO DAILY 04/07/23 02/07/24 Unknown History mg-hydrochlorothiazide 25 mg tablet rosuvastatin 20 mg tablet 20 mg PO BEDTIME 04/07/23 02/07/24 Unknown History insulin glargine 100 unit/mL 10 unit subcut QPM 11/14/23 02/07/24 Unknown History subcutaneous solution (Lantus U-100 Insulin) insulin lispro 100 unit/mL 1 sliding scale dose subcut 11/14/23 02/07/24 Unknown History subcutaneous pen (Humalog KwikPen USEASDIRECTD (U-100) Insulin) sitagliptin phosphate 100 mg 100 mg PO DAILY 11/14/23 02/07/24 02/16/24 History tablet (Januvia) Exam Height,Weight and Vital Signs: Height 5 ft 2 in Weight 95.708 kg Pertinent Lab Results Pertinent Lab Results: Laboratory Tests 02/07/24 07:50 WBC 8.3 Hgb 11.2 L Hct 36.1 L Plt Count 235 Sodium 141 Potassium 3.8 Chloride 107 Carbon Dioxide 27 BUN 14 Creatinine 0.84 Narrative Narrative: EKG 2021 Vent. Rate : 072 BPM Atrial Rate : 072 BPM P-R Int : 192 ms QRS Dur : 086 ms QT Int : 386 ms P-R-T Axes : 036 046 047 degrees QTc Int : 422 ms Normal sinus rhythm Normal ECG When compared with ECG of 07-JUL-2016 14:59, No significant change was found Assessment and Plan Assessment Anesthesia Assessment: Chart Reviewed
--- NOTE | ~2024-02-20 | MM_ITS ---
EXAMINATION: SURGICAL SPECIMEN RADIOGRAPH HISTORY: Female, 63 years of age, scheduled for resection of EXAMINATION: MM SPECIMEN X-RAY BREAST, RIGHT BREAST CLINICAL INDICATION: Right breast mucinous carcinoma. COMPARISON: Comparison is made with available prior examinations. TECHNIQUE: Multiple right breast specimen radiographs demonstrate the TAG within the specimen. No top hat clip is seen within the multiple specimen radiographs. FINDINGS: The specimen demonstrates the TAG localizer. No top hat clip is seen. Results were called to Dr. Regan at the time of imaging. Right breast mammogram recommended to confirm excision of top hat clip. Electronically signed by: Sushma Murillo DO 02/20/2024 03:02 PM [facility]
--- NOTE | ~2024-02-20 | NM_ITS ---
EXAMINATION: NM LYMPHOSCINTIGRAPHY CLINICAL INFORMATION: Right breast grade 1 mucinous carcinoma. For seminoma localization and excision. COMPARISON: -RF ID tag right breast 02/16/2024 -Stereotactic right breast biopsy 01/25/2024. TECHNIQUE: Right breast lymphoscintigraphy injection was performed . Approximately 0.5 mCi of technetium 99m lymphoseek and 0.8 mL of saline was divided into 4 aliquots of approximately 0.125 mCi, and injected in 4 quadrants around the right breast areola intradermally at 12:00, 3:00, 6:00, and 9:00. Immediate images and delayed images were obtained in AP, oblique and lateral views 30 minutes later. FINDINGS: There is immediate isotope activity in four-quadrant around right breast areola following injection. At 30 minutes, are at least 4 areas of isotope activity along the right lower and mid axilla suggestive of multiple lymph nodes. Strongest activity is in the most anterior, suggesting sentinel node. NM/NM sentinel node w imaging IMPRESSION: -At least 4 small lymph nodes seen in right mid axilla on right breast lymphoscintigraphy. Thank you for the courtesy of your referral. Electronically signed by: Alex Will MD 02/21/2024 08:41 AM EST
--- OUTSIDE RECORDS SUMMARY | 2024-02-20 06:30 | XMS_ITS | Data Portability ---
Author Organization [facility], [address] Address [address] [place] [address] Care Team Providers Care Biomedical Equipment Specialist Name Role Phone ADA BARRIENTOSNIMA Primary Care Provider Assessment No assessment recorded. Plan of Treatment Reminders Order Date Submit Date Provider Last Modified By Organization Details Last Modified Time Details Appointments None recorded. Lab None recorded. Referral None recorded. Procedures None recorded. Surgeries None recorded. Imaging None recorded. Medication Orders prednisone 10 mg tablet 2022 023 [id number], [address] [place], [place], [phone], 10:47:16 loratadine 10 mg tablet 2022 023 [facility] [employer] [id number], [address] [place], [place], [phone], 10:47:12 Patient TargetsNo targets recorded. Patient Instructions Encounter Date Encounter Id Patient Instructions Last Modified By Organization Details Last Modified Time 05/28/2022 [id number] eustachian tube problems: care instructions [email or web address] Not available 05/28/2022 10:47:01 Based on your physical exam and presentation, you are being diagnosed with Eustachian Tube Dysfunction. This occurs when fluid/mucous or swelling closes off the tubes that help the ears equalize the pressure. The following are my recommendations to help with these symptoms and get this condition to resolve: 1. Saline Nasal [place] 2. Antihistamines like Claritin, Zyrtec, Hillary, or [...] be placed temporarily. Thank you for using [facility], if you have any questions or concerns please do not hesitate to call or reach out to us. [email or web address] Not available 05/28/2022 10:46:50 Reason for Referral None Reported. 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 Procedures Surgical History Date Name Laterality Status Provider Name and Address Organization Details Recorded Time accessory sinus excision completed IKM DEPINTO PA - [facility] 05/28/2022 10:10:24 [...] Name and Address Organization Details Recorded Time 592390 Medicinal product containin g penicilli n and acting as antibacte rial agent (product) medicatio n anaphylax is Not available Not available 05/28/2022 11764 05 SNOMED KIM DEPINTO null, PA - [facility] 3 10:05:09 759642 iodine medicatio n hives Not available Not available 05/28/2022 5933 RxNorm KIM DEPINTO null, PA - [facility] 3 10:05:44 245962 albuterol medicatio n palpitati ons Not available Not available 05/28/2022 435 RxNorm KIM DEPINTO null, [place] - [facility] 3 10:06:01 553133 clindamyc in Not available hives Not available Not available 05/28/2022 2582 RxNorm KIM DEPINTO null, PA - [facility] 3 10:06:15 824128 Savella medicatio n hives Not available Not available 05/28/2022 06645 6 RxNorm KIM DEPINTO null, [place] - [facility] 3 10:06:47 976010 shellfish derived food,medi cation anaphylax is Not [...] Address Organization Details Last Updated DateTime 3 09643.4 7 g 36.6 kg/m2 157.48 cm 18 [...] Diagnosis/Indication Diagnosis SNOMED-CT Code Diagnosis ICD10 Code [id number] [address] [facility] [place] [address] 08/24/2021 10:52:46 08/24/2021 14:14:12 [id number] [address] [place] [address] 10/07/2019 12:59:32 10/07/2019 13:36:45 [id number] [address] [facility] [place] [address] 10/04/2020 08:12:05 10/04/2020 08:37:59 [id number] [address] [facility] [place] [address] 07/04/2021 18:40:37 07/04/2021 20:20:24 [id number] [address] [facility] [place] [address] 06/13/2020 15:34:37 06/13/2020 16:55:09 [id number] [address] [facility] [place] [address] 12/27/2020 08:24:44 12/27/2020 10:17:27 [id number] [address] [facility] [place] [address] 09/03/2018 13:00:08 09/03/2018 14:35:12 [id number] [address] [place] [address] 05/20/2021 08:29:49 05/20/2021 09:29:51 [id number] [address] [facility] [place] [address] 09/28/2020 08:30:23 09/28/2020 09:37:27 [id number] [facility] FLORES [address] [place] [address] 05/28/2022 08:25:13 05/28/2022 10:47:43 Dysfunction of left eustachian tube 6013621507 256961 H69.92 Health Concerns Section Related Observation LastModified by Organization Detai ls LastModified Time None Recorded Concern Status LastModified by Organization Details LastModified Time None Recorded Advance Directives Directive None Recorded Payers Encounter Date Sequence Insurance Name Policy Number Policy Mei Covered Member ID Mei Member ID Guarantor Name 12/27/2020 1 MEDICARE B-DE: [employer] Maryjo Jefferson [id number] Maryjo Jefferson 12/27/2020 2 WPS - FOR LIFE (MEDICARE SUPPLEMENT) Tim Jefferson [id number] Maryjo Jefferson 05/20/2021 1 MEDICARE B-DE: [employer] Maryjo Jefferson [id number] Maryjo Jefferson 05/20/2021 2 WPS - FOR LIFE (MEDICARE SUPPLEMENT) Tim Jefferson [id number] Maryjo Jefferson 07/04/2021 1 MEDICARE B-DE: [employer] Maryjo Jefferson [id number] Maryjo Jefferson 07/04/2021 2 WPS - FOR LIFE (MEDICARE SUPPLEMENT) Tim Jefferson [id number] Maryjo Jefferson 08/24/2021 1 MEDICARE B-DE: [employer] Maryjo Jefferson [id number] Maryjo Jefferson 08/24/2021 2 WPS - FOR LIFE (MEDICARE SUPPLEMENT) Tim Jefferson [id number] Maryjo Jefferson 05/28/2022 1 MEDICARE B-DE: [employer] Maryjo Jefferson [id number] Maryjo Jefferson Notes Date Note Type Note [...] crazy. KYUNG FLORES [address] [place], [address], [place] - [facility] 05/28/2022 10:50:17 OBGyn Episode No OBEpisode recorded.
[2024-02-20 07:24] VITALS: BMI 38.3
[2024-02-20 07:52] VITALS: BP 147/86; PULSE 82; RESP 16; TEMP 36.7; O2SAT 98
[2024-02-20 08:01] LABS: Glucose, Whole Blood 171 mg/dL (60-115)
--- NOTE | 2024-02-20 09:20 | PC.NURSE ---
PATIENT REMAINS OFF UNIT IN NUCLEAR MEDICINE
--- NOTE | 2024-02-20 09:23 | PC.NURSE ---
PATIENT BACK FROM NUCLEAR MEDICINE. SUPINE. NO COMPLAINTS. APPLIED WARM BLANKET
[2024-02-20] MEDS: Lactated Ringers 1,000 ML 100 ML IVCONT (09:43)
--- NOTE | 2024-02-20 11:54 | HO.ANESPROP2 ---
[facility] Active Problems Active Problems: All Active Problems Microcytic anemia (Acute) Osteoarthritis of left knee (Acute) Polyarthralgia (Acute) HTN (hypertension) (Acute) Impingement syndrome of left shoulder (Acute) Diverticular disease (Acute) Anemia (Acute) Breast cancer, right (Acute) Abnormal mammogram of right breast (Acute) Breast mass, right (Acute) History of diverticulitis (Acute) Family history of ovarian cancer (Acute) Colon cancer screening (Acute) Asthma (Acute) Obesity (Acute) Diabetes mellitus (Acute) Thalassemia (Acute) Anemia (Acute) Past Medical History Medical History Fatty liver Breast cancer, right Abnormal mammogram of right breast Breast mass, right History of diverticulitis Family history of ovarian cancer Colon cancer screening Diabetes Lipoma Sleep apnea Herpes simplex virus (HSV) infection of vagina Chronic fatigue syndrome History of Vivek-Arellano virus infection Hx of ectopic Obesity Fibromyalgia Beta thalassemia trait H/O deep vein thrombosis during Mild hypercholesterolemia Microadenoma Iron deficiency Diverticular disease Asthma Diabetes mellitus Thalassemia Anemia Functional capacity: independent ambulation Patient : No Family History Family History Mother Thalassemia trait Stroke Maternal Aunt Thalassemia trait Maternal Uncle Thalassemia trait Father Heart problem Brother Heart problem Brother No problems noted. Brother Multiple sclerosis Asthma Son Multiple sclerosis Asthma Son Asthma Daughter Asthma Daughter Allergies Asthma Paternal Aunt Breast cancer Other Bladder cancer Lung cancer Family history of problems with anesthesia: No Surgical History Surgical History History of right knee surgery History of hand surgery History of surgery H/O sinus surgery Hx of laparoscopic gastric banding H/O: hysterectomy History of Problems with Anesthesia: No Social History Social History Household Members: Spouse, Children and Foster Family Alcohol intake: current Alcohol intake frequency: holidays/special occasions only Patient Tobacco Use Status: Never used Tobacco Use of substances other than those prescribed or required for medical reasons: No Are you DNR?: No Advance Directives: No Advance Directives Information Provided: Yes service: Yes Current occupational status: employed and disabled 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 Allergies Allergy/AdvReac Type Severity Reaction Status Date / Time iodine [IODINE] Allergy Severe ANAPHYLAXIS Verified 02/07/24 14:33 Penicillins [PENICILLINS] Allergy Severe BREATHING Verified 02/07/24 14:33 PROBLEM shellfish derived Allergy Severe ANAPHYLAXIS Verified 02/07/24 14:33 clindamycin [CLINDAMYCIN] Allergy Intermediate HIVES Verified 02/07/24 14:33 milnacipran [From SAVELLA] Allergy Intermediate BRUISE Verified 02/07/24 14:33 vancomycin [VANCOMYCIN] Allergy Intermediate HIVES; Verified 02/07/24 14:33 ITCHING metformin Allergy Unknown diarrhea Verified 02/07/24 14:33 albuterol [ALBUTEROL] AdvReac Intermediate HEART RACES Verified 02/07/24 14:33 metformin AdvReac Stomach Uncoded 02/07/24 14:33 Upset Active Medications: Current Medications Lactated Ringer's (Lr) 1,000 mls @ 100 mls/hr IVCONT .Q10H MELINDA Last Admin: 02/20/24 09:43 Dose: 100 mls/hr Home Medications ?Medication ?Instructions ?Recorded ?Confirmed ?Last Taken ?Type blood sugar diagnostic #10 ea 12/24/19 02/07/24 Unknown History levalbuterol HCl 0.63 mg/3 mL 0.63 mg inhalation Q OTHER DAY 12/24/19 02/07/24 Unknown History solution for nebulization wheezing levalbuterol tartrate 45 45 mcg inhalation Q4-6H PRN 12/24/19 02/07/24 Unknown History mcg/actuation aerosol inhaler Wheezing blood-glucose sensor (FreeStyle #1 ea 04/29/22 02/07/24 Unknown History Horacio 3 Sensor device) lisinopril 20 1 tab PO DAILY 04/07/23 02/07/24 Unknown History mg-hydrochlorothiazide 25 mg tablet rosuvastatin 20 mg tablet 20 mg PO BEDTIME 04/07/23 02/07/24 Unknown History insulin glargine 100 unit/mL 10 unit subcut QPM 11/14/23 02/07/24 Unknown History subcutaneous solution (Lantus U-100 Insulin) insulin lispro 100 unit/mL 1 sliding scale dose subcut 11/14/23 02/07/24 Unknown History subcutaneous pen (Humalog KwikPen USEASDIRECTD (U-100) Insulin) sitagliptin phosphate 100 mg 100 mg PO DAILY 11/14/23 02/07/24 02/16/24 History tablet (Januvia) Exam Height,Weight and Vital Signs: Height 5 ft 2 in Weight 95.028 kg Last Vital Signs Temp 98.1 F 02/20/24 07:52 Pulse 82 02/20/24 07:52 Resp 16 02/20/24 07:52 BP 147/86 H 02/20/24 07:52 Pulse Ox 98 02/20/24 07:52 O2 Del Method Room Air 02/20/24 07:52 Pertinent Lab Results Pertinent Lab Results: Laboratory Tests 02/20/24 07:58 POC Glucose 171 H Airway Mallampati Class: III TM Dist: >3cm Neck ROM: Full Heart: RRR Lungs: CTA Assessment and Plan Assessment Anesthesia Assessment: Anesthesia Plan Discussed and Chart Reviewed Final Anesthetic Review Family History of Problems with Anesthesia: No History of Problems with Anesthesia: No NPO: Yes ASA Class: III Final Preanesthetic Review: Meds/Allgs Chart Reviewed, Consent Obtained/Reviewed and Anes Risks/Benef Reviewed Patient Risk: Intermediate Procedure Risk: Intermediate Anesthetic Plan Anesthetic Plan: GA Disposition: Standard PACU
--- NOTE | 2024-02-20 13:08 | P.OP_ITS ---
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 She wanted to proceed with lumpectomy and sentinel biopsy. She understood the technique of the procedure and was aware of the risks, benefits, and alternatives. She was brought to the operating room. She was placed supine under general anesthesia via the laryngeal mask airway. The right arm had been abducted to expose the right axilla. She had under nuclear scintigraphy earlier. I had reviewed her imaging studies and there seemed to be maybe 2 or 3 sentinel nodes that were showing up on the images The right breast in the axilla were prepped and draped in the usual sterile fashion. A surgical time-out was done. The patient received Levaquin IV prophylaxis in view of her multiple allergies. We used the Hologic probe. I identified the area on the skin inferiorly in the breast where the localizer appeared to be closest. I made a transverse incision the skin with a blade 15. This was carried down with electrocautery through the full-thickness of the skin and subcutaneous fat. I used the curved [place] scissors to gently dissect the breast tissue around the approximate area of the lesion based on periodic evaluation using the Hologic probe we dissected circumferentially . I periodically palpated the surrounding breast tissues to make sure that we were not missing any induration or lesion. We continued to dissect until the entire specimen was delivered. An immediate re-ray was done. This showed the Hologic localizing clip to be in the specimen but the biopsy clip could not be identified I proceeded to palpate the margins around the excision site. I could not feel any area of induration, or obvious mass. We could not identify any clip in the area. I proceeded to remove more of the inferior margins and this was sent as a separate specimen. We did rearrange of this margin and the small biopsy clip was not seen. We had sent the specimen for immediate gross exam. The pathologist stated that the lesion appeared to be palpable within the specimen. She felt that the anterior lateral margins may be closed so I removed more this anterolateral margin and this was sent as a specimen separately We observed for hemostasis. We applied a packing into the cavity We then proceeded to do the sentinel node biopsy. We changed gloves and set up at this point. I used the gamma probe to identify the maximal counts in the right axilla. This was marked and infiltrated lidocaine 1%. I made the incision using blade 15 and this carried down through the full-thickness of the skin and subcutaneous fat. We periodically used the probe to identify the sentinel nodes. We opened the fascia of the axilla. Using the probe, I was able to identify a lymph node which we labeled as sentinel node 1. This is a count of 2700 on the gamma probe. A 2nd sentinel node was identified and this had a count of 950. There were no other elevated counts in the background. There was no other palpable lymph node We therefore observed for hemostasis we irrigated. Once hemostasis was confirmed, we reapposed the deep layers with Polysorb 3-0 simple interrupted sutures We then proceeded to go back to the excision site on the right breast. We confirmed hemostasis. I copiously irrigated. We then proceeded to close the deep breast tissue with Polysorb 3-0 simple interrupted sutures Skin closure was achieved on both incisions with Polysorb 4-0 subcuticular running sutures Both incisions were infiltrated with Marcaine 0.5% for postop analgesia. Dressings were applied. The procedure was completed The patient tolerated procedure well. There were no immediate complications. Initial and final counts of sponges and instruments were correct. Estimated blood loss about 50 cc The patient was extubated without difficulty and transferred to the recovery room with stable vital signs I had gone down to the pathology department and reviewed the specimens with the phytopathology teacher. Breast Sister [place] Node Biopsy Substrate(s) used for sentinel node biopsy in the non-neoadjuvant setting: Radiotracer Substrate(s) used for sentinel node biopsy in the neoadjuvant setting: N/A All significantly radioactive nodes were removed, if radionuclide was used as the substrate for localization: Yes All palpably suspicious nodes were removed, if present: N/A If clips were placed in pathology-involved nodes, those nodes were identified and removed: N/A Procedure performed with curative intent?: Yes General Surg. - Synoptic Notes Breast Sister [place] Node Biopsy Substrate(s) used for sentinel node biopsy in the non-neoadjuvant setting: Radiotracer Substrate(s) used for sentinel node biopsy in the neoadjuvant setting: N/A All significantly radioactive nodes were removed, if radionuclide was used as the substrate for localization: Yes All palpably suspicious nodes were removed, if present: N/A If clips were placed in pathology-involved nodes, those nodes were identified and removed: N/A Procedure performed with curative intent?: Yes
[2024-02-20 13:11] VITALS: BP 144/80; PULSE 68; RESP 16; TEMP 36.1; O2SAT 96
[2024-02-20 13:15] VITALS: BP 146/88; PULSE 66; RESP 16; O2SAT 96
[2024-02-20 13:20] VITALS: BP 141/83; PULSE 61; RESP 16; O2SAT 96
[2024-02-20 13:25] VITALS: BP 141/79; PULSE 59; RESP 16; O2SAT 96
[2024-02-20 13:40] VITALS: BP 134/83; PULSE 64; RESP 16; TEMP 36.1; O2SAT 97
[2024-02-20] MEDS: Ondansetron ODT 4 MG TAB.RAPDIS TRANSLINGU (14:26)
--- NOTE | 2024-02-20 14:34 | PC.NURSE ---
PATIENT GIVEN ZOFRAN 4 MG SL PER ORDER FOR COMPLAINT OF NAUSEA.
--- NOTE | 2024-02-20 14:43 | PC.NURSE ---
PATIENT STATES FEELING LESS NAUSEOUS AFTER ZOFRAN. PT DISCHARGED HOME.
--- NOTE | 2024-02-20 16:55 | HO.POSTANES ---
Post Anesthesia Evaluation Post Anesthesia Evaluation Date of Service: 02/20/24 Vital Signs: Vital Signs Temp Pulse Resp BP Pulse Ox O2 Del Method 02/20/24 13:40 97 F 64 16 134/83 97 Room Air 02/20/24 13:25 59 16 141/79 H 96 Room Air 02/20/24 13:20 61 16 141/83 H 96 Room Air 02/20/24 13:15 66 16 146/88 H 96 Room Air 02/20/24 13:11 97 F 68 16 144/80 H 96 Room Air 02/20/24 07:52 98.1 F 82 16 147/86 H 98 Room Air Anesthesia: General LMA Mental Status: Awake Pain Control: Satisfactory Nausea/Vomiting: None Hydration: Adequate Anesthesia-Related Issues: No Anes. Related Issues
== END 2024-02-20 14:44 | disposition home or self-care (01) ==
PROVIDERS: PCP Internal Medicine; Visit Provider Surgery
PROC: (CPT 19301; principal; 2024-02-20 10:50)
PROC: (CPT 19301; 2024-02-20 10:50)
DX: C50.911 Malignant neoplasm of unspecified site of right female breast (principal); Z17.0 Estrogen receptor positive status [ER+]; Z17.21 Progesterone receptor positive status; Z17.32 Human epidermal growth factor receptor 2 negative status; Z80.41 Family history of malignant neoplasm of ovary; E11.9 Type 2 diabetes mellitus without complications; D64.9 Anemia, unspecified; D56.3 Thalassemia minor; E78.00 Pure hypercholesterolemia, unspecified; J45.909 Unspecified asthma, uncomplicated; M79.7 Fibromyalgia; Z87.19 Personal history of other diseases of the digestive system; E66.9 Obesity, unspecified; Z68.38 Body mass index [BMI] 38.0-38.9, adult; Z79.4 Long term (current) use of insulin; Z79.84 Long term (current) use of oral hypoglycemic drugs; Z79.899 Other long term (current) drug therapy; Z88.0 Allergy status to penicillin; Z88.1 Allergy status to other antibiotic agents; Z88.8 Allergy status to other drugs, medicaments and biological substances; Z91.041 Radiographic dye allergy status; Z98.84 Bariatric surgery status; Z98.890 Other specified postprocedural states
CPT/HCPCS: 19301; 38525; 38900; 78195; 82947; 88307; 88329; 88342; A9520; J0131; J1100; J1956; J2003; J2250; J2405; J2704; J3010

== ENCOUNTER → 2024-02-20 06:28 | Outpatient (BNV) | payer MEDICARE, OTHER, SELFPAY | PROVIDERS: PCP Internal Medicine; Visit Provider Surgery | DX: C50.911 Malignant neoplasm of unspecified site of right female breast (principal) | CPT/HCPCS: 19301; 38525; 38900 ==

== ENCOUNTER → 2024-02-20 08:30 | Outpatient (BNV) | payer MEDICARE, OTHER, SELFPAY | PROVIDERS: PCP Internal Medicine; Visit Provider Radiology Diagnostic Radiology | DX: C50.911 Malignant neoplasm of unspecified site of right female breast (principal) | CPT/HCPCS: 78195 ==

== ENCOUNTER 2024-03-05 10:08 | Outpatient (AMB) | payer MEDICARE, OTHER, SELFPAY ==
--- OUTSIDE RECORDS SUMMARY | 2024-03-05 10:12 | XMS_ITS | Data Portability ---
Author Organization [facility], [address] Address [address] [place] [address] Care Team Providers Care Rehabilitation Therapy Technician Name Role Phone ADA BARRIENTOSNIMA Primary Care Provider [phone] Assessment No assessment recorded. Plan of Treatment Reminders Order Date Submit Date Provider Last Modified By Organization Details Last Modified Time Details Appointments None recorded. Lab None recorded. Referral None recorded. Procedures None recorded. Surgeries None recorded. Imaging None recorded. Medication Orders pred[facility]one 10 mg tablet 2022 023 [id number] [address], [place], [phone], 10:47:16 loratadine 10 mg tablet 2022 023 [id number], [address], [place], [phone], 10:47:12 Patient TargetsNo targets recorded. Patient Instructions Encounter Date Encounter Id Patient Instructions Last Modified By Organization Details Last Modified Time 05/28/2022 [id number] eustachian tube problems: care instructions Not available 05/28/2022 10:47:01 Based on your physical exam and presentation, you are being diagnosed with Eustachian Tube Dysfunction. This occurs when fluid/mucous or swelling closes off the tubes that help the ears equalize the pressure. The following are my recommendations to help with these symptoms and get this condition to resolve: 1. Saline Nasal [place] 2. Antihistamines like Claritin, Zyrtec, Hillary, or [...] be placed temporarily. Thank you for using [facility], if you have any questions or concerns please do not hesitate to call or reach out to us. Not available 05/28/2022 10:46:50 Reason for Referral None Reported. 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 KIM DEPINTO null, [place] - [facility] 3 10:08:55 Asthma 502359750 Active 2022 KIM DEPINTO null, [place] - [facility] 3 10:09:04 Beta thalassemia 47015628 Active 2022 KIM DEPINTO null, [place] - [facility] 3 10:09:17 Hypercholester olemia 16415688 Active 2022 KIM DEPINTO null, PA - [...] Name and Address Organization Details Recorded Time 650120 Medicinal product containin g penicilli n and acting as antibacte rial agent (product) medicatio n anaphylax is Not available Not available 05/28/2022 45902 05 SNOMED KIM DEPINTO null, [place] - [facility] 3 10:05:09 802552 iodine medicatio n hives Not available Not available 05/28/2022 5933 RxNorm KIM DEPINTO null, [place] - [facility] 3 10:05:44 596386 albuterol medicatio n palpitati ons Not available Not available 05/28/2022 435 RxNorm KIM DEPINTO null, [place] - [facility] 3 10:06:01 181349 clindamyc in Not available hives Not available Not available 05/28/2022 2582 RxNorm KIM DEPINTO null, [place] - [facility] 3 10:06:15 160908 Savella medicatio n hives Not available Not available 05/28/2022 55668 6 RxNorm KIM DEPINTO null, [place] - [facility] 3 10:06:47 269326 shellfish derived food,medi cation anaphylax is Not [...] Address Organization Details Last Updated DateTime 3 66308.4 7 g 36.6 kg/m2 157.48 cm 18 [...] Diagnosis/Indication Diagnosis SNOMED-CT Code Diagnosis ICD10 Code 97501481 [address] [facility] [place] [address] 08/24/2021 10:52:46 08/24/2021 14:14:12 [id number] [address] [place] [address] 10/07/2019 12:59:32 10/07/2019 13:36:45 [id number] [address] [facility] [place] [address] 10/04/2020 08:12:05 10/04/2020 08:37:59 [id number] [address] [facility] [place] [address] 07/04/2021 18:40:37 07/04/2021 20:20:24 [id number] [address] [facility] [place] [address] 06/13/2020 15:34:37 06/13/2020 16:55:09 [id number] [address] [facility] [place] [address] 12/27/2020 08:24:44 12/27/2020 10:17:27 [id number] [address] [facility] [place] [address] 09/03/2018 13:00:08 09/03/2018 14:35:12 [id number] [address] [place] [address] 05/20/2021 08:29:49 05/20/2021 09:29:51 [id number] [address] [facility] [place] [address] 09/28/2020 08:30:23 09/28/2020 09:37:27 [id number] [facility] [address] [place] [address] 05/28/2022 08:25:13 05/28/2022 10:47:43 Dysfunction of left eustachian tube 4993683510 081746 H69.92 Health Concerns Section Related Observation LastModified by Organization Detai ls LastModified Time None Recorded Concern Status LastModified by Organization Details LastModified Time None Recorded Advance Directives Directive None Recorded Payers Encounter Date Sequence Insurance Name Policy Number Policy Mei Covered Member ID Mei Member ID Guarantor Name 12/27/2020 1 MEDICARE B-DC: [employer] Maryjo Jefferson [id number] Maryjo Jefferson 12/27/2020 2 WPS - FOR LIFE (MEDICARE SUPPLEMENT) Tim Jefferson [id number] Maryjo Jefferson 05/20/2021 1 MEDICARE B-DC: [employer] Maryjo Jefferson [id number] Maryjo Jefferson 05/20/2021 2 WPS - FOR LIFE (MEDICARE SUPPLEMENT) Tim Jefferson [id number] Maryjo Jefferson 07/04/2021 1 MEDICARE B-DC: [employer] Maryjo Jefferson [id number] Maryjo Jefferson 07/04/2021 2 WPS - FOR LIFE (MEDICARE SUPPLEMENT) Tim Jefferson [id number] Maryjo Jefferson 08/24/2021 1 MEDICARE B-DC: [employer] Maryjo Jefferson [id number] Maryjo Jefferson 08/24/2021 2 WPS - FOR LIFE (MEDICARE SUPPLEMENT) Tim Jefferson [id number] Maryjo Jefferson 05/28/2022 1 MEDICARE B-DC: [employer] Maryjo Jefferson [id number] Maryjo Jefferson Notes Date Note Type Note [...] are driving her crazy. [facility]ORES [address] [place], [address], [place] - [facility] 05/28/2022 10:50:17 OBGyn Episode No OBEpisode recorded.
--- NOTE | 2024-03-05 10:36 | MHC.OFFVIS ---
Vital Signs 03/05/24 10:37 Height 5 ft 2 in Weight 207 lb BMI 37.9 Intake Visit Reasons: S/P Rt lumpectomy w/localizer & SN bx Intake Note: This patient presents for post-op assessment status post lumpectomy , right breast with Hologic localizer, SN Bx of right axilla. Pt c/o; reports pain. 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 Accompanied by: Self / Same As Patient Allergies iodine [IODINE] Allergy (Severe, Verified 03/05/24 10:37) ANAPHYLAXIS Penicillins [PENICILLINS] Allergy (Severe, Verified 03/05/24 10:37) BREATHING PROBLEM shellfish derived Allergy (Severe, Verified 03/05/24 10:37) ANAPHYLAXIS clindamycin [CLINDAMYCIN] Allergy (Intermediate, Verified 03/05/24 10:37) HIVES milnacipran [From SAVELLA] Allergy (Intermediate, Verified 03/05/24 10:37) BRUISE vancomycin [VANCOMYCIN] Allergy (Intermediate, Verified 03/05/24 10:37) HIVES; ITCHING metformin Allergy (Unknown, Verified 03/05/24 10:37) diarrhea albuterol [ALBUTEROL] Adverse Reaction (Intermediate, Verified 03/05/24 10:37) HEART RACES metformin Adverse Reaction (Uncoded 03/05/24 10:37) Stomach Upset HPI HPI S/P Rt lumpectomy w/localizer & SN bx: Details: She underwent lumpectomy, right breast with Hologic localizer, along with a sentinel biopsy last 02/20/2024. She tolerated procedure well. She says she currently feels well and denies significant complaints. [facility] Medical History Fatty liver Breast cancer, right Abnormal mammogram of right breast Breast mass, right History of diverticulitis Family history of ovarian cancer Colon cancer screening Diabetes Lipoma Sleep apnea Herpes simplex virus (HSV) infection of vagina Chronic fatigue syndrome History of Vivek-Arellano virus infection Hx of ectopic Obesity Fibromyalgia Beta thalassemia trait H/O deep vein thrombosis during Mild hypercholesterolemia Microadenoma Iron deficiency Diverticular disease Asthma Diabetes mellitus Thalassemia Anemia Surgical History History of lumpectomy of right breast (~02/20/24) History of right knee surgery History of hand surgery History of surgery H/O sinus surgery Hx of laparoscopic gastric banding H/O: hysterectomy Family History Mother Thalassemia trait Stroke Maternal Aunt Thalassemia trait Maternal Uncle Thalassemia trait Father Heart problem Brother Heart problem Brother No problems noted. 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 History Menstrual Age of Menarche: 12 Review of Systems Const Denies chills and Denies fever(s) Card Denies chest pain, Denies dyspnea and Denies dyspnea on exertion Resp Denies cough, Denies dyspnea and Denies dyspnea on exertion GI Denies hematochezia and Denies change in bowel habits Denies hematuria Musc Denies back pain and Denies limited range of motion Neuro Denies focal weakness and Denies convulsions Psych Denies depression and Denies mood swings Physical Exam Vital Signs: BMI result Body Mass Index 37.9 Const General: comfortable and no acute distress Chest Other: Right breast lumpectomy site well healed, no hematoma, sentinel node biopsy site also well healed, no evidence of infection Assessment & Plan Assessment & Plan (1) Breast cancer, right: Code(s): C50.911 - Malignant neoplasm of unspecified site of right female breast Category: Medical Plan: Status post lumpectomy, with the Hologic localizer sentinel node biopsy. Her path report shows a T1N0 invasive mucinous carcinoma. Both lymph nodes were negative. The margins on the right anterior lateral for the invasive carcinoma was initially pile positive but we had removed more and this is less than 1 mm to the new margin. There was note of residual ductal carcinoma in situ as well on the new margins less than 1 mm. I therefore told her that we may need to remove more because of this close margins with a DCIS. I will repeat a mammogram in the meantime as the initial biopsy clip was not seen within the specimen We will see her in the office after her mammogram. We will likely plan to excise more margins on the anterior lateral aspect of the excision site. She understands the plan well. I will review her case with the pathologist, radiologist, as well as with Dr. Bernard. Orders: Orders MM tomosynthesis diag imp RT Today C50.911 - Malignant neoplasm of unspecified site of right female breast Coding Level of Care Code Global (94750) Diagnoses Breast cancer, right C50.911
[2024-03-05 10:37] VITALS: BMI 37.9
== END 2024-03-05 10:54 | disposition home or self-care (01) ==
PROVIDERS: PCP Internal Medicine; Visit Provider Surgery
DX: C50.911 Malignant neoplasm of unspecified site of right female breast (principal)
CPT/HCPCS: 99024

== ENCOUNTER → 2024-03-05 10:08 | Outpatient (BNVA) | payer MEDICARE, OTHER, SELFPAY | PROVIDERS: PCP Internal Medicine; Visit Provider Surgery | DX: C50.911 Malignant neoplasm of unspecified site of right female breast (principal) | CPT/HCPCS: 99212 ==

== ENCOUNTER 2024-03-06 08:22 | Outpatient (REF) | payer MEDICARE, OTHER, SELFPAY ==
[2024-03-06 08:40] LABS: MANUAL DIFF FLAG NO
[2024-03-06 08:41] LABS: Basophils Absolute Auto 0.1 X10*3/uL (0.0-0.2); Basophils Percent Auto 0.7 % (0-2); Eosinophils Absolute Auto 0.7 X10*3/uL (0.0-0.4); Eosinophils Percent Auto 7.4 % (0-4); Hemoglobin 10.5 g/dl (12.0-16.0); Imm Gran Abs Auto 0.05 X10*3/uL (0.00-0.03); Imm Gran Pct Auto 0.5 % (0.0-0.4); Lymphocytes Absolute Auto 3.2 X10*3/uL (1.2-4.9); Lymphocytes Percent Auto 33.8 % (20-40); Mean Corpuscular HGB Conc 31.8 g/dl (31.0-35.0); Mean Corpuscular Hemoglobin 22.1 pg (27.0-33.0); Mean Corpuscular Volume 69.5 fL (80.0-98.0); Mean Platelet Volume 10.2 fL (9.4-12.3); Monocytes Absolute Auto 0.6 X10*3/uL (0.1-1.2); Monocytes Percent Auto 5.8 % (2-11); Neutrophils Percent Auto 51.8 % (45-73); Platelet Count 262 X10*3/uL (160-400); Red Blood Count 4.75 X10*6/uL (4.20-5.50); Red Cell Distribution Width 14.6 % (11.0-16.0); White Blood Count 9.6 X10*3/uL (4.8-10.8)
[2024-03-06 08:56] LABS: Estimated Average Glucose 177 mg/dL; Hemoglobin A1c % 7.8 % (<6.0); Total Hemoglobin (HGBA1C) 2709.9845 umol/L
[2024-03-06 09:02] LABS: Alanine Aminotransferase 14 U/L (0-31); Albumin Level 4.1 g/dL (3.5-5.0); Alkaline Phosphatase 65 U/L (39-117); Anion Gap 11 (12-20); Aspartate Amino Transferase 19 U/L (5-31); Bilirubin Total 0.3 mg/dL (0.0-1.0); Blood Urea Nitrogen 11 mg/dL (9-16); Carbon Dioxide 24 mmol/L (22-29); Chloride 111 mmol/L (96-108); Cholesterol 110 mg/dL (<200); Estimated Glomerular Filt Rate > 60; Glucose Random 132 mg/dL (60-115); HDL Cholesterol 41 mg/dL (>40); LDL Cholesterol Calculated 50 mg/dL (<100); Potassium 3.6 mmol/L (3.3-5.1); Sodium 142 mmol/L (135-145); Triglycerides 97 mg/dL (<150)
[2024-03-06 09:07] LABS: Alanine Aminotransferase 20 U/L (0-31); Alkaline Phosphatase 65 U/L (39-117); Anion Gap 12 (12-20); Aspartate Amino Transferase 17 U/L (5-31); Bilirubin Total 0.4 mg/dL (0.0-1.0); Blood Urea Nitrogen 11 mg/dL (9-16); Carbon Dioxide 24 mmol/L (22-29); Chloride 110 mmol/L (96-108); Estimated Glomerular Filt Rate > 60; Glucose Random 132 mg/dL (60-115); Potassium 3.6 mmol/L (3.3-5.1); Sodium 142 mmol/L (135-145)
[2024-03-06 09:24] LABS: Vitamin D 25-OH Total 19.7 ng/mL (>30)
[2024-03-06 09:54] LABS: Creatinine Urine 343.68 mg/dL; Microalbum/Creatinine Ratio Ur 6.4 ug/mg cr (<30)
[2024-03-08 09:29] LABS: CA 27.29 17 U/mL (<38)
== END 2024-03-06 08:23 | disposition home or self-care (01) ==
LOC: HO.LAB 08:22
PROVIDERS: Absent Provider Internal Medicine Medical Oncology; PCP Internal Medicine; Visit Provider Internal Medicine
DX: C50.911 Malignant neoplasm of unspecified site of right female breast (principal); E11.65 Type 2 diabetes mellitus with hyperglycemia; E78.00 Pure hypercholesterolemia, unspecified; I10 Essential (primary) hypertension
CPT/HCPCS: 36415; 80053; 80061; 82043; 82306; 82570; 83036; 85025; 86300

== ENCOUNTER 2024-03-19 09:36 | Outpatient (REF) | payer MEDICARE, OTHER, SELFPAY ==
--- NOTE | ~2024-03-19 | MM_ITS ---
EXAMINATION: Dual-Energy X-ray Absorptiometry - Bone Density Study HISTORY: Estrogen deficiency TECHNIQUE: [employer] Dual energy absorptiometry (DEXA) of the lumbar spine, total left hip, and femoral neck was performed. COMPARISON: There are no prior studies for comparison. FINDINGS: The bone mineral density of the lumbar spine is 1.404 with a T-score of 1.9, and a Z-score of 2.2. The bone mineral density of the left total hip is 0.218 with a T-score of 1.7, and a Z-score of 1.9. The bone mineral density of the left femoral neck is 1.238 with a T-score of 1.4, and a Z-score of 2.1. FRACTURE RISK: The FRAX index suggests a risk of major osteoporotic fracture of 3.3%, and of hip fracture 0.0%. MM/XR DEXA axial skeleton IMPRESSION: Based on bone mineral density, and according to World Health Organization (WHO) criteria, the diagnosis is consistent with normal bone mineral density. All bone density values are in grams per centimeter squared. At this facility, the least significant change in BMD with 95% confidence is 0.022 at the lumbar spine, 0.027 at the hip, and 0.023 at the distal 1/3 radius. Electronically signed by: Surya Wade MD 03/20/2024 10:21 AM [facility]
--- NOTE | ~2024-03-19 | MM_ITS ---
EXAMINATION: MM DIAGNOSTIC DIGITAL BREAST TOMOSYNTHESIS, RIGHT CLINICAL INFORMATION: History of right breast malignancy status post lumpectomy. Post biopsy clip was not seen within the specimen. COMPARISON: Mammography: Comparison is made with prior available imaging. TECHNIQUE: Digital breast tomosynthesis is performed in both the craniocaudal and mediolateral oblique views along with computer-aided detection (CAD). Synthesized 2D images are generated from the tomosynthesis. FINDINGS: There are scattered areas of fibroglandular density (ACR BI-RADS breast composition Category b). Top hat biopsy marker clip is seen within the retroareolar region posterior depth. Postoperatively changes. No other suspicious abnormal findings. MM/MM tomosynthesis diagnostic RT IMPRESSION: Top head inspector and center marker clip seen in the retroareolar region posterior depth. ASSESSMENT: BI-RADS BI-RADS 4 - Suspicious finding RECOMMENDATION: Surgical Consult Results were provided to the patient at time of visit by the technologist. This patient's information was entered into a reminder system with a target due date for their next mammogram. Electronically signed by: Sushma Murillo DO 03/19/2024 10:34 AM [facility]
== END 2024-03-19 09:37 | disposition home or self-care (01) ==
LOC: HO.MAMMO 09:36
PROVIDERS: PCP Internal Medicine; Visit Provider Surgery
DX: Z85.3 Personal history of malignant neoplasm of breast (principal); M85.80 Other specified disorders of bone density and structure, unspecified site; E28.39 Other primary ovarian failure; Z98.890 Other specified postprocedural states
CPT/HCPCS: 77061; 77065; 77080

== ENCOUNTER → 2024-03-19 09:45 | Outpatient (BNV) | payer MEDICARE, OTHER, SELFPAY | PROVIDERS: PCP Internal Medicine; Visit Provider Internal Medicine | DX: Z85.3 Personal history of malignant neoplasm of breast (principal); Z97.8 Presence of other specified devices | CPT/HCPCS: 77065; G0279 ==

== ENCOUNTER 2024-03-22 13:26 | Outpatient (AMB) | payer MEDICARE, OTHER, SELFPAY ==
[2024-03-22 13:51] VITALS: BMI 38.8
--- NOTE | 2024-03-22 13:51 | MHC.OFFVIS ---
Vital Signs 03/22/24 13:51 Height 5 ft 2 in Weight 212 lb BMI 38.8 Intake Visit Reasons: s/p 03/19/24 mammo Intake Note: This patient presents for mammogram follow-up (03/19/24). Pt c/o; no concerns. 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 Accompanied by: Self / Same As Patient Allergies iodine [IODINE] Allergy (Severe, Verified 03/22/24 13:52) ANAPHYLAXIS Penicillins [PENICILLINS] Allergy (Severe, Verified 03/22/24 13:52) BREATHING PROBLEM shellfish derived Allergy (Severe, Verified 03/22/24 13:52) ANAPHYLAXIS clindamycin [CLINDAMYCIN] Allergy (Intermediate, Verified 03/22/24 13:52) HIVES milnacipran [From SAVELLA] Allergy (Intermediate, Verified 03/22/24 13:52) BRUISE vancomycin [VANCOMYCIN] Allergy (Intermediate, Verified 03/22/24 13:52) HIVES; ITCHING metformin Allergy (Unknown, Verified 03/22/24 13:52) diarrhea albuterol [ALBUTEROL] Adverse Reaction (Intermediate, Verified 03/22/24 13:52) HEART RACES metformin Adverse Reaction (Uncoded 03/22/24 13:52) Stomach Upset HPI HPI s/p 03/19/24 mammo: Details: 63-year-old female here for follow-up after lumpectomy, with the Hologic localizer sentinel node biopsy last month for a T1 N0 invasive mucinous carcinoma. Her path report shows a T1N0 invasive mucinous carcinoma. Both lymph nodes were negative. The margins on the right anterior lateral for the invasive carcinoma was initially positive but we had removed more and this is less than 1 mm to the new margin. There was note of residual ductal carcinoma in situ as well on the new margins less than 1 mm. I therefore told her that we may need to remove more because of this close margins with a DCIS. I would also repeated her mammogram because the initial biopsy clip was not seen with the specimen. A biopsy site was however within the specimen itself. The follow-up mammogram does show that the clip is still present in the breast. She currently denies any significant complaints. She has been started on letrozole for her hormone receptor positive cancer. [facility] Medical History Fatty liver Breast cancer, right Abnormal mammogram of right breast Breast mass, right History of diverticulitis Family history of ovarian cancer Colon cancer screening Diabetes Lipoma Sleep apnea Herpes simplex virus (HSV) infection of vagina Chronic fatigue syndrome History of Vivek-Arellano virus infection Hx of ectopic Obesity Fibromyalgia Beta thalassemia trait H/O deep vein thrombosis during Mild hypercholesterolemia Microadenoma Iron deficiency Diverticular disease Asthma Diabetes mellitus Thalassemia Anemia Surgical History History of lumpectomy of right breast (~02/20/24) History of right knee surgery History of hand surgery History of surgery H/O sinus surgery Hx of laparoscopic gastric banding H/O: hysterectomy Family History Mother Thalassemia trait Stroke Maternal Aunt Thalassemia trait Maternal Uncle Thalassemia trait Father Heart problem Brother Heart problem Brother No problems noted. 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 History Menstrual Age of Menarche: 12 Review of Systems Const Denies chills and Denies fever(s) Card Denies chest pain, Denies dyspnea and Denies dyspnea on exertion Resp Denies cough, Denies dyspnea and Denies dyspnea on exertion GI Denies hematochezia and Denies change in bowel habits Denies hematuria Musc Denies back pain and Denies limited range of motion Neuro Denies focal weakness and Denies convulsions Psych Denies depression and Denies mood swings Physical Exam Vital Signs: BMI result Body Mass Index 38.8 Const General: comfortable and no acute distress Orientation/consciousness: patient oriented x3 Neck Neck: Yes no lymphadenopathy Chest Other: No palpable breast mass, excision sites well healed, no hematoma Resp Auscultation: clear to auscultation bilaterally Cardio Rhythm: regular rhythm GI Palpation (GI): Soft to palpation, nontender and no guarding Neuro General: patient oriented x3 Assessment & Plan Assessment & Plan (1) Breast cancer, right: Code(s): C50.911 - Malignant neoplasm of unspecified site of right female breast Category: Medical Plan: She is status post lumpectomy and sentinel node biopsy and she has a T1 N0 invasive mucinous carcinoma. However, she was noted to have DCIS with less than 1 mm margins on the anterolateral side. The invasive component was also closed at less than 1 mm but there was no tumor on ink. In view of the close margins with a DCIS component, I explained to her it would be best to proceed with re-excision for wider margins. I explained the technique of this procedure. I reviewed the risks including but not limited to bleeding and infections, hematoma, as well as the benefits and alternatives. She has given consent . Her initial biopsy clip is still seen on the repeat mammogram. This has likely migrated from the initial biopsy site. We will also try to see if we can remove this at the same time of the re-excision. She understands the option of mastectomy but she says she does not want this at this time. Coding Level of Care Code Est Pt Level 3 (50492) Diagnoses Breast cancer, right C50.911
--- OUTSIDE RECORDS SUMMARY | 2024-03-22 17:26 | XMS_ITS | Data Portability ---
Author Organization [facility], [address] Address [address] [place] [address] Care Team Providers Care Metal Trim Erector Name Role Phone ADA BARRIENTOSNIMA Primary Care Provider [phone] Assessment No assessment recorded. Plan of Treatment Reminders Order Date Submit Date Provider Last Modified By Organization Details Last Modified Time Details Appointments None recorded. Lab None recorded. Referral None recorded. Procedures None recorded. Surgeries None recorded. Imaging None recorded. Medication Orders prednisone 10 mg tablet 2022 023 [id number], [address] [place], [place], [phone], 10:47:16 loratadine 10 mg tablet 2022 023 [facility], [address], [place], [phone], 10:47:12 Patient TargetsNo targets recorded. Patient Instructions Encounter Date Encounter Id Patient Instructions Last Modified By Organization Details Last Modified Time 05/28/2022 [id number] eustachian tube problems: care instructions [email or web address] Not available 05/28/2022 10:47:01 Based on your physical exam and presentation, you are being diagnosed with Eustachian Tube Dysfunction. This occurs when fluid/mucous or swelling closes off the tubes that help the ears equalize the pressure. The following are my recommendations to help with these symptoms and get this condition to resolve: 1. Saline Nasal [place] 2. Antihistamines like Claritin, Zyrtec, Hillary, or [...] be placed temporarily. Thank you for using [facility], if you have any questions or concerns please do not hesitate to call or reach out to us. [email or web address] Not available 05/28/2022 10:46:50 Reason for Referral None Reported. 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 KIM DEPINTO null, PA - [facility] 3 10:08:55 Asthma 927818222 Active 2022 KIM DEPINTO null, PA - [facility] 3 10:09:04 Beta thalassemia 81643892 Active 2022 KIM DEPINTO null, PA - [facility] 3 10:09:17 Hypercholester olemia 97237587 Active 2022 KIM DEPINTO null, PA - [...] Name and Address Organization Details Recorded Time 785215 Medicinal product containin g penicilli n and acting as antibacte rial agent (product) medicatio n anaphylax is Not available Not available 05/28/2022 16203 05 SNOMED KIM DEPINTO null, PA - [facility] 3 10:05:09 080089 iodine medicatio n hives Not available Not available 05/28/2022 5933 RxNorm KIM DEPINTO null, PA - [facility] 3 10:05:44 755062 albuterol medicatio n palpitati ons Not available Not available 05/28/2022 435 RxNorm KIM DEPINTO null, PA - [facility] 3 10:06:01 022755 clindamyc in Not available hives Not available Not available 05/28/2022 2582 RxNorm KIM DEPINTO null, PA - [facility] 3 10:06:15 453295 Savella medicatio n hives Not available Not available 05/28/2022 76543 6 RxNorm KIM DEPINTO null, PA - [facility] 3 10:06:47 460580 shellfish derived food,medi cation anaphylax is Not [...] 2nd Gen Pen Needle 32 gauge x 32 USE TO INJECT INSULIN AT BEDTIME WITH [...] t Available Vitals Date Recorded Body weight Provider Name an d Address Organization Details Last Updated DateTime 05/28/2022 87275.47 g KIM HOOVERO PA - [facility] 0 05/28/2022 10:04:33 Date Recorded Body mass index (BMI) Body height Provider Name and Address Organization Details Last Updated DateTime 05/28/2022 36.6 kg/m2 157.48 cm KIM DEPINTO PA - [facility] 05/28/2022 10:04:36 Date Recorded Pain severity - 0-10 verbal numeric rating [Score] - Reported Provider Name and Address Organization Details Last Updated DateTime 05/28/2022 7 KIM KAPLANINTO PA - [facility] 0 05/28/2022 10:04:44 Date Recorded Respiratory rate Provider Name a nd Address Organization Details Last Updated DateTime 05/28/2022 18 /min KIM DEPINTO PA - [facility] 0 05/28/2022 10:11:44 Date Recorded Body temperature Provider Name a nd Address Organization Details Last Updated DateTime 05/28/2022 97.5 [degF] KIM KPALANINTO PA - [facility] 05/28/2022 10:12:24 Date Recorded Oxygen saturation Oxygen saturation in Arterial blood by Pulse oximetry Provider Name and Address Organization Details Last Updated DateTime 05/28/2022 97 % 97 % KIM DEPINTO PA - [facility] 05/28/2022 10:12:51 Date Recorded Heart rate Provider Name an d Address Organization Details Last Updated DateTime 05/28/2022 85 /min KIM DEPINTO PA - [facility] 0 05/28/2022 10:12:53 Date Recorded Systolic blood pressure Diastolic blood pressure Provider Name and Address Organization Details Last Updated DateTime 05/28/2022 117 mm[Hg] 82 mm[Hg] KIM DEPINTO PA - [facility] 05/28/2022 10:12:58 Social History Question Answer Notes LastModified by Organizat ion Details LastModified Time Tobacco Smoking Status Never Smoker KIM JASON diaz, PA - [facility] 05/28/2022 10:10:10 What [...] MDCK, quadrivalent, PF 02/06/2021 completed KIM DEPINTO null, PA - [facility] 05/28/2022 10:04:47 COVID-19, mRNA, LNP-S, PF, 30 mcg/0.3 mL dose 01/31/2021 completed KIM DEPINTO null, PA - [facility] 05/28/2022 10:04:47 COVID-19, [...] Diagnosis/Indication Diagnosis SNOMED-CT Code Diagnosis ICD10 Code Diagnosis Note [id number] [address] [address] 08/24/2021 10:52:46 08/24/2021 14:14:12 [id number] [address] [facility] [place] [address] 10/07/2019 12:59:32 10/07/2019 13:36:45 [id number] [address] [place] [address] 10/04/2020 08:12:05 10/04/2020 08:37:59 [id number] [address] [place] [address] 07/04/2021 18:40:37 07/04/2021 20:20:24 [id number] [address] [place] [address] 06/13/2020 15:34:37 06/13/2020 16:55:09 [id number] [address] [place] [address] 12/27/2020 08:24:44 12/27/2020 10:17:27 [id number] [address] [place] [address] 09/03/2018 13:00:08 09/03/2018 14:35:12 [id number] [address] [place] [address] 05/20/2021 08:29:49 05/20/2021 09:29:51 [id number] [address] [facility] [place] [address] 09/28/2020 08:30:23 09/28/2020 09:37:27 [id number] [facility]ORES [address] [facility] [place] [address] 05/28/2022 08:25:13 05/28/2022 10:47:43 Dysfunction of left eustachian tube 3248497699 962599 H69.92 Stop the Afrin Health Concerns Section Related Observation LastModified by Organization Detai ls LastModified Time None Recorded Concern Status LastModified by Organization Details LastModified Time None Recorded Advance Directives Directive None Recorded Payers Encounter Date Sequence Insurance Name Policy Number Policy Mei Covered Member ID Mei Member ID Guarantor Name 12/27/2020 1 [place] [facility] Maryjo Jefferson [id number] Maryjo Jefferson 12/27/2020 2 WPS - FOR LIFE (MEDICARE SUPPLEMENT) Tim Ronny [id number] Maryjo Ronny 05/20/2021 1 [place] [facility] Maryjo Jefferson [id number] Maryjo Ronny 05/20/2021 2 WPS - FOR LIFE (MEDICARE SUPPLEMENT) Tim Ronny [id number] Maryjo Ronny 07/04/2021 1 [place] [facility] Maryjo Jefferson [id number] Maryjo Ronny 07/04/2021 2 WPS - FOR LIFE (MEDICARE SUPPLEMENT) Tim Ronny [id number] Maryjo Ronny 08/24/2021 1 [place] [facility] Maryjo Jefferson [id number] Maryjo Ronny 08/24/2021 2 WPS - FOR LIFE (MEDICARE SUPPLEMENT) Timvanita Jefferson [id number] Maryjo Ronny 05/28/2022 1 [place] [facility] Maryjo Jefferson [id number] Maryjo Jefferson Notes Date Note Type Note [...] are driving her crazy. [facility] FLORES [address], [place], [address], PA - [facility] 05/28/2022 10:50:17 OBGyn Episode No OBEpisode recorded.
== END 2024-03-22 14:07 | disposition home or self-care (01) ==
PROVIDERS: PCP Internal Medicine; Visit Provider Surgery
DX: C50.911 Malignant neoplasm of unspecified site of right female breast (principal)
CPT/HCPCS: 99024

== ENCOUNTER → 2024-03-22 13:26 | Outpatient (BNVA) | payer MEDICARE, OTHER, SELFPAY | PROVIDERS: PCP Internal Medicine; Visit Provider Surgery | DX: C50.911 Malignant neoplasm of unspecified site of right female breast (principal) | CPT/HCPCS: 99212 ==

== ENCOUNTER → 2024-04-06 11:00 | Outpatient (BNV) | payer MEDICARE, OTHER, SELFPAY | PROVIDERS: PCP Internal Medicine; Visit Provider Surgery | DX: C50.911 Malignant neoplasm of unspecified site of right female breast (principal) | CPT/HCPCS: 19301 ==

== ENCOUNTER 2024-04-19 10:41 | Outpatient (AMB) | payer MEDICARE, OTHER, SELFPAY ==
--- NOTE | 2024-04-19 10:48 | A.OFFVIS_ITS ---
Vital Signs 04/19/24 10:52 Height 5 ft 2 in Weight 200 lb BMI 36.6 Intake Visit Reasons: S/P Re-exc. of Margins, Rt. 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 Pt c/o; no concerns. [place] Department Supervisor Required: No Accompanied by: Self / Same As Patient Allergies iodine [IODINE] Allergy (Severe, Verified 04/19/24 10:53) ANAPHYLAXIS Penicillins [PENICILLINS] Allergy (Severe, Verified 04/19/24 10:53) BREATHING PROBLEM shellfish derived Allergy (Severe, Verified 04/19/24 10:53) ANAPHYLAXIS clindamycin [CLINDAMYCIN] Allergy (Intermediate, Verified 04/19/24 10:53) HIVES milnacipran [From SAVELLA] Allergy (Intermediate, Verified 04/19/24 10:53) BRUISE vancomycin [VANCOMYCIN] Allergy (Intermediate, Verified 04/19/24 10:53) HIVES; ITCHING metformin Allergy (Unknown, Verified 04/19/24 10:53) diarrhea albuterol [ALBUTEROL] Adverse Reaction (Intermediate, Verified 04/19/24 10:53) HEART RACES metformin Adverse Reaction (Uncoded 04/19/24 10:53) Stomach Upset HPI HPI S/P Re-exc. of Margins, Rt. 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 She tolerated procedure well. She currently denies significant complaints. [facility] Medical History Fatty liver Breast cancer, right Abnormal mammogram of right breast Breast mass, right History of diverticulitis Family history of ovarian cancer Colon cancer screening Diabetes Lipoma Sleep apnea Herpes simplex virus (HSV) infection of vagina Chronic fatigue syndrome History of Vivek-Arellano virus infection Hx of ectopic Obesity Fibromyalgia Beta thalassemia trait H/O deep vein thrombosis during Mild hypercholesterolemia Microadenoma Iron deficiency Diverticular disease Asthma Diabetes mellitus Thalassemia Anemia Surgical History Hx of surgical procedure (~04/06/24) History of lumpectomy of right breast (~02/20/24) History of right knee surgery History of hand surgery History of surgery H/O sinus surgery Hx of laparoscopic gastric banding H/O: hysterectomy Family History Mother Thalassemia trait Stroke Maternal Aunt Thalassemia trait Maternal Uncle Thalassemia trait Father Heart problem Brother Heart problem Brother No problems noted. 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 Reproductive History Menstrual Age of Menarche: 12 Review of Systems Const Denies chills and Denies fever(s) Card Denies chest pain Resp Denies cough Physical Exam Vital Signs: BMI result Body Mass Index 36.6 Const General: comfortable and no acute distress Chest Other: Incision on the right breast is well healed, not infected, no hematoma, no discharge Resp Effort & Inspection: normal respiratory effort Assessment & Plan Assessment & Plan (1) Breast cancer, right: Code(s): C50.911 - Malignant neoplasm of unspecified site of right female breast Category: Medical Plan: Status post re-excision for wider margins. The new margins are negative for any residual insight to or invasive cancer. Her incision is well healed . 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 She is going to have radiation for the whole breast in [facility]. She is to follow with Dr. Bernard of Oncology. I will see her in the office again in about 6 months. Coding Level of Care Code Global (88038) Diagnoses Breast cancer, right C50.911
[2024-04-19 10:52] VITALS: BMI 36.6
--- OUTSIDE RECORDS SUMMARY | 2024-04-19 11:24 | XMS_ITS | Patient Health Record ---
Author Organization [facility] Address [address] [place] [address] Care Team Providers Care Mechanic Sound Technician Name Role Phone Frances Cutler Primary Care Provider Unavailab Surya Palacio Unavailable [phone] Nikole Bernard Unavailable Unavailable ALLERGIES Allergen (clinical drug ingredient) Drug/Non Drug Allergy documented on EMR Reaction Allergy Type Onset Date Status milnacipran Savella Unknown Drug Allergy Activ e vancomycin Vancomycin HCl Unknown Drug Allergy A ctive Iodine Unknown Drug Allergy Active albuterol Albuterol sensitivity Drug Allergy Activ e Shellfish (FN) shell fish (uncoded) Unknown Allergy Active Penicillin Unknown Drug Allergy Active REASON FOR REFERRAL No Information MEDICATIONS Medication SIG (Take, Route, Frequency, Duration) Notes Start Date End Date Status Levalbuterol HCl 0.63 MG/3ML USE 1 VIAL BY NEBULIZER BID PRF SOB Inhalation for 25 Active IMMUNIZATIONS Vaccine Route Administration Date Status Comme nts Influenza Unknown 11/05/2018 Administered SOCIAL HISTORY Sex Assigned At : Social History Observation Description Sex Assigned At Unknown Alcohol Screen Question Answer Notes Did you have a drink contain ing alcohol in the past year? Yes How often did you have a dri nk containing alcohol in the past year? Never (0 point) How many drinks did you have on a typical day when you were drinking in the past year? 1 or 2 drinks (0 point) How often did you have 6 or more drinks on one occasion in the past year? Never (0 point) Points 0 Interpretation Negative PROBLEMS Problem Type ICD Code Onset Dates Problem Status W/U Status Risk SNOMED Code Notes Problem Abnormal results of liver function studies (R94.5) Active confirmed 437572896 Problem Elevated liver function tests (R94.5) Active confirmed 806247824 PLAN OF TREATMENT Pending Test Test Name Order Date LIVER PROFILE 02/11/2019 IRON + IBC (FE) 02/11/2019 FERRITIN 02/11/2019 Future Test Test Name Order Date UPPER GI ENDOSCOPY 04/06/2011 Insurance Providers Payer Name Payer Address Payer Phone Subscriber Number Group Number Insured Name Patient Relationship to Insured Coverage Start Date Coverage End Date MEDICARE OF [place] [address] [place] [address] [phone] [id number] 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 [place] [address] [id number] MANUEL WALDROP Self - patient is the insured MEDICAL (GENERAL) HISTORY Medical History History ICD Code Beta-thalassemia trait, followed by Dr. Bernard Blood clots in LE's during , tr eated with Lovenox Fibromyalgia PUD in her 20's Asthma DM Pituitary tumor by her report Denies hx of UT, CVA,and renal disease Negative colonoscopy 2010 with [address] Regan Hypertension Sigmoid diverticulitis-sees Dr. Regan Told of Familial Mediterranean Fever i [facility] based on genetics EGD in 2011--this revealed e vidence of a relative narrowing in the proximal stomach in relation to the previous gastric lap band that she used to have--this caused ongoing reflux and esophagitis--this resolved when her gastric lap band was ultimately removed; duodenal biopsies were negative for celiac disease Elevated LFTs felt to be fro m fatty liver--an ultrasound with elastography in 2017 described only minimal changes of fibrosis and otherwise normal-appearing liver; a CAT scan of the abdomen in January 2019 also described a normal appearing liver other than some fatty changes and no sign of splenomegaly nor ascites. Surgical History Surgery Date(Month/Year) Hysterectomy and removal of 1 ovary Ectopic Laparoscopy for adhesions Sinus Lipoma on her arm Gastric lap band, and subsequent removal Right thumb Anal sphincterotomy in 2011 for an anal fissure with Dr. Regan
--- OUTSIDE RECORDS SUMMARY | 2024-04-19 11:24 | XMS_ITS | Data Portability ---
Author Organization [facility], [address] Address [address] [place] [address] Care Team Providers Care Cat Hooker Name Role Phone EMILY BARRIENTOSMA Primary Care Provider Assessment No assessment recorded. Plan of Treatment Reminders Order Date Submit Date Provider Last Modified By Organization Details Last Modified Time Details Appointments None recorded. Lab None recorded. Referral None recorded. Procedures None recorded. Surgeries None recorded. Imaging None recorded. Medication Orders prednisone 10 mg tablet 2022 023 [id number], [address] [place], [place], [phone], 10:47:16 loratadine 10 mg tablet 2022 023 [facility] #[facility]37, [address] [place], [place], [phone], 10:47:12 Patient TargetsNo targets recorded. Patient Instructions Encounter Date Encounter Id Patient Instructions Last Modified By Organization Details Last Modified Time 05/28/2022 [id number] eustachian tube problems: care instructions [email or web address] Not available 05/28/2022 10:47:01 Based on your physical exam and presentation, you are being diagnosed with Eustachian Tube Dysfunction. This occurs when fluid/mucous or swelling closes off the tubes that help the ears equalize the pressure. The following are my recommendations to help with these symptoms and get this condition to resolve: 1. Saline Nasal [place] 2. Antihistamines like Claritin, Zyrtec, Hillary, or [...] be placed temporarily. Thank you for using [employer], if you have any questions or concerns please do not hesitate to call or reach out to us. [email or web address] Not available 05/28/2022 10:46:50 Reason for Referral None Reported. Problems Name Problem SNOMED Code Status Onset Date Resolution Date Notes Provider Name and Address Organization Details Recorded Time Diabetes mellitus 29452030 Active 2022 KIM DEPINTO null, PA - [facility] 3 10:08:40 Fibromyalgia 698362034 Active 2022 KIM DEPINTO null, PA - [facility] 3 10:08:46 Familial Mediterranean fever 26534127 Active 2022 KIM DEPINTO null, PA - [facility] 3 10:08:55 Asthma 847305020 Active 2022 KMI DEPINTO null, PA - [facility] 3 10:09:04 Beta thalassemia 02759207 Active 2022 KIM DEPINTO null, PA - [facility] 3 10:09:17 Hypercholester olemia 92246310 Active 2022 KIM DEPINTO null, PA - [...] Name and Address Organization Details Recorded Time 604693 Product containin g penicilli n and antibioti c (product) medicatio n anaphylax is Not available Not available 05/28/2022 64398 05 SNOMED KIM DEPINTO null, PA - [facility] 3 10:05:09 465408 iodine medicatio n hives Not available Not available 05/28/2022 5933 RxNorm KIM DEPINTO null, PA - [facility] 3 10:05:44 840304 albuterol medicatio n palpitati ons Not available Not available 05/28/2022 435 RxNorm KIM DEPINTO null, PA - [facility] 3 10:06:01 685160 clindamyc in Not available hives Not available Not available 05/28/2022 2582 RxNorm KIM DEPINTO null, PA - [facility] 3 10:06:15 226058 Savella medicatio n hives Not available Not available 05/28/2022 01304 6 RxNorm KIM DEPINTO null, PA - [facility] 3 10:06:47 642663 shellfish derived food,medi cation anaphylax is Not available Not available 05/28/2022 91411 UNK KIM DEPINTO null, PA - [facility] [...] 2nd Gen Pen Needle 32 gauge x 5/32 USE TO INJECT INSULIN AT BEDTIME WITH [...] weight Body mass index (BMI) Body height Pain severity - 0-10 verbal numeric rating [Score] - Reported Respiratory rate Body temperature Oxygen saturation Oxygen saturation in Arterial blood by Pulse oximetry Heart rate Systolic blood pressure Diastolic blood pressure Provider Name and Address Organization Details Last Updated DateTime 70643.4 7 g 36.6 kg/m2 157.48 cm 7 18 /min 97.5 [degF] 97 % 97 % 85 /min 117 mm[Hg] 82 mm[Hg] KIM GOMEZ PA - [facility] 10:12:58 Social History [...] MDCK, quadrivalent, PF 02/06/2021 completed KIM DEPINTO null PA - [facility] 05/28/2022 10:04:47 COVID-19, mRNA, LNP-S, PF, 30 mcg/0.3 mL dose 01/31/2021 completed KIM DEPINTO null PA - [facility] 05/28/2022 10:04:47 COVID-19, [...] SNOMED-CT Code Diagnosis ICD10 Code Diagnosis Note [id number] [address] [facility] [place] [address] 08/24/2021 10:52:46 08/24/2021 14:14:12 [id number] [address] [place], [place] [address] [place] [address] 10/07/2019 12:59:32 10/07/2019 13:36:45 [id number] [address] [place] [address] [place] [address] 10/04/2020 08:12:05 10/04/2020 08:37:59 [id number] [address] [place], [place] [address] [place] [address] 07/04/2021 18:40:37 07/04/2021 20:20:24 [id number] [address] [facility] [place] [address] 06/13/2020 15:34:37 06/13/2020 16:55:09 [id number] [address] [facility] [place] [address] 12/27/2020 08:24:44 12/27/2020 10:17:27 [id number] [address] [place] [address] [place] [address] 09/03/2018 13:00:08 09/03/2018 14:35:12 [id number] [address] [place] [address] 05/20/2021 08:29:49 05/20/2021 09:29:51 [id number] [address] [place] [address] 09/28/2020 08:30:23 09/28/2020 09:37:27 [id number] KYUNG FLORES [address] [place] [address] 05/28/2022 08:25:13 05/28/2022 10:47:43 Dysfunction of left eustachian tube 9331643288 392378 H69.92 Stop the Afrin Health Concerns Section Related Observation LastModified by Organization Detai ls LastModified Time None Recorded Concern Status LastModified by Organization Details LastModified Time None Recorded Advance Directives Directive None Recorded Payers Encounter Date Sequence Insurance Name Policy Number Policy Mei Covered Member ID Mei Member ID Guarantor Name 12/27/2020 1 [place] [employer] Maryjo Jefferson [id number] Maryjo Jefferson 12/27/2020 2 WPS - FOR LIFE (MEDICARE SUPPLEMENT) Tim Jefferson [id number] Maryjo Jefferson 05/20/2021 1 [place] [employer] Maryjo Jefferson [id number] Maryjo Jefferson 05/20/2021 2 WPS - FOR LIFE (MEDICARE SUPPLEMENT) Tim Jefferson [id number] Maryjo Jefferson 07/04/2021 1 [place] [employer] Maryjo Jefferson [id number] Maryjo Ronny 07/04/2021 2 WPS - FOR LIFE (MEDICARE SUPPLEMENT) Tim Jefferson [id number] Maryjo Jefferson 08/24/2021 1 [place] [employer] Maryjo Jefferson [id number] Maryjo Jefferson 08/24/2021 2 WPS - FOR LIFE (MEDICARE SUPPLEMENT) Tim Jefferson [id number] Maryjo Jefferson 05/28/2022 1 [place] [employer] Maryjo Jefferson [id number] Maryjo Jefferson Notes Date Note Type Note [...] ears are driving her crazy. KYUNG FLORES [facility] [place], [address], [place] - [facility] 05/28/2022 10:50:17 OBGyn Episode No OBEpisode recorded.
== END 2024-04-19 11:01 | disposition home or self-care (01) ==
PROVIDERS: PCP Internal Medicine; Visit Provider Surgery
DX: C50.911 Malignant neoplasm of unspecified site of right female breast (principal)
CPT/HCPCS: 99024

== ENCOUNTER → 2024-04-19 10:41 | Outpatient (BNVA) | payer MEDICARE, OTHER, SELFPAY | PROVIDERS: PCP Internal Medicine; Visit Provider Surgery | DX: C50.911 Malignant neoplasm of unspecified site of right female breast (principal) | CPT/HCPCS: 99212 ==

== ENCOUNTER 2024-04-27 10:07 | Outpatient (REF) | payer MEDICARE, OTHER, SELFPAY ==
[2024-04-27 10:27] LABS: MANUAL DIFF FLAG NO
--- OUTSIDE RECORDS SUMMARY | 2024-04-27 10:53 | XMS_ITS | Patient Health Record ---
Author Organization [facility] Address [address] [place] [address] Care Team Providers Care Green Energy Marketing Analyst Name Role Phone Frances Cutler Primary Care Provider Unavailab Surya Palacio Unavailable [phone] Nikole Bernard Unavailable Unavailable ALLERGIES Allergen (clinical [...] of liver function studies (R94.5) Active confirmed 353945610 Problem Elevated liver function tests (R94.5) Active confirmed 545238614 PLAN OF TREATMENT Pending Test Test Name Order Date LIVER PROFILE 02/11/2019 IRON + IBC (FE) 02/11/2019 FERRITIN 02/11/2019 Future Test Test Name Order Date UPPER GI ENDOSCOPY 04/06/2011 Insurance Providers Payer Name Payer Address Payer Phone Subscriber Number Group Number Insured Name Patient Relationship to Insured Coverage Start Date Coverage End Date MEDICARE OF VALERIE [address] [place] [address] [phone] [id number] 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 [place] [address] [phone] [id number] MANUEL WALDROP Self - patient is the insured MEDICAL (GENERAL) HISTORY Medical History History ICD Code Beta-thalassemia trait, followed by Dr. Bernard Blood clots in LE's during , tr eated with Lovenox Fibromyalgia PUD in her 20's Asthma DM Pituitary tumor by her report Denies hx of AR, CVA,and renal disease Negative colonoscopy 2010 with and [address] Regan Hypertension Sigmoid diverticulitis-sees Dr. Regan Told of Familial Mediterranean Fever i [facility] based on genetics EGD in 2011--this revealed [...]
--- OUTSIDE RECORDS SUMMARY | 2024-04-27 10:53 | XMS_ITS | Data Portability ---
Author Organization [facility], [address] Address [address] [place] [address] Care Team Providers Care Pest Control Pilot Name Role Phone ADA BARRIENTOSNIMA Primary Care Provider [phone] Assessment No assessment recorded. Plan of Treatment Reminders Order Date Submit Date Provider Last Modified By Organization Details Last Modified Time Details Appointments None recorded. Lab None recorded. Referral None recorded. Procedures None recorded. Surgeries None recorded. Imaging None recorded. Medication Orders prednisone 10 mg tablet 2022 023 [id number], [address], [place], [phone], 10:47:16 loratadine 10 mg tablet 2022 023 [id number], [address], [place], [id number], 10:47:12 Patient TargetsNo targets recorded. Patient Instructions Encounter Date Encounter Id Patient Instructions Last Modified By Organization Details Last Modified Time 05/28/2022 [id number] eustachian tube problems: care instructions Not available 05/28/2022 10:47:01 Based on your physical exam and presentation, you are being diagnosed with Eustachian Tube Dysfunction. This occurs when fluid/mucous or swelling closes off the tubes that help the ears equalize the pressure. The following are my recommendations to help with these symptoms and get this condition to resolve: 1. Saline Nasal [place] 2. Antihistamines like Claritin, Zyrtec, Hillary, or [...] be placed temporarily. Thank you for using [facility], if you have any questions or concerns please do not hesitate to call or reach out to us. [email or web address] Not available 05/28/2022 10:46:50 Reason for Referral None Reported. 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 KIM DEPINTO null, PA - [facility] 10:08:55 Asthma 061514147 Active 2022 KIM DEPINTO null, PA - [facility] 10:09:04 Beta thalassemia 43592592 Active 2022 KIM DEPINTO null, PA - [facility] 10:09:17 Hypercholester olemia 09744387 Active 2022 KIM DEPINTO null, PA - [...] Name and Address Organization Details Recorded Time 175065 Product containin g penicilli n (product) medicatio n anaphylax is Not available Not available 05/28/2022 43705 8001 SNOMED KIM DEPINTO null, PA - [facility] 3 10:05:09 845456 iodine medicatio n hives Not available Not available 05/28/2022 5933 RxNorm KIM DEPINTO null, PA - [facility] 3 10:05:44 175667 albuterol medicatio n palpitati ons Not available Not available 05/28/2022 435 RxNorm KIM DEPINTO null, PA - [facility] 3 10:06:01 862643 clindamyc in Not available hives Not available Not available 05/28/2022 2582 RxNorm KIM DEPINTO null, PA - [facility] 3 10:06:15 394711 Savella medicatio n hives Not available Not available 05/28/2022 11958 6 RxNorm KIM DEPINTO null, PA - [facility] 3 10:06:47 926766 shellfish derived food,medi cation anaphylax is Not available Not available 05/28/2022 86521 UNK KIM DEPINTO null, [facility] - [facility] [...] Address Organization Details Last Updated DateTime 3 25007.4 7 g 36.6 kg/m2 157.48 cm 7 [...] Time Influenza, MDCK, quadrivalent, PF 02/06/2021 completed KIMCherelle HOOVERO joe PA - [facility] 05/28/2022 10:04:47 COVID-19, mRNA, LNP-S, PF, 30 mcg/0.3 mL dose 01/31/2021 completed KIM DEPINTO joe [facility] - [facility] [...] SNOMED-CT Code Diagnosis ICD10 Code Diagnosis Note [id number] [address] [facility] [address] [place], [place] [address] [place] [id number] 08/24/2021 10:52:46 08/24/2021 14:14:12 [id number] [facility] [address] [place] [address] 10/07/2019 12:59:32 10/07/2019 13:36:45 [id number] [address] [facility] [place] [address] 10/04/2020 08:12:05 10/04/2020 08:37:59 [id number] [address] [facility] [place] [address] 07/04/2021 18:40:37 07/04/2021 20:20:24 [id number] [address] [facility] [place] [address] 06/13/2020 15:34:37 06/13/2020 16:55:09 [id number] [address] [place] [address] 12/27/2020 08:24:44 12/27/2020 10:17:27 [id number] [address] [place] [address] 09/03/2018 13:00:08 09/03/2018 14:35:12 [id number] [address] [place] [address] 05/20/2021 08:29:49 05/20/2021 09:29:51 [id number] [address] [place] [address] 09/28/2020 08:30:23 09/28/2020 09:37:27 [id number] [facility] [address] [place] [address] 05/28/2022 08:25:13 05/28/2022 10:47:43 Dysfunction of left eustachian tube 8890371261 357146 H69.92 Stop the Afrin Health Concerns Section Related Observation LastModified by Organization Detai ls LastModified Time None Recorded Concern Status LastModified by Organization Details LastModified Time None Recorded Advance Directives Directive None Recorded Payers Encounter Date Sequence Insurance Name Policy Number Policy Mei Covered Member ID Mei Member ID Guarantor Name 12/27/2020 1 MEDICARE B-ID: [employer] Maryjo Jefferson [id number] Maryjo Jefferson 12/27/2020 2 WPS - FOR LIFE (MEDICARE SUPPLEMENT) Tim Jefferson [id number] Maryjo Jefferson 05/20/2021 1 MEDIC[facility]: NATIONAL GOV[employer]MENT SERVICES Maryjo Jefferson [id number] Maryjo Jefferson 05/20/2021 2 WPS - FOR LIFE (MEDICARE SUPPLEMENT) Tim Jefferson [id number] Maryjo Jefferson 07/04/2021 1 MEDICARE [facility]: NATIONAL [employer] Maryjo Jefferson [id number] Maryjo Jefferson 07/04/2021 2 WPS - FOR LIFE (MEDICARE SUPPLEMENT) Tim Jefferson [id number] Maryjo Jefferson 08/24/2021 1 MEDICARE B-ID: [employer] Maryjo Jefferson [id number] Maryjo Jefferson 08/24/2021 2 WPS - FOR LIFE (MEDICARE SUPPLEMENT) Tim Jefferson [id number] Maryjo Jefferson 05/28/2022 1 MEDICARE [facility] GOVERNMENT SERVICES Maryjo Jefferson [id number] Maryjo Jefferson Notes Date Note Type Note [...] ears are driving her crazy. [facility] FLORES [facility] [place], [address], [place] - [facility] 05/28/2022 10:50:17 OBGyn Episode No OBEpisode recorded.
[2024-04-27 11:36] LABS: Basophils Absolute Auto 0.1 X10*3/uL (0.0-0.2); Basophils Percent Auto 0.6 % (0-2); Eosinophils Absolute Auto 0.4 X10*3/uL (0.0-0.4); Eosinophils Percent Auto 4.3 % (0-4); Hematocrit 35.7 % (37.0-47.0); Hemoglobin 11.2 g/dl (12.0-16.0); Imm Gran Abs Auto 0.06 X10*3/uL (0.00-0.03); Imm Gran Pct Auto 0.6 % (0.0-0.4); Lymphocytes Absolute Auto 2.8 X10*3/uL (1.2-4.9); Lymphocytes Percent Auto 28.3 % (20-40); Mean Corpuscular HGB Conc 31.4 g/dl (31.0-35.0); Mean Corpuscular Hemoglobin 22.3 pg (27.0-33.0); Mean Platelet Volume 12.1 fL (9.4-12.3); Monocytes Absolute Auto 0.6 X10*3/uL (0.1-1.2); Monocytes Percent Auto 5.6 % (2-11); Neutrophils Percent Auto 60.6 % (45-73); Platelet Count 243 X10*3/uL (160-400); Red Blood Count 5.03 X10*6/uL (4.20-5.50); Red Cell Distribution Width 15.7 % (11.0-16.0); White Blood Count 9.9 X10*3/uL (4.8-10.8)
[2024-04-27 11:43] LABS: Estimated Average Glucose 189 mg/dL; Hemoglobin A1c % 8.2 % (<6.0)
[2024-04-27 12:11] LABS: Alanine Aminotransferase 23 U/L (0-31); Albumin Level 4.3 g/dL (3.5-5.0); Alkaline Phosphatase 76 U/L (39-117); Anion Gap 11 (12-20); Aspartate Amino Transferase 19 U/L (5-31); Bilirubin Total 0.5 mg/dL (0.0-1.0); Blood Urea Nitrogen 19 mg/dL (9-16); Calcium 9.7 mg/dL (8.4-10.2); Carbon Dioxide 25 mmol/L (22-29); Chloride 107 mmol/L (96-108); Cholesterol 121 mg/dL (<200); Estimated Glomerular Filt Rate > 60; Glucose Random 239 mg/dL (60-115); HDL Cholesterol 40 mg/dL (>40); LDL Cholesterol Calculated 51 mg/dL (<100); Potassium 3.8 mmol/L (3.3-5.1); Sodium 139 mmol/L (135-145); Total Protein 7.7 g/dL (6.5-8.0); Triglycerides 152 mg/dL (<150)
== END 2024-04-27 10:08 | disposition home or self-care (01) ==
LOC: HO.LAB 10:07
PROVIDERS: PCP Internal Medicine; Visit Provider Internal Medicine
DX: E11.65 Type 2 diabetes mellitus with hyperglycemia (principal); D64.9 Anemia, unspecified; Z13.220 Encounter for screening for lipoid disorders
CPT/HCPCS: 36415; 80053; 80061; 83036; 85025

== ENCOUNTER 2024-05-02 09:07 | Emergency (ER) | payer MEDICARE, OTHER, SELFPAY ==
--- NOTE | ~2024-05-02 | US_ITS ---
EXAMINATION: US TRIPLEX UPPER EXTREMITY, LEFT CLINICAL INFORMATION: Left upper extremity pain and swelling. COMPARISON: None available. TECHNIQUE: Color-flow triplex imaging with spectral analysis and compression Doppler was performed on the left upper extremity. FINDINGS: The left internal jugular, subclavian, and axillary veins are patent and free of thrombus. The imaged segment of the left brachiocephalic vein is patent. Spectral doppler waveforms are normal. The brachial, basilic, cephalic, radial, and ulnar veins are patent and compressible. US/US venous duplex UE LT IMPRESSION: No evidence of deep venous thrombosis involving the left upper extremity. Electronically signed by: Alex Will MD 05/02/2024 11:12 AM [facility] [facility] [place]
--- NOTE | ~2024-05-02 | XR_ITS ---
EXAMINATION: XR HAND 3 OR MORE VIEWS LEFT HISTORY: pain, swelling COMPARISON: There are no prior studies available for comparison. FINDINGS: Three views of the left hand are submitted. Osseous mineralization is normal. There is no fracture or dislocation. The joint spaces are preserved. The soft tissues are unremarkable. XR/XR hand LT min 3V IMPRESSION: Unremarkable examination of the left hand. Electronically signed by: Surya Wade MD 05/02/2024 09:51 AM [facility]
[2024-05-02 09:22] VITALS: BP 144/71; PULSE 96; RESP 16; TEMP 36.3; O2SAT 98; BMI 37.6
--- NOTE | 2024-05-02 09:22 | ED.EXTPRO ---
HPI - Extremity Problem General Chief complaint: Extremity Injury, Upper Stated complaint: No Movement In L Arm, L Arm Swelling Time Seen by Provider: 05/02/24 10:59 Source: patient and old records reviewed Mode of arrival: ambulatory Limitations: no limitations History of Present Illness ED Provider: ANAHI CHUA Narrative: 63 yo female with PMH of anemia, breast cancer currenly on radiation starts tuesday, asthma, HTN, impingement syndrome, DM here with L thumb pain for 3 weeks cannot move hand - no fevers, no rash. She has no signs of infection and pain is on the L thumb with mild swelling was told she had uric acid. She notes she has pain when she moves thumb. She has no rash, fevers, weakness, numbness. She has not seen orthopedics yet for this MD Complaint: joint swelling and joint pain Onset (ago): week(s) (1+) Pain Consistency: constant Location: right and upper extremity Quality: aching Radiation: none Relieving factors: nothing Exacerbating factors: range of motion and palpation Associated symptoms: denies other symptoms Context: other Related Data Home Medications ?Medication ?Instructions ?Recorded ?Confirmed blood sugar diagnostic #10 ea 12/24/19 04/16/24 levalbuterol HCl 0.63 mg/3 mL 0.63 mg inhalation Q OTHER DAY 12/24/19 04/16/24 solution for nebulization wheezing levalbuterol tartrate 45 45 mcg inhalation Q4-6H PRN 12/24/19 04/16/24 mcg/actuation aerosol inhaler Wheezing blood-glucose sensor (FreeStyle #1 ea 04/29/22 04/16/24 Horacio 3 Sensor device) lisinopril 20 1 tab PO DAILY 04/07/23 04/16/24 mg-hydrochlorothiazide 25 mg tablet rosuvastatin 20 mg tablet 20 mg PO BEDTIME 04/07/23 04/16/24 insulin glargine 100 unit/mL 10 unit subcut QPM 11/14/23 04/16/24 subcutaneous solution (Lantus U-100 Insulin) insulin lispro 100 unit/mL 1 sliding scale dose subcut 11/14/23 04/16/24 subcutaneous pen (Humalog KwikPen USEASDIRECTD (U-100) Insulin) sitagliptin phosphate 100 mg 100 mg PO DAILY 11/14/23 04/16/24 tablet (Januvia) lisinopril 20 mg tablet 20 mg PO DAILY 03/05/24 04/16/24 Previous Rx's ?Medication ?Instructions ?Recorded inhalational spacing device #1 ea 01/17/22 (Aerochamber Plus Z Stat spacer) blood-glucose sensor (FreeStyle #2 ea 05/19/22 Horacio 3 Sensor device) walker #1 ea 01/23/24 ibuprofen 600 mg tablet 600 mg PO Q6H PRN pain #30 tabs 02/20/24 cholecalciferol (vitamin D3) 125 125 mcg PO DAILY #90 tabs 03/06/24 mcg (5,000 unit) tablet (Vitamin D3) letrozole 2.5 mg tablet 2.5 mg PO DAILY #90 tabs 03/20/24 ibuprofen 600 mg tablet 600 mg PO Q6H PRN pain #30 tabs 04/06/24 oxycodone 5 mg tablet 5 mg PO Q4H PRN pain #20 tabs 04/06/24 allopurinol 100 mg tablet 100 mg PO DAILY 30 days #30 tabs 04/16/24 hydrocodone 5 mg-acetaminophen 325 1 tab PO Q6H PRN pain #10 tabs 05/02/24 mg tablet Allergies Allergy/AdvReac Type Severity Reaction Status Date / Time iodine [IODINE] Allergy Severe ANAPHYLAXIS Verified 05/02/24 09:26 Penicillins [PENICILLINS] Allergy Severe BREATHING Verified 05/02/24 09:26 PROBLEM shellfish derived Allergy Severe ANAPHYLAXIS Verified 05/02/24 09:26 clindamycin [CLINDAMYCIN] Allergy Intermediate HIVES Verified 05/02/24 09:26 milnacipran [From SAVELLA] Allergy Intermediate BRUISE Verified 05/02/24 09:26 vancomycin [VANCOMYCIN] Allergy Intermediate HIVES; Verified 05/02/24 09:26 ITCHING metformin Allergy Unknown diarrhea Verified 05/02/24 09:26 albuterol [ALBUTEROL] AdvReac Intermediate HEART RACES Verified 05/02/24 09:26 metformin AdvReac Stomach Uncoded 04/19/24 10:53 Upset Review of Systems Review of Systems: Constitutional : No Fever, No Chills ENT/Mouth : No Ear Pain, No Hoarseness, No sore throat Eyes: No Eye Pain, No Swelling, No Redness, No Foreign Body Cardiovascular : No Chest Pain, No SOB Respiratory : No Cough, No Dyspnea Gastrointestinal : No Nausea, No Vomiting, No Diarrhea, No abdominal Pain Genitourinary : No Dysuria, No Hematuria Musculoskeletal : positive joint pain, No Myalgias, pos Joint Swelling Skin : No Skin lacerations, No rash Neuro : No Weakness, No Numbness, No Loss of Consciousness, No Dizziness, No Headache All other systems reviewed and are negative PMFSH Past Medical History Attestation statement: The following information was validated with the patient. Source: old records reviewed Medical History Fatty liver Breast cancer, right Abnormal mammogram of right breast Breast mass, right History of diverticulitis Family history of ovarian cancer Colon cancer screening Diabetes Lipoma Sleep apnea Herpes simplex virus (HSV) infection of vagina Chronic fatigue syndrome History of Vivek-Arellano virus infection Hx of ectopic Obesity Fibromyalgia Beta thalassemia trait H/O deep vein thrombosis during Mild hypercholesterolemia Microadenoma Iron deficiency Diverticular disease Asthma Diabetes mellitus Thalassemia Anemia Surgical History Hx of surgical procedure (~04/06/24) History of lumpectomy of right breast (~02/20/24) History of right knee surgery History of hand surgery History of surgery H/O sinus surgery Hx of laparoscopic gastric banding H/O: hysterectomy Family History Family History Mother Thalassemia trait Stroke Maternal Aunt Thalassemia trait Maternal Uncle Thalassemia trait Father Heart problem Brother Heart problem Brother No problems noted. Brother Multiple sclerosis Asthma Son Multiple sclerosis Asthma Son Asthma Daughter Asthma Daughter Allergies Asthma Paternal Aunt Breast cancer Other Bladder cancer Lung cancer Social History Social History Household Members: Spouse, Children and Foster Family Are you a primary healthcare administration internship to a significant other at home: No Do you presently have visiting nurse or other home services: No Alcohol intake: current Alcohol intake frequency: holidays/special occasions only Patient Tobacco Use Status: Never used Tobacco service: Yes Current occupational status: employed and disabled 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 Oriented X3. No acute distress. Eyes: Pupils equal, round and reactive to light. ENT: Pharynx normal. Neck: Normal inspection. Neck supple. CVS: Normal heart rate and rhythm. Pulses normal. Respiratory: No respiratory distress. Breath sounds normal. Abdomen: Soft and nontender. Skin: Skin warm and dry. Normal skin color. Normal skin turgor. Extremities: No lower extremity edema. L thumb 1st [facility] joint notes mild swelling and pain she has no rash, NV intact, slight swelling on hand but there is no heat or redness. Neuro: Oriented X 3. No motor deficit. No sensory deficit. CN2-12 intact Course Course Course Narrative: 63 yo female with PMH of anemia, breast cancer currenly on radiation starts tuesday, asthma, HTN, impingement syndrome, DM here with L thumb pain for 3 weeks cannot move hand - no fevers, no rash. She has no signs of infection and pain is on the L thumb with mild swelling was told she had uric acid. xrays and DVT study L upper ext this is a RAPID medical screening exam the rest of the history and physical exam is to be done by the main provider. Medical Decision Making Medical Decision Making [facility] Narrative: 63 yo female with PMH of anemia, breast cancer currenly on radiation starts tuesday, asthma, HTN, impingement syndrome, DM here with c/o L thumb pain on exam there is no signs of infection she does have localized breast cancer so I am going to obtain xray for arthritis and obtain DVT study if negative given no signs of infection will place in splint and refer to orthopedicsa Differential Diagnosis Differential Diagnoses: The differential diagnosis associated with the presentation includes arthralgia, arthritis, DVT Admission/Observation Consideration of admission/observation: Escalation of care including admission/observation considered work up reassuring stable for DC Independent Interpretation I performed an independent interpretation of an: Plain X-Ray (no fx) and Ultrasound (no DVT) Radiology Impression Discussion of test interpretation with radiology: I have reviewed the radiologist's reading. External Record Review External record reviewed: Outpatient record Prescription Management I considered prescription management with: Pain Medication Procedures Orthopedic Splinting/Casting Injury #1: Side: left Upper Extremity Injury Location: wrist and hand Upper Extremity Immobilizer: wrist splint Additional Comments: NV intact Discharge Plan Discharge Clinical Impression: Pain in thumb joint with movement of left hand Patient Disposition: Home, Self-Care Instructions: Arthralgia (ED) Additional Instructions: return for fevers, increased swelling, cold blue hand or any other concerns wear splint for comfort please follow up with our orthopedics hand department xray no broken bones and ultrasound no blood clot Prescriptions: New hydrocodone-acetaminophen 5-325 mg tablet 1 tab PO Q6H PRN (Reason: pain) Qty: 10 0RF Rx Instructions: partial fill okay; Partial Fill upon patient request. No Action (DME) FreeStyle Horacio 3 Sensor Device See Rx Instructions .Route Qty: 2 4RF Rx Instructions: As directed (DME) walker Misc See Rx Instructions .MEDSUPPLY Qty: 1 0RF Rx Instructions: Folding Front wheeled walker (DME) Aerochamber Plus Z Stat Spacer See Rx Instructions .Route Qty: 1 0RF Rx Instructions: As directed allopurinol 100 mg Tablet 100 mg PO DAILY 30 Days Qty: 30 1RF ibuprofen 600 mg tablet 600 mg PO Q6H PRN (Reason: pain) Qty: 30 0RF cholecalciferol (vitamin D3) [Vitamin D3] 125 mcg (5,000 unit) Tablet 125 mcg PO DAILY Qty: 90 2RF letrozole 2.5 mg Tablet 2.5 mg PO DAILY Qty: 90 4RF ibuprofen 600 mg tablet 600 mg PO Q6H PRN (Reason: pain) Qty: 30 0RF oxycodone 5 mg tablet 5 mg PO Q4H PRN (Reason: pain) Qty: 20 0RF Rx Instructions: Partial Fill upon patient request. (DME) FreeStyle Lite Strips Strip See Rx Instructions .ROUTE .MEDSUPPLY Qty: 10 Rx Instructions: As directed levalbuterol tartrate 45 mcg/actuation HFA aerosol inhaler 45 mcg inhalation Q4-6H PRN (Reason: Wheezing) levalbuterol HCl 0.63 mg/3 mL solution for nebulization 0.63 mg inhalation Q OTHER DAY (DME) FreeStyle Horacio 3 Sensor Device See Rx Instructions .ROUTE QID Qty: 1 Rx Instructions: As directed every 14 days lisinopril 20 mg tablet 20 mg PO DAILY rosuvastatin 20 mg tablet 20 mg PO BEDTIME lisinopril-hydrochlorothiazide 20-25 mg tablet 1 tab PO DAILY insulin lispro [Humalog KwikPen Insulin] 100 unit/mL insulin pen 1 sliding scale dose subcut USEASDIRECTD insulin glargine [Lantus U-100 Insulin] 100 unit/mL solution 10 unit subcut QPM Januvia 100 mg tablet 100 mg PO DAILY Referrals: [facility] [Provider Group] Print Language: Lithuanian
[2024-05-02 11:28] VITALS: BP 144/71; PULSE 96; RESP 16; TEMP 36.3; O2SAT 98
--- OUTSIDE RECORDS SUMMARY | 2024-05-02 14:15 | XMS_ITS | Patient Health Record ---
Author Organization [facility] Address [address] [place] [address] Care Team Providers Care Sour Bleaching Pleater Name Role Phone Frances Cutler Primary Care Provider Unavailab Surya Palacio Unavailable [phone] Nikole Bernard Unavailable Unavailable ALLERGIES Allergen (clinical drug ingredient) Drug/Non Drug Allergy documented on EMR Reaction Allergy Type Onset Date Status Penicillin Unknown Drug Allergy Active milnacipran Savella Unknown Drug Allergy Activ e vancomycin Vancomycin HCl Unknown Drug Allergy A ctive Iodine Unknown Drug Allergy Active albuterol Albuterol sensitivity Drug Allergy Activ e Shellfish (FN) shell fish (uncoded) Unknown Allergy Active REASON FOR REFERRAL No Information [...] of liver function studies (R94.5) Active confirmed 790777293 Problem Elevated liver function tests (R94.5) Active confirmed 567344134 PLAN OF TREATMENT Pending Test Test Name Order Date LIVER PROFILE 02/11/2019 IRON + IBC (FE) 02/11/2019 FERRITIN 02/11/2019 Future Test Test Name Order Date UPPER GI ENDOSCOPY 04/06/2011 Insurance Providers Payer Name Payer Address Payer Phone Subscriber Number Group Number Insured Name Patient Relationship to Insured Coverage Start Date Coverage End Date MEDICARE OF VALERIE [address] [place] [address] [id number] 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 [place] [address] [id number] MANUEL WALDROP Self - patient is the insured MEDICAL (GENERAL) HISTORY Medical History History ICD Code Beta-thalassemia trait, followed by Dr. Bernard Blood clots in LE's during , tr eated with Lovenox Fibromyalgia PUD in her 20's Asthma DM Pituitary tumor by her report Denies hx of MD, CVA,and renal disease Negative colonoscopy 2010 with and [address] Regan Hypertension Sigmoid diverticulitis-sees Dr. Regan Told of Familial Mediterranean Fever i [facility] based on genetics EGD in 2011--this revealed [...]
--- OUTSIDE RECORDS SUMMARY | 2024-05-02 14:15 | XMS_ITS | Data Portability ---
Author Organization [facility], [address] Address [address] [place] [address] Care Team Providers Care Pattern Filer Name Role Phone ADA BARRIENTOSNIMA Primary Care Provider Assessment No assessment recorded. Plan of Treatment Reminders Order Date Submit Date Provider Last Modified By Organization Details Last Modified Time Details Appointments None recorded. Lab None recorded. Referral None recorded. Procedures None recorded. Surgeries None recorded. Imaging None recorded. Medication Orders prednisone 10 mg tablet 2022 023 [id number], [address], [place], [phone], 10:47:16 loratadine 10 mg tablet 2022 023 [id number], [address], [place], [phone], 10:47:12 Patient TargetsNo targets recorded. Patient Instructions Encounter Date Encounter Id Patient Instructions Last Modified By Organization Details Last Modified Time 05/28/2022 [id number] eustachian tube problems: care instructions [email or web address] Not available 05/28/2022 10:47:01 Based on your physical exam and presentation, you are being diagnosed with Eustachian Tube Dysfunction. This occurs when fluid/mucous or swelling closes off the tubes that help the ears equalize the pressure. The following are my recommendations to help with these symptoms and get this condition to resolve: 1. Saline Nasal [place] 2. Antihistamines like Claritin, Zyrtec, Hillary, or [...] be placed temporarily. Thank you for using [facility], if you have any questions or concerns please do not hesitate to call or reach out to us. [email or web address] Not available 05/28/2022 10:46:50 Reason for Referral None Reported. 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 KIM DEPINTO null, PA - [facility] 3 10:08:55 Asthma 687139287 Active 2022 KIM DEPINTO null, PA - [facility] 3 10:09:04 Beta thalassemia 23760489 Active 2022 KIM DEPINTO null, PA - [facility] 3 10:09:17 Hypercholester olemia 22212505 Active 2022 KIM DEPINTO null, PA - [...] Name and Address Organization Details Recorded Time 887193 Product containin g penicilli n (product) medicatio n anaphylax is Not available Not available 05/28/2022 14326 8001 SNOMED KIM DEPINTO null, PA - [facility] 3 10:05:09 806783 iodine medicatio n hives Not available Not available 05/28/2022 5933 RxNorm KIM DEPINTO null, PA - [facility] 3 10:05:44 699442 albuterol medicatio n palpitati ons Not available Not available 05/28/2022 435 RxNorm KIM DEPINTO null, PA - [facility] 3 10:06:01 703340 clindamyc in Not available hives Not available Not available 05/28/2022 2582 RxNorm KIM DEPINTO null, PA - [facility] 3 10:06:15 187322 Savella medicatio n hives Not available Not available 05/28/2022 74061 6 RxNorm KIM DEPINTO null, PA - [facility] 3 10:06:47 583577 shellfish derived food,medi cation anaphylax is Not available Not available 05/28/2022 85316 UNK KIM DEPINTO null, [facility] - [facility] [...] Address Organization Details Last Updated DateTime 3 91378.4 7 g 36.6 kg/m2 157.48 cm 7 [...] SNOMED-CT Code Diagnosis ICD10 Code Diagnosis Note [id number] [address] [place], [place] [address] [place] [address] 08/24/2021 10:52:46 08/24/2021 14:14:12 [id number] [address] [place] [address] 10/07/2019 12:59:32 10/07/2019 13:36:45 [id number] [address] [place] [address] 10/04/2020 08:12:05 10/04/2020 08:37:59 [id number] [address] [place] [address] 07/04/2021 18:40:37 07/04/2021 20:20:24 [id number] [address] [place] [address] 06/13/2020 15:34:37 06/13/2020 16:55:09 [id number] [address] [place] [address] 12/27/2020 08:24:44 12/27/2020 10:17:27 [id number] [address] [facility] [place] [address] 09/03/2018 13:00:08 09/03/2018 14:35:12 [id number] [address] [place] [address] 05/20/2021 08:29:49 05/20/2021 09:29:51 [id number] [address] [place] [address] 09/28/2020 08:30:23 09/28/2020 09:37:27 [id number] [facility] FLORES [address] [place] [address] 05/28/2022 08:25:13 05/28/2022 10:47:43 Dysfunction of left eustachian tube 8772683731 309893 H69.92 Stop the Afrin Health Concerns Section Related Observation LastModified by Organization Detai ls LastModified Time None Recorded Concern Status LastModified by Organization Details LastModified Time None Recorded Advance Directives Directive None Recorded Payers Encounter Date Sequence Insurance Name Policy Number Policy Mei Covered Member ID Mei Member ID Guarantor Name 12/27/2020 1 [place] [employer] Maryjo Jefferson [id number] Maryjo Jefferson 12/27/2020 2 WPS - FOR LIFE (MEDICARE SUPPLEMENT) Tim Jefferson [id number] Maryjo Jefferson 05/20/2021 1 MEDIC[facility]: [employer]ATIONAL [employer] Maryjo Jefferson [id number] Maryjo Jefferson 05/20/2021 2 WPS - FOR LIFE (MEDICARE SUPPLEMENT) Tim Jefferson [id number] Maryjo Jefferson 07/04/2021 1 MEDICARE [facility]: [employer] Maryjo Jefferson [id number] Maryjo Jefferson 07/04/2021 2 WPS - FOR LIFE (MEDICARE SUPPLEMENT) Tim Jefferson [id number] Maryjo Jefferson 08/24/2021 1 [place] [employer] Maryjo Jefefrson [id number] Maryjo Jefferson 08/24/2021 2 WPS - FOR LIFE (MEDICARE SUPPLEMENT) Tim Jefferson [id number] Maryjo Jefferson 05/28/2022 1 MEDICARE [facility] Maryjo Jefferson [id number] Maryjo Jefferson Notes Date Note Type Note [...] ears are driving her crazy. KYUNG FLORES [facility] [place], [address], [place] - [facility] 05/28/2022 10:50:17 OBGyn Episode No OBEpisode recorded.
== END 2024-05-02 11:28 | disposition home or self-care (01) ==
PROVIDERS: Emergency Provider Emergency Medicine; PCP Internal Medicine
DX: M79.645 Pain in left finger(s) (principal); M79.89 Other specified soft tissue disorders; E11.9 Type 2 diabetes mellitus without complications; E78.00 Pure hypercholesterolemia, unspecified; J45.909 Unspecified asthma, uncomplicated; Z79.4 Long term (current) use of insulin
CPT/HCPCS: 29125; 73130; 93971; 99282; 99284

== ENCOUNTER → 2024-05-02 09:25 | Outpatient (BNV) | payer MEDICARE, OTHER, SELFPAY | PROVIDERS: PCP Internal Medicine; Visit Provider Radiology Diagnostic Radiology | DX: M79.642 Pain in left hand (principal) | CPT/HCPCS: 93971 ==

== ENCOUNTER 2024-05-21 15:26 | Outpatient (AMB) | payer MEDICARE, OTHER, SELFPAY ==
--- NOTE | 2024-05-21 15:28 | A.OFFVIS_ITS ---
Vital Signs 05/21/24 15:29 Height 5 ft 2 in Weight 208 lb BMI 38.0 Intake Visit Reasons: New prob-ED f/u LT hand thumb joint pain Intake Note: Maryjo is a 63 year old right hand dominant female who presents today for a new problem visit for evaluation of left thumb pain. States she feels like she might have a trigger thumb. States her thumb is locking for a bout 1 month now and pain has increase. States currently she is under going radiation for breast cancer. Hx of right thumb trigger release and feels like her left has the same symptoms. Allergies iodine [IODINE] Allergy (Severe, Verified 05/21/24 15:33) ANAPHYLAXIS Penicillins [PENICILLINS] Allergy (Severe, Verified 05/21/24 15:33) BREATHING PROBLEM shellfish derived Allergy (Severe, Verified 05/21/24 15:33) ANAPHYLAXIS clindamycin [CLINDAMYCIN] Allergy (Intermediate, Verified 05/21/24 15:33) HIVES milnacipran [From SAVELLA] Allergy (Intermediate, Verified 05/21/24 15:33) BRUISE vancomycin [VANCOMYCIN] Allergy (Intermediate, Verified 05/21/24 15:33) HIVES; ITCHING metformin Allergy (Unknown, Verified 05/21/24 15:33) diarrhea albuterol [ALBUTEROL] Adverse Reaction (Intermediate, Verified 05/21/24 15:33) HEART RACES metformin Adverse Reaction (Uncoded 05/21/24 15:33) Stomach Upset HPI HPI New prob-ED f/u LT hand thumb joint pain: Details: Maryjo is a 63 year old right hand dominant female who presents today for a new problem visit for evaluation of left thumb pain. States she feels like she might have a trigger thumb. States her thumb is locking for a bout 1 month now and pain has increase. States currently she is under going radiation for breast cancer. Hx of right thumb trigger release and feels like her left has the same symptoms. [facility] Medical History Fatty liver Breast cancer, right Abnormal mammogram of right breast Breast mass, right History of diverticulitis Family history of ovarian cancer Colon cancer screening Diabetes Lipoma Sleep apnea Herpes simplex virus (HSV) infection of vagina Chronic fatigue syndrome History of Vivek-Arellano virus infection Hx of ectopic Obesity Fibromyalgia Beta thalassemia trait H/O deep vein thrombosis during Mild hypercholesterolemia Microadenoma Iron deficiency Diverticular disease Asthma Diabetes mellitus Thalassemia Anemia Surgical History Hx of surgical procedure (~04/06/24) History of lumpectomy of right breast (~02/20/24) History of right knee surgery History of hand surgery History of surgery H/O sinus surgery Hx of laparoscopic gastric banding H/O: hysterectomy Family History Mother Thalassemia trait Stroke Maternal Aunt Thalassemia trait Maternal Uncle Thalassemia trait Father Heart problem Brother Heart problem Brother No problems noted. 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 Neuro: Normal sensation of the tips of all digits of the left hand at this time Vascular: Cap refill brisk Pain: Pain associated with locking and catching of the left thumb Tenderness to palpation of the A1 drea of the left thumb ROM: There is visible and palpable locking and catching of the left thumb in a flexed position Patient is able to flex and extend all other digits of the left hand fully and without difficulty Skin: No lacerations or abrasions. General: No ecchymosis, erythema, or evidence of infection. Psych: Appears grossly normal Affect normal Attitude cooperative Assessment & Plan Assessment & Plan (1) Trigger thumb, left thumb: Code(s): M65.312 - Trigger thumb, left thumb Category: Medical Plan 1. Trigger thumb, left Patient is educated about this condition Patient was educated about the treatment options available At this time, patient states she would like to proceed with surgical intervention, as she did not find the injections for her right trigger thumb to be effective However, the patient was last A1c was 8.2, and patient was informed that this A1c is slightly too high to be able to proceed with operative intervention Patient is educated that if her A1c is brought to below 8.0 at next measurement, she should call us for scheduling of left trigger thumb release Patient was amenable to this plan Patient will follow-up as needed with any acute concerns Coding Level of Care Code Est Pt Level 3 (36954) Diagnoses Trigger thumb, left thumb M65.312
[2024-05-21 15:29] VITALS: BMI 38.0
== END 2024-05-21 15:48 | disposition home or self-care (01) ==
LOC: HO.HOS 15:26
PROVIDERS: PCP Internal Medicine
DX: M65.312 Trigger thumb, left thumb (principal)
CPT/HCPCS: 99213

== ENCOUNTER → 2024-05-21 15:26 | Outpatient (BNVA) | payer MEDICARE, OTHER, SELFPAY | PROVIDERS: PCP Internal Medicine | DX: M65.312 Trigger thumb, left thumb (principal) | CPT/HCPCS: 99212 ==

== ENCOUNTER 2024-05-24 13:32 | Outpatient (AMB) | payer MEDICARE, OTHER, SELFPAY ==
--- NOTE | 2024-05-24 08:16 | A.OFFVIS_ITS ---
Vital Signs 05/24/24 13:41 Height 5 ft 2 in Weight 209 lb 7.026 oz BMI 38.3 BP 114/78 Blood Pressure Location Rt brachial Position Sitting Pulse 95 Pulse Source Pulse Oximeter Pulse Oximetry (%) 96 Oxygen Delivery Method Room Air Intake Visit Reasons: T2DM Intake Note: Patient presents today for a follow-up on Type 2 Diabetes Mellitus: Last Diabetic eye exam was on: DUE Last Podiatry exam was on: Patient does not see a Putty Glazer Most recent HbA1c: 8.2%, 04/27/2024 Random Glucose- 165 mg/dL, Today Pressroom Worker Required: No Accompanied by: Self / Same As Patient Allergies iodine [IODINE] Allergy (Severe, Verified 05/24/24 13:42) ANAPHYLAXIS Penicillins [PENICILLINS] Allergy (Severe, Verified 05/24/24 13:42) BREATHING PROBLEM shellfish derived Allergy (Severe, Verified 05/24/24 13:42) ANAPHYLAXIS clindamycin [CLINDAMYCIN] Allergy (Intermediate, Verified 05/24/24 13:42) HIVES milnacipran [From SAVELLA] Allergy (Intermediate, Verified 05/24/24 13:42) BRUISE vancomycin [VANCOMYCIN] Allergy (Intermediate, Verified 05/24/24 13:42) HIVES; ITCHING metformin Allergy (Unknown, Verified 05/24/24 13:42) diarrhea albuterol [ALBUTEROL] Adverse Reaction (Intermediate, Verified 05/24/24 13:42) HEART RACES metformin Adverse Reaction (Uncoded 05/24/24 13:42) Stomach Upset HPI Comments Details: [age] YO female who is seen in f/u for T2DM at the request of PCP. She was last seen by Dr. Aquino 08/2022 and had been released back to her PCP. Hemoglobin A1c 04/27/2024 8.2%, 03/06/2024 7.8%. She was diagnosed with breast cancer in 2023 Initially diagnosed with T2DM 2020 had gestational diabetes at age 27 being treated for breast cancer; lumpectomy x2 strarting radiation Was initially started on treatment with metformin which caused stomach pain. She was treated with Jardiance which caused recurrent yeast infection. Was doing okay with mounjaro in the beginning but then developed abd pain, gerd, greasey stools despite lowering to 5mg Current regimen: Lantus 45 units Humalog 15 units tid with meals typically has two meals daily Januvia 100 mg daily Freestyle horacio sensor 3 average glucose: 216 14 day continuous glucose sensor report reviewed Glucose Management indicator 8.5 % Time CGM active 96 % TIme in ranges: 25 % very high (above 250) Forty-seven % high (181-250) 28 % in range (70-180] 0 % low (69-55) 0 % very low (below 54) 25.2 Glucose variability (target <36%) Interpretation of CGMS [readings consistently 65 points higher than target ] Treats lows with . Checks sugar after to ensure it is rising. Treats according to rule of 15's. Family history of T2DM in father and mother Has eyes checked yearly, last eye exam , denies retinopathy. Denies neuropathy, last foot exam , sees podiatry. No nephropathy, on RUBEN-inhibitor 05/17/24 eGFR>60 microalbumin 03/06/2024 22.0 Has HLD, on statin. Last LDL 51 as measured on 04/27/2024 Denies CAD Denies symptoms of chest pain, dyspnoea or claudication. Diet: breakfast: ham sandwich at times takes premier shake lunch soup supper salmon,chicken with salad mashed pot/plantain/rice or beans small sc oop of the starch stopped soda, cut back on juice drinks water cut out sweets Weight:up 9 pounds since 2022 Exercise: feels exhausted [place] has not had diabetes education. [facility] Medical History Fatty liver Breast cancer, right Abnormal mammogram of right breast Breast mass, right History of diverticulitis Family history of ovarian cancer Colon cancer screening Diabetes Lipoma Sleep apnea Herpes simplex virus (HSV) infection of vagina Chronic fatigue syndrome History of Vivek-Arellano virus infection Hx of ectopic Obesity Fibromyalgia Beta thalassemia trait H/O deep vein thrombosis during Mild hypercholesterolemia Microadenoma Iron deficiency Diverticular disease Asthma Diabetes mellitus Thalassemia Anemia Surgical History Hx of surgical procedure (~04/06/24) History of lumpectomy of right breast (~02/20/24) History of right knee surgery History of hand surgery History of surgery H/O sinus surgery Hx of laparoscopic gastric banding H/O: hysterectomy Family History Mother Thalassemia trait Stroke Maternal Aunt Thalassemia trait Maternal Uncle Thalassemia trait Father Heart problem Brother Heart problem Brother No problems noted. 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 Absence of acromegalic features. Neck exam reveals nl size thyroid about 15 gms. No thyroid nodules palpable. No carotid bruits present. Lungs CTA. Heart S1 S2, Reg R/R. No M/R/ G. Skin exam reveals absence of vitiligo or acanthosis nigricans. Abdominal exam reveals Soft NT/ND with NA BS. No organomegaly present. Const Other: Absence of Cushingoid features. Absence of acromegalic features. Neck exam reveals nl size thyroid about 15 gms. No thyroid nodules palpable. No carotid bruits present. Lungs CTA. Heart S1 S2, Reg R/R. No M/R G. Skin exam reveals absence of vitiligo or acanthosis nigricans. No edema Visual exam of foot performed. No ulcerations or open lesions. No inter digit maceration or fissuring. No onychomycosis, no callouses. Sensation intact to monofilament exam. Vibratory sensation is normal with 128 Hz tuning fork. Neck Other: . Extrem Other: Visual exam of foot performed. No ulcerations or open lesions. No onchomycosis, no callouses.Pulses 2 + distally Sensation intact to monofilament exam. Vibratory sensation sensed is intact with 128 Hz tuning fork Results Reviewed Results Reviewed: Laboratory Last Values Glucose (Clinic) 165 mg/dL (60-115) H 05/24/24 13:44 Assessment & Plan Assessment & Plan (1) Diabetes mellitus: Code(s): E11.9 - Type 2 diabetes mellitus without complications Category: Medical Plan: 63-year-old diabetic with no known macro/macrovascular complications with the rising A1c. Most recent A1c 8.2% on 04/27/2024. New dosing: lantus 52 units humalog tid with meals 80-150 16 units 151-200 18 units 201-250 20 units 251-300 22 units over 300 22 units The patient had an opportunity to ask questions regarding treatment plan. The patient expressed understanding and agreement with the above treatment plan. The patient is aware they should contact our office by phone for worsening glucose readings or for any low blood sugars which may warrant a change in diabetes medication. Compliance is encouraged with medications and any followup testing/consults which may have been ordered. Orders: Orders Thyroid Stimulating Hormone 05/25/24 E11.9 - Type 2 diabetes mellitus without complications Prolactin 05/25/24 E11.9 - Type 2 diabetes mellitus without complications Free T4 (Free Thyroxine) 05/25/24 E11.9 - Type 2 diabetes mellitus without complications Medications: Discontinued blood-glucose sensor (FreeStyle Horacio 3 Sensor device) Discontinued Reason: Duplicate As directed 2 ea 4RF Patient Instructions: The patient was counseled to achieve a target A1C of 7% (154 avg). Fasting blood sugars should be 90-130 in the morning and less than 180 two hours after meals. Reviewed the relationship between poor diabetic control and the development of complications. Check your feet daily looking for any signs of infection, drainage, redness, ulceration and seek medical attention if this occurs. Break in shoes gradually and do not wear open-toed shoes or walk stocking footed or barefooted. Sick day management reviewed. Coding Level of Care Code Est Pt Level 4 (98281) Complex EM visit Add On G2211 Diagnoses Diabetes mellitus E11.9 Time Spent (min) 30 Comment Time spent reviewing labs/provider notes, face to face, chart doc
[2024-05-24 13:41] VITALS: BP 114/78; PULSE 95; O2SAT 96; BMI 38.3
[2024-05-24 13:52] LABS: Glucose, Whole Blood 165 mg/dL (60-115)
== END 2024-05-24 14:17 | disposition home or self-care (01) ==
LOC: HO.ENCR 13:33
PROVIDERS: PCP Internal Medicine; Visit Provider Nurse Practitioner Adult Health
DX: E11.9 Type 2 diabetes mellitus without complications (principal)
CPT/HCPCS: 99214; G2211

== ENCOUNTER → 2024-05-24 13:32 | Outpatient (BNVA) | payer MEDICARE, OTHER, SELFPAY | PROVIDERS: PCP Internal Medicine; Visit Provider Nurse Practitioner Adult Health | DX: E11.9 Type 2 diabetes mellitus without complications (principal); Z79.4 Long term (current) use of insulin; Z79.899 Other long term (current) drug therapy | CPT/HCPCS: 82947; 99212 ==

== ENCOUNTER 2024-05-25 10:34 | Outpatient (REF) | payer MEDICARE, OTHER, SELFPAY ==
[2024-05-25 12:48] LABS: Free T4 (Free Thyroxine) 0.94 ng/dL (0.71-1.85)
[2024-05-25 12:50] LABS: Thyroid Stimulating Hormone 1.01 uIU/mL (0.32-4.0)
[2024-05-26 05:54] LABS: Prolactin 9.4 ng/mL
== END 2024-05-25 10:35 | disposition home or self-care (01) ==
LOC: HO.LAB 10:34
PROVIDERS: Internal Medicine Medical Oncology; PCP Internal Medicine; Visit Provider Nurse Practitioner Adult Health
DX: D64.9 Anemia, unspecified (principal); E11.9 Type 2 diabetes mellitus without complications
CPT/HCPCS: 36415; 84146; 84439; 84443; 84550

== ENCOUNTER 2024-06-14 15:18 | Outpatient (AMB) | payer MEDICARE, OTHER, SELFPAY ==
[2024-06-14 15:22] VITALS: BP 120/74; PULSE 84; O2SAT 96; BMI 38.7
--- NOTE | 2024-06-14 15:22 | A.OFFVIS_ITS ---
Vital Signs 06/14/24 15:22 Height 5 ft 2 in Weight 211 lb 10.3 oz BMI 38.7 BP 120/74 Blood Pressure Location Rt brachial Position Sitting Pulse 84 Pulse Source Pulse Oximeter Pulse Oximetry (%) 96 Intake Visit Reasons: T2DM Intake Note: Patient presents today for a follow-up on Type 2 Diabetes Mellitus: Last Diabetic eye exam was on: DUE Last Podiatry exam was on: Patient does not see a Turbo Operator Most recent HbA1c: 8.2%, 04/27/2024 Random Glucose- 218 mg/dL, Today Line Supply Required: No Accompanied by: Self / Same As Patient Allergies iodine [IODINE] Allergy (Severe, Verified 06/18/24 14:33) ANAPHYLAXIS Penicillins [PENICILLINS] Allergy (Severe, Verified 06/18/24 14:33) BREATHING PROBLEM shellfish derived Allergy (Severe, Verified 06/18/24 14:33) ANAPHYLAXIS clindamycin [CLINDAMYCIN] Allergy (Intermediate, Verified 06/18/24 14:33) HIVES milnacipran [From SAVELLA] Allergy (Intermediate, Verified 06/18/24 14:33) BRUISE vancomycin [VANCOMYCIN] Allergy (Intermediate, Verified 06/18/24 14:33) HIVES; ITCHING metformin Allergy (Unknown, Verified 06/18/24 14:33) diarrhea albuterol [ALBUTEROL] Adverse Reaction (Intermediate, Verified 06/18/24 14:33) HEART RACES metformin Adverse Reaction (Uncoded 06/18/24 14:33) Stomach Upset HPI Comments Details: [age] YO female who is seen in f/u for T2DM at the request of PCP. She was last seen by Dr. Aquino 08/2022 and had been released back to her PCP. Hemoglobin A1c 04/27/2024 8.2%, 03/06/2024 7.8%. She was diagnosed with breast cancer in 2023 Initially diagnosed with T2DM 2020 had gestational diabetes at age 27 being treated for breast cancer; lumpectomy x2 strarting radiation Was initially started on treatment with metformin which caused stomach pain. She was treated with Jardiance which caused recurrent yeast infection. Was doing okay with mounjaro in the beginning but then developed abd pain, gerd, greasey stools despite lowering to 5mg metformin diarrhea, stomach cramps Current regimen: lantus 52 units humalog tid with meals 80-150 16 units 151-200 18 units 201-250 20 units 251-300 22 units over 300 22 units Treats lows with . Checks sugar after to ensure it is rising. Treats according to rule of 15's. Family history of T2DM in father and mother Has eyes checked yearly, last eye exam , denies retinopathy. Denies neuropathy, last foot exam , sees podiatry. No nephropathy, on RUBEN-inhibitor 05/17/24 eGFR>60 microalbumin 03/06/2024 22.0 Has HLD, on statin. Last LDL 51 as measured on 04/27/2024 Denies CAD Denies symptoms of chest pain, dyspnoea or claudication. Diet: breakfast: ham sandwich at times takes premier shake lunch soup supper salmon,chicken with salad mashed pot/plantain/rice or beans small scoop of the starch stopped soda, cut back on juice drinks water cut out sweets Weight:up 9 pounds since 2022 Exercise: feels exhausted [place] has not had diabetes education. [facility] Medical History Pituitary tumor Fatty liver Breast cancer, right Abnormal mammogram of right breast Breast mass, right History of diverticulitis Family history of ovarian cancer Colon cancer screening Diabetes Lipoma Sleep apnea Herpes simplex virus (HSV) infection of vagina Chronic fatigue syndrome History of Vivek-Arellano virus infection Hx of ectopic Obesity Fibromyalgia Beta thalassemia trait H/O deep vein thrombosis during Mild hypercholesterolemia Microadenoma Iron deficiency Diverticular disease Asthma Diabetes mellitus Thalassemia Anemia Surgical History Hx of surgical procedure (~04/06/24) History of lumpectomy of right breast (~02/20/24) History of right knee surgery History of hand surgery History of surgery H/O sinus surgery Hx of laparoscopic gastric banding H/O: hysterectomy Family History Mother Thalassemia trait Stroke Maternal Aunt Thalassemia trait Maternal Uncle Thalassemia trait Father Heart problem Brother Heart problem Brother No problems noted. Brother Multiple sclerosis Asthma Son Multiple sclerosis Asthma Son Asthma Daughter Asthma Daughter Allergies Asthma Paternal Aunt Breast cancer Other Bladder cancer Lung cancer Social History Household Members: Spouse, Children and Foster Family Are you a primary zoo caretaker to a significant other at home: No Do you presently have visiting nurse or other home services: No Alcohol intake: current Alcohol intake frequency: holidays/special occasions only Patient Tobacco Use Status: Never used Tobacco Use of substances other than those prescribed or required for medical reasons: No Have you been hit, kicked, punched, or otherwise hurt by someone within the past year? 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 Absence of acromegalic features. Neck exam reveals nl size thyroid about 15 gms. No thyroid nodules palpable. Heart S1 S2, Reg R/R. No M/R G. Skin exam reveals absence of vitiligo or acanthosis nigricans. Results Reviewed Results Reviewed: Laboratory Last Values Glucose (Clinic) 218 mg/dL (60-115) H 06/14/24 15:34 Assessment & Plan Assessment & Plan (1) Diabetes mellitus: Code(s): E11.9 - Type 2 diabetes mellitus without complications Category: Medical Plan: 63 year old type 2 diabetic with no known complications. lantus 52 units humalog tid with meals 80-150 16 units 151-200 18 units 201-250 20 units 251-300 22 units over 300 22 units The patient had an opportunity to ask questions regarding treatment plan. The patient expressed understanding and agreement with the above treatment plan. The patient is aware they should contact our office by phone for worsening glucose readings or for any low blood sugars which may warrant a change in diabetes medication. Compliance is encouraged with medications and any followup testing/consults which may have been ordered. Orders: Orders Hemoglobin A1c 4 Weeks E11.9 - Type 2 diabetes mellitus without complications Patient Instructions: The patient was counseled to achieve a target A1C of 7% (154 avg). Fasting blood sugars should be 90-130 in the morning and less than 180 two hours after meals. Reviewed the relationship between poor diabetic control and the development of complications. Take 15 carb carbohydrate grams to treat a low sugar (3-4 glucose tablets, half a glass of juice or 15 carbohydrate grams of soft candy such as gummie snacks). Recheck your sugar in 15 minutes and re-treat again with 15 carbohydrate grams if low or still with symptoms. Do not drive a car or operate machinery if you do not know what your blood sugar is, if it is low or in excess of 300. Coding Level of Care Code Est Pt Level 4 (20666) Complex EM visit Add On G2211 Diagnoses Diabetes mellitus E11.9
[2024-06-14 15:37] LABS: Glucose, Whole Blood 218 mg/dL (60-115)
--- OUTSIDE RECORDS SUMMARY | 2024-06-14 17:40 | XMS_ITS | Data Portability ---
Author Organization [facility], [address] Address [address] [place] [address] Care Team Providers Care Rail Crew Member Name Role Phone ADA BARRIENTOSNIMA Primary Care Provider [phone] Assessment No assessment recorded. Plan of Treatment Reminders Order Date Submit Date Provider Last Modified By Organization Details Last Modified Time Details Appointments None recorded. Lab None recorded. Referral None recorded. Procedures None recorded. Surgeries None recorded. Imaging None recorded. Medication Orders prednisone 10 mg tablet 2022 023 [id number], [address], [place], [id number], 10:47:16 loratadine 10 mg tablet 2022 023 [facility] #[id number], [address], [place], [id number], 10:47:12 Patient TargetsNo targets recorded. Patient Instructions Encounter Date Encounter Id Patient Instructions Last Modified By Organization Details Last Modified Time 05/28/2022 [id number] eustachian tube problems: care instructions [email or web address] Not available 05/28/2022 10:47:01 Based on your physical exam and presentation, you are being diagnosed with Eustachian Tube Dysfunction. This occurs when fluid/mucous or swelling closes off the tubes that help the ears equalize the pressure. The following are my recommendations to help with these symptoms and get this condition to resolve: 1. Saline Nasal Piseco 2. Antihistamines like Claritin, Zyrtec, Hillary, or [...] be placed temporarily. Thank you for using [facility], if you have any questions or concerns please do not hesitate to call or reach out to us. [email or web address] Not available 05/28/2022 10:46:50 Reason for Referral None Reported. 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 KIM DEPINTO null, [place] - [facility] 10:08:55 Asthma 858652389 Active 2022 KIM DEPINTO null, [place] - [facility] 10:09:04 Beta thalassemia 29595712 Active 2022 KIM DEPINTO null, [place] - [facility] 10:09:17 Hypercholester olemia 75091043 Active 2022 KIM DEPINTO null, PA - [...] Name and Address Organization Details Recorded Time 098108 Product containin g penicilli n (product) medicatio n anaphylax is Not available Not available 05/28/2022 04743 8001 SNOMED KIM DEPINTO null, [place] - [facility] 3 10:05:09 355110 iodine medicatio n hives Not available Not available 05/28/2022 5933 RxNorm KIM DEPINTO null, [place] - [facility] 10:05:44 187515 albuterol medicatio n palpitati ons Not available Not available 05/28/2022 435 RxNorm KIM DEPINTO null, [place] - [facility] 3 10:06:01 616319 clindamyc in Not available hives Not available Not available 05/28/2022 2582 RxNorm KIM DEPINTO null, [place] - [facility] 3 10:06:15 395251 Savella medicatio n hives Not available Not available 05/28/2022 70716 6 RxNorm KIM DEPINTO null, [place] - [facility] 3 10:06:47 778919 shellfish derived food,medi cation anaphylax is Not available Not available 05/28/2022 09184 UNK KIM DEPINTO null, [place] - [facility] [...] Address Organization Details Last Updated DateTime 3 58282.4 7 g 36.6 kg/m2 157.48 cm 7 [...] SNOMED-CT Code Diagnosis ICD10 Code Diagnosis Note [id number] [address] [place], [place] [address] [place] [address] 08/24/2021 10:52:46 08/24/2021 14:14:12 [id number] [address] [place] [address] 10/07/2019 12:59:32 10/07/2019 13:36:45 [id number] [address] [place] [address] 10/04/2020 08:12:05 10/04/2020 08:37:59 [id number] [address] [place] [address] 07/04/2021 18:40:37 07/04/2021 20:20:24 [id number] [address] [place] [address] 06/13/2020 15:34:37 06/13/2020 16:55:09 [id number] [address] [place] [address] 12/27/2020 08:24:44 12/27/2020 10:17:27 [id number] [address] [facility] [place] [address] 09/03/2018 13:00:08 09/03/2018 14:35:12 [id number] [address] [place] [address] 05/20/2021 08:29:49 05/20/2021 09:29:51 [id number] [address] [place] [address] 09/28/2020 08:30:23 09/28/2020 09:37:27 [id number] [facility] [address] [place] [address] 05/28/2022 08:25:13 05/28/2022 10:47:43 Dysfunction of left eustachian tube 9720337459 467076 H69.92 Stop the Afrin Health Concerns Section Related Observation LastModified by Organization Detai ls LastModified Time None Recorded Concern Status LastModified by Organization Details LastModified Time None Recorded Advance Directives Directive None Recorded Payers Encounter Date Sequence Insurance Name Policy Number Policy Mei Covered Member ID Mei Member ID Guarantor Name 12/27/2020 1 [place] [employer] Maryjo Jefferson [id number] Maryjo Jefferson 12/27/2020 2 WPS - FOR LIFE (MEDICARE SUPPLEMENT) Tim Jefferson [id number] Maryjo Jefferson 05/20/2021 1 [facility] Maryjo Jefferson [id number] Maryjo Jefferson 05/20/2021 2 WPS - FOR LIFE (MEDICARE SUPPLEMENT) Tim Jefferson [id number] Maryjo Jefferson 07/04/2021 1 [facility] Maryjo Jefferson [id number] Maryjo Jefferson 07/04/2021 2 [place]PS - FOR LIFE (MEDICARE SUPPLEMENT) Tim Jefferson [id number] Maryjo Jefferson 08/24/2021 1 [place] Maryjo Jefferson [id number] Maryjo Jefferson 08/24/2021 2 WPS - FOR LIFE (MEDICARE SUPPLEMENT) Tim Jefferson [id number] Maryjo Jefferson 05/28/2022 1 [facility] GOVERNMENT SERVICES Maryjo Jefferson [id number] Maryjo Jefferson Notes Date Note Type Note [...] ears are driving her crazy. [facility] [place], [address], [place] - [facility] 05/28/2022 10:50:17 OBGyn Episode No OBEpisode recorded.
--- OUTSIDE RECORDS SUMMARY | 2024-06-14 17:41 | XMS_ITS | Patient Health Record ---
Author Organization [facility] Address [address] [place] [address] Care Team Providers Care Contract Programmer Name Role Phone Frances Cutler Primary Care Provider Unavailab Surya Palacio Unavailable [phone] Nkiole Bernard Unavailable Unavailable Allergies Allergen (clinical drug ingredient) Drug/Non Drug Allergy documented on EMR Reaction Allergy Type Onset Date Status milnacipran Savella Unknown Drug Allergy Activ e vancomycin Vancomycin HCl Unknown Drug Allergy A ctive Iodine Unknown Drug Allergy Active albuterol Albuterol sensitivity Drug Allergy Activ e Shellfish (FN) shell fish (uncoded) Unknown Allergy Active Penicillin Unknown Drug Allergy Active Reason For Referral No Information Medications Medication SIG (Take, Route, Frequency, Duration) Notes Start Date End Date Status Levalbuterol HCl 0.63 MG/3ML USE 1 VIAL BY NEBULIZER BID PRF SOB Inhalation for 25 Active Immunizations Vaccine Route Administration Date Status Comme nts Influenza Unknown 11/05/2018 Administered Social History Alcohol Screen Question Answer Notes Did you [...] Never (0 point) Points 0 Interpretation Negative Section Notes: She does not smoke nor use a ny sig. amounts of alcohol She does not smoke nor use a ny sig. amounts of alcohol She does not smoke nor use a ny sig. amounts of alcohol Problems Problem Type SNOMED Code ICD Code Onset Dates Problem Status W/U Status Risk Notes Problem 560826513 Abnormal results of liver function studies (R94.5) Active confirmed Problem 709084671 Elevated liver function tests (R94.5) Active confirmed Plan Of Treatment Pending Test Test Name Order Date LIVER PROFILE 02/11/2019 IRON + IBC (FE) 02/11/2019 FERRITIN 02/11/2019 Future Test Test Name Order Date UPPER GI ENDOSCOPY 04/06/2011 Insurance Providers Payer Name Payer Address Payer Phone Subscriber Number Group Number Insured Name Patient Relationship to Insured Coverage Start Date Coverage End Date MEDICARE OF [place] [address] [place] [address] [id number] MANUEL WALDROP Self - patient is the insured [employer] [address] [place] [address] [phone] [id number] MANUEL WALDROP Self - patient is the insured Medical (General) History Medical History History ICD Code Beta-thalassemia trait, followed by Dr. Bernard Blood clots in LE's during , tr eated with Lovenox Fibromyalgia PUD in her 20's Asthma DM Pituitary tumor by her report Denies hx of [place], CVA,and renal disease Negative colonoscopy 2010 with me and [address] Regan Hypertension Sigmoid diverticulitis-sees Dr. Regan Told of Familial Mediterranean Fever i [facility] based on genetics EGD in 2011--this [...]
== END 2024-06-14 16:15 | disposition home or self-care (01) ==
LOC: HO.ENCR 15:19
PROVIDERS: PCP Internal Medicine; Visit Provider Nurse Practitioner Adult Health
DX: E11.9 Type 2 diabetes mellitus without complications (principal)
CPT/HCPCS: 99214; G2211

== ENCOUNTER → 2024-06-14 15:18 | Outpatient (BNVA) | payer MEDICARE, OTHER, SELFPAY | PROVIDERS: PCP Internal Medicine; Visit Provider Nurse Practitioner Adult Health | DX: E11.9 Type 2 diabetes mellitus without complications (principal); Z79.4 Long term (current) use of insulin | CPT/HCPCS: 82947; 99212 ==

== ENCOUNTER 2024-07-09 07:12 | Outpatient (REF) | payer MEDICARE, OTHER, SELFPAY ==
[2024-07-09 07:27] LABS: MANUAL DIFF FLAG NO
[2024-07-09 07:34] LABS: Basophils Percent Auto 0.4 % (0-2); Eosinophils Absolute Auto 0.4 X10*3/uL (0.0-0.4); Eosinophils Percent Auto 5.2 % (0-4); Hematocrit 34.4 % (37.0-47.0); Hemoglobin 10.9 g/dl (12.0-16.0); Imm Gran Abs Auto 0.04 X10*3/uL (0.00-0.03); Imm Gran Pct Auto 0.5 % (0.0-0.4); Lymphocytes Absolute Auto 2.4 X10*3/uL (1.2-4.9); Lymphocytes Percent Auto 29.4 % (20-40); Mean Corpuscular HGB Conc 31.7 g/dl (31.0-35.0); Mean Corpuscular Hemoglobin 22.8 pg (27.0-33.0); Mean Platelet Volume 10.5 fL (9.4-12.3); Monocytes Absolute Auto 0.8 X10*3/uL (0.1-1.2); Monocytes Percent Auto 9.4 % (2-11); Neutrophils Absolute Auto 4.5 x10*3/uL (2.0-8.3); Neutrophils Percent Auto 55.1 % (45-73); Platelet Count 218 X10*3/uL (160-400); Red Blood Count 4.78 X10*6/uL (4.20-5.50); Red Cell Distribution Width 15.6 % (11.0-16.0); White Blood Count 8.1 X10*3/uL (4.8-10.8)
[2024-07-09 07:43] LABS: Alanine Aminotransferase 27 U/L (0-31); Albumin Level 4.2 g/dL (3.5-5.0); Alkaline Phosphatase 66 U/L (39-117); Anion Gap 13 (12-20); Aspartate Amino Transferase 22 U/L (5-31); Bilirubin Total 0.5 mg/dL (0.0-1.0); Blood Urea Nitrogen 16 mg/dL (9-16); Calcium 9.6 mg/dL (8.4-10.2); Carbon Dioxide 27 mmol/L (22-29); Chloride 105 mmol/L (96-108); Estimated Glomerular Filt Rate > 60; Glucose Random 192 mg/dL (60-115); Potassium 4.1 mmol/L (3.3-5.1); Sodium 141 mmol/L (135-145); Total Protein 7.2 g/dL (6.5-8.0)
[2024-07-09 07:59] LABS: Estimated Average Glucose 209 mg/dL; Hemoglobin A1C 212.5053 umol/L; Hemoglobin A1c % 8.9 % (<6.0); Total Hemoglobin (HGBA1C) 2862.1938 umol/L
== END 2024-07-09 07:13 | disposition home or self-care (01) ==
LOC: HO.LAB 07:12
PROVIDERS: Internal Medicine Medical Oncology; Absent Provider Physician Assistant; PCP Internal Medicine; Visit Provider Nurse Practitioner Adult Health
DX: D64.9 Anemia, unspecified (principal); E11.9 Type 2 diabetes mellitus without complications
CPT/HCPCS: 36415; 80053; 83036; 85025

== ENCOUNTER 2024-07-12 19:56 | Emergency (ER) | payer MEDICARE, OTHER, SELFPAY ==
--- NOTE | ~2024-07-12 | CT_ITS ---
CLINICAL HISTORY: lymphadenopathy history of breast cancer CT soft tissue neck without contrast Comparison: None Findings: Exam limited by the lack of IV contrast. Greater than expected number of slightly rounded cervical and supraclavicular lymph nodes, kouqm-enqnsza-ojhh-left. Parotid and submandibular glands within normal limits. Thyroid gland unremarkable. Lung apices clear. No suspicious lytic or blastic bone lesion. Normal cervical spine vertebral body height and alignment. No acute fracture identified. Paranasal sinuses and mastoid air cells clear. No significant orbital abnormality. Limited intracranial views demonstrate no acute finding. IMPRESSION: Greater than expected number of abnormally rounded but not threshold enlarged cervical and supraclavicular lymph nodes, tmamy-nvocazk-rbdh-left. Findings are suspicious for metastatic disease. This document has been electronically signed by: Laci Lopez MD on 07/12/2024 22:32:26
[2024-07-12 20:15] VITALS: BP 161/83; PULSE 92; RESP 20; TEMP 37.3; O2SAT 96; BMI 38.6
--- NOTE | 2024-07-12 20:15 | ED_ITS ---
HPI - General Adult General Chief complaint: Recheck/Abnormal Lab/Rx Stated complaint: swollen lymphs Time Seen by Provider: 07/12/24 21:03 Source: patient Mode of arrival: ambulatory Limitations: no limitations History of Present Illness ED Provider: HPI narrative: patient with recent diagnose of right breast cancer status post lumpectomy and radiation treatment no PET scan was done axillary lymph nodes were negative for metastatic disease, patient's comes here for not feeling good and having cervical lymph nodes for last 2 days no sore throat seen her PCP who noticed left armpit lymph node few days ago patient patient has been feeling a little tired no sore throat no fever no chills Related Data Home Medications ?Medication ?Instructions ?Recorded ?Confirmed blood sugar diagnostic #10 ea 12/24/19 07/11/24 levalbuterol HCl 0.63 mg/3 mL 0.63 mg inhalation Q OTHER DAY 12/24/19 07/11/24 solution for nebulization wheezing levalbuterol tartrate 45 45 mcg inhalation Q4-6H PRN 12/24/19 07/11/24 mcg/actuation aerosol inhaler Wheezing rosuvastatin 20 mg tablet 20 mg PO BEDTIME 04/07/23 07/11/24 sitagliptin phosphate 100 mg 100 mg PO DAILY 11/14/23 07/11/24 tablet (Januvia) insulin glargine 100 unit/mL 45 unit subcut QPM 05/24/24 07/11/24 subcutaneous solution (Lantus U-100 Insulin) cetirizine 10 mg tablet 10 mg PO DAILY allergy 06/14/24 07/11/24 losartan 100 mg tablet 100 mg PO DAILY 06/14/24 07/11/24 montelukast 10 mg tablet 10 mg PO DAILY 06/14/24 07/11/24 silver sulfadiazine 1 % topical 1 appl topical ONCE 06/14/24 07/11/24 cream (SSD) Previous Rx's ?Medication ?Instructions ?Recorded inhalational spacing device #1 ea 01/17/22 (Aerochamber Plus Z Stat spacer) walker #1 ea 01/23/24 cholecalciferol (vitamin D3) 125 125 mcg PO DAILY #90 tabs 03/06/24 mcg (5,000 unit) tablet (Vitamin D3) letrozole 2.5 mg tablet 2.5 mg PO DAILY #90 tabs 03/20/24 lorazepam 0.5 mg tablet 0.5 mg PO DAILY PRN Anxiety #30 05/04/24 tabs folic acid 1 mg tablet 1 mg PO DAILY #90 tabs 05/17/24 allopurinol 100 mg tablet 100 mg PO DAILY 30 days #30 tabs 06/15/24 insulin lispro 100 unit/mL See Rx Instructions subcut TID 90 07/12/24 subcutaneous pen days #60 mL Allergies Allergy/AdvReac Type Severity Reaction Status Date / Time iodine [IODINE] Allergy Severe ANAPHYLAXIS Verified 07/12/24 20:18 Penicillins [PENICILLINS] Allergy Severe BREATHING Verified 07/12/24 20:18 PROBLEM shellfish derived Allergy Severe ANAPHYLAXIS Verified 07/12/24 20:18 clindamycin [CLINDAMYCIN] Allergy Intermediate HIVES Verified 07/12/24 20:18 milnacipran [From SAVELLA] Allergy Intermediate BRUISE Verified 07/12/24 20:18 vancomycin [VANCOMYCIN] Allergy Intermediate HIVES; Verified 07/12/24 20:18 ITCHING metformin Allergy Unknown diarrhea Verified 07/12/24 20:18 albuterol [ALBUTEROL] AdvReac Intermediate HEART RACES Verified 07/12/24 20:18 metformin AdvReac Stomach Uncoded 07/12/24 20:18 Upset Review of Systems 2 Review of Systems: Yes all other systems are reviewed and are negative PMFSH Past Medical History Medical History Pituitary tumor Fatty liver Breast cancer, right Abnormal mammogram of right breast Breast mass, right History of diverticulitis Family history of ovarian cancer Colon cancer screening Diabetes Lipoma Sleep apnea Herpes simplex virus (HSV) infection of vagina Chronic fatigue syndrome History of Vivek-Arellano virus infection Hx of ectopic Obesity Fibromyalgia Beta thalassemia trait H/O deep vein thrombosis during Mild hypercholesterolemia Microadenoma Iron deficiency Diverticular disease Asthma Diabetes mellitus Thalassemia Anemia Surgical History Hx of surgical procedure (~04/06/24) History of lumpectomy of right breast (~02/20/24) History of right knee surgery History of hand surgery History of surgery H/O sinus surgery Hx of laparoscopic gastric banding H/O: hysterectomy Family History Family History Mother Thalassemia trait Stroke Maternal Aunt Thalassemia trait Maternal Uncle Thalassemia trait Father Heart problem Brother Heart problem Brother No problems noted. Brother Multiple sclerosis Asthma Son Multiple sclerosis Asthma Son Asthma Daughter Asthma Daughter Allergies Asthma Paternal Aunt Breast cancer Other Bladder cancer Lung cancer Social History Social History Household Members: Spouse, Children and Foster Family Are you a primary director of managed care to a significant other at home: No Do you presently have visiting nurse or other home services: No Alcohol intake: current Alcohol intake frequency: holidays/special occasions only Patient Tobacco Use Status: Never used Tobacco Smoked in Last 30 Days: No Use of substances other than those prescribed or required for medical reasons: No Advance Directives: No Advance Directives Information Provided: Yes Patient : No service: Yes Current occupational status: employed and disabled 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 Oriented X3. No acute distress. Eyes: PERRLA, No Nystagmus ENT: Pharynx normal. Oral Mucosa moist bilateral cervical lymphadenopathy present R>L Neck: Normal inspection. Neck supple. CVS: Normal heart rate and rhythm. Pulses normal. Respiratory: No respiratory distress. Equal air entry bilateral, no wheezing/rales/rhonchi Abdomen: Soft and nontender. Bowel sounds are present, no mass palpable, no CVA tenderness Skin: Skin warm and dry. Normal skin color. Normal skin turgor. Extremities: No lower extremity edema. No calf tenderness bilateral axillary lymph node present Neuro: Oriented X 3. No motor deficit. No sensory deficit.No cerebellar signs , cranial nerves II-XII intact Course Course Course Narrative: This is a rapid medical exam performed by Harrison Ramey NP: Additional HPI, ROS, PE not included below will be deferred to primary provider. 63 yo female with PMHx of anemia, T2DM, thalassemia, asthma, breast cancer (finished radiation 05/29) presents to the ED due to 1x week of fatigue, dizzy, weakness. Had labs drawn this week and oncologist recommended evaluation in the ED due to elevated ferritin, and decreased B12 levels. She reports swollen lymph nodes in the axilla, and posterior neck. Denies chest pain, SOB, PE: A&O x3, in no acute distress, visible lymphadenopathy, Plan: labs, EKG, viral swabs Medical Decision Making Medical Decision Making MDM Narrative: patient with bilateral cervical lymphadenopathy likely metastatic patient advised to follow up with die cast supervisor Lab Data MDM Lab Attestation statement: I reviewed the patient's lab results. 07/12/24 20:32 07/12/24 20:32 Labs: Lab Results 07/12/24 07/12/24 07/12/24 Range/Units 11:59 20:32 21:45 WBC 8.0 (4.8-10.8) X10*3/uL RBC 4.53 (4.20-5.50) X10*6/uL Hgb 10.5 L (12.0-16.0) g/dl Hct 31.9 L (37.0-47.0) % MCV 70.4 L (80.0-98.0) fL MCH 23.2 L (27.0-33.0) pg MCHC 32.9 (31.0-35.0) g/dl RDW 15.7 (11.0-16.0) % Plt Count 202 (160-400) X10*3/uL MPV 11.0 (9.4-12.3) fL Immature Gran % (Auto) 0.5 H (0.0-0.4) % Neut % (Auto) 66.0 (45-73) % Lymph % (Auto) 20.1 (20-40) % [place] % (Auto) 7.7 (2-11) % Eos % (Auto) 5.2 H (0-4) % Baso % (Auto) 0.5 (0-2) % Lymph # (Auto) 1.6 (1.2-4.9) X10*3/uL [place] # (Auto) 0.6 (0.1-1.2) X10*3/uL Eos # (Auto) 0.4 (0.0-0.4) X10*3/uL Baso # (Auto) 0.0 (0.0-0.2) X10*3/uL Abs Immat Gran (auto) 0.04 H (0.00-0.03) X10*3/uL Absolute Neuts (auto) 5.3 (2.0-8.3) x10*3/uL Absolute Nucleated RBC 0.000 (0.0-0.012) X10*3/uL Nucleated RBC % (auto) 0.0 (0.0-0.2) /100WBC Sodium 142 (135-145) mmol/L Potassium 4.2 (3.3-5.1) mmol/L Chloride 104 (96-108) mmol/L Carbon Dioxide 27 (22-29) mmol/L Anion Gap 15 (12-20) BUN 21 H (9-16) mg/dL Creatinine 0.80 (0.5-1.4) mg/dL Estim Creat Clear Calc 79.6 Estimated GFR > 60 Random Glucose 216 H (60-115) mg/dL Lactic Acid 1.3 (0.5-2.0) mmol/L Calcium 10.2 (8.4-10.2) mg/dL Magnesium 1.8 (1.6-2.6) mg/dL Total Bilirubin 0.4 (0.0-1.0) mg/dL AST 22 (5-31) U/L ALT 28 (0-31) U/L Alkaline Phosphatase 70 (39-117) U/L Total Protein 7.4 (6.5-8.0) g/dL Albumin 4.4 (3.5-5.0) g/dL Monoscreen Negative (Negative) Influenza Type A (PCR) NEGATIVE (Negative) Influenza Type B (PCR) NEGATIVE (Negative) RSV RNA Qual (PCR) NEGATIVE (Negative) SARS-CoV-2 RNA (RT-PCR) NEGATIVE (Negative) Independent Interpretation I performed an independent interpretation of an: CT Scan Radiology Impression Discussion of test interpretation with radiology: I have reviewed the radiologist's reading. Radiologist Impression: IMPRESSION: Greater than expected number of abnormally rounded but not threshold enlarged cervical and supraclavicular lymph nodes, dcbsl-mbbpavl-yyau-left. Findings are suspicious for metastatic disease. This document has been electronically signed by: Laci Lopez MD on 07/12/2024 22:32:26 Discharge Plan Discharge Clinical Impression: Cervical adenopathy Patient Disposition: Home, Self-Care Instructions: Lymphadenopathy (ED) Additional Instructions: etiology of cervical lymph node enlargement not clear is concerning need to follow up with oncologist to rule out metastatic disease Prescriptions: No Action (DME) walker Misc See Rx Instructions .MEDSUPPLY Qty: 1 0RF Rx Instructions: Folding Front wheeled walker (DME) Aerochamber Plus Z Stat Spacer See Rx Instructions .Route Qty: 1 0RF Rx Instructions: As directed lorazepam 0.5 mg Tablet 0.5 mg PO DAILY PRN (Reason: Anxiety) Qty: 30 0RF folic acid 1 mg Tablet 1 mg PO DAILY Qty: 90 4RF allopurinol 100 mg Tablet 100 mg PO DAILY 30 Days Qty: 30 1RF cholecalciferol (vitamin D3) [Vitamin D3] 125 mcg (5,000 unit) Tablet 125 mcg PO DAILY Qty: 90 2RF letrozole 2.5 mg Tablet 2.5 mg PO DAILY Qty: 90 4RF (DME) FreeStyle Lite Strips Strip See Rx Instructions .ROUTE .MEDSUPPLY Qty: 10 Rx Instructions: As directed levalbuterol tartrate 45 mcg/actuation HFA aerosol inhaler 45 mcg inhalation Q4-6H PRN (Reason: Wheezing) levalbuterol HCl 0.63 mg/3 mL solution for nebulization 0.63 mg inhalation Q OTHER DAY cetirizine 10 mg tablet 10 mg PO DAILY rosuvastatin 20 mg tablet 20 mg PO BEDTIME Januvia 100 mg tablet 100 mg PO DAILY insulin glargine [Lantus U-100 Insulin] 100 unit/mL solution 45 unit subcut QPM silver sulfadiazine [SSD] 1 % cream 1 appl topical ONCE losartan 100 mg tablet 100 mg PO DAILY montelukast 10 mg tablet 10 mg PO DAILY insulin lispro 100 unit/mL insulin pen See Rx Instructions subcut TID MDD 66 units 90 Days Qty: 60 3RF Rx Instructions: subcutaneously 3 times a day before meals 80-150 16 units 151-200 18 units 201-250 20 units over 251 22 units Print Language: Faroese
--- NOTE | 2024-07-12 20:21 | ECG_ITS ---
Test Reason : weakness Blood Pressure : */* mmHG Vent. Rate : 88 BPM Atrial Rate : 88 BPM P-R Int : 182 ms QRS Dur : 80 ms QT Int : 354 ms P-R-T Axes : 40 28 21 degrees QTcB Int : 428 ms Normal sinus rhythm Normal ECG When compared with ECG of 17-Jan-2022 14:55, No significant change was found Referred By: Preeti Ramey Electronically Signed By: WINSOME YE
--- OUTSIDE RECORDS SUMMARY | 2024-07-12 20:38 | XMS_ITS | Data Portability ---
Author Organization [facility] [address] Address [address] [place] [address] Care Team Providers Care Forensic Engineer Name Role Phone ADA BARRIENTOSNIMA Primary Care Provider Assessment No assessment recorded. Plan of Treatment Reminders Order Date Submit Date Provider Last Modified By Organization Details Last Modified Time Details Appointments None recorded. Lab None recorded. Referral None recorded. Procedures None recorded. Surgeries None recorded. Imaging None recorded. Medication Orders prednisone 10 mg tablet 2022 023 [id number] [address], [place], [id number], 10:47:16 loratadine 10 mg tablet 2022 023 [facility], [address], [place], [id number], 10:47:12 Patient TargetsNo targets recorded. Patient Instructions Encounter Date Encounter Id Patient Instructions Last Modified By Organization Details Last Modified Time 05/28/2022 [id number] eustachian tube problems: care instructions [email or web address] Not available 05/28/2022 10:47:01 Based on your physical exam and presentation, you are being diagnosed with Eustachian Tube Dysfunction. This occurs when fluid/mucous or swelling closes off the tubes that help the ears equalize the pressure. The following are my recommendations to help with these symptoms and get this condition to resolve: 1. Saline Nasal Lindrith 2. Antihistamines like Claritin, Zyrtec, Hillary, or [...] be placed temporarily. Thank you for using [facility], if you have any questions or concerns please do not hesitate to call or reach out to us. [email or web address] Not available 05/28/2022 10:46:50 Reason for Referral None Reported. 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 KIM DEPINTO null, [place] - [facility] 10:08:55 Asthma 921495362 Active 2022 KIM DEPINTO null, [place] - [facility] 3 10:09:04 Beta thalassemia 66703277 Active 2022 KIM DEPINTO null, [place] - [facility] 3 10:09:17 Hypercholester olemia 22184112 Active 2022 KIM DEPINTO null, PA - [...] Name and Address Organization Details Recorded Time 468200 Product containin g penicilli n (product) medicatio n anaphylax is Not available Not available 05/28/2022 86536 8001 SNOMED KIM DEPINTO null, [place] - [facility] 3 10:05:09 074049 iodine medicatio n hives Not available Not available 05/28/2022 5933 RxNorm KIM DEPINTO null, [place] - [facility] 3 10:05:44 243494 albuterol medicatio n palpitati ons Not available Not available 05/28/2022 435 RxNorm KIM DEPINTO null, [place] - [facility] 3 10:06:01 413452 clindamyc in Not available hives Not available Not available 05/28/2022 2582 RxNorm KIM DEPINTO null, [place] - [facility] 3 10:06:15 051839 Savella medicatio n hives Not available Not available 05/28/2022 80433 6 RxNorm KIM DEPINTO null, [place] - [facility] 3 10:06:47 472099 shellfish derived food,medi cation anaphylax is Not available Not available 05/28/2022 87000 UNK KIM [facility] null, [place] - [facility] [...] Address Organization Details Last Updated DateTime 3 95139.4 7 g 36.6 kg/m2 157.48 cm 7 [...] SNOMED-CT Code Diagnosis ICD10 Code Diagnosis Note [id number] [address] [place] [address] 08/24/2021 10:52:46 08/24/2021 14:14:12 [id number] [address] [place] [address] 10/07/2019 12:59:32 10/07/2019 13:36:45 [id number] [address] [place] [address] 10/04/2020 08:12:05 10/04/2020 08:37:59 [id number] [address] [place] [address] 07/04/2021 18:40:37 07/04/2021 20:20:24 [id number] [address] [place] [address] 06/13/2020 15:34:37 06/13/2020 16:55:09 [id number] [address] [place] [address] 12/27/2020 08:24:44 12/27/2020 10:17:27 [id number] [address] [place] [address] 09/03/2018 13:00:08 09/03/2018 14:35:12 [id number] [address] [place] [address] 05/20/2021 08:29:49 05/20/2021 09:29:51 [id number] [address] [place] [address] 09/28/2020 08:30:23 09/28/2020 09:37:27 [id number] [facility] [address] [place] [address] 05/28/2022 08:25:13 05/28/2022 10:47:43 Dysfunction of left eustachian tube 7542838912 809187 H69.92 Stop the Afrin Health Concerns Section Related Observation LastModified by Organization Detai ls LastModified Time None Recorded Concern Status LastModified by Organization Details LastModified Time None Recorded Advance Directives Directive None Recorded Payers Insurance Date Sequence Insurance Name Policy Number Policy Mei Covered Member ID Mei Member ID Guarantor Name 06/16/2022 2 WPS - FOR LIFE (MEDICARE SUPPLEMENT) Maryjo Jefferson 05/28/2022 1 [place]: [employer] Maryjo Jefferson [id number] Maryjo Jefferson 05/28/2022 2 WPS - FOR LIFE (MEDICARE SUPPLEMENT) Tim Jefferson [id number] Maryjo Jefferson Notes Date Note Type Note [...] driving her crazy. [facility] FLORES [address] [place], [address], [place] - [facility] 05/28/2022 10:50:17 OBGyn Episode No OBEpisode recorded.
--- OUTSIDE RECORDS SUMMARY | 2024-07-12 20:39 | XMS_ITS | Patient Health Record ---
Author Organization [facility] Address [address] [place] [address] Care Team Providers Care Consumer Educator Name Role Phone Frances Cutler Primary Care Provider Unavailab Surya Palacio Unavailable [phone] Nikole Bernard Unavailable Unavailable Allergies Allergen (clinical drug [...] Problem Status W/U Status Risk Notes Problem 495240035 Abnormal results of liver function studies (R94.5) Active confirmed Problem 803643133 Elevated liver function tests (R94.5) Active confirmed [...] VALERIE [address] [place] [address] [id number] MANUEL WALDROP Self - patient is the insured [employer] [address] [place] [address] [id number] MANUEL WALDROP Self - patient is the insured Medical (General) History Medical History History ICD Code Beta-thalassemia trait, followed by Dr. Bernard Blood clots in LE's during , tr eated with Lovenox Fibromyalgia PUD in her 20's Asthma DM Pituitary tumor by her report Denies hx of [place], CVA,and renal disease Negative colonoscopy 2010 with me and [address] Regan Hypertension Sigmoid diverticulitis-sees Dr. Regan Told of Familial Mediterranean Fever i [facility] based on genetics EGD in 2011--this revealed [...]
[2024-07-12 20:51] LABS: MANUAL DIFF FLAG NO
[2024-07-12 20:52] VITALS: BP 124/65; PULSE 86; RESP 18; TEMP 36.9; O2SAT 97
--- NOTE | 2024-07-12 21:04 | PC.NURSE ---
20g IV access obtained 2nd set of blood cultures sent- pt awaiting provider cara
[2024-07-12 21:07] LABS: Lactic Acid 1.3 mmol/L (0.5-2.0)
[2024-07-12 21:07] LABS: Alanine Aminotransferase 28 U/L (0-31); Albumin Level 4.4 g/dL (3.5-5.0); Alkaline Phosphatase 70 U/L (39-117); Anion Gap 15 (12-20); Aspartate Amino Transferase 22 U/L (5-31); Bilirubin Total 0.4 mg/dL (0.0-1.0); Blood Urea Nitrogen 21 mg/dL (9-16); Calcium 10.2 mg/dL (8.4-10.2); Carbon Dioxide 27 mmol/L (22-29); Chloride 104 mmol/L (96-108); Creatinine Clr Calc Pharmacy 79.6; Estimated Glomerular Filt Rate > 60; Glucose Random 216 mg/dL (60-115); Magnesium 1.8 mg/dL (1.6-2.6); Potassium 4.2 mmol/L (3.3-5.1); Sodium 142 mmol/L (135-145); Total Protein 7.4 g/dL (6.5-8.0)
[2024-07-12 21:20] LABS: Basophils Percent Auto 0.5 % (0-2); Eosinophils Absolute Auto 0.4 X10*3/uL (0.0-0.4); Eosinophils Percent Auto 5.2 % (0-4); Hematocrit 31.9 % (37.0-47.0); Hemoglobin 10.5 g/dl (12.0-16.0); Imm Gran Abs Auto 0.04 X10*3/uL (0.00-0.03); Imm Gran Pct Auto 0.5 % (0.0-0.4); Lymphocytes Absolute Auto 1.6 X10*3/uL (1.2-4.9); Lymphocytes Percent Auto 20.1 % (20-40); Mean Corpuscular HGB Conc 32.9 g/dl (31.0-35.0); Mean Corpuscular Hemoglobin 23.2 pg (27.0-33.0); Mean Corpuscular Volume 70.4 fL (80.0-98.0); Monocytes Absolute Auto 0.6 X10*3/uL (0.1-1.2); Monocytes Percent Auto 7.7 % (2-11); Neutrophils Absolute Auto 5.3 x10*3/uL (2.0-8.3); Platelet Count 202 X10*3/uL (160-400); Red Blood Count 4.53 X10*6/uL (4.20-5.50); Red Cell Distribution Width 15.7 % (11.0-16.0)
[2024-07-12 21:30] LABS: Influenza A PCR NEGATIVE (Negative); Influenza B PCR NEGATIVE (Negative); Resp Syncy Virus RNA Qual PCR NEGATIVE (Negative); SARS COV2 PCR INHOUSE NEGATIVE (Negative)
[2024-07-12 22:15] VITALS: BP 128/69; PULSE 76; RESP 20; TEMP 36.3; O2SAT 99
[2024-07-12 22:16] LABS: Monotest Negative (Negative)
[2024-07-12 23:28] VITALS: BP 138/79; PULSE 86; RESP 16; TEMP 36.6; O2SAT 98
[2024-07-12 23:30] VITALS: BP 138/79; PULSE 86; RESP 16; TEMP 36.6; O2SAT 98
== END 2024-07-12 23:35 | disposition home or self-care (01) ==
PROVIDERS: Registered Nurse Emergency; Emergency Provider Internal Medicine; PCP Internal Medicine
DX: R59.9 Enlarged lymph nodes, unspecified (principal); M54.2 Cervicalgia; Z03.818 Encounter for observation for suspected exposure to other biological agents ruled out; E11.9 Type 2 diabetes mellitus without complications; I10 Essential (primary) hypertension; E78.00 Pure hypercholesterolemia, unspecified; J45.909 Unspecified asthma, uncomplicated; Z79.02 Long term (current) use of antithrombotics/antiplatelets; Z79.4 Long term (current) use of insulin
CPT/HCPCS: 0241U; 36415; 70490; 80053; 83605; 83735; 85025; 86308; 87040; 93005; 99284; 99285

== ENCOUNTER → 2024-07-12 20:21 | Outpatient (BNV) | payer MEDICARE, OTHER, SELFPAY | PROVIDERS: Emergency Provider Internal Medicine; PCP Internal Medicine; Visit Provider Internal Medicine | DX: R53.1 Weakness (principal) | CPT/HCPCS: 93010 ==

== ENCOUNTER → 2024-07-12 21:41 | Outpatient (BNV) | payer MEDICARE, OTHER, SELFPAY | PROVIDERS: Emergency Provider Internal Medicine; PCP Internal Medicine; Visit Provider Radiology Diagnostic Radiology | DX: R59.0 Localized enlarged lymph nodes (principal); Z85.3 Personal history of malignant neoplasm of breast | CPT/HCPCS: 70490 ==

== ENCOUNTER 2024-09-04 16:45 | Outpatient (REF) | payer MEDICARE, OTHER, SELFPAY ==
--- OUTSIDE RECORDS SUMMARY | 2024-09-04 16:47 | XMS_ITS | Patient Health Record ---
Author Organization [facility] Address [address] [place] [address] Care Team Providers Care Package Collector Name Role Phone Frances Cutler Primary Care Provider Unavailab Surya Palacio Unavailable [phone] Nikole Bernard Unavailable Unavailable Allergies Allergen (clinical [...] Problem Status W/U Status Risk Notes Problem 030731437 Abnormal results of liver function studies (R94.5) Active confirmed Problem 998678795 Elevated liver function tests (R94.5) Active confirmed [...] VALERIE [address] [place] [address] [phone] [id number] MANUEL WALDROP Self - patient is the insured [employer] [address] [place] [address] [id number] MANUEL WALDROP Self - patient is the insured Medical (General) History Medical History History ICD Code Beta-thalassemia trait, followed by Dr. Bernard Blood clots in LE's during , tr eated with Lovenox Fibromyalgia PUD in her 20's Asthma DM Pituitary tumor by her report Denies hx of [place], CVA,and renal disease Negative colonoscopy 2010 with me and [address] Regan Hypertension Sigmoid diverticulitis-sees Dr. 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
[2024-09-04 16:59] LABS: MANUAL DIFF FLAG NO
[2024-09-04 17:10] LABS: Hematocrit 32.3 % (37.0-47.0); Hemoglobin 10.3 g/dl (12.0-16.0); Imm Gran Abs Auto 0.05 X10*3/uL (0.00-0.03); Imm Gran Pct Auto 0.6 % (0.0-0.4); Lymphocytes Absolute Auto 2.0 X10*3/uL (1.2-4.9); Mean Corpuscular HGB Conc 31.9 g/dl (31.0-35.0); Mean Corpuscular Hemoglobin 22.8 pg (27.0-33.0); Mean Corpuscular Volume 71.6 fL (80.0-98.0); NRBC Abs Auto 0.000 X10*3/uL (0.0-0.012); NRBC Pct Auto 0.0 /100WBC (0.0-0.2); Platelet Count 226 X10*3/uL (160-400); Red Blood Count 4.51 X10*6/uL (4.20-5.50); White Blood Count 8.0 X10*3/uL (4.8-10.8)
[2024-09-04 18:04] LABS: Thyroid Stimulating Hormone 0.98 uIU/mL (0.32-4.0)
[2024-09-05 07:10] LABS: Hemoglobin A1C 230.9251 umol/L; Total Hemoglobin (HGBA1C) 2810.6203 umol/L
[2024-09-06 09:19] LABS: Anti Nuclear Antibody Screen NEGATIVE (NEGATIVE)
== END 2024-09-04 16:46 | disposition home or self-care (01) ==
LOC: HO.LAB 16:45
PROVIDERS: PCP Internal Medicine; Visit Provider Internal Medicine
DX: E11.65 Type 2 diabetes mellitus with hyperglycemia (principal); M13.0 Polyarthritis, unspecified; R06.02 Shortness of breath; R53.83 Other fatigue; R59.0 Localized enlarged lymph nodes
CPT/HCPCS: 36415; 83036; 84443; 85025; 85652; 86038; 86200; 86431

== ENCOUNTER 2024-09-11 15:37 | Outpatient (AMB) | payer MEDICARE, OTHER, SELFPAY ==
[2024-09-11 15:39] VITALS: BP 106/60; PULSE 85; O2SAT 97; BMI 38.3
--- NOTE | 2024-09-11 15:39 | A.OFFVIS_ITS ---
Vital Signs 09/11/24 15:39 Height 5 ft 2 in Weight 209 lb 7.026 oz BMI 38.3 BP 106/60 Blood Pressure Location Rt brachial Position Sitting Pulse 85 Pulse Source Pulse Oximeter Pulse Oximetry (%) 97 Oxygen Delivery Method Room Air Intake Visit Reasons: T2DM Intake Note: Patient present today to follow up on Type 2 Diabetes Mellitus. Last seen by Christy Hutchison on 06/14/2024 Last Diabetic Eye exam: DUE Last Podiatry Visit: Does not see a Second Vp Hr Assessment HgA1C: 9.7% 09/04/2024 Random Glucose: 210 mg/dL Veterinary Physiologist Required: No Accompanied by: Grand Child Allergies iodine (IODINE) Allergy (Severe, Verified 09/11/24 15:45) ANAPHYLAXIS Penicillins (PENICILLINS) Allergy (Severe, Verified 09/11/24 15:45) BREATHING PROBLEM shellfish derived Allergy (Severe, Verified 09/11/24 15:45) ANAPHYLAXIS clindamycin (CLINDAMYCIN) Allergy (Intermediate, Verified 09/11/24 15:45) HIVES milnacipran (From SAVELLA) Allergy (Intermediate, Verified 09/11/24 15:45) BRUISE vancomycin (VANCOMYCIN) Allergy (Intermediate, Verified 09/11/24 15:45) HIVES; ITCHING metformin Allergy (Unknown, Verified 09/11/24 15:45) diarrhea albuterol (ALBUTEROL) Adverse Reaction (Intermediate, Verified 09/11/24 15:45) HEART RACES metformin Adverse Reaction (Uncoded 09/11/24 15:45) Stomach Upset HPI Comments Details: This is a 63-year-old female with a past medical history of a pituitary tumor, hypertension, asthma, obesity, right breast cancer, thalassemia and anemia and obesity presenting for diabetic management. This is my 1st time seeing the patient. She reestablish care recently with 1 of my colleagues. She is currently being treated for breast cancer. She was initially diagnosed with type 2 diabetes in 2019. She had gestational diabetes at age [age] years old. Her parents had type 2 diabetes. Hemoglobin A1c 9.7% 09/04/2024. Current medications: Lantus 56 units every evening, Januvia 100 mg daily, Humalog 3 times daily with meals per sliding scale 80-150 20 units 151-200 22 units 201-250 26 units Over 251 28 units Compliance issues: Sometimes she forgets to take Lantus in the evening. She also is administering Humalog after she eats meals. I reviewed her sensor which showed she has hyperglycemia throughout 24 hours. No hypoglycemia. Past medications: Metformin discontinued due to stomach pain. Jardiance discontinued due to recurrent yeast infections She was tolerating Mounjaro but developed abdominal pain once it was increased, and she had persistent symptoms despite lowering the dosage. Previously on Bydureon, but her insurance stopped covering it. She tolerated it. No known diabetic complications. Patient reports that when she was on vacation recently her glucometer alerted her at 03:00 in the morning that her blood sugar was 50. She had no symptoms. She did not check with a fingerstick to confirm. She took 1 glucose tablets, and she went back to sleep. ROS: Constitutional: No unexplained weight loss, fever, chills, fatigue or night sweats. Respiratory: No shortness of breath Cardiovascular: No chest pain Gastrointestinal: No anorexia, nausea, vomiting or diarrhea. No abdominal pain Neurologic: No headache, dizziness, syncope Endocrine: No cold or heat intolerance. No polyuria or polydipsia. Physical exam: Constitutional: Alert, in no distress. Neck: Supple, Full range of motion. No lymphadenopathy. No palpable thyroid masses. Respiratory: Clear to auscultation. Cardiovascular: S1 S2 regular. No murmurs. Extremities: Warm and well perfused. No clubbing, cyanosis or edema. Psychiatric: Normal mood and affect [facility] Medical History Pituitary tumor Fatty liver Breast cancer, right Abnormal mammogram of right breast Breast mass, right History of diverticulitis Family history of ovarian cancer Colon cancer screening Diabetes Lipoma Sleep apnea Herpes simplex virus (HSV) infection of vagina Chronic fatigue syndrome History of Vivek-Arellano virus infection Hx of ectopic Obesity Fibromyalgia Beta thalassemia trait H/O deep vein thrombosis during Mild hypercholesterolemia Microadenoma Iron deficiency Diverticular disease Asthma Diabetes mellitus Thalassemia Anemia Surgical History Hx of surgical procedure (~04/06/24) History of lumpectomy of right breast (~02/20/24) History of right knee surgery History of hand surgery History of surgery H/O sinus surgery Hx of laparoscopic gastric banding H/O: hysterectomy Family History Mother Thalassemia trait Stroke Maternal Aunt Thalassemia trait Maternal Uncle Thalassemia trait Father Heart problem Brother Heart problem Brother No problems noted. 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 Reproductive History Menstrual Age of Menarche: 12 Physical Exam Vital Signs: Last Vital Signs Pulse 85 09/11/24 15:39 BP 106/60 09/11/24 15:39 Pulse Ox 97 09/11/24 15:39 Oxygen Delivery Method Room Air 09/11/24 15:39 BMI result Body Mass Index 38.3 Results Reviewed Results Reviewed: Laboratory Last Values Glucose (Clinic) 210 mg/dL (60-115) H 09/11/24 15:43 Laboratory Tests 03/06/24 09/04/24 09/11/24 08:29 16:56 08:51 Creatinine 0.79 Estimated GFR > 60 Hemoglobin A1c % 9.7 H AST 23 ALT 38 H TSH 0.98 Urine Creatinine 343.68 Urine Microalbumin 22.0 Microalb/Creat Ratio 6.4 Assessment & Plan Assessment & Plan (1) Diabetes mellitus: Code(s): E11.9 - Type 2 diabetes mellitus without complications Category: Medical Qualifiers: Diabetes mellitus type: type 2 Diabetes mellitus prison insulin use: with prison use Diabetes mellitus complication status: without complication Qualified Code(s): E11.9 - Type 2 diabetes mellitus without complications; Z79.4 - medical terminologist (current) use of insulin Plan: In summary this is a 63-year-old female with poorly controlled type 2 diabetes with no known complications. Change Lantus 56 units every evening to Toujeo 60 units every evening. This is medically necessary as her A1c has increased despite titrating the dose of Lantus. Denies contraindications to GLP 1. Start Ozempic 0.25 mg once weekly. Monitor closely for side effects including GI symptoms and discontinue if you have significant side effects and contact the office. Continue Januvia 100 mg daily She will start administering Humalog before meals and adjust the sliding scale starting range to decrease risk of hypoglycemia. Sliding scale for Humalog <100 0 units 100-150 20 units 151-200 22 units 201-250 26 units >250 28 units If her sensor alerts her to an acute low blood sugar and she is asymptomatic she will confirm it with a fingerstick glucose. She will call the office if she is having low blood sugars. If you experience low blood sugar (under 70), treat this by eating a chewable fruit candy like skittles or jelly beans (about 8 pieces), 4 ounces (1/2 cup) of fruit juice (not diet), 1 tablespoon of honey or 4 glucose tablets. If your blood sugar is under 55, take double the amount of one of the above. Recheck your blood sugar in 15 minutes. Plan Follow up in 1 month for type 2 diabetes. Medications: New semaglutide (Ozempic) for 4 weeks 0.25 mg (0.368 mL) subcut QWEEK 3 mL 1RF insulin glargine U-300 conc (Toujeo Max U-300 SoloStar) 60 units (0.2 mL) subcut BEDTIME 6 mL 5RF Discontinued insulin glargine (Lantus U-100 Insulin) Discontinued Reason: Doctor's Order 56 units (0.56 mL) subcut QPM 90 days 52 mL 3RF Patient Instructions: Change Lantus 56 units every evening to Toujeo 60 units every evening Start Ozempic 0.25 mg once weekly Continue Januvia 100 mg daily Administer Humalog 15 minutes before meal Sliding scale for Humalog <100 0 units 100-150 20 units 151-200 22 units 201-250 26 units 251-300 28 units over 300 28 units If you experience low blood sugar (under 70), treat this by eating a chewable fruit candy like skittles or jelly beans (about 8 pieces), 4 ounces (1/2 cup) of fruit juice (not diet), 1 tablespoon of honey or 4 glucose tablets. If your blood sugar is under 55, take double the amount of one of the above. Recheck your blood sugar in 15 minutes. Coding Level of Care Code Est Pt Level 4 (93249) Complex EM visit Add On G2211 Diagnoses Type 2 diabetes mellitus without complication, with long-term current use of insulin E11.9; Z79.4 Diabetes mellitus type: type 2 Diabetes mellitus prison insulin use: with exterminator helper use Diabetes mellitus complication status: without complication
[2024-09-11 15:46] LABS: Glucose, Whole Blood 210 mg/dL (60-115)
--- OUTSIDE RECORDS SUMMARY | 2024-09-11 16:01 | XMS_ITS | Patient Health Record ---
Author Organization [facility] Address [address] [place] [address] Care Team Providers Care Teaching Associate Name Role Phone Frances Cutler Primary Care Provider Unavailab Surya Palacio Unavailable [phone] Nikole Bernard Unavailable Unavailable Allergies Allergen (clinical [...] Problem Status W/U Status Risk Notes Problem 884276112 Abnormal results of liver function studies (R94.5) Active confirmed Problem 772794428 Elevated liver function tests (R94.5) Active confirmed [...] VALERIE [address] [place] [address] [id number] MANUEL WALDROP Self - patient is the insured [employer] [address] [place] [address] [id number] MANUEL WALDROP Self - patient is the insured Medical (General) History Medical History History ICD Code Beta-thalassemia trait, followed by Dr. Bernard Blood clots in LE's during , tr eated with Lovenox Fibromyalgia PUD in her 20's Asthma DM Pituitary tumor by her report Denies hx of [place], CVA,and renal disease Negative colonoscopy 2010 with me and [address] Regan Hypertension Sigmoid diverticulitis-sees Dr. 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
--- OUTSIDE RECORDS SUMMARY | 2024-09-11 16:01 | XMS_ITS | Data Portability ---
Author Organization [facility], [address] Address [address] [place] [address] Care Team Providers Care Arboriculture Instructor Name Role Phone ADAIREFRAADASHELLEY Primary Care Provider [phone] Assessment No assessment recorded. Plan of Treatment Reminders Order Date Submit Date Provider Last Modified By Organization Details Last Modified Time Details Appointments None recorded. Lab None recorded. Referral None recorded. Procedures None recorded. Surgeries None recorded. Imaging None recorded. Medication Orders prednisone 10 mg tablet 2022 023 [id number], [address] [place], [place], [phone], 10:47:16 loratadine 10 mg tablet 2022 023 [id number], [address] [place], [place], [phone], 10:47:12 Patient TargetsNo targets recorded. Patient Instructions Encounter Date Encounter Id Patient Instructions Last Modified By Organization Details Last Modified Time 05/28/2022 [id number] eustachian tube problems: care instructions [email or web address] Not available 05/28/2022 10:47:01 Based on your physical exam and presentation, you are being diagnosed with Eustachian Tube Dysfunction. This occurs when fluid/mucous or swelling closes off the tubes that help the ears equalize the pressure. The following are my recommendations to help with these symptoms and get this condition to resolve: 1. Saline Nasal Bertrand 2. Antihistamines like Claritin, Zyrtec, Hillary, or [...] be placed temporarily. Thank you for using [facility], if you have any questions or concerns please do not hesitate to call or reach out to us. [email or web address] Not available 05/28/2022 10:46:50 Reason for Referral None Reported. 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 KIM DEPINTO null, PA - [facility] 3 10:08:55 Asthma 748531881 Active 2022 KIM DEPINTO null, PA - [facility] 3 10:09:04 Beta thalassemia 07181674 Active 2022 KIM DEPINTO null, [place] - [facility] 3 10:09:17 Hypercholester olemia 96536307 Active 2022 KIM DEPINTO null, PA - [...] Name and Address Organization Details Recorded Time 981638 Product containin g penicilli n (product) medicatio n anaphylax is Not available Not available 05/28/2022 60482 8001 SNOMED KIM DEPINTO null, PA - [facility] 3 10:05:09 786976 iodine medicatio n hives Not available Not available 05/28/2022 5933 RxNorm KIM DEPINTO null, PA - [facility] 3 10:05:44 377229 albuterol medicatio n palpitati ons Not available Not available 05/28/2022 435 RxNorm KIM DEPINTO null, PA - [facility] 3 10:06:01 479638 clindamyc in Not available hives Not available Not available 05/28/2022 2582 RxNorm KIM DEPINTO null, PA - [facility] 3 10:06:15 507191 Savella medicatio n hives Not available Not available 05/28/2022 29337 6 RxNorm KIM DEPINTO null, PA - [facility] 3 10:06:47 631963 shellfish derived food,medi cation anaphylax is Not available Not available 05/28/2022 34453 UNK KIM DEPINTO null, [facility] - [facility] [...] blood by Pulse oximetry Heart rate Systolic And Diastolic Provider Name and Address Organization Details Last Updated DateTime 3 26711.4 7 g 36.6 kg/m2 157.48 cm 18 /min 97.5 [degF] 97 % 97 % 85 /min 117/82 mm[Hg] KIM GOMEZ PA - [facility] 10:12:58 Social History Question Answer Notes LastModified by [place] Details LastModified Time Tobacco Smoking Status Never Smoker KIM diaz PA - [facility] 05/28/2022 10:10:10 Have You Recently Traveled Abroad? No Information not available 05/28/2022 Sex: Unknown Functional Status Question Answer Note LastModified by [place] Details LastModified Time Do you use any illicit or recreational drugs? No Information not available 05/28/2022 Do you or have you ever used any other forms of tobacco or nicotine? No Information not available 05/28/2022 What is your level of alcohol consumption? None Information not available 05/28/2022 Mental Status None recorded. Family History Relationship [...] Influenza, MDCK, quadrivalent, PF 02/06/2021 completed KIMCherelle KAPLANINTO joe [facility] - [facility] [...] SNOMED-CT Code Diagnosis ICD10 Code Diagnosis Note [id number] [address] [place] [address] 08/24/2021 10:52:46 08/24/2021 14:14:12 [id number] [address] [place] [address] 10/07/2019 12:59:32 10/07/2019 13:36:45 [id number] [address] [place] [address] 10/04/2020 08:12:05 10/04/2020 08:37:59 [id number] [address] [place] [address] 07/04/2021 18:40:37 07/04/2021 20:20:24 [id number] [address] [place] [address] 06/13/2020 15:34:37 06/13/2020 16:55:09 [id number] [address] [place] [address] 12/27/2020 08:24:44 12/27/2020 10:17:27 [id number] [address] [place] [address] 09/03/2018 13:00:08 09/03/2018 14:35:12 [id number] [address] [place] [address] 05/20/2021 08:29:49 05/20/2021 09:29:51 [id number] [address] [place] [address] 09/28/2020 08:30:23 09/28/2020 09:37:27 [id number] [facility] [address] [place] [address] 05/28/2022 08:25:13 05/28/2022 10:47:43 Dysfunction of left eustachian tube [id number] 748577 H69.92 Stop the Afrin Health Concerns Section Related Observation LastModified by Organization Detai ls LastModified Time None Recorded Concern Status LastModified by Organization Details LastModified Time None Recorded Advance Directives Directive None Recorded Payers Insurance Date Sequence Insurance Name Policy Number Policy Mei Covered Member ID Mei Member ID Guarantor Name 06/16/2022 2 FOR LIFE ( - MEDICARE SUPPLEMENT) Maryjo Jefferson 05/28/2022 1 MEDICARE B-[place]: [facility] Maryjo Jefferson [id number] Maryjo Jefferson 05/28/2022 2 FOR LIFE ( - MEDICARE SUPPLEMENT) Tim Jefferson [id number] Maryjo Jefferson Notes Date Note Type Note [...] driving her crazy. [facility] [address] [place], [address], [place] - [facility] 05/28/2022 10:50:17 OBGyn Episode No OBEpisode recorded.
== END 2024-09-11 16:14 | disposition home or self-care (01) ==
LOC: HO.ENCR 15:38
PROVIDERS: PCP Internal Medicine; Visit Provider Physician Assistant Medical
DX: E11.9 Type 2 diabetes mellitus without complications (principal); Z79.4 Long term (current) use of insulin

== ENCOUNTER → 2024-09-11 15:37 | Outpatient (BNVA) | payer MEDICARE, OTHER, SELFPAY | PROVIDERS: PCP Internal Medicine; Visit Provider Physician Assistant Medical | DX: E11.65 Type 2 diabetes mellitus with hyperglycemia (principal); Z79.4 Long term (current) use of insulin; Z79.85 Long-term (current) use of injectable non-insulin antidiabetic drugs | CPT/HCPCS: 82947; 99212 ==

== ENCOUNTER 2024-10-01 07:30 | Outpatient (RCR) | payer MEDICARE, OTHER, SELFPAY ==
[2024-09-28 08:12] VITALS: BP 137/77; PULSE 84; RESP 16; TEMP 36.3; O2SAT 97
[2024-10-01 07:37] VITALS: BP 138/79; PULSE 81; RESP 16; TEMP 36.7; O2SAT 98
== END 2024-10-01 09:02 | disposition home or self-care (01) ==
LOC: HO.INF 07:30
PROVIDERS: Visit Provider Internal Medicine Medical Oncology
DX: D64.9 Anemia, unspecified (principal)
CPT/HCPCS: 96365; J1439

== ENCOUNTER 2024-10-16 15:51 | Outpatient (AMB) | payer MEDICARE, OTHER, SELFPAY ==
[2024-10-16 15:54] VITALS: BP 122/78; PULSE 84; O2SAT 96; BMI 38.3
--- NOTE | 2024-10-16 15:54 | A.OFFVIS_ITS ---
Vital Signs 10/16/24 15:54 Height 5 ft 2 in Weight 209 lb 7.026 oz BMI 38.3 BP 122/78 Blood Pressure Location Rt brachial Position Sitting Pulse 84 Pulse Source Pulse Oximeter Pulse Oximetry (%) 96 Oxygen Delivery Method Room Air Intake Visit Reasons: T2DM Intake Note: Patient present today to follow up on Type 2 Diabetes Mellitus. Last Diabetic Eye exam: Patient is unable to recall date of last eye examination within the past year [facility] Last Podiatry Visit: Does not see a Environmental Services Coordinator Random Glucose: 210 mg/dL Most Recent HgA1C: 9.7% 09/04/2024 Brand Marketing Coordinator Required: No Accompanied by: Self / Same As Patient Allergies iodine (IODINE) Allergy (Severe, Verified 10/16/24 15:55) ANAPHYLAXIS Penicillins (PENICILLINS) Allergy (Severe, Verified 10/16/24 15:55) BREATHING PROBLEM shellfish derived Allergy (Severe, Verified 10/16/24 15:55) ANAPHYLAXIS clindamycin (CLINDAMYCIN) Allergy (Intermediate, Verified 10/16/24 15:55) HIVES milnacipran (From SAVELLA) Allergy (Intermediate, Verified 10/16/24 15:55) BRUISE vancomycin (VANCOMYCIN) Allergy (Intermediate, Verified 10/16/24 15:55) HIVES; ITCHING metformin Allergy (Unknown, Verified 10/16/24 15:55) diarrhea albuterol (ALBUTEROL) Adverse Reaction (Intermediate, Verified 10/16/24 15:55) HEART RACES metformin Adverse Reaction (Uncoded 10/16/24 15:55) Stomach Upset Medication List - Last Reconciled 10/16/24 by KYUNG Valderrama acetone (urine) test (Ketone Urine Test strips) As directed allopurinol 100 mg PO DAILY 90 days blood sugar diagnostic As directed cetirizine 10 mg PO DAILY cholecalciferol (vitamin D3) (Vitamin D3) 125 mcg PO DAILY cyanocobalamin (vitamin B-12) 1,000 mcg sublingual DAILY dulaglutide (Trulicity) 1.5 mg (0.5 mL) subcut QWEEK folic acid 1 mg PO DAILY ibuprofen 400 mg PO Q8H PRN inhalational spacing device (Aerochamber Plus Z Stat spacer) As directed insulin glargine (Lantus Solostar U-100 Insulin) 60 units subcut BEDTIME insulin lispro subcutaneously 3 times a day before meals <100 0 units 100-150 20 units 151-200 22 units 201-250 26 units 251-300-28 units 301-350- 30 units 351- 400 32 units >400 34 units letrozole 2.5 mg PO DAILY levalbuterol HCl 0.63 mg inhalation Q OTHER DAY levalbuterol tartrate 45 mcg/actuation 45 mcg inhalation Q4-6H PRN lorazepam 0.5 mg PO DAILY PRN losartan 100 mg PO DAILY montelukast 10 mg PO DAILY prednisone 50 mg PO BID rosuvastatin 20 mg PO BEDTIME silver sulfadiazine 1% (SSD) 1 appl topical ONCE sitagliptin phosphate (Januvia) 100 mg PO DAILY 30 days walker Folding Front wheeled walker HPI Comments Details: This is a 63-year-old female with a past medical history of a pituitary tumor, hypertension, asthma, obesity, right breast cancer, thalassemia and anemia and obesity presenting for diabetic management. She is currently being treated for breast cancer with letrozole. She has to have a CAT scan with contrast tomorrow to rule out metastasis because her lymph nodes were swollen a couple of months ago, and she has continued neck pain. She has an allergy so she is being treated with prednisone and Benadryl prophylactically starting tonight. She was initially diagnosed with type 2 diabetes in 2019. She had gestational diabetes at age [age] years old. Her parents had type 2 diabetes. Hemoglobin A1c 9.7% 09/04/2024. Current medication regimen: Lantus 60 units (Toujeo not covered unless pt is on 80 units of insulin). She is only taking 56 units of Lantus. Trulicity 0.75 mg. Denies side effects. Januvia 100 mg daily Sliding scale for Humalog <100 0 units 100-150 20 units 151-200 22 units 201-250 26 units >250 28 units Compliance issues: She is still forgetting to take Lantus sometimes in the evening. She attributes this to fatigue at night. I reviewed her CGM data for the past 14 days CGM active 94% Average glucose 243 G AZ 9.1% Glucose variability 23.6% Very high 43% High 43% Target range 14% Low 0% Past medications: Metformin discontinued due to stomach pain. Jardiance discontinued due to recurrent yeast infections She was tolerating Mounjaro but developed abdominal pain once it was increased, and she had persistent symptoms despite lowering the dosage. Previously on Bydureon, but her insurance stopped covering it. She tolerated it. No known diabetic complications. Denies hypoglycemia events since her last visit. ROS: Constitutional: No unexplained weight loss, fever, chills, fatigue or night sweats. Respiratory: No shortness of breath Cardiovascular: No chest pain Gastrointestinal: No anorexia, nausea, vomiting or diarrhea. No abdominal pain Neurologic: No headache, dizziness, syncope Endocrine: No cold or heat intolerance. No polyuria or polydipsia. Physical exam: Constitutional: Alert, in no distress. Neck: Supple, Full range of motion. No lymphadenopathy. No palpable thyroid masses. Respiratory: Clear to auscultation. Cardiovascular: S1 S2 regular. No murmurs. Extremities: Warm and well perfused. No clubbing, cyanosis or edema. Psychiatric: Normal mood and affect [facility] Medical History Pituitary tumor Fatty liver Breast cancer, right Abnormal mammogram of right breast Breast mass, right History of diverticulitis Family history of ovarian cancer Colon cancer screening Diabetes Lipoma Sleep apnea Herpes simplex virus (HSV) infection of vagina Chronic fatigue syndrome History of Vivek-Arellano virus infection Hx of ectopic Obesity Fibromyalgia Beta thalassemia trait H/O deep vein thrombosis during Mild hypercholesterolemia Microadenoma Iron deficiency Diverticular disease Asthma Diabetes mellitus Thalassemia Anemia Surgical History Hx of surgical procedure (~04/06/24) History of lumpectomy of right breast (~02/20/24) History of right knee surgery History of hand surgery History of surgery H/O sinus surgery Hx of laparoscopic gastric banding H/O: hysterectomy Family History Mother Thalassemia trait Stroke Maternal Aunt Thalassemia trait Maternal Uncle Thalassemia trait Father Heart problem Brother Heart problem Brother No problems noted. Brother Multiple sclerosis Asthma Son Multiple sclerosis Asthma Son Asthma Daughter Asthma Daughter Allergies Asthma Paternal Aunt Breast cancer Other Bladder cancer Lung cancer Social History Household Members: Spouse, Children and Foster Family Are you a primary physician assistant primary care to a significant other at home: No Do you presently have visiting nurse or other home services: No Alcohol intake: current Alcohol intake frequency: holidays/special occasions only Patient Tobacco Use Status: Never used Tobacco Second Hand Smoke Exposure: No service: Yes Current occupational status: employed and disabled 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 Reproductive History Menstrual Age of Menarche: 12 Physical Exam Vital Signs: Last Vital Signs Pulse 84 10/16/24 15:54 BP 122/78 10/16/24 15:54 Pulse Ox 96 10/16/24 15:54 Oxygen Delivery Method Room Air 10/16/24 15:54 BMI result Body Mass Index 38.3 Office Procedures Glucose Monitoring Details Details: see [facility] 00583 - Glucose monitoring, continuous-physician I&R Procedure code (CPT) selection complete Results Reviewed Results Reviewed: Laboratory Last Values Glucose (Clinic) 210 mg/dL (60-115) H 10/16/24 16:01 Laboratory Tests 03/06/24 09/04/24 09/11/24 08:29 16:56 08:51 Creatinine 0.79 Estimated GFR > 60 Hemoglobin A1c % 9.7 H AST 23 ALT 38 H TSH 0.98 Urine Creatinine 343.68 Urine Microalbumin 22.0 Microalb/Creat Ratio 6.4 Assessment & Plan Assessment & Plan (1) Diabetes mellitus: Code(s): E11.9 - Type 2 diabetes mellitus without complications Category: Medical Qualifiers: Diabetes mellitus type: type 2 Diabetes mellitus remote computer terminal operator insulin use: with remote computer terminal operator use Diabetes mellitus complication status: without complication Qualified Code(s): E11.9 - Type 2 diabetes mellitus without complications; Z79.4 - nursing home (current) use of insulin Plan: In summary this is a 63-year-old female with poorly controlled type 2 diabetes with no known complications. Continue Januvia 100 mg daily but switch dose to morning since she does not always remember to take it at night. Increase Lantus to 60 units daily. She can change this to dosing in the umesh samuel, but she will defer this change until next week because she is starting the prednisone prophylactic regimen for her CAT scan. and I do not want her missing the dose tonight. Increase Trulicity to 1.5 mg weekly Adjust sliding scale for Humalog: <100 0 units 100-150 20 units 151-200 22 units 201-250 26 units 251-300-28 units 301-350- 30 units 351-400 32 units >400 34 units Reviewed treatment of low blood sugar. She has written instructions. I will also provide her with urine ketone strips and reviewed the instructions for use with her today. I advised her to contact the office if she has blood sugars over 400 with prednisone. Plan Follow up in 1 month for type 2 diabetes. Orders: Orders AMB Glucose Monitoring Today E11.9 - Type 2 diabetes mellitus without complications Medications: New dulaglutide (Trulicity) 1.5 mg (0.5 mL) subcut QWEEK 2 mL 0RF acetone (urine) test (Ketone Urine Test strips) As directed 100 ea 0RF Discontinued dulaglutide (Trulicity) Discontinued Reason: Doctor's Order 0.75 mg (0.5 mL) subcut QWEEK 2 mL 0RF Patient Instructions: Continue Januvia 100 mg daily but switch dose to morning Increase Lantus to 60 units daily Increase Trulicity to 1.5 mg weekly Sliding scale for Humalog: <100 0 units 100-150 20 units 151-200 22 units 201-250 26 units 251-300-28 units 301-350- 30 units 351-400 32 units >400 34 units Diabetic ketoacidosis (DKA) A serious condition that can lead to diabetic coma (passing out for a long time) or even When your cells don't get the glucose they need for energy, your body begins to burn fat for energy, which produces ketones. Ketones are chemicals that the body creates when it breaks down fat to use for energy. The body does this when it doesn?t have enough insulin to use glucose, the body?s normal source of energy. When ketones build up in the blood, they make it more acidic. They are a warning sign that your diabetes is out of control or that you are getting sick. Symptoms of Diabetic Ketoacidosis (DKA) DKA usually develops slowly. But when vomiting occurs, this life-threatening condition can develop in a few hours. Early symptoms include the following: ? Thirst or a very dry mouth ? Frequent urination ? High blood glucose (blood sugar) levels ? High levels of ketones in the urine Then, other symptoms appear: ? Constantly feeling tired ? Dry or flushed skin ? Nausea, vomiting, or abdominal pain ? (Vomiting can be caused by many illnesses, not just ketoacidosis. If vomiting continues for more than 2 hours, contact your health care provider.) ? Difficulty breathing ? Fruity odor on breath ? A hard time paying attention, or confusion When should you test for ketones? It is advisable to check for ketones under the following conditions when: Your blood glucose is higher than 250mg/dl. Feeling nauseated, throwing up, or have pains in your abdominal region. Have a cold or flu. Have general body fatigue. Feel thirsty or have a very dry mouth. Have flushed skin. Have a fruity breath or a hard time breathing. You feel confused or in fog. Negative, trace or light ketones: hydrate, bring sugars down with insulin You should go to the ER if you have moderate or large ketones. Coding Level of Care Code Est Pt Level 4 (16924) Diagnoses Type 2 diabetes mellitus without complication, with long-term current use of insulin E11.9; Z79.4 Diabetes mellitus type: type 2 Diabetes mellitus remote computer terminal operator insulin use: with senior care use Diabetes mellitus complication status: without complication CPT Codes Details - CPT: 76708 - Glucose monitoring, continuous-physician I&R ([id number])
[2024-10-16 16:06] LABS: Glucose, Whole Blood 210 mg/dL (60-115)
--- OUTSIDE RECORDS SUMMARY | 2024-10-16 16:29 | XMS_ITS | Clinical Summary ---
Author Organization [facility] Address [address] [address] Phone Care Team Providers Care Plastics Bench Mechanic Name Role Phone Frances Cutler MD Primary Care Provider Allergies Active Allergy Reactions Criticality Noted Date Comments Albuterol Palpitations Low 06/29/2020 Clindamycin Hives 07/10/2012 Iodinated Contrast Media 07/10/2012 UNSPECIFIED Contrast Media - [facility]HS Allergy Remediation Iodine Anaphylaxis High 03/23/2024 Milnacipran Unknown 07/10/2012 Penicillins Hives 07/10/2012 Povidone-Iodine 03/23/2024 Shellfish Containing Products Anaphylaxis High 01/30/2019 Vancomycin Hcl Rash Low 01/30/2019 Medications letrozole (FEMARA) 2.5 mg tablet Take 1 tablet by mouth every morning. 5 Active VITAMIN D3 125 mcg (5,000 unit) tablet Take 1 tablet by mouth every morning. 5 Active levalbuterol (XOPENEX) 0.63 mg/3 mL nebulizer solution USE 1 VIAL BY NEBULIZER BID PRF SOB Active lisinopril (PRINIVIL,ZESTRI L) 30 MG tablet 4 Active rosuvastatin (CRESTOR) 20 MG tablet 4 Active JANUVIA 100 mg tablet 4 Active FREESTYLE NAINA 3 PLUS SENSOR Rosanna CHECK SUGARS CONTINUOUSLY 4 Active insulin lispro (ADMELOG, HUMALOG) 100 unit/mL injection vial Inject under the skin 3 (three) times a day before meals. Active insulin glargine (LANTUS) 100 unit/mL injection vial Inject under the skin nightly at bedtime. U 100 Active allopurinol (ZYLOPRIM) 100 MG tablet Take 1 tablet by mouth every morning. 5 Active cetirizine (ZYRTEC) 10 MG tablet Take 1 tablet by mouth every morning. 5 Active fluticasone propionate (FLONASE) 50 mcg/actuation nasal spray 1 spray by Nasal route daily. Active silver sulfADIAZINE (SILVADENE) 1 % cream Apply topically 2 (two) times a day. 400 g 5 Active Active Problems Problem Noted Date Diagnosed Date Malignant neoplasm of lower- outer quadrant of right breast of female, estrogen receptor positive 05/09/2024 Diabetes mellitus 10/12/2013 Overview (04/27/2014): Diabetes mellitus Shoulder pain 10/12/2013 Overview (04/27/2014): Shoulder pain Uncoded R/O Thoracic outlet syndrome 11/27/2012 Overview (04/27/2014): R/O Thoracic outlet syndrome; Left Encounters Date Type Department Care Team Description 07/19/2024 Documentation [facility] [place] [facility] Rad Onc [address] [place] [address] Kristine Carroll MD from Last 3 Months Family History Medical History Relation Comments Cancer Brother lung Coronary artery disease Father Coronary Artery Disease Breast cancer Maternal Aunt 1 Breast cancer Maternal Aunt 2 Coronary artery disease Mother Coronary Artery Disease Ovarian cancer Paternal Aunt Relation Status Comments Brother Father Maternal Aunt 1 Maternal Aunt 2 Alive Mother Paternal Aunt Social History Tobacco Use Types Packs/Day Years Used Date Smoking Tobacco: Never Tobacco Cessation:Counseling Given: Not Answered Alcohol Use Standard Drinks/Week Comments Not Currently 0 (1 standard drink = 0.6 oz pur e alcohol) Education Answer Date Recorded Are you interested in more education? Not on tri e 03/13/2024 Are you concerned about learning? Not on file 03/13/2024 No 03/13/2024 No 03/13/2024 Digital Access Answer Date Recorded No 03/13/2024 No 03/13/2024 Reliable internet access at home? Not on file 03/13/2024 Device with a working camera? Not on file Comments Unknown Sex and Gender Information Value Date Recorded Sex Assigned at Not on file Legal Sex Female 7:19 PM EST Gender Identity Not on file Sexual Orientation Not on file Last Filed Vital Signs Vital Sign Reading Time Taken Comments Blood Pressure 112/75 05/31/2024 9:52 AM EDT Pulse 72 05/31/2024 9:52 AM EDT Temperature 36.5 C (97.7 F) 05/31/2024 9:52 AM EDT Respiratory Rate 16 03/23/2024 12:5 7 PM EST Oxygen Saturation 98% 05/31/2024 9:52 AM EDT Inhaled Oxygen Concentration - - Weight 95.2 kg (209 lb 12.8 oz) 05/31/2024 9:52 AM EDT Height 157.5 cm (5' 2 ) 03/23/2024 12:5 7 PM EST Body Mass Index 38.37 03/23/2024 12:57 PM EST Plan of Treatment Upcoming Encounters Date Type Department Care Team (Late st Contact Info) Description 12/27/2024 10:00 AM EDT Office Visit [facility] [place] [facility] Rad Onc [address] [place] [id number] Kristine Carroll MD [address] [place] [id number] [email or web address] Health Maintenance Due Date Last Done Comments Adult Td,Tdap Booster 1962 DEPRESSION SCREENING 1974 HEPATITIS C SCREENING 1980 HIV ONE-TIME SCREENING (18-6 5 YEARS) 1980 PNEUMOCOCCAL VACCINES (50+ years) (1 of 2 - PCV) 1981 ZOSTER VACCINES (1 of 2) 1981 PAP SMEAR 11/17/1983 MAMMOGRAM 2002 COLOGUARD 11/17/2007 COLONOSCOPY 11/17/2007 COLORECTAL CANCER SCREENING 11/17/2007 FIT TEST 11/17/2007 FOBT 11/17/2007 SIGMOIDOSCOPY 11/17/2007 VIRTUAL COLONOSCOPY 11/17/2007 HEMOGLOBIN A1C 04/14/2014 10/12/2013, 07/03/2012 CREATININE LEVEL 10/12/2014 10/12/2013, 07/03/2012, 07/03/2012 POTASSIUM LEVEL 10/12/2014 10/12/2013, 07/03/2012 RSV VACCINE (1 - Risk 60-74 years 1-dose series) 2022 COVID-19 VACCINE (1 - 2023-2 5 season) 2023 DIABETIC EYE EXAM 03/13/2024 BLOOD PRESSURE 09/20/2024 03/23/2024 SMOKING STATUS SCREENING (On ce After 26 Yrs) Completed 03/23/2024 HEPATITIS A VACCINES Aged Out No long er eligible based on patient's age to complete this topic HIB VACCINES Aged Out No longer eligi ble based on patient's age to complete this topic MENINGOCOCCAL VACCINES (ACWY) Aged Out No longer eligible based on patient's age to complete this topic MENINGOCOCCAL VACCINES (B) Aged Out N o longer eligible based on patient's age to complete this topic Medical Devices Not on file Procedures Procedure Name Priority Date/Time Associated Diagnosis Comments HISTORICAL LAB Routine 10/12/2013 1:55 PM EDT from Last 3 Months or Most Recently Relevant to Health Maintenance Results * (ABNORMAL) Historical Lab (10/12/2013 1:55 PM EDT) Hemoglobin A1C 6.9(Abnor antonio H) 4.3 - 6.4 % [facility] Plasma Sodium 140 135 - 145 mmol/L [facility] Plasma Potassium 3.7 3.4 - 4.8 mmol/L [facility] Plasma Chloride 102 100 - 108 mmol/L [facility] Plasma Carbon Dioxide 25.4 23.0 - 31.9 mmol/L [facility] Plasma Urea Nitrogen 9 8 - 25 mg/dl [facility] Plasma Creatinine 0.71 0.60 - 1.50 mg/dl [facility] Plasma Glucose 89 70 - 110 mg/dl [facility] Calcium 9.3 8.5 - 10.5 mg/dl [facility] eGFR >60 mL/min/1. 73m2 [facility] Comment: Abnormal if <60 mL/min/1.73m2. If patient is -Iraqi, multiply the result by 1.21. Plasma Anion GAP 13 3 - 15 mmol/L [facility] Calc Mean Bld Glucose 151 mg% [facility] Comment: There is no established normal range for the CMBG (Calculated Mean Blood Glucose). A hemoglobin A1c < 7% is the recommended target for most people with diabetes. The CMBG for an A1c of 7% is 154 mg%. The diagnostic hemoglobin A1c level for diabetes is greater than or equal to 6.5% which is a CMBG greater than or equal to 140 mg%. Creatine Kinase 103 40 - 150 U/L [facility] Prolactin 17.0 0.1 - 23.3 ng/ml [facility] T1-TSH 1.22 0.40 - 5.00 uU/ml [facility] 10/12/2013 1:55 PM EDT 10/12/2013 7:19 PM EDT Comment:BLOOD us Gino Horton MD LAB BLOOD ORDERABLES Final Res ult [address] [address] from Last 3 Months or Most Recently Relevant to Health Maintenance Insurance MEDICARE PART A & B [employer] MEDICARE SUPPLEMENT MEDICARE PART A & B MEDICARE SUPPLEMENT MEDICARE PART A & B Member Subscriber Plan / Payer (Ef fective 2020-Present) Name:Ronny Maryjo Member ID:[id number] Relation to Subscriber:Self Name:Ronny Maryjo Subscriber ID:[id number] Payer ID:[id number] Group ID:Not on file Type:Medicare Address: [employer] [address] MEDICARE PART A & B MEDICARE PART A & B [facility] MEDICARE SUPPLEMENT MEDICARE PART A & B FOR LIFE MEDICARE SUPPLEMENT MEDICARE PART A & B FOR LIFE MEDICARE SUPPLEMENT MEDICARE PART A & B MEDICARE PART A & B FOR LIFE MEDICARE SUPPLEMENT Care Teams Plastics Bench Mechanic Relationship Specialty Start Date End Date Frances Cutler MD [address] [place] [address] [place] [address] PCP - General 09/04/13 Additional Source Comments The information contained in this document represents components of the legal health record. It is not the complete legal health record.[facility]
--- OUTSIDE RECORDS SUMMARY | 2024-10-16 16:29 | XMS_ITS | Patient Health Record ---
Author Organization [facility] Address [address] [place] [address] Care Team Providers Care Senior Financial Consultant Name Role Phone Frances Cutler Primary Care Provider Unavailab Surya Palacio Unavailable [phone] Nikole Bernard Unavailable Unavailable Allergies Allergen (clinical drug ingredient) Drug/Non Drug Allergy documented on EMR Reaction Allergy Type Onset Date Status vancomycin Vancomycin HCl Unknown Drug Allergy A ctive Iodine Unknown Drug Allergy Active albuterol Albuterol sensitivity Drug Allergy Activ e Shellfish (FN) shell fish (uncoded) Unknown Allergy Active Penicillin Unknown Drug Allergy Active milnacipran Savella Unknown Drug Allergy Activ e Reason For Referral No Information Medications Medication [...] Problem Status W/U Status Risk Notes Problem [id number] Abnormal results of liver function studies (R94.5) Active confirmed Problem [id number] Elevated liver function tests (R94.5) Active confirmed [...] VALERIE [address] [place] [address] [id number] MANUEL WALDROP Self - patient is the insured [email or web address] [address] [place] [address] [id number] MANUEL WALDROP Self - patient is the insured Medical (General) History Medical History History ICD Code Beta-thalassemia trait, followed by Dr. Bernard Blood clots in LE's during , tr eated with Lovenox Fibromyalgia PUD in her 20's Asthma DM Pituitary tumor by her report Denies hx of [place], CVA,and renal disease Negative colonoscopy 2010 with me and [address] Regan Hypertension Sigmoid diverticulitis-sees Dr. 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
== END 2024-10-16 16:30 | disposition home or self-care (01) ==
LOC: HO.ENCR 15:52
PROVIDERS: PCP Internal Medicine; Visit Provider Physician Assistant Medical
DX: E11.9 Type 2 diabetes mellitus without complications (principal); Z79.4 Long term (current) use of insulin

== ENCOUNTER → 2024-10-16 15:51 | Outpatient (BNVA) | payer MEDICARE, OTHER, SELFPAY | PROVIDERS: PCP Internal Medicine; Visit Provider Physician Assistant Medical | DX: E11.9 Type 2 diabetes mellitus without complications (principal); Z79.4 Long term (current) use of insulin | CPT/HCPCS: 82947; 99212 ==

== ENCOUNTER 2024-10-17 15:18 | Outpatient (REF) | payer MEDICARE, OTHER, SELFPAY ==
--- NOTE | ~2024-10-17 | CT_ITS ---
CLINICAL HISTORY: Follow Up on supraclavicular adenopathy CT chest with contrast Comparison: CT/SR - CT SOFT TISSUE NECK W IV CON - 10/17/24 15:[address]/SR - CT SOFT TISSUE NECK WO IV CON - 07/12/24 21:50 EDT US/ND/SR - US UPPER EXTREMITY VEINS LIMITED FOLLOW UP LEFT - 05/02/24 10:30 EST US/SR - US BREAST LIMITED RIGHT - 01/12/24 12:06 EST US/SR - US UPPER EXTREMITY VEINS LIMITED FOLLOW UP LEFT - 01/06/24 18:18 EDT US/SR - US BREAST LIMITED RIGHT - 07/26/23 15:34 EDT Findings: The heart is normal size. Small hiatal hernia. Previously noted abnormally rounded right supraclavicular lymph nodes have resolved. Indeterminate possible mass in the lower inner quadrant of the right breast measuring 4.1 x 2.8 cm. There is overlying skin thickening and retraction (series 6, image 36). There is central hypoattenuation which may be due to fluid or necrosis. There is soft tissue thickening throughout the right breast. Findings may be due to posttreatment /postsurgical changes or malignancy. The lungs are clear. The visualized upper abdomen is unremarkable. Indeterminate sclerotic osseous density in left anterior rib 4 measuring 0.6 x 0.5 cm ( series 8, image 25 ). This may be due to old healed fracture or etiology indeterminate osseous lesion. Comparison with prior imaging if available is recommended. If prior imaging is not available then nuclear medicine bone scan could be obtained for further evaluation. IMPRESSION: 1. Previously noted abnormally rounded right supraclavicular lymph nodes have resolved. 2. Indeterminate sclerotic osseous density in left anterior rib 4 measuring 0.6 x 0.5 cm ( series 8, image 25 ). This may be due to old healed fracture or etiology indeterminate osseous lesion. Comparison with prior imaging if available is recommended. If prior imaging is not available then nuclear medicine bone scan could be obtained for further evaluation. 3. Indeterminate possible mass in the lower inner quadrant of the right breast measuring 4.1 x 2.8 cm. There is overlying skin thickening and retraction (series 6, image 36). There is central hypoattenuation which may be due to fluid or necrosis. There is soft tissue thickening throughout the right breast. Findings may be due to posttreatment /postsurgical changes or malignancy. This document has been electronically signed by: Payam Oliver DO on 10/19/2024 09:54:53
--- NOTE | ~2024-10-17 | CT_ITS ---
CLINICAL HISTORY: Follow-up on ultrasound results of neck nodes CT soft tissue neck with contrast Comparison: CT/SR - CT SOFT TISSUE NECK WO IV CON - 07/12/24 21:50 EDT Findings: Limited evaluation in the oral cavity due to streak artifact from dental amalgam. The visualized intracranial contents are unremarkable. No prevertebral fluid. Epiglottis is within normal limits. Pharyngeal mucosal space and parapharyngeal fat are normal. Decreased size and improved previously noted rounded configuration of multiple cervical lymph nodes. For example, previously there was an abnormally rounded right level VB lymph node which measured 0.9 cm in short axis and currently measures 0.5 cm in short axis. Continued follow-up could be performed as clinically indicated. Salivary glands are unremarkable. No sialoliths. Thyroid gland is unremarkable. Visualized lung apices are clear. No acute fractures. Right vertebral artery is diminutive in caliber throughout its course and possibly terminates in PICA. However, evaluation is limited because this study is time for venous opacification not arterial opacification. There is asymmetric appearance of the hypopharynx likely related to right retropharyngeal vasculature. IMPRESSION: Decreased size and improved previously noted rounded configuration of multiple cervical lymph nodes. For example, previously there was an abnormally rounded right level VB lymph node which measured 0.9 cm in short axis and currently measures 0.5 cm in short axis. Continued follow-up could be performed as clinically indicated. This document has been electronically signed by: Payam Oliver DO on 10/19/2024 09:36:20
--- OUTSIDE RECORDS SUMMARY | 2024-10-17 15:21 | XMS_ITS | Clinical Summary ---
Author Organization [facility] Address [address] [place] [address] Phone Care Team Providers Care Test Bore Helper Name Role Phone Frances Cutler MD Primary [...] Type Department Care Team Description 07/19/2024 Documentation [facility] Rad Onc [address] [place] [address] Kristine Carroll MD from Last 3 Months [...] Description 12/27/2024 10:00 AM EDT Office Visit [facility] Rad Onc [address] [place] [address] Kristine Carroll MD [address] [place] [id number] [email or web address] Health Maintenance Due Date Last Done Comments [...] 6.9(Abnor antonio H) 4.3 - 6.4 % [facility] Plasma Sodium 140 135 - 145 mmol/L [facility] Plasma Potassium 3.7 3.4 - 4.8 mmol/L [facility] Plasma Chloride 102 100 - 108 mmol/L [facility] Plasma Carbon Dioxide 25.4 23.0 - 31.9 mmol/L [facility] Plasma Urea Nitrogen 9 8 - 25 mg/dl [facility] Plasma Creatinine 0.71 0.60 - 1.50 mg/dl [facility] Plasma Glucose 89 70 - 110 mg/dl [facility] Calcium 9.3 8.5 - 10.5 mg/dl [facility] eGFR >60 mL/min/1. 73m2 [facility] Comment: Abnormal if <60 mL/min/1.73m2. If patient is -[place], multiply the result by 1.21. Plasma Anion GAP 13 3 - 15 mmol/L [facility] Calc Mean Bld Glucose 151 mg% [facility] Comment: There is no established normal [...] Creatine Kinase 103 40 - 150 U/L [facility] Prolactin 17.0 0.1 - 23.3 ng/ml [facility] T1-TSH 1.22 0.40 - 5.00 uU/ml [facility] 10/12/2013 1:55 PM EDT 10/12/2013 7:19 PM EDT Comment:BLOOD us Gino Horton MD LAB BLOOD ORDERABLES Final Res ult [address] [address] from Last 3 Months or Most Recently Relevant to Health Maintenance Insurance MEDICARE PART A & B [employer] MEDICARE SUPPLEMENT [facility] Address: [address] [address] MEDICARE PART A & B MEDICARE SUPPLEMENT [facility] Address: [address] [address] MEDICARE PART A & B Member Subscriber Plan / Payer (Ef fective 2020-Present) Name:Ronny Maryjo Member ID:[id number] Relation to Subscriber:Self Name:Ronny Maryjo Subscriber ID:[id number] Payer ID:[id number] Group ID:Not on file Type:Medicare Address: [employer] [address] MEDICARE PART A & B MEDICARE PART A & B [facility] MEDICARE SUPPLEMENT MEDICARE PART A & B FOR LIFE MEDICARE SUPPLEMENT [facility] Address: [address] [address] MEDICARE PART A & B FOR LIFE MEDICARE SUPPLEMENT MEDICARE PART A & B MEDICARE PART A & B FOR LIFE MEDICARE SUPPLEMENT Care Teams Test Bore Helper Relationship Specialty Start Date End Date Frances Cutler MD [address] [place] [address] [place] [address] PCP - General 09/04/13 Additional Source Comments The information contained in this document represents components of the legal health record. It is not the complete legal health record.[facility]
--- OUTSIDE RECORDS SUMMARY | 2024-10-17 15:21 | XMS_ITS | Patient Health Record ---
Author Organization [facility] Address [address] [place] [address] Care Team Providers Care Dental Surgery Doctor Name Role Phone Frances Cutler Primary Care Provider Unavailab Surya Palacio Unavailable [phone] Nikole Bernard Unavailable Unavailable Allergies Allergen (clinical [...] Problem Status W/U Status Risk Notes Problem [id number] Abnormal results of liver function studies (R94.5) Active confirmed Problem [id number] Elevated liver function tests (R94.5) Active confirmed [...] VALERIE [address] [place] [address] [id number] MANUEL WALDROP Self - patient is the insured [employer] [address] [place] [address] [id number] MANUEL WALDROP Self - patient is the insured Medical (General) History Medical History History ICD Code Beta-thalassemia trait, followed by Dr. Bernard Blood clots in LE's during , tr eated with Lovenox Fibromyalgia PUD in her 20's Asthma DM Pituitary tumor by her report Denies hx of [place], CVA,and renal disease Negative colonoscopy 2010 with me and [address] Regan Hypertension Sigmoid diverticulitis-sees Dr. 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
[2024-10-17] MEDS: iohexoL 350 MG/ML 100 ML INFUS..BTL IV (15:48)
== END 2024-10-17 15:19 | disposition home or self-care (01) ==
LOC: HO.CT 15:18
PROVIDERS: PCP Physician Assistant Medical; Visit Provider Internal Medicine Medical Oncology
DX: R59.0 Localized enlarged lymph nodes (principal)
CPT/HCPCS: 70491; 71260; Q9967

== ENCOUNTER → 2024-10-17 15:20 | Outpatient (BNV) | payer MEDICARE, OTHER, SELFPAY | PROVIDERS: PCP Physician Assistant Medical; Visit Provider Family Medicine | DX: R59.0 Localized enlarged lymph nodes (principal) | CPT/HCPCS: 70491; 71260 ==

== ENCOUNTER 2024-10-22 08:53 | Outpatient (AMB) | payer MEDICARE, OTHER, SELFPAY ==
[2024-10-22 08:58] VITALS: BP 146/71; PULSE 77; BMI 33.8
--- NOTE | 2024-10-22 08:58 | A.OFFVIS_ITS ---
Vital Signs 10/22/24 08:58 Height 5 ft 2 in Weight 185 lb BMI 33.8 BP 146/71 H Blood Pressure Location Lt brachial Position Sitting Pulse 77 Intake Visit Reasons: 6 month follow up S/P Rt. Breast lumpectomy site Intake Note: Patient here for 6mo follow up s/p Rt br lumpectomy re- excision for DCIS. Patient c/o: breast pain. On waitlist for PT. Denies lumps, nipple discharge. Imaging: Neck & Chest CT: 10-19-2024 Choker Setter Required: No Accompanied by: Self / Same As Patient Allergies iodine (IODINE) Allergy (Severe, Verified 10/22/24 09:00) ANAPHYLAXIS Penicillins (PENICILLINS) Allergy (Severe, Verified 10/22/24 09:00) BREATHING PROBLEM shellfish derived Allergy (Severe, Verified 10/22/24 09:00) ANAPHYLAXIS clindamycin (CLINDAMYCIN) Allergy (Intermediate, Verified 10/22/24 09:00) HIVES milnacipran (From SAVELLA) Allergy (Intermediate, Verified 10/22/24 09:00) BRUISE vancomycin (VANCOMYCIN) Allergy (Intermediate, Verified 10/22/24 09:00) HIVES; ITCHING metformin Allergy (Unknown, Verified 10/22/24 09:00) diarrhea albuterol (ALBUTEROL) Adverse Reaction (Intermediate, Verified 10/22/24 09:00) HEART RACES metformin Adverse Reaction (Uncoded 10/22/24 09:00) Stomach Upset Medication List - Last Reconciled 10/22/24 by Jonathan Regan MD acetone (urine) test (Ketone Urine Test strips) As directed allopurinol 100 mg PO DAILY 90 days blood sugar diagnostic As directed cetirizine 10 mg PO DAILY cholecalciferol (vitamin D3) (Vitamin D3) 125 mcg PO DAILY cyanocobalamin (vitamin B-12) 1,000 mcg sublingual DAILY dulaglutide (Trulicity) 1.5 mg (0.5 mL) subcut QWEEK folic acid 1 mg PO DAILY ibuprofen 400 mg PO Q8H PRN inhalational spacing device (Aerochamber Plus Z Stat spacer) As directed insulin glargine (Lantus Solostar U-100 Insulin) 60 units subcut BEDTIME insulin lispro subcutaneously 3 times a day before meals <100 0 units 100-150 20 units 151-200 22 units 201-250 26 units 251-300-28 units 301-350- 30 units 351- 400 32 units >400 34 units letrozole 2.5 mg PO DAILY levalbuterol HCl 0.63 mg inhalation Q OTHER DAY levalbuterol tartrate 45 mcg/actuation 45 mcg inhalation Q4-6H PRN lorazepam 0.5 mg PO DAILY PRN losartan 100 mg PO DAILY montelukast 10 mg PO DAILY rosuvastatin 20 mg PO BEDTIME silver sulfadiazine 1% (SSD) 1 appl topical ONCE sitagliptin phosphate (Januvia) 100 mg PO DAILY 30 days walker Folding Front wheeled walker HPI HPI 6 month follow up S/P Rt. Breast lumpectomy site: Details: She had undergone lumpectomy of the right breast last February 2024 for invasive mucinous carcinoma, and had re-excision for wider margins in March, because of the presence of DCIS with close margins She continues to do well. She had undergone radiation and completed this last May,.. She is seeing Dr. Bernard. She is on letrozole. She denies any palpable mass. She does describe chronic pain on the lumpectomy site and the sentinel lymph node biopsy site in the axilla. She admits to gaining weight again. [facility] Medical History History of breast cancer Pituitary tumor Fatty liver Breast cancer, right Abnormal mammogram of right breast Breast mass, right History of diverticulitis Family history of ovarian cancer Colon cancer screening Diabetes Lipoma Sleep apnea Herpes simplex virus (HSV) infection of vagina Chronic fatigue syndrome History of Vivek-Arellano virus infection Hx of ectopic Obesity Fibromyalgia Beta thalassemia trait H/O deep vein thrombosis during Mild hypercholesterolemia Microadenoma Iron deficiency Diverticular disease Asthma Diabetes mellitus Thalassemia Anemia Surgical History Hx of surgical procedure (~04/06/24) History of lumpectomy of right breast (~02/20/24) History of right knee surgery History of hand surgery History of surgery H/O sinus surgery Hx of laparoscopic gastric banding H/O: hysterectomy Family History Mother Thalassemia trait Stroke Maternal Aunt Thalassemia trait Maternal Uncle Thalassemia trait Father Heart problem Brother Heart problem Brother No problems noted. Brother Multiple sclerosis Asthma Son Multiple sclerosis Asthma Son Asthma Daughter Asthma Daughter Allergies Asthma Paternal Aunt Breast cancer Other Bladder cancer Lung cancer Social History Household Members: Spouse, Children and Foster Family Are you a primary child care aide to a significant other at home: No Do you presently have visiting nurse or other home services: No Alcohol intake: current Alcohol intake frequency: holidays/special occasions only Patient Tobacco Use Status: Never used Tobacco Second Hand Smoke Exposure: No service: Yes Current occupational status: employed and disabled 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 Reproductive History Menstrual Age of Menarche: 12 Review of Systems Const Denies chills and Denies fever(s) Card Denies chest pain and Reports dyspnea on exertion Resp Denies cough and Reports dyspnea on exertion GI Denies hematochezia and Denies change in bowel habits Denies hematuria Musc Denies back pain and Denies limited range of motion Neuro Denies focal weakness and Denies convulsions Psych Denies depression and Denies mood swings Physical Exam Vital Signs: Last Vital Signs Pulse 77 10/22/24 08:58 BP 146/71 H 10/22/24 08:58 BMI result Body Mass Index 33.8 Const General: comfortable and no acute distress Nutritional Appearance: obese Orientation/consciousness: patient oriented x3 Neck Neck: Yes no lymphadenopathy Chest Other: No palpable breast masses, no axillary lymphadenopathy Resp Auscultation: clear to auscultation bilaterally Cardio Rhythm: regular rhythm GI Palpation (GI): Soft to palpation, nontender and no guarding Neuro General: patient oriented x3 Assessment & Plan Assessment & Plan (1) History of breast cancer: Code(s): Z85.3 - Personal history of malignant neoplasm of breast Category: Medical Plan: She had undergone lumpectomy and sentinel biopsy for invasive mucinous carcinoma of the right breast and had re-excision for wider margins in view of DCIS She has no palpable breast masses currently. She had a CAT scan done last week because of a ideas lymphadenopathy in the neck and this showed question of a mass in the right breast inferiorly 4.1 x 2.8 cm although this appears to be fluid or tissue necrosis consistent with postop surgical changes. I do not feel any mass currently She is due for her follow-up mammogram in December 2024 She is to continue to follow up with Dr. Bernard as well. I will see him in the office again within the next 6 months unless there is anything concerning on her mammogram. Coding Level of Care Code Est Pt Level 3 (72150) Diagnoses History of breast cancer Z85.3
--- OUTSIDE RECORDS SUMMARY | 2024-10-22 09:23 | XMS_ITS | Patient Health Record ---
Author Organization [facility] Address [address] [place] [address] Care Team Providers Care Proposal Rep Name Role Phone Frances Cutler Primary Care Provider Unavailab Surya Palacio Unavailable [phone] Nikole Bernard Unavailable Unavailable Allergies Allergen (clinical [...] Problem Status W/U Status Risk Notes Problem [id number] Abnormal results of liver function studies (R94.5) Active confirmed Problem [id number] Elevated liver function tests (R94.5) Active confirmed [...] VALERIE [address] [place] [address] [id number] MANUEL WALDROP Self - patient is the insured [employer] [address] [place] [address] [phone] [id number] MANUEL WALDROP Self - patient is the insured Medical (General) History Medical History History ICD Code Beta-thalassemia trait, followed by Dr. Bernard Blood clots in LE's during , tr eated with Lovenox Fibromyalgia PUD in her 20's Asthma DM Pituitary tumor by her report Denies hx of [place], CVA,and renal disease Negative colonoscopy 2010 with me and [address] Regan Hypertension Sigmoid diverticulitis-sees Dr. 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
== END 2024-10-22 09:28 | disposition home or self-care (01) ==
LOC: HO.HGS 08:54
PROVIDERS: PCP Internal Medicine; Visit Provider Surgery
DX: Z85.3 Personal history of malignant neoplasm of breast (principal)
CPT/HCPCS: 99213

== ENCOUNTER → 2024-10-22 08:53 | Outpatient (BNVA) | payer MEDICARE, OTHER, SELFPAY | PROVIDERS: PCP Internal Medicine; Visit Provider Surgery | DX: D05.11 Intraductal carcinoma in situ of right breast (principal); Z92.3 Personal history of irradiation; Z79.899 Other long term (current) drug therapy | CPT/HCPCS: 99212 ==

== ENCOUNTER 2024-11-30 14:51 | Outpatient (AMB) | payer MEDICARE, OTHER, SELFPAY ==
--- NOTE | 2024-11-30 15:08 | A.OFFVIS_ITS ---
Vital Signs 11/30/24 15:09 Height 5 ft 2 in Weight 207 lb 3.752 oz BMI 37.9 BP 122/78 Blood Pressure Location Rt brachial Position Sitting Pulse 78 Pulse Source Pulse Oximeter Pulse Oximetry (%) 96 Oxygen Delivery Method Room Air Intake Visit Reasons: T2DM Intake Note: Patient present today to follow up on Type 2 Diabetes Mellitus. Last Diabetic Eye exam: Patient is unable to recall date of last eye examination within the past year [facility] Last Podiatry Visit: Does not see a Handkerchief Maker Random Glucose: 278 mg/dL Most Recent HgA1C: 10.5%, 11/30/2024 Microbiology Supervisor Required: No Accompanied by: Self / Same As Patient Allergies iodine (IODINE) Allergy (Severe, Verified 11/30/24 15:17) ANAPHYLAXIS Penicillins (PENICILLINS) Allergy (Severe, Verified 11/30/24 15:17) BREATHING PROBLEM shellfish derived Allergy (Severe, Verified 11/30/24 15:17) ANAPHYLAXIS clindamycin (CLINDAMYCIN) Allergy (Intermediate, Verified 11/30/24 15:17) HIVES milnacipran (From SAVELLA) Allergy (Intermediate, Verified 11/30/24 15:17) BRUISE vancomycin (VANCOMYCIN) Allergy (Intermediate, Verified 11/30/24 15:17) HIVES; ITCHING metformin Allergy (Unknown, Verified 11/30/24 15:17) diarrhea albuterol (ALBUTEROL) Adverse Reaction (Intermediate, Verified 11/30/24 15:17) HEART RACES metformin Adverse Reaction (Uncoded 11/30/24 15:17) Stomach Upset Medication List - Last Reconciled 11/30/24 by KYUNG Valderrama acetone (urine) test (Ketone Urine Test strips) As directed allopurinol 100 mg PO DAILY 90 days blood sugar diagnostic As directed cetirizine 10 mg PO DAILY cholecalciferol (vitamin D3) (Vitamin D3) 125 mcg PO DAILY cyanocobalamin (vitamin B-12) 1,000 mcg sublingual DAILY dulaglutide (Trulicity) 1.5 mg (0.5 mL) subcut QWEEK folic acid 1 mg PO DAILY ibuprofen 400 mg PO Q8H PRN inhalational spacing device (Aerochamber Plus Z Stat spacer) As directed insulin glargine (Lantus Solostar U-100 Insulin) 30 units subcut BEDTIME insulin lispro subcutaneously 3 times a day before meals <100 0 units 100-150 20 units 151-200 22 units 201-250 26 units 251-300-28 units 301-350- 30 units 351- 400 32 units >400 34 units letrozole 2.5 mg PO DAILY levalbuterol HCl 0.63 mg inhalation Q OTHER DAY levalbuterol tartrate 45 mcg/actuation 45 mcg inhalation Q4-6H PRN lorazepam 0.5 mg PO DAILY PRN losartan 100 mg PO DAILY montelukast 10 mg PO DAILY rosuvastatin 20 mg PO BEDTIME silver sulfadiazine 1% (SSD) 1 appl topical ONCE sitagliptin phosphate (Januvia) 100 mg PO DAILY 30 days walker Folding Front wheeled walker HPI Comments Details: This is a 63-year-old female with a past medical history of a pituitary tumor, hypertension, asthma, obesity, right breast cancer, thalassemia and anemia and obesity presenting for diabetic management. She is currently being treated for breast cancer with letrozole. She was initially diagnosed with type 2 diabetes in 2019. She had gestational diabetes at age [age] years old. Her parents had type 2 diabetes. Hemoglobin A1c is 10.5% up from 9.7%. She endorses noncompliance with her medication regimen. Endorses polyuria, polydipsia and neuropathy symptoms. CGM active 83% G [place] 10.7% Very high 83% High 12% Target range 5% 0% hypoglycemia She has hyperglycemia throughout 24 hours. Current medication regimen: Lantus 60 units Trulicity 1.5 mg weekly Januvia 100 mg daily Sliding scale for Humalog: <100 0 units 100-150 20 units 151-200 22 units 201-250 26 units 251-300-28 units 301-350- 30 units 351-400 32 units >400 34 units Compliance issues: She has not taken Trulicity in 6 weeks. It has been a while since she took her Lantus, and she is not using it consistently. She endorses compliance with Humalog and Januvia. Past medications: Metformin discontinued due to stomach pain. Jardiance discontinued due to recurrent yeast infections She was tolerating Mounjaro but developed abdominal pain once it was increased, and she had persistent symptoms despite lowering the dosage. Previously on Bydureon, but her insurance stopped covering it. She tolerated it. No known diabetic complications. Patient had 1 low blood sugar in the afternoon in the last couple of weeks which she treated with glucose tablets. ROS: Constitutional: No unexplained weight loss, fever, chills, fatigue or night sweats. Respiratory: No shortness of breath Cardiovascular: No chest pain Gastrointestinal: No anorexia, nausea, vomiting or diarrhea. No abdominal pain Neurologic: No headache, dizziness, syncope Endocrine: No cold or heat intolerance. No polyuria or polydipsia. Physical exam: Constitutional: Alert, in no distress. Neck: Supple, Full range of motion. No lymphadenopathy. No palpable thyroid masses. Respiratory: Clear to auscultation. Cardiovascular: S1 S2 regular. No murmurs. Extremities: Warm and well perfused. No clubbing, cyanosis or edema. Psychiatric: Normal mood and affect [facility] Medical History History of breast cancer Pituitary tumor Fatty liver Breast cancer, right Abnormal mammogram of right breast Breast mass, right History of diverticulitis Family history of ovarian cancer Colon cancer screening Diabetes Lipoma Sleep apnea Herpes simplex virus (HSV) infection of vagina Chronic fatigue syndrome History of Vivek-Arellano virus infection Hx of ectopic Obesity Fibromyalgia Beta thalassemia trait H/O deep vein thrombosis during Mild hypercholesterolemia Microadenoma Iron deficiency Diverticular disease Asthma Diabetes mellitus Thalassemia Anemia Surgical History Hx of surgical procedure (~04/06/24) History of lumpectomy of right breast (~02/20/24) History of right knee surgery History of hand surgery History of surgery H/O sinus surgery Hx of laparoscopic gastric banding H/O: hysterectomy Family History Mother Thalassemia trait Stroke Maternal Aunt Thalassemia trait Maternal Uncle Thalassemia trait Father Heart problem Brother Heart problem Brother No problems noted. Brother Multiple sclerosis Asthma Son Multiple sclerosis Asthma Son Asthma Daughter Asthma Daughter Allergies Asthma Paternal Aunt Breast cancer Other Bladder cancer Lung cancer Social History Household Members: Spouse, Children and Foster Family Are you a primary healthcare or medical to a significant other at home: No Do you presently have visiting nurse or other home services: No Alcohol intake: current Alcohol intake frequency: holidays/special occasions on ly Patient Tobacco Use Status: Never used Tobacco Second Hand Smoke Exposure: No service: Yes Current occupational status: employed and disabled 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 Reproductive History Menstrual Age of Menarche: 12 Physical Exam Vital Signs: Last Vital Signs Pulse 78 11/30/24 15:09 BP 122/78 11/30/24 15:09 Pulse Ox 96 11/30/24 15:09 Oxygen Delivery Method Room Air 11/30/24 15:09 BMI result Body Mass Index 37.9 Office Procedures Glucose Monitoring Details Details: See [facility] [address] - Glucose monitoring, continuous-physician I&R Procedure code (CPT) selection complete Results AMB Hemoglobin A1c AMB Hemoglobin A1c 10.5 % Last Edit by ROWAN French on 11/30/24 15:2 5 Results Reviewed Results Reviewed: Laboratory Last Values Glucose (Clinic) 278 mg/dL (60-115) H 11/30/24 15:14 Hgb A1c (Clinic) 10.5 % (4.0-6.0) H 11/30/24 15:25 Laboratory Tests 03/06/24 09/04/24 09/11/24 08:29 16:56 08:51 Creatinine 0.79 Estimated GFR > 60 Hemoglobin A1c % 9.7 H AST 23 ALT 38 H TSH 0.98 Urine Creatinine 343.68 Urine Microalbumin 22.0 Microalb/Creat Ratio 6.4 Assessment & Plan Assessment & Plan (1) Diabetes mellitus: Code(s): E11.9 - Type 2 diabetes mellitus without complications Category: Medical Qualifiers: Diabetes mellitus complication status: without complication Diabetes mellitus superintendent marine oil terminal insulin use: with superintendent marine oil terminal use Diabetes mellitus type: type 2 Qualified Code(s): E11.9 - Type 2 diabetes mellitus without complications; Z79.4 - retirement (current) use of insulin Plan: In summary this is a 63-year-old female with poorly controlled type 2 diabetes secondary to noncompliance with her treatment regimen. We reviewed complications of type 2 diabetes. Restart Lantus. She will initiate this at 30 units q.a.m. since she has not been taking it consistently. We can titrate it as needed based on her blood sugars. She is going to send blood sugars from over the weekend to the patient portal on Tuesday. Restart Trulicity 1.5 mg weekly Januvia 100 mg daily Sliding scale for Humalog: <100 0 units 100-150 20 units 151-200 22 units 201-250 26 units 251-300-28 units 301-350- 30 units 351-400 32 units >400 34 units Reviewed treatment of low blood sugar. She has written instructions and glucose tablets She wants to discuss the Cequr patch with the vending machine attendant. Referral placed. She has ketone urine strips and instructions for use. Plan Follow up in 2 weeks for type 2 diabetes. Orders: Orders AMB Hemoglobin A1c Today E11.9 - Type 2 diabetes mellitus without complication s, Z79.4 - retirement (current) use of insulin AMB Glucose Monitoring Today E11.9 - Type 2 diabetes mellitus without complications Referrals Diabetes Education Referral E11.65 - Type 2 diabetes mellitus with hyperglycemia Coding Level of Care Code Est Pt Level 4 (39766) Diagnoses Type 2 diabetes mellitus without complication, with long-term current use of insulin E11.9; Z79.4 Diabetes mellitus complication status: without complication Diabetes mellitus superintendent marine oil terminal insulin use: with superintendent marine oil terminal use Diabetes mellitus type: type 2 CPT Codes Details - CPT: 31452 - Glucose monitoring, continuous-physician I&R ([id number])
[2024-11-30 15:09] VITALS: BP 122/78; PULSE 78; O2SAT 96; BMI 37.9
[2024-11-30 15:19] LABS: Glucose, Whole Blood 278 mg/dL (60-115)
--- OUTSIDE RECORDS SUMMARY | 2024-11-30 15:38 | XMS_ITS | Clinical Summary ---
Author Organization [facility] Address [address] [place] [id number] Phone Care Team Providers Care Iron Pourer Name Role Phone Frances Cutler MD Primary [...] Encounters Date Type Department Care Team Description 11/23/2024 Telephone [facility] [address] [place] [address] Macie Lerma OT 2024 Telephone [facility] [address] [place] [address] Macie Lerma OT 11/12/2024 Telephone [facility] [address] [place] [address] Macie Leram OT 10/25/2024 Orders Only [facility] At [facility] Rad Onc [address] [place] [address] Mandi Castillo RN from Last 3 Months Family History Medical [...] Care Team (Late st Contact Info) Description 01/07/2025 10:00 AM EST Office Visit [facility] Cancer [facility] At [facility] Rad Onc [address] [place] [id number] Kristine Carroll MD [address] [place] [address] [email or web address] Health Maintenance Due Date Last Done Comments [...] - Risk 60-74 years 1-dose series) 2022 DIABETIC EYE EXAM 03/13/2024 BLOOD PRESSURE 09/20/2024 03/23/2024 INFLUENZA VACCINE (#1) 2024 COVID-19 VACCINE (1 - 2023-2 5 season) 2024 SMOKING STATUS SCREENING (On ce After 26 [...] Lab (10/12/2013 1:55 PM EDT) Hemoglobin A1C 6.9(Chemo alvarez H) 4.3 - 6.4 % [facility] Plasma Sodium 140 135 - 145 mmol/L [facility] Plasma Potassium 3.7 3.4 - 4.8 mmol/L [facility] Plasma Chloride 102 100 - 108 mmol/L [facility] Plasma Carbon Dioxide 25.4 23.0 - 31.9 mmol/L [facility] Plasma Urea Nitrogen 9 8 - 25 mg/dl [facility] Plasma Creatinine 0.71 0.60 - 1.50 mg/dl [facility] Plasma Glucose 89 70 - 110 mg/dl [facility] Calcium 9.3 8.5 - 10.5 mg/dl [facility] eGFR >60 mL/min/1. 73m2 [facility] Comment: Abnormal if <60 mL/min/1.73m2. If patient is -Bruneian, multiply the result by 1.21. Plasma Anion GAP 13 3 - 15 mmol/L [facility] Calc Mean Bld Glucose 151 mg% [facility] Comment: There is no established normal range [...] Creatine Kinase 103 40 - 150 U/L [facility] Prolactin 17.0 0.1 - 23.3 ng/ml [facility] T1-TSH 1.22 0.40 - 5.00 uU/ml [facility] 10/12/2013 1:55 PM EDT 10/12/2013 7:19 PM EDT Comment:BLOOD us Gino Horton MD LAB BLOOD ORDERABLES Final Res ult Performing Organization Address City/State/[facility] Co de Phone Number [address] [address] from Last 3 Months or Most Recently Relevant to Health Maintenance Insurance MEDICARE PART A & B FOR LIFE MEDICARE SUPPLEMENT MEDICARE PART A & B [employer] MEDICARE SUPPLEMENT MEDICARE PART A & B MEDICARE PART A & B MEDICARE PART A & B [employer] MEDICARE SUPPLEMENT MEDICARE PART A & B [facility] MEDICARE SUPPLEMENT MEDICARE PART A & B [employer] MEDICARE SUPPLEMENT MEDICARE PART A & B MEDICARE PART A & B [employer] MEDICARE SUPPLEMENT Care Teams Iron Pourer Relationship Specialty Start Date End Date Frances Cutler MD [address] [place] [address] [place] [id number] PCP - General 09/04/13 Additional Source Comments The information contained in this document represents components of the legal health record. It is not the complete legal health record.[facility]
--- OUTSIDE RECORDS SUMMARY | 2024-11-30 15:38 | XMS_ITS | Patient Health Record ---
Author Organization [facility] Address [address] [place] [address] Care Team Providers Care Otologist Name Role Phone Frances Cutler Primary Care Provider Unavailab Surya Palacio Unavailable [phone] Nikole Bernard Unavailable Unavailable Allergies Allergen (clinical [...] Problem Status W/U Status Risk Notes Problem [id number] Abnormal results of liver function studies (R94.5) Active confirmed Problem [id number] Elevated liver function tests (R94.5) Active confirmed [...] VALERIE [address] [place] [address] [id number] MANUEL WALDROP Self - patient is the insured Med [employer] [address] [place] [address] [id number] MANUEL WALDROP Self - patient is the insured Medical (General) History Medical History History ICD Code Beta-thalassemia trait, followed by Dr. Bernard Blood clots in LE's during , tr eated with Lovenox Fibromyalgia PUD in her 20's Asthma DM Pituitary tumor by her report Denies hx of VA, CVA,and renal disease Negative colonoscopy 2010 with [...]
== END 2024-11-30 15:40 | disposition home or self-care (01) ==
LOC: HO.ENCR 14:52
PROVIDERS: PCP Internal Medicine; Visit Provider Physician Assistant Medical
DX: E11.9 Type 2 diabetes mellitus without complications (principal); Z79.4 Long term (current) use of insulin

== ENCOUNTER → 2024-11-30 14:51 | Outpatient (BNVA) | payer MEDICARE, OTHER, SELFPAY | PROVIDERS: PCP Internal Medicine; Visit Provider Physician Assistant Medical | DX: E11.65 Type 2 diabetes mellitus with hyperglycemia (principal); Z79.4 Long term (current) use of insulin; Z91.148 Patient's other noncompliance with medication regimen for other reason | CPT/HCPCS: 82947; 83036; 99212 ==

== ENCOUNTER 2024-12-12 14:50 | Outpatient (AMB) | payer MEDICARE, OTHER, SELFPAY ==
--- NOTE | 2024-12-12 15:33 | A.OFFVIS_ITS ---
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 Required: No Accompanied by: Self / Same As Patient Allergies iodine (IODINE) Allergy (Severe, Verified 11/30/24 15:17) ANAPHYLAXIS Penicillins (PENICILLINS) Allergy (Severe, Verified 11/30/24 15:17) BREATHING PROBLEM shellfish derived Allergy (Severe, Verified 11/30/24 15:17) ANAPHYLAXIS clindamycin (CLINDAMYCIN) Allergy (Intermediate, Verified 11/30/24 15:17) HIVES milnacipran (From SAVELLA) Allergy (Intermediate, Verified 11/30/24 15:17) BRUISE vancomycin (VANCOMYCIN) Allergy (Intermediate, Verified 11/30/24 15:17) HIVES; ITCHING metformin Allergy (Unknown, Verified 11/30/24 15:17) diarrhea albuterol (ALBUTEROL) Adverse Reaction (Intermediate, Verified 11/30/24 15:17) HEART RACES metformin Adverse Reaction (Uncoded 11/30/24 15:17) Stomach Upset HPI Comprehensive Diabetes Asmnt Most Recent Diabetes Results: 2 Hemoglobin A1c 9.8 % 11/06/19 Microalb/Creat Ratio, (<30) 6.4 ug/mg cr 03/06/24 Cholesterol, (<200) 121 mg/dL 04/27/24 HDL Cholesterol, (>40) 40 mg/dL L 04/27/24 Triglycerides, (<150) 152 mg/dL H 04/27/24 Creatinine, (0.5-1.4) 0.74 mg/dL 10/31/24 BUN, (9-16) 15 mg/dL 10/31/24 Sodium, (135-145) 138 mmol/L 10/31/24 Potassium, (3.3-5.1) 4.1 mmol/L 10/31/24 Chloride, (96-108) 105 mmol/L 10/31/24 Carbon Dioxide, (22-29) 26 mmol/L 10/31/24 Calcium, (8.4-10.2) 9.3 mg/dL 10/31/24 AST, (5-31) 23 U/L 10/31/24 ALT, (0-31) 32 U/L H 10/31/24 Total Protein, (6.5-8.0) 6.9 g/dL 10/31/24 Albumin, (3.5-5.0) 4.2 g/dL 10/31/24 [facility] Medical History History of breast cancer Pituitary tumor Fatty liver Breast cancer, right Abnormal mammogram of right breast Breast mass, right History of diverticulitis Family history of ovarian cancer Colon cancer screening Diabetes Lipoma Sleep apnea Herpes simplex virus (HSV) infection of vagina Chronic fatigue syndrome History of Vivek-Arellano virus infection Hx of ectopic Obesity Fibromyalgia Beta thalassemia trait H/O deep vein thrombosis during Mild hypercholesterolemia Microadenoma Iron deficiency Diverticular disease Asthma Diabetes mellitus Thalassemia Anemia Surgical History Hx of surgical procedure (~04/06/24) History of lumpectomy of right breast (~02/20/24) History of right knee surgery History of hand surgery History of surgery H/O sinus surgery Hx of laparoscopic gastric banding H/O: hysterectomy Family History Mother Thalassemia trait Stroke Maternal Aunt Thalassemia trait Maternal Uncle Thalassemia trait Father Heart problem Brother Heart problem Brother No problems noted. Brother Multiple sclerosis Asthma Son Multiple sclerosis Asthma Son Asthma Daughter Asthma Daughter Allergies Asthma Paternal Aunt Breast cancer Other Bladder cancer Lung cancer Social History Household Members: Spouse, Children and Foster Family Are you a primary home care provider to a significant other at home: No Do you presently have visiting nurse or other home services: No Alcohol intake: current Alcohol intake frequency: holidays/special occasions only Patient Tobacco Use Status: Never used Tobacco Second Hand Smoke Exposure: No service: Yes Current occupational status: employed and disabled 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 Reproductive History Menstrual Age of Menarche: 12 Assessment & Plan Assessment & Plan (1) Diabetes mellitus: Code(s): E11.9 - Type 2 diabetes mellitus without complications Qualifiers: Diabetes mellitus complication status: without complication Diabetes mellitus intermediate project manager insulin use: with intermediate project manager use Diabetes mellitus type: type 2 Qualified Code(s): E11.9 - Type 2 diabetes mellitus without complications; Z79.4 - intermediate (current) use of insulin Plan: Reviewed CeQue insulin delivery patch info: Pt at visit for CeQue insulin delivery patch education: The CeQue insulin delivery patch holds up to 200 units of insulin. It can be worn on abdomen, side of your thigh or back of arm. Each click will deliver 2 units of rapid acting insulin Instructions: Wash your hands Lock patch by clicking buttons on each side until the will no longer click Prepare site where you will place patch with either alcohol or soap and water, avoid waist band and belt line Do not insert through scar tissue, piercings and tattoos be sure to place patch at least 2 in from belly button. Fill syringe from vial up to 200 units. Insert, needle into blue hole to fill patch To prime patch proceed with [address] patch in refrigeration technician while holding refrigeration technician with both hands use thumbs to push down on blue cap in on patch Squeeze at both ends a blue cap and carefully began to pull cap, this should also remove adhesive pad liner. Be cautious of exposed needle, check to make sure needle is not bent Do not to push green button until refrigeration technician is against prepared site Place patch on your body, slide yellow safety and press green button down Push until you hear a click Press refrigeration technician firmly for 10 seconds, remove refrigeration technician by lifting it away To remove needle squeeze clear sides of armored car guard and driver at the base Discard needle in sharps container Press down firmly on patch with palm of your hand for 10 seconds Be sure to rotate patch regularly Pump Assessment: Type of DM: Type 2 Dx at age: 59 y/o Previous DKA: no Current Insulin Rx: MDI Patient takes insulin as prescribed: yes Patient? checks BG with Horacio 3+ Downloaded meter today Patient? reports glycemic control as: poor Most recent Hgb A1C: 10.5% Frequency of low BG: rare Low BG treatment: Carries glucose tabs Frequency of high BG: daily Does patient check Ketones? Yes, reports she has unexpired ketone strips at home Has pt been on a pump in the past? No Reviewed insulin pump basics today with Patient. Explained pros and cons of insulin pumps. Showed pt various pumps, infusion sets, and cgms currently available. Reviewed need to wear pump 24/7 and need to change infusion set every 3 days. Also stressed importance of frequent BG checks, 4x daily minimum or use pump that is integrated with CGM.? TDD:120 units Patient demonstrated motivation for continued insulin pump education and understands the need to complete education prior to starting insulin pump for best outcome. Patient is interested in the iLet Portions of this note were created using voice recognition software, please excuse any words or phrases that may have been misinterpreted. Patient Instructions: DIABETES PROBLEMS HOMECARE INSTRUCTIONS? for High Blood Sugar and When to Test for Ketones Hyperglycemia is the technical term for high blood glucose (blood sugar). High blood sugar happens when the body has too little insulin or when the body can't use insulin properly. What causes hyperglycemia? A number of things can cause hyperglycemia: * If you have type 1, you may not have given yourself enough insulin. ? If you have type 2, your body may have enough insulin, but it is not as effective as it should be. * You ate more than planned or exercised less than planned. * You have stress from an illness, such as a cold or flu. * You have other stress, such as family conflicts or school or dating problems. How to lower your blood sugar level. ? Take medications as directed by physician. ? Drink extra water or noncaffeinated, nonsugared drinks to prevented hydration. ? Exercise if you are not sick However, if your blood sugar is above 250 mg/dl, check your urine for ketones. I f you have ketones, do not exercise Exercising when ketones are present may make your blood sugar level go even higher. You'll need to work with your doctor to find the safest way for you to lower your blood sugar level. Regularly check blood sugar or urine for sugar and acetone during illness. Diabetic ketoacidosis (DKA) Is serious condition that can lead to diabetic coma (passing out for a long time) or even . When your cells don't get the glucose they need for energy, your body begins to burn fat for energy, which produces ketones. Ketones are chemicals that the body creates when it breaks down fat to use for energy. The body does this when it doesn?t have enough insulin to use glucose, the body?s normal source of energy. When ketones build up in the blood, they make it more acidic. They are a warning sign that your diabetes is out of control or that you are getting sick. Symptoms of Diabetic Ketoacidosis (DKA) ? DKA usually develops slowly. But when vomiting occurs, this life- threatening condition can develop in a few hours. Early symptoms include the following: ? Thirst or a very dry mouth ? Frequent urination ? High blood glucose (blood sugar) levels ? High levels of ketones in the urine ? Then, other symptoms appear: ? Constantly feeling tired ? Dry or flushed skin ? Nausea, vomiting, or abdominal pain ? (Vomiting can be caused by many illnesses, not just ketoacidosis. If vomiting continues for more than 2 hours, contact your health care provider.) ? Difficulty breathing ? Fruity odor on breath ? A hard time paying attention, or confusion When should you test for ketones? It is advisable to check for ketones under the following conditions when: Your blood glucose is higher than 250mg/dl. Feeling nauseated, throwing up, or have pains in your abdominal region. Have a cold or flu. Have general body fatigue. Feel thirsty or have a very dry mouth. Have flushed skin. Have a fruity breath or a hard time breathing. You feel perplexed or in fog. How to Test Urine for Ketones You can detect ketones with a simple urine test using a test strip, similar to a blood testing strip. Ask your health care provider when and how you should test for ketones. Many experts advise to check your urine for ketones when your blood glucose is more than 250 mg/dl. When you are ill (when you have a cold or the flu, for example), check for ketones every 4 to 6 hours. And check every 4 to 6 hours when your blood sugar is more than 250 mg/dl. Also, check for ketones when you have any symptoms of DKA. How to lower your blood sugar level. ? Take medications as directed by physician. ? Drink extra water or noncaffeinated, nonsugared drinks to prevented hydration. ? Exercise if you are not sick However, if your blood sugar is above 250 mg/dl, check your urine for ketones. I f you have ketones, do not exercise Exercising when ketones are present may make your blood sugar level go even higher. You'll need to work with your doctor to find the safest way for you to lower your blood sugar level. Regularly check blood sugar or urine for sugar and acetone during illness Coding Level of Care Code Est Pt Level 1 (40090) Diagnoses Type 2 diabetes mellitus without complication, with long-term current use of insulin E11.9; Z79.4 Diabetes mellitus complication status: without complication Diabetes mellitus halfway insulin use: with intermediate project manager use Diabetes mellitus type: type 2
== END 2024-12-12 15:46 | disposition home or self-care (01) ==
LOC: HO.ENCR 14:51
PROVIDERS: PCP Internal Medicine; Visit Provider Registered Nurse Diabetes Educator
DX: E11.9 Type 2 diabetes mellitus without complications (principal); Z79.4 Long term (current) use of insulin

== ENCOUNTER → 2024-12-12 14:50 | Outpatient (BNVA) | payer MEDICARE, OTHER, SELFPAY | PROVIDERS: PCP Internal Medicine; Visit Provider Registered Nurse Diabetes Educator | DX: E11.65 Type 2 diabetes mellitus with hyperglycemia (principal); Z79.4 Long term (current) use of insulin | CPT/HCPCS: 99211 ==

== ENCOUNTER 2024-12-18 16:03 | Outpatient (AMB) | payer MEDICARE, OTHER, SELFPAY ==
--- NOTE | 2024-12-18 16:06 | A.OFFVIS_ITS ---
Vital Signs 12/18/24 16:07 Height 5 ft 2 in Weight 205 lb 0.478 oz BMI 37.5 BP 124/76 Blood Pressure Location Rt brachial Position Sitting Pulse 90 Pulse Source Pulse Oximeter Pulse Oximetry (%) 96 Oxygen Delivery Method Room Air Intake Visit Reasons: Type II Diabetes Intake Note: Patient present today to follow up on Type 2 Diabetes Mellitus. Last Diabetic Eye exam: Patient is unable to recall date of last eye examination within the past year [facility] Last Podiatry Visit: Does not see a Tong Carrier Random Glucose: 284 mg/dL Most Recent HgA1C: 10.5%, 11/30/2024 Arnp Required: No Accompanied by: Self / Same As Patient Allergies iodine (IODINE) Allergy (Severe, Verified 11/30/24 15:17) ANAPHYLAXIS Penicillins (PENICILLINS) Allergy (Severe, Verified 11/30/24 15:17) BREATHING PROBLEM shellfish derived Allergy (Severe, Verified 11/30/24 15:17) ANAPHYLAXIS clindamycin (CLINDAMYCIN) Allergy (Intermediate, Verified 11/30/24 15:17) HIVES milnacipran (From SAVELLA) Allergy (Intermediate, Verified 11/30/24 15:17) BRUISE vancomycin (VANCOMYCIN) Allergy (Intermediate, Verified 11/30/24 15:17) HIVES; ITCHING metformin Allergy (Unknown, Verified 11/30/24 15:17) diarrhea albuterol (ALBUTEROL) Adverse Reaction (Intermediate, Verified 11/30/24 15:17) HEART RACES metformin Adverse Reaction (Uncoded 11/30/24 15:17) Stomach Upset Medication List - Last Reconciled 12/18/24 by KYUNG Valderrama acetone (urine) test (Ketone Urine Test strips) As directed allopurinol 100 mg PO DAILY 90 days blood sugar diagnostic As directed cetirizine 10 mg PO DAILY cholecalciferol (vitamin D3) (Vitamin D3) 125 mcg PO DAILY cyanocobalamin (vitamin B-12) 1,000 mcg sublingual DAILY dulaglutide (Trulicity) 1.5 mg (0.5 mL) subcut QWEEK folic acid 1 mg PO DAILY ibuprofen 400 mg PO Q8H PRN inhalational spacing device (Aerochamber Plus Z Stat spacer) As directed insulin glargine (Lantus Solostar U-100 Insulin) 40 units subcut BEDTIME insulin lispro subcutaneously 3 times a day before meals <100 0 units 100-150 20 units 151-200 22 units 201-250 26 units 251-300-28 units 301-350- 30 units 351- 400 32 units >400 34 units letrozole 2.5 mg PO DAILY levalbuterol HCl 0.63 mg inhalation Q OTHER DAY levalbuterol tartrate 45 mcg/actuation 45 mcg inhalation Q4-6H PRN lorazepam 0.5 mg PO DAILY PRN losartan 100 mg PO DAILY montelukast 10 mg PO DAILY rosuvastatin 20 mg PO BEDTIME silver sulfadiazine 1% (SSD) 1 appl topical ONCE walker Folding Front wheeled walker HPI Comments Details: This is a 64-year-old female with a past medical history of a pituitary tumor, hypertension, asthma, obesity, right breast cancer, thalassemia and anemia and obesity presenting for diabetic management. She is currently being treated for breast cancer with letrozole. She was initially diagnosed with type 2 diabetes in 2019. She had gestational diabetes at age [age] years old. Her parents had type 2 diabetes. Hemoglobin A1c 10.5% at her last visit up from 9.7%. She endorsed noncompliance with her medication regimen. Endorses polyuria, polydipsia and neuropathy symptoms. Reviewed Horacio data G IN 9.9% Glucose variability 32.5% Very high 61% High 22% Target range 17% 0% hypoglycemia She has hyperglycemia throughout 24 hours the majority of the time by my interpretation. Current medication regimen: Lantus 32 units Sliding scale for Humalog: <100 0 units 100-150 20 units 151-200 22 units 201-250 26 units 251-300-28 units 301-350- 30 units 351-400 32 units >400 34 units She stopped Trulicity and Januvia. She saw Rosa Rocha, BIRGIT, and she is moving forward with Ilet insulin pump. She is eating oatmeal raisin cookies daily. Past medications: Metformin discontinued due to stomach pain. Jardiance discontinued due to recurrent yeast infections She was tolerating Mounjaro but developed abdominal pain once it was increased, and she had persistent symptoms despite lowering the dosage. Trulicity did the same thing when she increased the dose to 1.5 mg. She did not have side effects on 0.75 mg Trulicity. Previously on Bydureon, but her insurance stopped covering it. She tolerated it. No known diabetic complications. ROS: Constitutional: No unexplained weight loss, fever, chills, fatigue or night sweats. Respiratory: No shortness of breath Cardiovascular: No chest pain Gastrointestinal: No anorexia, nausea, vomiting or diarrhea. No abdominal pain Neurologic: No headache, dizziness, syncope Endocrine: No cold or heat intolerance. No polyuria or polydipsia. Physical exam: Constitutional: Alert, in no distress. Neck: Supple, Full range of motion. No lymphadenopathy. No palpable thyroid masses. Respiratory: Clear to auscultation. Cardiovascular: S1 S2 regular. No murmurs. Extremities: Warm and well perfused. No clubbing, cyanosis or edema. Psychiatric: Normal mood and affect [facility] Medical History History of breast cancer Pituitary tumor Fatty liver Breast cancer, right Abnormal mammogram of right breast Breast mass, right History of diverticulitis Family history of ovarian cancer Colon cancer screening Diabetes Lipoma Sleep apnea Herpes simplex virus (HSV) infection of vagina Chronic fatigue syndrome History of Vivek-Arellnao virus infection Hx of ectopic Obesity Fibromyalgia Beta thalassemia trait H/O deep vein thrombosis during Mild hypercholesterolemia Microadenoma Iron deficiency Diverticular disease Asthma Diabetes mellitus Thalassemia Anemia Surgical History Hx of surgical procedure (~04/06/24) History of lumpectomy of right breast (~02/20/24) History of right knee surgery History of hand surgery History of surgery H/O sinus surgery Hx of laparoscopic gastric banding H/O: hysterectomy Family History Mother Thalassemia trait Stroke Maternal Aunt Thalassemia trait Maternal Uncle Thalassemia trait Father Heart problem Brother Heart problem Brother No problems noted. Brother Multiple sclerosis Asthma Son Multiple sclerosis Asthma Son Asthma Daughter Asthma Daughter Allergies Asthma Paternal Aunt Breast cancer Other Bladder cancer Lung cancer Social History Household Members: Spouse, Children and Foster Family Are you a primary career advisor to a significant other at home: No Do you presently have visiting nurse or other home services: No Alcohol intake: current Alcohol intake frequency: holidays/special occasions only Patient Tobacco Use Status: Never used Tobacco Second Hand Smoke Exposure: No service: Yes Current occupational status: employed and disabled 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 Reproductive History Menstrual Age of Menarche: 12 Physical Exam Vital Signs: Last Vital Signs Pulse 90 12/18/24 16:07 BP 124/76 12/18/24 16:07 Pulse Ox 96 12/18/24 16:07 Oxygen Delivery Method Room Air 12/18/24 16:07 BMI result Body Mass Index 37.5 Office Procedures Glucose Monitoring Details Details: see HPI 28893 - Glucose monitoring, continuous-physician I&R Procedure code (CPT) selection complete Results Reviewed Results Reviewed: Laboratory Tests 03/06/24 09/04/24 09/11/24 08:29 16:56 08:51 Creatinine 0.79 Estimated GFR > 60 Hemoglobin A1c % 9.7 H AST 23 ALT 38 H TSH 0.98 Urine Creatinine 343.68 Urine Microalbumin 22.0 Microalb/Creat Ratio 6.4 Assessment & Plan Assessment & Plan (1) Diabetes mellitus: Code(s): E11.9 - Type 2 diabetes mellitus without complications Category: Medical Qualifiers: Diabetes mellitus type: type 2 Diabetes mellitus skilled nursing insulin use: with medical terminologist use Diabetes mellitus complication status: without complication Qualified Code(s): E11.9 - Type 2 diabetes mellitus without complications; Z79.4 - termite control servicer (current) use of insulin Plan: In summary this is a 63-year-old female with poorly controlled type 2 diabetes. She met with the CDE, and she is moving forward with the Ilet. We reviewed complications of type 2 diabetes. It would benefit her to be on a GLP 1 which has shown to decrease risk of cardiovascular disease and diabetic patients and help with weight loss. We discussed going back on the lower dose of Trulicity since she did not have side effects on it or trying Ozempic. She would like to try Ozempic. Start 0.25 mg weekly. Increase Lantus to 40 units daily. Continue Sliding scale for Humalog: <100 0 units 100-150 20 units 151-200 22 units 201-250 26 units 251-300-28 units 301-350- 30 units 351-400 32 units >400 34 units Reviewed treatment of low blood sugar. She has written instructions and glucose tablets She has ketone urine strips and instructions for use. Plan Follow up in 4 weeks. Advised patient she will need to see delonte MENARD since she os switching to the insulin pump. She has seen Dr. Aquino in the past and requested follow up with Dr. Aquino. Orders: Orders Lipid Panel Today E11.9 - Type 2 diabetes mellitus without complications, E78.5 - Hyperlipidemia, unspecified, Z79.4 - termite control servicer (current) use of insulin AMB Glucose Monitoring Today E11.9 - Type 2 diabetes mellitus without complications Creatinine Today E11.9 - Type 2 diabetes mellitus without complications Alanine Aminotransferase Today E11.9 - Type 2 diabetes mellitus without complications, Z79.4 - termite control servicer (current) use of insulin Aspartate Amino Transferase Today E11.9 - Type 2 diabetes mellitus without complications, Z79.4 - termite control servicer (current) use of insulin Medications: New semaglutide (Ozempic) for 4 weeks 0.25 mg (0.368 mL) subcut QWEEK 3 mL 0RF Discontinued sitagliptin phosphate (Januvia) Discontinued Reason: Doctor's Order 100 mg PO DAILY 30 days 30 tabs 6RF dulaglutide (Trulicity) Discontinued Reason: Patient no longer taking 1.5 mg (0.5 mL) subcut QWEEK 2 mL 0RF Patient Instructions: Start Ozempic 0.25 mg weekly Increase Lantus to 40 units daily Sliding scale for Humalog before meals: <100 0 units 100-150 20 units 151-200 22 units 201-250 26 units 251-300-28 units 301-350- 30 units 351-400 32 units >400 34 units Coding Level of Care Code Est Pt Level 4 (92875) Diagnoses Type 2 diabetes mellitus without complication, with long-term current use of insulin E11.9; Z79.4 Diabetes mellitus type: type 2 Diabetes mellitus medical terminologist insulin use: with skilled nursing use Diabetes mellitus complication status: without complication CPT Codes Details - CPT: 86434 - Glucose monitoring, continuous-physician I&R ([id number])
[2024-12-18 16:07] VITALS: BP 124/76; PULSE 90; O2SAT 96; BMI 37.5
[2024-12-18 16:15] LABS: Glucose, Whole Blood 284 mg/dL (60-115)
--- OUTSIDE RECORDS SUMMARY | 2024-12-18 18:32 | XMS_ITS | Clinical Summary ---
Author Organization [facility] Address [address] [address] Phone Care Team Providers Care Cracking Still Operator Name Role Phone Frances Cutler MD Primary [...] Type Department Care Team Description 11/23/2024 Telephone [facility] [address] [place] [address] Macie Lerma OT 2024 Telephone [facility] [address] [place] [address] Macie Lerma OT 11/12/2024 Telephone [facility] [address] [place] [address] Macie Lerma OT 10/25/2024 Orders Only [facility] [address] [place] [address] Mandi Castillo RN from Last 3 Months [...] Description 01/07/2025 10:00 AM EST Office Visit [facility] Onc [address] [place] [address] Kristine Carroll MD [address] [place] [address] [email or web address] Health Maintenance Due Date Last Done Comments [...] FOBT 11/17/2007 SIGMOIDOSCOPY 11/17/2007 VIRTUAL COLONOSCOPY 11/17/2007 RSV VACCINE (1 - Risk 50-74 years 1-dose series) 2012 HEMOGLOBIN A1C 04/14/2014 10/12/2013, 07/03/2012 CREATININE LEVEL 10/12/2014 10/12/2013, 07/03/2012, 07/03/2012 POTASSIUM LEVEL 10/12/2014 10/12/2013, 07/03/2012 DIABETIC EYE EXAM 03/13/2024 BLOOD PRESSURE 09/20/2024 03/23/2024 INFLUENZA VACCINE (#1) 2024 COVID-19 VACCINE ( - 2024-2 6 season) 2024 SMOKING STATUS SCREENING (On ce [...] 6.9(Chemo alvarez H) 4.3 - 6.4 % [facility] Plasma Sodium 140 135 - 145 mmol/L [facility] Plasma Potassium 3.7 3.4 - 4.8 mmol/L [facility] Plasma Chloride 102 100 - 108 mmol/L [facility] Plasma Carbon Dioxide 25.4 23.0 - 31.9 mmol/L [facility] Plasma Urea Nitrogen 9 8 - 25 mg/dl [facility] Plasma Creatinine 0.71 0.60 - 1.50 mg/dl [facility] Plasma Glucose 89 70 - 110 mg/dl [facility] Calcium 9.3 8.5 - 10.5 mg/dl [facility] eGFR >60 mL/min/1. 73m2 [facility] Comment: Abnormal if <60 mL/min/1.73m2. If patient is -Swiss, multiply the result by 1.21. Plasma Anion GAP 13 3 - 15 mmol/L [facility] Calc Mean Bld Glucose 151 mg% [facility] Comment: There is no established normal [...] Creatine Kinase 103 40 - 150 U/L [facility] Prolactin 17.0 0.1 - 23.3 ng/ml [facility] T1-TSH 1.22 0.40 - 5.00 uU/ml [facility] 10/12/2013 1:55 PM EDT 10/12/2013 7:19 PM EDT Comment:BLOOD us Gino Horton MD LAB BLOOD ORDERABLES Final Res ult Performing Organization Address City/State/[facility] Co de Phone Number [address] [address] from Last 3 Months or Most Recently Relevant to Health Maintenance Insurance MEDICARE PART A & B FOR LIFE MEDICARE SUPPLEMENT MEDICARE PART A & B FOR LIFE MEDICARE SUPPLEMENT MEDICARE PART A & B MEDICARE PART A & B MEDICARE PART A & B FOR LIFE MEDICARE SUPPLEMENT MEDICARE PART A & B [facility] MED[facility] SUPPLEMENT MEDICARE PART A & B FOR LIFE MEDICARE SUPPLEMENT MEDICARE PART A & B MEDICARE PART A & B FOR LIFE MEDICARE SUPPLEMENT Care Teams Cracking Still Operator Relationship Specialty Start Date End Date Frances Cutler MD [address] [place] [address] [place] [address] PCP - General 09/04/13 Additional Source Comments The information contained in this document represents components of the legal health record. It is not the complete legal health record.[facility]
--- OUTSIDE RECORDS SUMMARY | 2024-12-18 18:32 | XMS_ITS | Patient Health Record ---
Author Organization [facility] Address [address] [place] [address] Care Team Providers Care Rib Builder Name Role Phone Frances Cutler Primary Care Provider Unavailab Surya Palacio Unavailable [phone] Nikole Bernard Unavailable Unavailable Allergies Allergen (clinical [...] 1 VIAL BY NEBULIZER BID PRF SOB Inhalation; Duration: 25 Active Immunizations Vaccine Route Administration Date [...] Problem Status W/U Status Risk Notes Problem Abnormal results of liver function studies (115167299) Abnormal results of liver function studies (R94.5) Active confirmed Problem Elevated liver enzymes level (770069916) Elevated liver function tests (R94.5) Active confirmed Plan Of Treatment Pending Test Test Name Order Date LIVER PROFILE 02/11/2019 IRON + IBC (FE) 02/11/2019 FERRITIN 02/11/2019 Future Test Test Name Order Date UPPER GI ENDOSCOPY 04/06/2011 Insurance Providers Payer Name Payer Address Payer Phone Subscriber Number Group Number Insured Name Patient Relationship to Insured Coverage Start Date Coverage End Date MEDICARE OF [facility] [address] [facility] [place] [address] [phone] [id number] 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 [place] [address] [phone] [id number] MANUEL WALDROP Self - patient is the insured Medical (General) History Medical History History ICD Code Beta-thalassemia trait, followed by Dr. 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 Regan Hypertension Sigmoid diverticulitis-sees Dr. 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
== END 2024-12-18 16:40 | disposition home or self-care (01) ==
LOC: HO.ENCR 16:04
PROVIDERS: PCP Internal Medicine; Visit Provider Physician Assistant Medical
DX: E11.9 Type 2 diabetes mellitus without complications (principal); Z79.4 Long term (current) use of insulin

== ENCOUNTER → 2024-12-18 16:03 | Outpatient (BNVA) | payer MEDICARE, OTHER, SELFPAY | PROVIDERS: PCP Internal Medicine; Visit Provider Physician Assistant Medical | DX: E11.9 Type 2 diabetes mellitus without complications (principal); E78.5 Hyperlipidemia, unspecified; Z79.4 Long term (current) use of insulin | CPT/HCPCS: 82947; 99212 ==

== ENCOUNTER 2024-12-25 10:44 | Outpatient (REF) | payer MEDICARE, OTHER, SELFPAY ==
[2024-12-25 11:45] LABS: Alanine Aminotransferase 38 U/L (0-31); Aspartate Amino Transferase 29 U/L (5-31); Cholesterol 224 mg/dL (<200); Estimated Glomerular Filt Rate > 60; HDL Cholesterol 46 mg/dL (>40); Triglycerides 232 mg/dL (<150)
--- OUTSIDE RECORDS SUMMARY | 2024-12-25 13:00 | XMS_ITS | Patient Health Record ---
Author Organization [facility] Address [address] [place] [address] Care Team Providers Care Engine Lathe Operator Name Role Phone Frances Cutler Primary Care Provider Unavailab Surya Palacio Unavailable [phone] Nikole Bernard Unavailable Unavailable Allergies Allergen (clinical [...] Problem Abnormal results of liver function studies (680200719) Abnormal results of liver function studies (R94.5) Active confirmed Problem Elevated liver enzymes level (855882586) Elevated liver function tests (R94.5) Active confirmed Plan Of Treatment Pending Test Test Name Order Date LIVER PROFILE 02/11/2019 IRON + IBC (FE) 02/11/2019 FERRITIN 02/11/2019 Future Test Test Name Order Date UPPER GI ENDOSCOPY 04/06/2011 Insurance Providers Payer Name Payer Address Payer Phone Subscriber Number Group Number Insured Name Patient Relationship to Insured Coverage Start Date Coverage End Date MEDICARE OF [facility] [address] [facility] [place] [address] [phone] [id number] 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 [place] [id number] MANUEL WALDROP Self - patient is the insured Medical (General) History Medical History History ICD Code Beta-thalassemia trait, followed by Dr. Bernard Blood clots in LE's during , tr eated with Lovenox Fibromyalgia PUD in her 20's Asthma DM Pituitary tumor by her report Denies hx of [place], CVA,and renal disease Negative colonoscopy 2010 with me and [address] Regan Hypertension Sigmoid diverticulitis-sees Dr. 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
--- OUTSIDE RECORDS SUMMARY | 2024-12-25 13:00 | XMS_ITS | Clinical Summary ---
Author Organization [facility] Address [address] [place] [address] Phone Care Team Providers Care Law Firm Administrator Name Role Phone Frances Cutler MD Primary [...] Type Department Care Team Description 11/23/2024 Telephone [facility] [address] [place] [address] Macie Lerma OT 2024 Telephone [facility] [address] [place] [address] Macie Lerma OT 11/12/2024 Telephone [facility] [address] [place] [address] Macie Lerma OT 10/25/2024 Orders Only [facility] Onc [address] [place] [address] Mandi Castillo RN from Last 3 Months [...] Description 01/07/2025 10:00 AM EST Office Visit [facility] On[facility] [address] [place] [address] Kristine Carroll MD [address] [place] [address] [email or web address] Health Maintenance Due Date Last Done Comments [...] 6.9(Chemo alvarez H) 4.3 - 6.4 % [facility] Plasma Sodium 140 135 - 145 mmol/L [facility] Plasma Potassium 3.7 3.4 - 4.8 mmol/L [facility] Plasma Chloride 102 100 - 108 mmol/L [facility] Plasma Carbon Dioxide 25.4 23.0 - 31.9 mmol/L [facility] Plasma Urea Nitrogen 9 8 - 25 mg/dl [facility] Plasma Creatinine 0.71 0.60 - 1.50 mg/dl [facility] Plasma Glucose 89 70 - 110 mg/dl [facility] Calcium 9.3 8.5 - 10.5 mg/dl [facility] eGFR >60 mL/min/1. 73m2 [facility] Comment: Abnormal if <60 mL/min/1.73m2. If patient is -Maltese, multiply the result by 1.21. Plasma Anion GAP 13 3 - 15 mmol/L [facility] Calc Mean Bld Glucose 151 mg% [facility] Comment: There is no established normal range [...] Creatine Kinase 103 40 - 150 U/L [facility] Prolactin 17.0 0.1 - 23.3 ng/ml [facility] T1-TSH 1.22 0.40 - 5.00 uU/ml [facility] 10/12/2013 1:55 PM EDT 10/12/2013 7:19 PM EDT Comment:BLOOD us Gino Horton MD LAB BLOOD ORDERABLES Final Res ult Performing Organization Address City/State/[facility] Co de Phone Number [address] [address] from Last 3 Months or Most Recently Relevant to Health Maintenance Insurance MEDICARE PART A & B FOR LIFE MEDICARE SUPPLEMENT MEDICARE PART A & B FOR LIFE MEDICARE SUPPLEMENT MEDICARE PART A & B MEDICARE PART A & B MEDICARE PART A & B FOR LIFE MEDICARE SUPPLEMENT [facility] Address: [address] [address] MEDICARE PART A & B [facility] MEDICARE SUPPLEMENT [facility] Address: [address] [address] MEDICARE PART A & B FOR LIFE MEDICARE SUPPLEMENT [facility] Address: [facility] [address] [place] [phone] MEDICARE PART A & B MEDICARE PART A & B FOR LIFE MEDICARE SUPPLEMENT Care Teams Law Firm Administrator Relationship Specialty Start Date End Date Frances Cutler MD [address] [place] [address] [place] [address] PCP - General 09/04/13 Additional Source Comments The information contained in this document represents components of the legal health record. It is not the complete legal health record.[facility]
[2025-01-01 07:39] LABS: Insulin Auto Antibody <0.4 U/mL (<0.4)
== END 2024-12-25 10:45 | disposition home or self-care (01) ==
LOC: HO.LAB 10:44
PROVIDERS: PCP Internal Medicine; Visit Provider Physician Assistant Medical
DX: E11.9 Type 2 diabetes mellitus without complications (principal); E78.5 Hyperlipidemia, unspecified; Z79.4 Long term (current) use of insulin
CPT/HCPCS: 36415; 80061; 82565; 84450; 84460; 84681; 86337; 86341

== ENCOUNTER 2024-12-31 09:29 | Outpatient (REF) | payer MEDICARE, OTHER, SELFPAY ==
--- OUTSIDE RECORDS SUMMARY | 2024-12-31 10:40 | XMS_ITS | Clinical Summary ---
Author Organization [facility] Address [address] [place] [address] Phone Care Team Providers Care Ethanol Maintenance Mechanic Name Role Phone Frances Cutler MD [...] Type Department Care Team Description 11/23/2024 Telephone [facility] [address] [place] [address] Macie Lerma OT 2024 Telephone [facility] [address] [place] [address] Macie Lerma OT 11/12/2024 Telephone [facility] [address] [place] [address] Macie Lerma OT 10/25/2024 Orders Only [facility] Rad Onc [address] [place] [address] Mandi Castillo RN from Last 3 Months [...] Description 01/07/2025 10:00 AM EST Office Visit [facility] Rad Onc [address] [place] [address] Kristine Carroll MD [address] [place] [address] [email or web address] Health Maintenance Due Date Last Done Comments [...] 6.9(Chemo alvarez H) 4.3 - 6.4 % [facility] Plasma Sodium 140 135 - 145 mmol/L [facility] Plasma Potassium 3.7 3.4 - 4.8 mmol/L [facility] Plasma Chloride 102 100 - 108 mmol/L [facility] Plasma Carbon Dioxide 25.4 23.0 - 31.9 mmol/L [facility] Plasma Urea Nitrogen 9 8 - 25 mg/dl [facility] Plasma Creatinine 0.71 0.60 - 1.50 mg/dl [facility] Plasma Glucose 89 70 - 110 mg/dl [facility] Calcium 9.3 8.5 - 10.5 mg/dl [facility] eGFR >60 mL/min/1. 73m2 [facility] Comment: Abnormal if <60 mL/min/1.73m2. If patient is -Citizen Of [place], multiply the result by 1.21. Plasma Anion GAP 13 3 - 15 mmol/L [facility] Calc Mean Bld Glucose 151 mg% [facility] Comment: There is no established normal [...] Creatine Kinase 103 40 - 150 U/L [facility] Prolactin 17.0 0.1 - 23.3 ng/ml [facility] T1-TSH 1.22 0.40 - 5.00 uU/ml [facility] 10/12/2013 1:55 PM EDT 10/12/2013 7:19 PM EDT Comment:BLOOD us Gino Horton MD LAB BLOOD ORDERABLES Final Res ult Performing Organization Address City/State/[facility] Co de Phone Number [address] [address] from Last 3 Months or Most Recently Relevant to Health Maintenance Insurance MEDICARE PART A & B FOR LIFE MEDICARE SUPPLEMENT MEDICARE PART A & B Member Subscriber Plan / Payer (Ef fective 2020-Present) Name:Maryjo Jefferson Member ID:[id number] Relation to Subscriber:Self Name:Maryjo Jefferson Subscriber ID:[id number] Payer ID:[id number] Group ID:Not on file Type:Medicare Address: [employer] [address] [place] [address] FOR LIFE MEDICARE SUPPLEMENT MEDICARE PART A & B Member Subscriber Plan / Payer (Ef fective 2020-) Name:Maryjo Jefferson Member ID:[id number] Relation to Subscriber:Self Name:Maryjo Jefferson Subscriber ID:[id number] Payer ID:[id number] Group ID:Not on file Type:Medicare Address: [employer] [address] [place] [address] MEDICARE PART A & B Member Subscriber Plan / Payer ( fective 2020-) Name:RonnyMorenoMaryjo Member ID:[id number] Relation to Subscriber:Self Name:Maryjo Jefferson Subscriber ID:[id number] Payer ID:[id number] Group ID:Not on file Type:Medicare Address: [facility] [address] [place] [address] MEDICARE PART A & B Member Subscriber Plan / Payer ( fective 2020-Present) Name:RonnyMorenoMaryjo Member ID:[id number] Relation to Subscriber:Self Name:RonnyMorenoMaryjo Subscriber ID:[id number] Payer ID:[id number] Group ID:Not on file Type:Medicare Address: [facility] [address] [place] [address] FOR LIFE MEDICARE SUPPLEMENT MEDICARE PART A & B Member Subscriber Plan / Payer (Ef fective 2020-Present) Name:Maryjo Jefferson Member ID:[id number] Relation to Subscriber:Self Name:Maryjo Jefferson Subscriber ID:[id number] Payer ID:[id number] Group ID:Not on file Type:Medicare Address: [facility] [address] [place] [address] [facility] MEDICARE SUPPLEMENT MEDICARE PART A & B Member Subscriber Plan / Payer (Ef fective 2020-Present) Name:Maryjo Jefferson Member ID:[id number] Relation to Subscriber:Self Name:Maryjo Jefferson Subscriber ID:[id number] Payer ID:[id number] Group ID:Not on file Type:Medicare Address: [facility] [employer] [address] [place] [phone] FOR LIFE MEDICARE SUPPLEMENT MEDICARE PART A & B Member Subscriber Plan / Payer (Ef fective 2020-Present) Name:Ronny Maryjo Member ID:[id number] Relation to Subscriber:Self Name:RonnyMorenoMaryjo Subscriber ID:[id number] Payer ID:[id number] Group ID:Not on file Type:Medicare Address: [facility] [address] [place] [address] MEDICARE PART A & B FOR LIFE MEDICARE SUPPLEMENT Care Teams Ethanol Maintenance Mechanic Relationship Specialty Start Date End Date Frances Cutler MD [address] [place] [address] [place] [address] PCP - General 09/04/13 Additional Source Comments The information contained in this document represents components of the legal health record. It is not the complete legal health record.[facility]
--- OUTSIDE RECORDS SUMMARY | 2024-12-31 10:40 | XMS_ITS | Patient Health Record ---
Author Organization [facility] Address [address] [place] [address] Care Team Providers Care Roadside Mechanic Name Role Phone Frances Cutler Primary Care Provider Unavailab Surya Palacio Unavailable [phone] Nikole Bernard Unavailable Unavailable Allergies Allergen (clinical [...] Problem Abnormal results of liver function studies (064214229) Abnormal results of liver function studies (R94.5) Active confirmed Problem Elevated liver enzymes level (833252866) Elevated liver function tests (R94.5) Active confirmed Plan Of Treatment Pending Test Test Name Order Date LIVER PROFILE 02/11/2019 IRON + IBC (FE) 02/11/2019 FERRITIN 02/11/2019 Future Test Test Name Order Date UPPER GI ENDOSCOPY 04/06/2011 Insurance Providers Payer Name Payer Address Payer Phone Subscriber Number Group Number Insured Name Patient Relationship to Insured Coverage Start Date Coverage End Date MEDICARE OF [facility] [address] [facility] [address] [id number] 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 [place] [id number] MANUEL WALDROP Self - patient is the insured Medical (General) History Medical History History ICD Code Beta-thalassemia trait, followed by Dr. Bernard Blood clots in LE's during , tr eated with Lovenox Fibromyalgia PUD in her 20's Asthma DM Pituitary tumor by her report Denies hx of [place], CVA,and renal disease Negative colonoscopy 2010 with me and [address] Regan Hypertension Sigmoid diverticulitis-sees Dr. 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
[2024-12-31 11:16] LABS: Estimated Glomerular Filt Rate > 60
== END 2024-12-31 09:30 | disposition home or self-care (01) ==
LOC: HO.LAB 09:29
PROVIDERS: PCP Internal Medicine; Visit Provider Physician Assistant Medical
DX: E11.9 Type 2 diabetes mellitus without complications (principal)
CPT/HCPCS: 36415; 82565

== ENCOUNTER 2025-01-07 09:27 | Outpatient (REF) | payer MEDICARE, OTHER, SELFPAY ==
--- NOTE | ~2025-01-07 | CT_ITS ---
EXAMINATION: CT SOFT TISSUE NECK WITHOUT CONTRAST CLINICAL INFORMATION: Enlarged neck lymph nodes on ultrasound, follow-up. COMPARISON: No prior ultrasound available for comparison. CT soft tissue neck 525, 10/17/2024. TECHNIQUE: Helical imaging of the neck was performed in the axial plane without contrast. Sagittal, coronal, and thin section axial reformatted images were constructed from the axial data set. This CT examination was performed using dose optimization techniques as appropriate, variously including the following: *Automated exposure control *Adjustment of mA and/or kV according to patient size (this includes techniques or standardized protocols for targeted exams where dose is matched to indication/reason for exam; i.e. extremities or head) *Use of iterative reconstruction technique FINDINGS: Of note, the examination is limited without the benefit of IV contrast. This limits the sensitivity of the study. Lymph Nodes: -Normal. There are no abnormally enlarged lymph nodes in the anterior or posterior cervical chains. Carotid Sheath Structures: -Normal. -Partial retropharyngeal course of the right distal CCA. Salivary Glands: -There is fatty change of both parotid and submandibular glands. There are no intrinsic lesions. There are no sialoliths. Tongue Base/Floor of Mouth: -Normal Mucosal Space: -Limited evaluation without the benefit of IV contrast. No gross lesion. -Normal-appearing soft palate, epiglottis, and aryepiglottic folds. -Normal-appearing tonsillar pillar soft tissues. Visceral Space: -Thyroid gland: Normal. -The larynx is normal. -Subglottic trachea is normal. -The cervical esophagus is normal. Retropharangeal Space: -Normal. Parapharyngeal Fat Planes: -Normal. Public Health Social Worker Spaces: -Normal. Anterior Cervical Space: -Normal. Imaged Intracranial Contents: -No mass affect or edema. The skull base is normal. Globes and Orbits: -Normal. Paranasal Sinuses/Mastoids/Tympanic Spaces: -Normally aerated bilaterally. Lung Apices and Superior Mediastinal Structures: -Imaged lung apices are clear and superior mediastinal structures are normal. Bony Structures: -No suspicious bone lesions. No fractures. -Normal TM joints. -Mild degenerative disc disease C5-6 and C6-7. CT/CT soft tissue neck wo IV con IMPRESSION: 1. Normal noncontrast CT examination of the neck. No mass or abnormal lymphadenopathy is present. Electronically signed by: Alex Will MD 01/07/2025 10:34 AM [facility]
--- NOTE | ~2025-01-07 | CT_ITS ---
EXAMINATION: CT CHEST WITHOUT CONTRAST CLINICAL INFORMATION: Adenopathy , follow-up COMPARISON: October 17, 2024 TECHNIQUE: Multidetector volumetric CT imaging of the chest was done. Axial MIP volume rendering provided. Sagittal and coronal reformatted images were obtained. This CT examination was performed using dose optimization techniques as appropriate, variously including the following: *Automated exposure control *Adjustment of mA and/or kV according to patient size (this includes techniques or standardized protocols for targeted exams where dose is matched to indication/reason for exam; i.e. extremities or head) *Use of iterative reconstruction technique FINDINGS: LUNGS: The lungs are clear with no evidence of inflammation or nodules. MEDIASTINUM: There is no adenopathy. Heart size is within normal limits. There is a small sliding hiatal hernia involving a portion of the gastric fundus. CORONARY ARTERY CALCIFICATION: Minimal PLEURA: There is no pleural effusion. No pleural mass or thickening. AXILLA: No lymphadenopathy. Again seen is a spiculated low attenuating lesion with peripheral soft tissue density and skin retraction in the subareolar region of the right breast measuring 2.0 x 4.5 cm previously 2.8 x 4.1 cm. UPPER ABDOMEN: Diffuse low attenuation is noted through the visible portions of the liver with mild focal sparing along the gallbladder fossa. OSSEOUS STRUCTURES: Again seen is a small sclerotic lesion in the anterior left fourth rib. On the thin sections from the prior study, the lesion measures 1086 Hounsfield units which is most consistent with a benign bone island. It has been present since at least April 16, [address]/CT chest wo IV con IMPRESSION: No adenopathy. Again seen is a spiculated lesion with central low density in the subareolar region of the right breast. This could represent posttreatment changes or malignancy. Correlate with history. Sclerotic lesion in the anterior left fourth rib has been present since 2019 and demonstrates features most consistent with a benign bone island. Fleischner guidelines were followed. Electronically signed by: José Miguel Dutton MD 01/07/2025 10:22 AM GWEN
--- OUTSIDE RECORDS SUMMARY | 2025-01-07 10:40 | XMS_ITS | Data Portability ---
Author Organization [facility], [address] Address [address] [place] [address] Care Team Providers Care Rn Acute Dialysis Name Role Phone TAMMYMELYADASHELLEY Primary Care Provider Assessment No assessment recorded. Plan of Treatment Reminders Order Date Submit Date Provider Last Modified By Organization Details Last Modified Time Details Appointments None recorded. Lab None recorded. Referral None recorded. Procedures None recorded. Surgeries None recorded. Imaging None recorded. Medication Orders prednisone 10 mg tablet 2022 023 [id number], [address] [place], [place], [id number], 10:47:16 loratadine 10 mg tablet 2022 023 [facility] [employer] [facility] #[id number], [address], [place], [phone], 10:47:12 Patient TargetsNo targets recorded. Patient Instructions Encounter Date Encounter Id Patient Instructions Last Modified By Organization Details Last Modified Time 05/28/2022 [id number] eustachian tube problems: care instructions [email or web address] Not available 05/28/2022 10:47:01 Based on your physical exam and presentation, you are being diagnosed with Eustachian Tube Dysfunction. This occurs when fluid/mucous or swelling closes off the tubes that help the ears equalize the pressure. The following are my recommendations to help with these symptoms and get this condition to resolve: 1. Saline Nasal [place] 2. 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 Procedures Surgical History Date Name Laterality Status Provider Name and Address Organization Details Recorded Time accessory sinus excision completed KIM DEPINTO PA - [facility] 05/28/2022 10:10:24 removal of product of conception of ectopic completed KIM DEPINTO PA - [facility] [...] Name and Address Organization Details Recorded Time 569327 Product containin g penicilli n (product) medicatio n anaphylax is Not available Not available 05/28/2022 03055 8001 SNOMED KIM DEPINTO null, PA - [facility] 3 10:05:09 209756 iodine medicatio n hives Not available Not available 05/28/2022 5933 RxNorm KIM DEPINTO null, PA - [facility] 3 10:05:44 351744 albuterol medicatio n palpitati ons Not available Not available 05/28/2022 435 RxNorm KIM DEPINTO null, PA - [facility] 3 10:06:01 894786 clindamyc in Not available hives Not available Not available 05/28/2022 2582 RxNorm KIM DEPINTO null, PA - [facility] 3 10:06:15 371971 Savella medicatio n hives Not available Not available 05/28/2022 69002 6 RxNorm KIM DEPINTO null, PA - [facility] 3 10:06:47 266921 shellfish derived food,medi cation anaphylax is Not [...] and Address Organization Details Last Updated DateTime 68582.4 7 g 36.6 kg/m2 157.48 cm 7 18 /min 97.5 [degF] 97 % 97 % 85 /min 117/82 mm[Hg] KIM SNEHAO PA - [facility] 10:12:58 Social History Question Answer Notes LastModified by Neterion Details LastModified Time Tobacco Smoking Status Never Smoker KIM diaz, PA - [facility] 05/28/2022 10:10:10 Have You Recently Traveled Abroad? No Information not available 05/28/2022 Sex: Unknown Functional Status Question Answer Note LastModified by Neterion Details LastModified Time Do you use any [...] Diagnosis SNOMED-CT Code Diagnosis ICD10 Code Diagnosis IMO Codes Diagnosis Note [id number] [address] [place] [address] 08/24/2021 10:52:46 08/24/2021 14:14:12 [id number] [address] [place] [address] 10/07/2019 12:59:32 10/07/2019 13:36:45 [id number] [address] [place] [address] 10/04/2020 08:12:05 10/04/2020 08:37:59 [id number] [address] [place] [address] 07/04/2021 18:40:37 07/04/2021 20:20:24 [id number] [address] [place] [address] 06/13/2020 15:34:37 06/13/2020 16:55:09 [id number] [address] [place] [address] 12/27/2020 08:24:44 12/27/2020 10:17:27 [id number] [address] [facility] [place] [address] 09/03/2018 13:00:08 09/03/2018 14:35:12 [id number] [address] [place] [address] 05/20/2021 08:29:49 05/20/2021 09:29:51 [id number] [address] [place] [address] 09/28/2020 08:30:23 09/28/2020 09:37:27 [id number] [facility] [address] [place] [address] 05/28/2022 08:25:13 05/28/2022 10:47:43 Dysfunction of left eustachian tube 3644259043 156644 H69.92 Stop the Afrin Health Concerns Section [...] SUPPLEMENT) Maryjo Jefferson 05/28/2022 1 MEDICARE B-[place]: [employer] Maryjo Jefferson [id number] Maryjo Jefferson 05/28/2022 2 FOR LIFE ( - MEDICARE SUPPLEMENT) Tim Jefferson [id number] Maryjo Jefferson Notes Date Note Type Note Provider Name and Address Organization Details Recorded Time 05/28/2022 text/html Ear Pain Brief HPIReported by PatientHPIFor quality, patient reportssharp painbut reportsno discharge from the ears. For context, patient reportsrecent airplane travel. For associated symptoms, patient reportshearing loss,sense of fullness/pressure, andmuffled hearingbut reportsno coughandno jaw popping or clicking. For location, patient reportsleft. For onset/timing, patient reportsstarted 3weeks ago. For severity, patient reportsno fever,able to perform daily activities, andno interference with sleep. For alleviating factors, patient reportsoral antibiotics (no relief)andototopical antibiotics: ___ (no relief)(afrin - no relief.).The patient states that her symptoms started after flying. The patient reports that she saw her PCP who prescribed oral antibiotics, ear drops, and Afrin. She states her PCP said it was angry and infected. She completed that course and is not getting any relief. She states ears are driving her crazy. [facility] FLORES [address] [place], [address], [place] - [facility] 05/28/2022 10:50:17 OBGyn Episode No OBEpisode recorded.
--- OUTSIDE RECORDS SUMMARY | 2025-01-07 10:40 | XMS_ITS | Patient Health Record ---
Author Organization [facility] Address [address] [place] [address] Care Team Providers Care Survey Research Professor Name Role Phone Frances Cutler Primary Care Provider Unavailab Surya Palacio Unavailable [phone] Nikole Bernard Unavailable Unavailable Allergies Allergen (clinical drug ingredient) Drug/Non Drug Allergy documented on EMR Reaction Allergy Type Onset Date Status Penicillin Unknown Drug Allergy Active milnacipran Savella Unknown Drug Allergy Activ e vancomycin Vancomycin HCl Unknown Drug Allergy A ctive Iodine Unknown Drug Allergy Active albuterol Albuterol sensitivity Drug Allergy Activ e Shellfish (FN) shell fish (uncoded) Unknown Allergy Active Reason For Referral No Information [...] Problem Abnormal results of liver function studies (139698545) Abnormal results of liver function studies (R94.5) Active confirmed Problem Elevated liver enzymes level (491393774) Elevated liver function tests (R94.5) Active confirmed Plan Of Treatment Pending Test Test Name Order Date LIVER PROFILE 02/11/2019 IRON + IBC (FE) 02/11/2019 FERRITIN 02/11/2019 Future Test Test Name Order Date UPPER GI ENDOSCOPY 04/06/2011 Insurance Providers Payer Name Payer Address Payer Phone Subscriber Number Group Number Insured Name Patient Relationship to Insured Coverage Start Date Coverage End Date MEDICARE OF [facility] [address] [place] [address] [phone] [id number] 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 [place] [address] [id number] MANUEL WALDROP Self - patient is the insured Medical (General) History Medical History History ICD Code Beta-thalassemia trait, followed by Dr. Bernard Blood clots in LE's during , tr eated with Lovenox Fibromyalgia PUD in her 20's Asthma DM Pituitary tumor by her report Denies hx of [place], CVA,and renal disease Negative colonoscopy 2010 with me and [address] Regan Hypertension Sigmoid diverticulitis-sees Dr. 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
--- OUTSIDE RECORDS SUMMARY | 2025-01-07 10:40 | XMS_ITS | Clinical Summary ---
Author Organization [facility] Address [address] [address] Phone Care Team Providers Care Compressor Operator Portable Name Role Phone Frances Cutler MD Primary [...] Type Department Care Team Description 11/23/2024 Telephone [facility] [address] [place] [address] Macie Lerma OT 2024 Telephone [facility] [address] [place] [address] Macie Lerma OT 11/12/2024 Telephone [facility] [address] [place] [address] Macie Lerma OT 10/25/2024 Orders Only [facility] At [facility] Rad Onc [address] [place] [address] Mandi Castillo RN from Last 3 Months [...] Team (Late st Contact Info) Description 01/07/2025 2:50 PM EST Office Visit [facility] Cancer [facility] At [facility] Rad Onc [address] [place] [address] Kristine Carroll MD [address] [place] [address] [email or web address] Health Maintenance Due Date Last Done Comments [...] 6.9(Chemo alvarez H) 4.3 - 6.4 % [facility] Plasma Sodium 140 135 - 145 mmol/L [facility] Plasma Potassium 3.7 3.4 - 4.8 mmol/L [facility] Plasma Chloride 102 100 - 108 mmol/L [facility] Plasma Carbon Dioxide 25.4 23.0 - 31.9 mmol/L [facility] Plasma Urea Nitrogen 9 8 - 25 mg/dl [facility] Plasma Creatinine 0.71 0.60 - 1.50 mg/dl [facility] Plasma Glucose 89 70 - 110 mg/dl [facility] Calcium 9.3 8.5 - 10.5 mg/dl [facility] eGFR >60 mL/min/1. 73m2 [facility] Comment: Abnormal if <60 mL/min/1.73m2. If patient is -[place], multiply the result by 1.21. Plasma Anion GAP 13 3 - 15 mmol/L [facility] Calc Mean Bld Glucose 151 mg% [facility] Comment: There is no established normal [...] Creatine Kinase 103 40 - 150 U/L [facility] Prolactin 17.0 0.1 - 23.3 ng/ml [facility] T1-TSH 1.22 0.40 - 5.00 uU/ml [facility] 10/12/2013 1:55 PM EDT 10/12/2013 7:19 PM EDT Comment:BLOOD us Gino Horton MD LAB BLOOD ORDERABLES Final Res ult Performing Organization Address City/State/[facility] Co de Phone Number [address] [address] from Last 3 Months or Most Recently Relevant to Health Maintenance Insurance MEDICARE PART A & B FOR LIFE MEDICARE SUPPLEMENT MEDICARE PART A & B [employer] LIFE MEDICARE SUPPLEMENT MEDICARE PART A & B MEDICARE PART A & B MEDICARE PART A & B FOR LIFE MEDICARE SUPPLEMENT [facility] Address: [address] [address] MEDICARE PART A & B [facility] SA[facility] MEDICARE SUPPLEMENT [facility] Address: [address] [address] MEDICARE PART A & B FOR LIFE MEDICARE SUPPLEMENT [facility] Address: [facility] [address] [place] [phone] MEDICARE PART A & B MEDICARE PART A & B FOR LIFE MEDICARE SUPPLEMENT Care Teams Compressor Operator Portable Relationship Specialty Start Date End Date Frances Cutler MD [address] [place] [address] [place] [address] PCP - General 09/04/13 Additional Source Comments The information contained in this document represents components of the legal health record. It is not the complete legal health record.[facility]
== END 2025-01-07 09:28 | disposition home or self-care (01) ==
LOC: HO.CT 09:27
PROVIDERS: PCP Internal Medicine; Visit Provider Internal Medicine Medical Oncology
DX: R59.0 Localized enlarged lymph nodes (principal); C50.911 Malignant neoplasm of unspecified site of right female breast
CPT/HCPCS: 70490; 71250

== ENCOUNTER → 2025-01-07 09:29 | Outpatient (BNV) | payer MEDICARE, OTHER, SELFPAY | PROVIDERS: PCP Internal Medicine; Visit Provider Radiology Diagnostic Radiology | DX: R59.0 Localized enlarged lymph nodes (principal) | CPT/HCPCS: 70490 ==

== ENCOUNTER 2025-01-16 14:19 | Outpatient (REF) | payer MEDICARE, OTHER, SELFPAY ==
--- OUTSIDE RECORDS SUMMARY | 2025-01-07 14:50 | XMS_ITS | Encounter Summary ---
Author Organization [facility] Address [facility] [employer] [address] [address] Phone Care Team Providers Care Quality Review Specialist Name Role Phone Frances Cutler MD Primary Care Provider Reason for Visit * Reason Comments Follow Up Visit Malignant neoplasm o f lower-outer quadrant of right breast of female, estrogen receptor positive Encounter Details Date Type Department Care Team (Late st Contact Info) Description 01/07/2025 2:50 PM EST Office Visit [facility] At [facility] Rad Onc [address] [place] [phone] Kristine Carroll MD [address] [place] [phone] [email or web address] Malignant neoplasm of lower-outer quadrant of right breast of female, estrogen receptor positive (Primary Dx) Social History Tobacco Use Types Packs/Day Years Used Date Smoking Tobacco: Never Alcohol Use Standard Drinks/Week Comments Not Currently [...] on file Sexual Orientation Not on file documented as of this encounter Progress Notes * Lubna Gomez MA - 01/07/2025 2:50 PM EST Completed treatment: 06/01/24 area treated: R breast Med onc: Marco Antonio about 2 wks next: q 3 mo Surgeon: Jass next: none Med/surg changes: enlarged LNs in R pot. Neck in 06/2024 - ED in [facility] did Iosco test which was positive. CT showed signs of metastatic disease . Had FU CT yesterday which was normal. 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 Margins are close at 1 mm at the new anterior lateral margin. Others are negative. ER/KS positive HER2 negative Oncotype 12. No lymphovascular invasion; C50.511 Area Treated Right Breast Delivered Dose / Rx Dose 4256 cGy / 4256 cGy Dose Per Fraction 266 cGy Delivered Fractions / Prescribed Fractions Modality 6MV & 15MV @ Isodose Technique Opposed Tangential Start Date 05/07/2024 End Date 05/28/2024 Elapsed Days 22 Area Treated R Breast Boost Delivered Dose / Rx Dose 1000 cGy / 1000 cGy Dose Per Fraction 250 cGy Delivered Fractions / Prescribed Fractions 4 / 4 Modality e15 @ 100% Rx to Technique ELECTRONS Start Date 05/29/2024 End Date 06/01/2024 Elapsed Days 4 Progress Report: Relative to her breast cancer she has done quite well. She completed her radiation on June 01, 2024 and had some mild swelling and discomfort in her right breast which has improved. She denies any pain in her right breast at this time. She did have an unusual clinical situation relative to some swelling in her upper right neck. She was seen at the emergency department at [facility] in June 2024 when a monotest was shown to be positive. A CT scans showed some adenopathy in the right posterior neck. She has had 2 CAT scans since her last 1 yesterday was reported as normal. She does havehoarseness which has been present since the spring. She is scheduled for ear nose and throat physician evaluation in the next month. Her next mammogram is January 2025 next week. She is followed by the lymphedema nurse at the [facility] OT therapies department. She continues on letrozole which she tolerates well. Physical Exam: Well-nourished well-developed female in no acute distress. Examination of the head and neck region shows the posterior right neck to have no lymphadenopathy. Examination of the mid cervical region again shows no lymphadenopathy. No supraclavicular lymph nodes. Oropharyngeal examination shows the tongue to be soft midline without mass or lesion. Both tonsillar sulci are normal. Softpalate appears normal. Tongue appears normal base of tongue normal. No evidence of any mucosal changes. Examination of the right breast shows to be small in size. There is no radiation changes. No evidence of any mass nipple discharge or lesion. Right axilla is negative. Left breast also small without mass nipple discharge or tenderness left axilla is normal. Abdomen soft without hepatosplenomegaly masses or tenderness. Response to Radiation: No evidence of recurrence. Plan: She will have a mammogram performed next week. She will also see her ear nose and throat physician. She is free to return to our department to see our new radiation oncologist next year. Will continue to follow with Dr. Bernard at [facility]. Enjoyed working with her. Addendum January 14, 2025: Patient brought in reports from CT of the neck performed July 12, 2024 which showed greater than expected number of slightly rounded cervical and supraclavicular lymph nodes right greater than left. A follow-up CT soft tissue neck performed October 17, 2024 showed decreased size and improved previously noted rounded configuration of multiple cervical lymph nodes. For example previously where there was an abnormally rounded right level 5B lymph node which measured 9 mm in size which currently measures 5 mm in size. She also had a repeat CT repeat scan of her chest performed on October 17, 2024 which shows the previously noted abnormal rounded supraclavicular lymph nodes to have resolved. There is also noted to be sclerotic osseous density in the left anterior rib measuring 6 x 5 mm. May be due to an old healedfracture. She also had indeterminate mass in the lower inner quadrant of the right breast measuring 4.1 x 2.8 cm. This is the area that was treated by lumpectomy and radiation. The patient has asked me to write her a note relative to the [facility] and her potential exposure to [place]. This will be created as a separate note dated today. Kristine Carroll MD [facility] Department of Radiation Oncology at [facility] documented in this encounter Plan of Treatment Not on file documented as of this encounter Visit Diagnoses Diagnosis Malignant neoplasm of lower-outer quadrant of right breast of female, estrogen receptor positive- Primary documented in this encounter Care Teams Quality Review Specialist Relationship Specialty Start Date End Date Frances Cutler MD [address] [place] [address] [place] [address] PCP - General 09/04/13 documented as of this encounter Additional Source Comments The information contained in this document represents components of the legal health record. It is not the complete legal health record.[facility]
--- NOTE | ~2025-01-16 | MM_ITS ---
EXAMINATION: MM DIAGNOSTIC DIGITAL BREAST TOMOSYNTHESIS, BILATERAL CLINICAL INFORMATION: History of right breast cancer status post lumpectomy 2023 and revision 2024 for top hat clip. COMPARISON: Mammography: Comparison is made with relevant prior exams. TECHNIQUE: Digital breast mammography with tomosynthesis is performed in both the craniocaudal and mediolateral oblique views along with computer-aided detection (CAD). FINDINGS: There are scattered areas of fibroglandular density. Right breast and axillary post lumpectomy changes. There are no significant masses, abnormal calcifications, or other abnormalities. Results are provided to the patient at time of visit by the technologist. MM/MM tomosynthesis diagnostic BI IMPRESSION: There are no significant changes from prior study. ASSESSMENT: BI-RADS Category 2: Benign RECOMMENDATION: 1 year F/U This patient's information was entered into a reminder system with a target due date for their next mammogram. Electronically signed by: Sushma Murillo DO 01/16/2025 03:25 PM [facility]
--- OUTSIDE RECORDS SUMMARY | 2025-01-16 17:47 | XMS_ITS | Encounter Summary ---
Author Organization [facility] Address [facility] hospital [place] [address] [address] Phone Care Team Providers Care Mechanical Development Engineer Name Role Phone Frances Cutler MD Primary Care Provider Encounter Details Date Type Department Care Team (Late st Contact Info) Description 01/14/2025 Documentation [facility] At [facility] Rad Onc [address] [place] [address] Kristine Carroll MD [address] [place] [address] [email or web address] Social History Tobacco Use Types Packs/Day Years [...] as of this encounter Progress Notes * Kristine Carroll MD - 01/14/2025 4:29 PM EST January 14, 2025 To whom it may concern; Diagnosis and treatment received: Stage I; T1c (0.9 cm and 0.5 cm) 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 Margins are close at 1 mm at the new anterior lateral margin. Others are negative. ER/MT positive HER2 negative Oncotype 12. No lymphovascular invasion; C50.511 Area Treated Right Breast Delivered Dose / Rx Dose 4256 cGy / 4256 cGy Dose Per Fraction 266 cGy Delivered Fractions / Prescribed Fractions 16 Modality 6MV & 15MV @ Isodose Technique Opposed Tangential Start Date 05/07/2024 End Date 05/28/2024 Elapsed Days 22 Area Treated R Breast Boost Delivered Dose / Rx Dose 1000 cGy / 1000 cGy Dose Per Fraction 250 cGy Delivered Fractions / Prescribed Fractions Modality e15 @ 100% Rx to Technique ELECTRONS Start Date 05/29/2024 End Date 06/01/2024 Elapsed Days 4 Mrs. 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 She had many trips for medical sick call due to chemical exposure. Because of exposure she was required to weara mask when working in the room with chemicals. Her diagnosis of breast cancer was initiated by a diagnostic mammogram on January 12, 2024 revealing asymmetry in the lower central right breast at posterior depth. Biopsy showed a grade 1 mucinous carcinoma. When she went on to have an excisional biopsy on 02/20/2024 showing 2 specimens of disease; one 9 mm and one 5 mm in size (total size 1.4 cm) consistent with an invasive mucinous grade 1 carcinoma. She had a close margin of less than 1 mm and therefore had a reexcision. 3 lymph nodes were removed all negative. ER MT positive HER2/yobany negative Oncotype DX was 12. As noted above she had radiation completing 20 fractions to a total dose of 5256 cGy to the tumor volume of the right breast completed on June 01, 2024. I saw her in follow-up on January 07 at which time there was no signs of recurrence. I am not a first beater and have no expertise in exposure to chemicals and development of breast cancer. However as described in a letter from Dr. Bernard on January 03, 2025, she did have specific exposure to chemicals which include benzene a known human carcinogen and a component of many paint thinners. Methylene chloride is also a chemical associated with breast cancer. It is entirely likely that some of the causative factors of her breast cancer could include exposure to toxic chemicals while in the . Respectfully; Kristine Carroll MD Department of radiation oncology [facility] documented in this encounter Plan of Treatment Not on file documented as of this encounter Visit Diagnoses Not on filedocumented in this encounter Care Teams Mechanical Development Engineer Relationship Specialty Start Date End Date Frances Cutler MD [address] [place] [address] [place] [address] PCP - General 09/04/13 documented as of this encounter Additional Source Comments The information contained in this document represents components of the legal health record. It is not the complete legal health record.[facility]
--- OUTSIDE RECORDS SUMMARY | 2025-01-16 17:47 | XMS_ITS | Patient Health Record ---
Author Organization [facility] Address [address] [place] [address] Care Team Providers Care Heating Technician Name Role Phone Frances Cutler Primary Care Provider Unavailab Surya Palacio Unavailable [phone] Nikole Bernard Unavailable Unavailable Allergies Allergen (clinical [...] Problem Abnormal results of liver function studies (378733391) Abnormal results of liver function studies (R94.5) Active confirmed Problem Elevated liver enzymes level (990806346) Elevated liver function tests (R94.5) Active confirmed Plan Of Treatment Pending Test Test Name Order Date LIVER PROFILE 02/11/2019 IRON + IBC (FE) 02/11/2019 FERRITIN 02/11/2019 Future Test Test Name Order Date UPPER GI ENDOSCOPY 04/06/2011 Insurance Providers Payer Name Payer Address Payer Phone Subscriber Number Group Number Insured Name Patient Relationship to Insured Coverage Start Date Coverage End Date [facility] [address] [facility] [place] [address] [id number] 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 [place] [address] [phone] [id number] MANUEL WALDROP Self - patient is the insured Medical (General) History Medical History History ICD Code Beta-thalassemia trait, followed by Dr. Bernard Blood clots in LE's during , tr eated with Lovenox Fibromyalgia PUD in her 20's Asthma DM Pituitary tumor by her report Denies hx of [place], CVA,and renal disease Negative colonoscopy 2010 with me and [address] Regan Hypertension Sigmoid diverticulitis-sees Dr. 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
--- OUTSIDE RECORDS SUMMARY | 2025-01-16 17:47 | XMS_ITS | Clinical Summary ---
Author Organization [facility] Address [address] [address] Phone Care Team Providers Care Customer Agent Name Role Phone Frances Cutler MD Primary [...] Encounters Date Type Department Care Team Description 01/14/2025 Documentation [facility] Rad Onc [address] [place] [address] Kristine Carroll MD 01/07/2025 2:50 PM EST Office Visit [facility] Rad Onc [address] [place] [address] Kristine Carroll MD Malignant neoplasm of lower-outer quadrant of right breast of female, estrogen receptor positive (Primary Dx) 11/23/2024 Telephone [facility] [address] [place] [address] Macie Lerma OT 2024 Telephone [facility] [address] [place] [address] Macie Lerma OT 11/12/2024 Telephone [facility] [address] [place] [address] Macie Lerma OT 10/25/2024 Orders Only [facility] Rad Onc [address] [place] [address] Mandi Castillo RN from Last 3 Months [...] 03/23/2024 12:57 PM EST Plan of Treatment Health Maintenance Due Date Last Done Comments [...] VACCINE (#1) 2024 COVID-19 VACCINE (1 - 2024-2 6 season) 2024 SMOKING STATUS SCREENING (On ce After 26 Yrs) Completed 03/23/2024 HEPATITIS A VACCINES Aged Out No long er eligible based on patient's age to complete this topic HIB VACCINES Aged Out No longer eligi ble based on patient's age to complete this topic IPV VACCINES Aged Out No longer eligi ble [...] 6.9(Abnor antonio H) 4.3 - 6.4 % [facility] Plasma Sodium 140 135 - 145 mmol/L [facility] Plasma Potassium 3.7 3.4 - 4.8 mmol/L [facility] Plasma Chloride 102 100 - 108 mmol/L [facility] Plasma Carbon Dioxide 25.4 23.0 - 31.9 mmol/L [facility] Plasma Urea Nitrogen 9 8 - 25 mg/dl [facility] Plasma Creatinine 0.71 0.60 - 1.50 mg/dl [facility] Plasma Glucose 89 70 - 110 mg/dl [facility] Calcium 9.3 8.5 - 10.5 mg/dl [facility] eGFR >60 mL/min/1. 73m2 [facility] Comment: Abnormal if <60 mL/min/1.73m2. If patient is -Albanian, multiply the result by 1.21. Plasma Anion GAP 13 3 - 15 mmol/L [facility] Calc Mean Bld Glucose 151 mg% [facility] Comment: There is no established normal [...] Creatine Kinase 103 40 - 150 U/L [facility] Prolactin 17.0 0.1 - 23.3 ng/ml [facility] T1-TSH 1.22 0.40 - 5.00 uU/ml [facility] 10/12/2013 1:55 PM EDT 10/12/2013 7:19 PM EDT Comment:BLOOD Gino Horton MD LAB BLOOD ORDERABLES Final Res ult [facility] [address] [place] [address] from Last 3 Months or Most Recently Relevant to Health Maintenance Insurance MEDICARE PART A & B [facility] [employer] MEDICARE SUPPLEMENT [facility] Address: [address] [address] MEDICARE PART A & B [employer] [facility] MEDICARE SUPPLEMENT [facility] Address: [address] [address] MEDICARE PART A & B MEDICARE PART A & B MEDICARE PART A & B MEDICARE SUPPLEMENT MEDICARE PART A & B [facility] MEDICARE SUPPLEMENT [facility] Address: [address] [address] MEDICARE PART A & B Member Subscriber Plan / Payer (Ef fective 2020-Present) Name:Maryjo Jefferson Member ID:[id number] Relation to Subscriber:Self Name:RonnyMorenoMaryjo Subscriber ID:[id number] Payer ID:[id number] Group ID:Not on file Type:Medicare Address: [employer] [address] FOR LIFE MEDICARE SUPPLEMENT MEDICARE PART A & B Member Subscriber Plan / Payer (Ef fective 2020-Present) Name:Moreno Jeffersonicita Member ID:[id number] Relation to Subscriber:Self Name:Maryjo Jefferson Subscriber ID:[id number] Payer ID:[id number] Group ID:Not on file Type:Medicare Address: [employer] [address] [place] [id number] MEDICARE PART A & B [employer] MEDICARE SUPPLEMENT Care Teams Customer Agent Relationship Specialty Start Date End Date Frances Cutler MD [address] [place] [address] [place] [address] PCP - General 09/04/13 Additional Source Comments The information contained in this document represents components of the legal health record. It is not the complete legal health record.[facility]
--- OUTSIDE RECORDS SUMMARY | 2025-01-16 17:47 | XMS_ITS | Data Portability ---
Author Organization [facility] [address] Address [address] [place] [address] Care Team Providers Care Special Effects Technician Name Role Phone TAMMYMELYADASHELLEY Primary Care Provider Assessment No assessment recorded. Plan of Treatment Reminders Order Date Submit Date Provider Last Modified By Organization Details Last Modified Time Details Appointments None recorded. Lab None recorded. Referral None recorded. Procedures None recorded. Surgeries None recorded. Imaging None recorded. Medication Orders prednisone 10 mg tablet 2022 023 [facility] [employer] [id number], [address], [place], [phone], 10:47:16 loratadine 10 mg tablet 2022 023 [id number], [address], [place], [id number], 10:47:12 Patient TargetsNo targets recorded. Patient Instructions Encounter Date Encounter Id Patient Instructions Last Modified By Organization Details Last Modified Time 05/28/2022 [id number] eustachian tube problems: care instructions [email or web address] Not available 05/28/2022 10:47:01 Based on your physical exam and presentation, you are being diagnosed with Eustachian Tube Dysfunction. This occurs when fluid/mucous or swelling closes off the tubes that help the ears equalize the pressure. The following are my recommendations to help with these symptoms and get this condition to resolve: 1. Saline Nasal [place] 2. Antihistamines like Claritin, Zyrtec, Hillary, or [...] to call or reach out to us. [email or web address] Not available 05/28/2022 10:46:50 Reason for Referral None Reported. 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 KIM DEPINTO null, [place] - [facility] 10:08:55 Asthma 907991179 Active 2022 KIM DEPINTO null, [place] - [facility] 10:09:04 Beta thalassemia 23355580 Active 2022 KIM DEPINTO null, [place] - [facility] 10:09:17 Hypercholester olemia 57685658 Active 2022 KIM DEPINTO null, [place] - [...] Name and Address Organization Details Recorded Time 375188 Product containin g penicilli n (product) medicatio n anaphylax is Not available Not available 05/28/2022 70024 8001 SNOMED KIM DEPINTO null, [place] - [facility] 10:05:09 986703 iodine medicatio n hives Not available Not available 05/28/2022 5933 RxNorm KIM DEPINTO null, [place] - [facility] 10:05:44 246413 albuterol medicatio n palpitati ons Not available Not available 05/28/2022 435 RxNorm KIM DEPINTO null, [place] - [facility] 10:06:01 860254 clindamyc in Not available hives Not available Not available 05/28/2022 2582 RxNorm KIM DEPINTO null, [place] - [facility] 10:06:15 454607 Savella medicatio n hives Not available Not available 05/28/2022 37024 6 RxNorm KIM DEPINTO null, [place] - [facility] 3 10:06:47 282388 shellfish derived food,medi cation anaphylax is Not [...] and Address Organization Details Last Updated DateTime 77029.4 7 g 36.6 kg/m2 157.48 cm 7 18 /min 97.5 [degF] 97 % 97 % 85 /min 117/82 mm[Hg] KIM SNEHAO [place] - [facility] 10:12:58 Social History Question Answer Notes LastModified by ShowKit Details LastModified Time Tobacco Smoking Status Never Smoker KIM diaz, [place] - [facility] 05/28/2022 10:10:10 Have You Recently Traveled Abroad? No Information not available 05/28/2022 Sex: Unknown Functional Status Question Answer Note LastModified by [employer] Details LastModified Time Do you use any [...] ICD10 Code Diagnosis IMO Codes Diagnosis Note [id number] [address] [place] [address] 08/24/2021 10:52:46 08/24/2021 14:14:12 [id number] [address] [place] [address] 10/07/2019 12:59:32 10/07/2019 13:36:45 [id number] [address] [place] [address] 10/04/2020 08:12:05 10/04/2020 08:37:59 [id number] [address] [place] [address] 07/04/2021 18:40:37 07/04/2021 20:20:24 [id number] [address] [place] [address] 06/13/2020 15:34:37 06/13/2020 16:55:09 [id number] [address] [place] [address] 12/27/2020 08:24:44 12/27/2020 10:17:27 [id number] [address] [place] [address] 09/03/2018 13:00:08 09/03/2018 14:35:12 [id number] [address] [facility] [place] [place] [address] 05/20/2021 08:29:49 05/20/2021 09:29:51 [id number] [address] [place] [address] 09/28/2020 08:30:23 09/28/2020 09:37:27 [id number] [facility] [address] [place] [address] 05/28/2022 08:25:13 05/28/2022 10:47:43 Dysfunction of left eustachian tube [id number] 065261 H69.92 Stop the Afrin Health Concerns Section [...] SUPPLEMENT) Maryjo Jefferson 05/28/2022 1 MEDICARE B-[place]: [employer] Maryjo Jefferson [id number] Maryjo Jefferson 05/28/2022 2 FOR LIFE ( - MEDICARE SUPPLEMENT) Tim Jefferson [id number] Maryjo Jefferson Notes Date Note Type Note [...] [facility] [address] [place], [address], [place] - [facility] 05/28/2022 10:50:17 OBGyn Episode No OBEpisode recorded.
== END 2025-01-16 14:20 | disposition home or self-care (01) ==
LOC: HO.MAMMO 14:19
PROVIDERS: Absent Provider Internal Medicine; PCP Internal Medicine Medical Oncology; Visit Provider Surgery
DX: Z85.3 Personal history of malignant neoplasm of breast (principal)
CPT/HCPCS: 77062; 77066

== ENCOUNTER → 2025-01-16 14:30 | Outpatient (BNV) | payer MEDICARE, OTHER, SELFPAY | PROVIDERS: Absent Provider Internal Medicine; PCP Internal Medicine Medical Oncology; Visit Provider Internal Medicine | DX: Z85.3 Personal history of malignant neoplasm of breast (principal) | CPT/HCPCS: 77066; G0279 ==

== ENCOUNTER 2025-01-22 09:38 | Outpatient (REF) | payer MEDICARE, OTHER, SELFPAY ==
[2025-01-22 10:54] LABS: Estimated Glomerular Filt Rate > 60
== END 2025-01-22 09:39 | disposition home or self-care (01) ==
LOC: HO.LAB 09:38
PROVIDERS: PCP Internal Medicine; Visit Provider Internal Medicine Endocrinology, Diabetes & Metabolism
DX: E11.9 Type 2 diabetes mellitus without complications (principal); Z79.4 Long term (current) use of insulin
CPT/HCPCS: 36415; 82565; 82947; 84681